=== PATIENT | male | born 1945 | race Caucasian/White ===

== ENCOUNTER 2016-07-31 17:58 | Inpatient (IN) ==
[2016-07-31] MEDS ORDERED: Ipratropium/Albuterol Neb 3 ML IH ONE ×2 (18:06→20:09)
[2016-07-31] MEDS ORDERED: methylPREDNISolone 125 MG/2 ML VIAL IVP ONE (18:08)
--- NOTE | 2016-07-31 18:19 | Emergency Department Note ---
START Narrative - START START: I examined this patient and my medical decision-making was reviewed with the TRANSPORTATION TECHNICIAN/PA/Advanced Practice Nurse/Resident Physician. I agree with the documented findings, disposition and treatment plan as described except to the extent set forth below. ED attending note: Patient seen with emergency medicine resident Dr. Pereyra. Please see a copy of his note for details of the H&P, evaluation, management and disposition of this patient. We independently had [id number] contact with the patient Briefly: A 70-year-old male ambulatory with the son history of smoking and COPD increasing shortness of breath and fatigue for the past several days. Cough with occasional green sputum questionable chills and tactile fevers. Bilateral rhonchi with expiratory wheezes. Patient given a double DuoNeb IV steroids EKG shows nonspecific ST-T changes. No acute ischemic changes noted when compared to prior EKG. Troponin chest x-ray nebulizing treatments and IV steroids among other workup is pending. Disposition pending. Provided 35 minutes of critical care services for this patient.
--- NOTE | 2016-07-31 18:35 | Emergency Department Note ---
Disposition Clinical Impression: Wheezing COPD (chronic obstructive pulmonary disease) Qualifiers: COPD type: unspecified COPD Qualified Code(s): J44.9 - Chronic obstructive pulmonary disease, unspecified Disposition: Still a Patient Condition: Fair Time of Disposition: 18:42 SOB HPI - General Stated Complaint: SY, low O2 sats, chest congestion Time Seen by Provider: 07/31/16 18:03 Source: patient, family Limitations: no limitations Nursing Notes Reviewed: Yes Vital Signs Reviewed: Yes - History of Present Illness Patient presents emergency room in the care of the son for evaluation of shortness of breath. Patient has underlying pulmonary disease secondary to chronic smoking. Son was concerned because he is working harder to breathe and felt like he could not get his breath. Vitamin D the ER for evaluation today. Denied productive sputum or cough. Denies fevers chills nausea vomiting or diarrhea. Denied chest pain. A component in presentation today was shortness of breath that has been persistently getting worse secondary to his known COPD and emphysema Pt Subjective Complaint: shortness of breath Onset (ago): day(s) Severity: moderate Consistency/Duration: constant Improves with: nothing Worsens with: lying flat, exertion, movement, coughing Known history of: COPD Associated symptoms: Reports: cough, wheezing, sputum production, orthopnea Treatment prior to arrival: bronchodilator Cough present: Yes Cough Description: Voluntary Cough Frequency: Intermittent Sputum production: Yes Sputum Amount: Small Sputum Color: Clear - Related Data Home oxygen amount: none Home Medications Medication Instructions Recorded Confirmed Bisacodyl [Correctol] 5 mg PO DAILY PRN 11/16/14 09/08/15 Calcium Carbonate [Calcium] 500 mg PO DAILY 11/16/14 09/08/15 Carvedilol [Coreg] 25 mg PO BID 11/16/14 09/08/15 Finasteride [Proscar] 5 mg PO DAILY 11/16/14 09/08/15 Furosemide [Lasix] 20 mg PO BID 11/16/14 09/08/15 Simvastatin [Zocor] 20 mg PO DAILY 11/16/14 09/08/15 Aspirin [Adult Low Dose Aspirin EC] 81 mg PO DAILY 05/15/15 09/08/15 Omeprazole Magnesium [Prilosec Otc] 40 mg PO DAILY 05/15/15 09/08/15 Spironolactone [Aldactone] 25 mg PO BID 05/15/15 09/08/15 Acetaminophen [Tylenol] 500 mg PO TID PRN 08/15/15 09/25/15 Collagenase Oint [Santyl] 30 gm TP DAILY 08/15/15 09/25/15 Docusate [Colace] 100 mg PO BID 08/15/15 09/25/15 Escitalopram [Lexapro] 10 mg PO DAILY 08/15/15 09/25/15 Gabapentin [Neurontin] 600 mg PO TID 08/15/15 09/25/15 Magnesium Oxide [Magnesium] 400 mg PO BID 08/15/15 09/25/15 Mirtazapine [Remeron] 7.5 mg PO HS 08/15/15 09/25/15 Polyvinyl Alcohol/Povidone/Pf 1 drop BOTH EYES QID 08/15/15 09/25/15 [Refresh Classic Eye Drops] Terazosin [Hytrin] 1 mg PO HS 08/15/15 09/25/15 Previous Rx's Medication Instructions Recorded Clopidogrel [Plavix] 75 mg PO DAILY #30 tablet 08/17/15 Allergies Allergy/AdvReac Type Severity Reaction Status Date / Time baclofen AdvReac Drowsy Verified 11/16/14 07:46 All systems ED: reviewed and negative except as stated. Constitutional: Denies: fever, chills Cardiovascular: Reports: dyspnea on exertion, orthopnea. Denies: chest pain, palpitations Respiratory: Reports: cough, dyspnea, wheezes Gastrointestinal: Denies: nausea Musculoskeletal: Denies: back pain, neck pain Neurological: Denies: headache Past Medical History - Past Medical History Attestation: Yes The following information was validated with the patient. Source: patient Medical history: Reports: atrial fibrillation, COPD, coronary artery disease, hyperlipidemia, hypertension, myocardial infarction, peripheral artery disease, renal disease Surgical history: Reports: angioplasty/stent, appendectomy, LE Bypass, LE vascular intervention, other Psychiatric history: Reports: anxiety, depression - Social History Smoking Status: Current every day smoker Smokeless Tobacco Status: No Alcohol use: Reports: none Drug use: Reports: none Physical Exam - General Limitations: no limitations General appearance: alert - Neck Neck exam: Present: normal inspection, full ROM, trachea midline. Absent: tenderness, meningismus, lymphadenopathy - Chest Chest inspection: Present: normal inspection, symmetric chest wall rise. Absent : tenderness - Respiratory Respiratory exam: Present: respiratory distress, wheezes, accessory muscle use. Absent: stridor - Cardiovascular Cardiovascular exam: Present: regular rate, normal rhythm, normal heart sounds - Abdominal Exam Abdominal exam: Present: soft, Non-Tender, normal bowel sounds (Midline ventral hernia with no bowel entrapment on exam), hernia. Absent: tenderness, distention, guarding, rebound, rigidity, pulsatile mass - Extremities Exam Extremities exam: Present: normal inspection, full ROM, normal capillary refill - Back Exam Back exam: Present: normal inspection - Neurological Exam Neurological exam: Present: alert, oriented X3, CN II-XII intact - Skin Skin exam: Present: warm, dry, intact, normal color Course Course Narrative: Patient seen and examined the time of arrival. See history of present illness. 70-year-old male presents from home today for evaluation of increased work of breathing and shortness of breath. He has had intermittent productive clear sputum over the last several days. He has a long-standing history of COPD and emphysema. He has not been on steroids or antibiotics anytime recently. Patient presents here today with increased work of breathing accessory muscle use diffuse wheezing on exam. Vital signs reviewed and are stable he is visibly working harder to breathe. He has hypoxia that was noted in the triage evaluation. Patient otherwise resting comfortably in the bed at this time conversationally dyspneic with 2 L nasal cannula oxygen running. Physical examination shows diffuse wheezing bilaterally in the lungs heart is regular abdomen is soft nontender nondistended no guarding or rigidity does have a midline ventral hernia no signs of entrapment. No pulsatile mass noted on exam. Extremities appear to be normal with no signs of acute fluid buildup. No pain with ambulation or movement. Patient this point is concerning for CHF/ COPD exacerbation. Chronic underlying medical issues noted on initial triage evaluation. Patient will have been in treatment steroids provided at this time. We will continue to monitor his workup and treatment course are reviewed. EKG troponin chest x-ray BNP at this time. Breathing treatments and steroids also ordered. Disposition pending treatment course. Initial EKG shows what appears to be a sinus arrhythmia. Atrial fibrillation was read on the EKG but based on medical history EKG morphology in presentation or shortness of breath this could be secondary to his respirations. Repeat evaluation of recommended to the nighttime physicians as treatment course is completed. Patient will be signed out to the nighttime physicians Drs. rich and dr. vickers. Patient will most likely need admission for definitive management and evaluation of COPD exacerbation. Underlying medical conditions to be determined. Patient is comfortable resting in the bed at this time disposition pending treatment course Vital Signs Temperature 98.6 F 07/31/16 18:08 Pulse Rate 87 07/31/16 18:08 Respiratory Rate 22 07/31/16 18:08 Blood Pressure 184/84 07/31/16 18:08 O2 Sat by Pulse Oximetry 88 07/31/16 18:08 Temperature 98.6 F 07/31/16 18:08 Pulse Rate 87 07/31/16 18:08 Respiratory Rate 18 07/31/16 18:12 Blood Pressure 184/84 07/31/16 18:08 O2 Sat by Pulse Oximetry 91 07/31/16 18:12 Oxygen Delivery Oxygen Delivery Nasal Cannula Shortness of Breath/Dyspnea - MDM Narrative Medical decision making narrative: Increased work of breathing, shortness of breath, wheezing, COPD exacerbation - Medical Records Medical records reviewed: Yes I reviewed the patient's medical records. - Lab Data Lab results reviewed: Yes I reviewed the patient's lab results. - EKG Data EKG attestation: Yes I reviewed and interpreted this EKG. Interpretation: Reports: other (Patient has normal morphology in comparison to previous EKG. Left axis deviation noted. No acute signs of left ventricular hypertrophy. Patient has what appears to be sinus arrhythmia based on morphology at this time. Repeat EKG to be completed once bleeding controlled) Critical Care Time Critical Care Time: Yes Total Critical Care Time: 35 Attestation: Independent of medical management and treatment course
[2016-07-31 18:46] LABS: Basophils % 0.4 %; Eosinophils # 0.5 K/mcL (0.0-0.6); Eosinophils % 4.5 %; Hematocrit 42.6 % (37.5-50.1); Hemoglobin 13.8 g/dL (12.9-16.9); Immature Granulocytes % 0.4 % (0-4); Lymphocytes # 1.6 K/mcL (0.6-4.6); Lymphocytes % 15.5 %; Mean Corpuscular HGB Conc 32.4 g/dL (31.6-35.5); Mean Corpuscular Hemoglobin 29.1 pg (28.0-33.3); Mean Corpuscular Volume 89.9 fL (83.0-100.0); Mean Platelet Volume 9.5 fL (9.4-12.4); Monocytes # 1.1 K/mcL (0.0-1.3); Monocytes % 10.8 %; Neutrophils # 7.2 K/mcL (1.6-8.9); Platelet Count 216 K/mcL (140-400); Red Blood Count 4.74 M/mcL (4.19-5.50); Red Cell Distribution Width 12.8 % (11.5-14.5); Segmented Neutrophils % 68.4 %
[2016-07-31 18:58] LABS: Potassium 4.4 mEq/L (3.5-4.5)
--- NOTE | 2016-07-31 19:08 | Emergency Department Note ---
Disposition Clinical Impression: Wheezing, GEOFFREY (acute kidney injury), Hypoxia COPD (chronic obstructive pulmonary disease) Qualifiers: COPD type: unspecified COPD Qualified Code(s): J44.9 - Chronic obstructive pulmonary disease, unspecified Disposition: Admitted As Inpatient Condition: Fair Referrals: NO,PCP [Non-Partnered Physician] - Forms: ED Satisfaction Letter Time of Disposition: 19:31 SOB HPI - General Chief Complaint: ED Shortness of Breath/Dyspnea Stated Complaint: SY, low O2 sats, chest congestion Time Seen by Provider: 07/31/16 18:03 Source: patient, family Limitations: no limitations Nursing Notes Reviewed: Yes Vital Signs Reviewed: Yes - History of Present Illness Severity: moderate Improves with: nothing Worsens with: lying flat, exertion, movement, coughing Associated symptoms: Reports: cough, wheezing, sputum production, orthopnea Treatment prior to arrival: bronchodilator - Related Data Home oxygen amount: none Home Medications Medication Instructions Recorded Confirmed Bisacodyl [Correctol] 5 mg PO DAILY PRN 11/16/14 09/08/15 Calcium Carbonate [Calcium] 500 mg PO DAILY 11/16/14 09/08/15 Carvedilol [Coreg] 25 mg PO BID 11/16/14 09/08/15 Finasteride [Proscar] 5 mg PO DAILY 11/16/14 09/08/15 Furosemide [Lasix] 20 mg PO BID 11/16/14 09/08/15 Simvastatin [Zocor] 20 mg PO DAILY 11/16/14 09/08/15 Aspirin [Adult Low Dose Aspirin EC] 81 mg PO DAILY 05/15/15 09/08/15 Omeprazole Magnesium [Prilosec Otc] 40 mg PO DAILY 05/15/15 09/08/15 Spironolactone [Aldactone] 25 mg PO BID 05/15/15 09/08/15 Acetaminophen [Tylenol] 500 mg PO TID PRN 08/15/15 09/25/15 Collagenase Oint [Santyl] 30 gm TP DAILY 08/15/15 09/25/15 Docusate [Colace] 100 mg PO BID 08/15/15 09/25/15 Escitalopram [Lexapro] 10 mg PO DAILY 08/15/15 09/25/15 Gabapentin [Neurontin] 600 mg PO TID 08/15/15 09/25/15 Magnesium Oxide [Magnesium] 400 mg PO BID 08/15/15 09/25/15 Mirtazapine [Remeron] 7.5 mg PO HS 08/15/15 09/25/15 Polyvinyl Alcohol/Povidone/Pf 1 drop BOTH EYES QID 08/15/15 09/25/15 [Refresh Classic Eye Drops] Terazosin [Hytrin] 1 mg PO HS 08/15/15 09/25/15 Previous Rx's Medication Instructions Recorded Clopidogrel [Plavix] 75 mg PO DAILY #30 tablet 08/17/15 Allergies Allergy/AdvReac Type Severity Reaction Status Date / Time baclofen AdvReac Drowsy Verified 11/16/14 07:46 Constitutional: Denies: fever, chills Cardiovascular: Reports: dyspnea on exertion, orthopnea. Denies: chest pain, palpitations Respiratory: Reports: cough, dyspnea, wheezes Gastrointestinal: Denies: nausea Musculoskeletal: Denies: back pain, neck pain Neurological: Denies: headache Past Medical History - Past Medical History Medical history: Reports: atrial fibrillation, COPD, coronary artery disease, hyperlipidemia, hypertension, myocardial infarction, peripheral artery disease, renal disease Surgical history: Reports: angioplasty/stent, appendectomy, LE Bypass, LE vascular intervention, other Psychiatric history: Reports: anxiety, depression - Social History Smoking Status: Current every day smoker Smokeless Tobacco Status: No Alcohol use: Reports: none Drug use: Reports: none Physical Exam - General Limitations: no limitations General appearance: alert - Head Head exam: atraumatic, normocephalic, normal inspection - Eye Eye exam: Present: normal appearance, PERRL, EOMI - ENT ENT exam: normal exam, normal oropharynx, mucous membranes moist - Neck Neck exam: Present: normal inspection, full ROM, trachea midline - Chest Chest inspection: Present: normal inspection, symmetric chest wall rise - Respiratory Respiratory exam: Present: wheezes (wheezes throughout) - Cardiovascular Cardiovascular exam: Present: regular rate, normal rhythm, normal heart sounds - Abdominal Exam Abdominal exam: Present: soft, Non-Tender. Absent: tenderness, distention, guarding, rebound, rigidity - Extremities Exam Extremities exam: Present: normal inspection, full ROM. Absent: tenderness, pedal edema - Back Exam Back exam: Present: normal inspection, full ROM. Absent: tenderness - Neurological Exam Neurological exam: Present: alert, oriented X3. Absent: motor sensory deficit - Psychiatric Psychiatric exam: Present: normal affect, normal mood - Skin Skin exam: Present: warm, dry, intact, normal color Course Course Narrative: Patient was a signout from the day team, Dr. Pereyra and Dr. Magallanes. Please see their notes for any additional details. In summary, patient is a 70-year- old male with past medical history of COPD. He states that he has had difficulty with breathing for several years but has not taken any medication for this. He came in today due to shortness of breath. He has no productive cough, denies any fevers, nausea, vomiting, diarrhea, chest pain. He does not wear any oxygen home. When he came in today, he was hypoxic. On exam, patient had wheeze throughout. He was satting 96% on 2 L nasal cannula. EKG shows sinus arrhythmia. Rate 88. No acute ST elevation or depression. Labs underway. PAtient has GEOFFREY. Patient was given DuoNeb and steroids. We will admit after workup completed. Currently waiting on troponin and chest x-ray. 07:21 and troponin 0.05. Patient given aspirin 325 mg. No chest pain at this time. Currently waiting on chest x-ray. 07:22 CXR shows some pulm venous congestion. Will start on levaquin for possible COPD exacerbation. Vital Signs Temperature 98.6 F 07/31/16 18:08 Pulse Rate 87 07/31/16 18:08 Respiratory Rate 22 07/31/16 18:08 Blood Pressure 184/84 07/31/16 18:08 O2 Sat by Pulse Oximetry 88 07/31/16 18:08 Temperature 98.6 F 07/31/16 18:08 Pulse Rate 81 07/31/16 19:42 Respiratory Rate 20 07/31/16 19:42 Blood Pressure 153/76 07/31/16 19:42 O2 Sat by Pulse Oximetry 90 07/31/16 19:42 Oxygen Delivery Oxygen Delivery Nasal Cannula Shortness of Breath/Dyspnea - MDM Narrative Medical decision making narrative: Patient was a signout from the day team, Dr. Pereyra and Dr. Magallanes. Please see their notes for any additional details. In summary, patient is a 70-year- old male with past medical history of COPD. He states that he has had difficulty with breathing for several years but has not taken any medication for this. He came in today due to shortness of breath. He has no productive cough, denies any fevers, nausea, vomiting, diarrhea, chest pain. He does not wear any oxygen home. When he came in today, he was hypoxic. On exam, patient had wheeze throughout. He was satting 96% on 2 L nasal cannula. EKG shows sinus arrhythmia. Rate 88. No acute ST elevation or depression. Labs underway. PAtient has GEOFFREY. Patient was given DuoNeb and steroids. We will admit after workup completed. Currently waiting on troponin and chest x-ray. 07:21 and troponin 0.05. Patient given aspirin 325 mg. No chest pain at this time. Currently waiting on chest x-ray. 07:22 CXR shows some pulm venous congestion. Will start on levaquin for possible COPD exacerbation. - Medical Records Medical records reviewed: Yes I reviewed the patient's medical records. - Lab Data Lab results reviewed: Yes I reviewed the patient's lab results. Result diagrams: 07/31/16 18:34 07/31/16 18:34 Lab Results 07/31/16 07/31/16 07/31/16 Range/Units 18:34 18:34 18:34 WBC 10.5 (4.3-11.1) K/mcL RBC 4.74 (4.19-5.50) M/mcL Hgb 13.8 (12.9-16.9) g/dL Hct 42.6 (37.5-50.1) % MCV 89.9 (83.0-100.0) fL MCH 29.1 (28.0-33.3) pg MCHC 32.4 (31.6-35.5) g/dL RDW 12.8 (11.5-14.5) % Plt Count 216 (140-400) K/mcL MPV 9.5 (9.4-12.4) fL Immature Gran % 0.4 (0-4) % Seg Neutrophils % 68.4 % Lymphocytes % 15.5 % Monocytes % 10.8 % Eosinophils % 4.5 % Basophils % 0.4 % Neutrophils # 7.2 (1.6-8.9) K/mcL Lymphocytes # 1.6 (0.6-4.6) K/mcL Monocytes # 1.1 (0.0-1.3) K/mcL Eosinophils # 0.5 (0.0-0.6) K/mcL Basophils # 0.0 (0.0-0.2) K/mcL Sodium 136 (136-145) mEq/L Potassium 4.4 (3.5-4.5) mEq/L Chloride 98 (98-109) mEq/L Carbon Dioxide 29 (19-29) mEq/L BUN 34 H (8-26) mg/dL Creatinine 2.74 H (0.72-1.25) mg/dL Est GFR ( Amer) 28 L (> 60) Est GFR (Non-Af Amer) 23 L (> 60) BUN/Creatinine Ratio 12 (6-26) Glucose 109 H (70-99) mg/dL Calculated Osmolality 290 (280-300) Calcium 9.0 (8.6-10.8) mg/dL Troponin I 0.05 H* (0-0.03) ng/mL B-Natriuretic Peptide (0-100) pg/mL 07/31/16 Range/Units 18:34 WBC (4.3-11.1) K/mcL RBC (4.19-5.50) M/mcL Hgb (12.9-16.9) g/dL Hct (37.5-50.1) % MCV (83.0-100.0) fL MCH (28.0-33.3) pg MCHC (31.6-35.5) g/dL RDW (11.5-14.5) % Plt Count (140-400) K/mcL MPV (9.4-12.4) fL Immature Gran % (0-4) % Seg Neutrophils % % Lymphocytes % % Monocytes % % Eosinophils % % Basophils % % Neutrophils # (1.6-8.9) K/mcL Lymphocytes # (0.6-4.6) K/mcL Monocytes # (0.0-1.3) K/mcL Eosinophils # (0.0-0.6) K/mcL Basophils # (0.0-0.2) K/mcL Sodium (136-145) mEq/L Potassium (3.5-4.5) mEq/L Chloride (98-109) mEq/L Carbon Dioxide (19-29) mEq/L BUN (8-26) mg/dL Creatinine (0.72-1.25) mg/dL Est GFR ( Amer) (> 60) Est GFR (Non-Af Amer) (> 60) BUN/Creatinine Ratio (6-26) Glucose (70-99) mg/dL Calculated Osmolality (280-300) Calcium (8.6-10.8) mg/dL Troponin I (0-0.03) ng/mL B-Natriuretic Peptide 550 H (0-100) pg/mL - Radiology Data Radiology results reviewed: Yes I reviewed the patient's radiology results. - EKG Data EKG attestation: Yes I reviewed and interpreted this EKG. EKG results narrative: 07/31/2016 18:08. Sinus arrhythmia. Rate 88. QRS 122. QTC 419. No acute ST elevation or depression. [email or web address] - Lexy Situation: Demographics, MOA Background: Presenting Complaint, Relevant PMH, Meds, & Allergies Assessment: Vital Signs, Course and respsone to treatment, Exam Concerns, Patient/Family Expectation, Pertinant Lab Results, Outstanding Labs Recommendation: Barrier(s) to disposition, Recommendation based on pending studies, treatments, or consults [facility] Report Given to: Dr. Sendy Pugh Repor Time: 19:22 Attestation Statement - Attestation Attestation: I examined this patient and my medical decision-making was reviewed with the CLINICAL RESEARCH SPECIALIST/PA/Advanced Practice Nurse/Resident Physician. I agree with the documented findings, disposition and treatment plan as described except to the extent set forth below. Patient signed out pending workup and admission. Patient has had symptoms of cough and shortness of breath since yesterday. History of COPD that is untreated. Coughing up yellow phlegm. Afebrile. Diffuse wheezing on exam. Satting 92% on 2 L. Patient does not have home oxygen. Patient will be admitted. Patient also has a worsening of his chronic renal insufficiency. 30 minutes of critical care exclusive of separately billable procedures.
[2016-07-31] MEDS ORDERED: Aspirin 325 MG TABLET PO ONE (19:11)
[2016-07-31] MEDS ORDERED: Naloxone 0.4 MG/ML INJ IVP PRN (20:12)
[2016-07-31] MEDS ORDERED: Albuterol 2.5 MG/3 ML NEBULIZER IH PRN (20:25)
[2016-07-31] MEDS ORDERED: *HR* OxyCODONE/APAP 5/325 TABLET PO ONE (20:26)
[2016-07-31] MEDS ORDERED: Furosemide 20 MG/2 ML VIAL IVP ONE (20:32)
[2016-07-31] MEDS: Ipratropium/Albuterol Neb 3 ML IH SCH ×2 (20:38→22:24)
--- NOTE | 2016-07-31 20:39 | Internal Med History&Physical ---
<Blanca Landry M - Last Filed: 07/31/16 22:00> Date of Encounter: 07/31/16 Time of Encounter: 20:34 Assessment and Plan (1) Acute respiratory failure with hypoxia Current visit: No Status: Acute Patient satting in the 80s on room air. Up to 96% on 2L NC. Patient is drowsy but arousable. Will get ABG anc consider bipap based on results. (2) Congestive heart failure Current visit: Yes Status: Acute acute diastolic congestive heart failure. Patient with shortness of breath, and CXR consistent with mild acute CHF, diffuse wheezing on exam. BNP elevated to 550. Lasix 40mg IVP BID daily weights I/Os cardiac diet with 1.5L fluid restriction. Qualifiers: Congestive heart failure type: unspecified congestive heart failure type Congestive heart failure chronicity: chronic Qualified Code(s): I50.9 - Heart failure, unspecified (3) COPD exacerbation Current visit: Yes Status: Acute Patient with COPD, does not wear oxygen at home, reports he uses a "puffer" occasionally. He comes in today with increased shortness of breath and productive cough. Satting in the 80s on room air. CXR consistent with mild CHF. On exam, patient with prolonged expiratory phase, and diffuse wheezes. duonebs QID albuterol nebulizer Q2 hr PRN Budesonide/formoterol BID 125mg IVP solumedrol given in ED. 40mg IVP solumedrol Q6hr titrate oxygen to maintain O2 sat > 90% Rocephin IVPB (4) Acute on chronic renal insufficiency Current visit: No Status: Acute Today's creatinine 2.7, up from previous of 1.7. However, previous values seem to range from (5) Elevated troponin Current visit: No Status: Acute Troponin of 0.05 in the setting of CKD. Troponin is chronically elevated. Patient denies any chest pain. Serial troponins for trend. (6) Smoker Current visit: Yes Status: Acute Patient continues to smoke 1PPD. Discussed smoking cessation, patient not ready to quit Nicotine patch ordered. (7) DVT prophylaxis Current visit: Yes Status: Acute Ambulate with assistance anti-embolic stockings Heparin 5000u SQ TID Internal Medicine - H&P: HPI Chief complaint: shortness of breath Admitted From: Emergency Dept Plans for Post Hospital Care: Home History of present illness: Mr. Jackson is a 70 year old male with afib, COPD, CAD, HTN, HLD, PVD, CKD who presented to the ED today with complaints of increased shortness of breath and productive cough over the last several days. Patient reports he's felt short of breath for 3 days and had a cough productive of yellow sputum, and it has been getting worse. He denies any palpitations, chest pain, headache, fever, chills, sweats, nausea or vomiting. Evaluation in the ED included a chest xray which showed mild acute congestive heart failure. WBC was normal at 10.5. Troponin was elevated to 0.05, but it is chronically elevated. BNP was elevated to 550, up from previous value of 461. EKG showed sinus arrhythmia. Creatinine was elevated to 2.74, up from previous value of 1.71, however, patient's creatinine varies and has been higher in the past. On exam, patient is drowsy, but arousable, oriented, and in no acute distress. Lungs have diffuse wheezes bilaterally and he has a prolonged expiratory phase. Heart has regular rate and rhythm. He was satting 96% on 2L NC. Past Med Surg Social Fam HX - Past Medical History Medical history: atrial fibrillation, COPD, coronary artery disease, hyperlipidemia, hypertension, myocardial infarction, peripheral artery disease, renal disease Psychiatric history: anxiety, depression - Past Surgical History Surgical History: angioplasty/stent, appendectomy, LE Bypass, LE vascular intervention, other - Social History Smoking Status: Current every day smoker Smokeless Tobacco Status: No Alcohol use: none Drug use: none - Family History Mother Adopted: No Living Status: Hx Family Cardiac Disorders: No Hx Family Respiratory Disorders: No Hx Family Cancer: No Hx Family GI Disorders: No Hx Family Endocrine Disorder: No Hx Family Neuromuscular Disorders: No Hx Family Neurologic Disorders: No Hx Family HEENT Disorders: No Hx Family Autoimmune Disorders: No Internal Medicine - H&P: Meds Carvedilol [Coreg] 25 mg PO BID 11/16/14 [History] Finasteride [Proscar] 5 mg PO DAILY 11/16/14 [History] Spironolactone [Aldactone] 25 mg PO DAILY 05/15/15 [History] Collagenase Oint [Santyl] 1 appl TP AD 08/15/15 [History] Docusate [Colace] 100 mg PO BID 08/15/15 [History] Gabapentin [Neurontin] 600 mg PO TID 08/15/15 [History] Magnesium Oxide [Magnesium] 400 mg PO BID 08/15/15 [History] Terazosin [Hytrin] 1 mg PO HS 08/15/15 [History] Clopidogrel [Plavix] 75 mg PO DAILY #30 tablet 08/17/15 [Rx] Acetaminophen [Tylenol] 650 mg PO TID 07/31/16 [History] Allopurinol [Zyloprim 100 MG] 50 mg PO DAILY 07/31/16 [History] Aspirin Enteric Coated [Aspirin EC] 325 mg PO DAILY 07/31/16 [History] Calcium Carbonate/Vitamin D3 [Calcium 500-Vit D3 200 Tablet] 1 each PO DAILY [History] Capsaicin 0.025% [Trixaicin] 1 appl TP TID PRN 07/31/16 [History] Escitalopram [Lexapro] 20 mg PO DAILY 07/31/16 [History] Furosemide [Lasix] 20 mg PO BID 07/31/16 [History] Hydroxyzine HCl 25 mg PO BID 07/31/16 [History] Lidocaine 4% CRM (LMX) [Lmx 4] 1 appl TP BID 07/31/16 [History] Mirtazapine [Remeron] 30 mg PO HS 07/31/16 [History] Mupirocin [Bactroban Oint] 1 appl TP TID 07/31/16 [History] Omeprazole [PriLOSEC] 40 mg PO DAILY 07/31/16 [History] Simvastatin [Zocor] 20 mg PO HS 07/31/16 [History] Allergies Amoxicillin [From Augmentin] Adverse Reaction (Verified 07/31/16 21:45) See Comments [facility] atorvastatin [From Lipitor] Adverse Reaction (Verified 07/31/16 21:45) See Comments [facility] baclofen Adverse Reaction (Verified 11/16/14 07:46) Drowsy clavulanic acid [From Augmentin] Adverse Reaction (Verified 07/31/16 21:45) See Comments [facility] fluorouracil [From Efudex] Adverse Reaction (Verified 07/31/16 21:45) See Comments [facility] hydroxyzine [From Vistaril] Adverse Reaction (Verified 07/31/16 21:45) See Comments [facility] sulfamethoxazole [From Bactrim] Adverse Reaction (Verified 07/31/16 21:45) See Comments [facility] trimethoprim [From Bactrim] Adverse Reaction (Verified 07/31/16 21:45) See Comments [facility] list All Systems PM: A 10-system review of systems was performed and is negative for pertinent findings except as documented above in the HPI. - Constitutional Constitutional: no chills, no fever(s), no night sweats - EENT Eyes: no change in vision, no discharge, no pain, no photophobia Ears: no ear discharge, no ear pain, no tinnitus Nose, mouth and throat: no dysphagia, no nasal discharge, no neck pain, no sore throat - Cardiovascular Cardiovascular ROS IM: dyspnea, dyspnea on exertion, no chest pain, no diaphoresis, no lightheadedness, no palpitations, no syncope - Respiratory Respiratory: cough, dyspnea, dyspnea on exertion, wheezing, excessive phlegm production - Gastrointestinal Gastrointestinal: no abdominal pain, no diarrhea, no hematemesis, no hematochezia, no melena, no nausea, no vomiting - Musculoskeletal Musculoskeletal ROS IM: no numbness, no tingling - Integumentary Integumentary IM: no rash, no unusual bruising - Neurological Neurological ROS: no confusion, no convulsions, no focal weakness, no numbness, no tingling, no tremor(s) - Hematologic/Lymphatic Hematologic/Lymphatic: no easy bruising - Constitutional Vitals: Temp Pulse Resp BP Pulse Ox 98.6 F 81 18 153/76 94 07/31/16 18:08 07/31/16 19:42 07/31/16 20:30 07/31/16 19:42 07/31/16 20:30 General appearance: Present: A&O X 3, pleasant, no acute distress - Head Head exam: Present: atraumatic, normocephalic - Eye Eye exam: Present: PERRL, conjuntiva pink, sclera anicteric - Neck Neck exam general surgery: Present: supple, trachea midline. Absent: lymphadenopathy - Respiratory Respiratory exam: Present: accessory muscle use, prolonged expiratory phase, wheezes. Absent: rales, rhonchi - Cardiovascular Cardiovascular exam: Present: RRR, +S1, +S2. Absent: diastolic murmur, gallop, rubs, systolic murmur - GI/Abdominal GI/Abdominal exam: Present: normal bowel sounds, soft, no peritoneal signs. Absent: distended, tenderness Internal Med - H&P Results - Labs CBC & Chem 7: 07/31/16 18:34 07/31/16 18:34 Labs: Short CBC 07/31/16 Range/Units 18:34 WBC 10.5 (4.3-11.1) K/mcL Hgb 13.8 (12.9-16.9) g/dL Hct 42.6 (37.5-50.1) % Plt Count 216 (140-400) K/mcL Neutrophils # 7.2 (1.6-8.9) K/mcL BMP 07/31/16 18:34 Sodium 136 Potassium 4.4 Chloride 98 Carbon Dioxide 29 BUN 34 H Creatinine 2.74 H Glucose 109 H Calcium 9.0 Cardiac Enzymes 07/31/16 Range/Units 18:34 Troponin I 0.05 H* (0-0.03) ng/mL - Impressions ITS Impressions Chest X-Ray 07/31/16 19:13 IMPRESSION: Findings suggest mild acute congestive heart failure. D/ / Shlomo Madera MD / Shlomo Madera MD Interpreting Provider: Shlomo Madera MD - Diagnostic Studies Chest x-ray Additional comments: Chest X-Ray 07/31/16 19:13 IMPRESSION: Findings suggest mild acute congestive heart failure. D/ / Shlomo Madera MD / Shlomo Madera MD Interpreting Provider: Shlomo Madera MD <Harvey Mclean H - Last Filed: 08/01/16 00:12> Date of Encounter: 08/01/16 Internal Medicine - H&P: HPI History of present illness: Mr. Jackson is a 70 year old male All Systems PM: A 10-system review of systems was performed and is negative for pertinent findings except as documented above in the HPI. - Constitutional Vitals: Temp Pulse Resp BP Pulse Ox 97.9 F 75 16 163/88 94 07/31/16 22:04 07/31/16 22:04 07/31/16 22:29 07/31/16 22:04 07/31/16 22:29 Internal Med - H&P Results - Labs CBC & Chem 7: 07/31/16 18:34 07/31/16 18:34 - Impressions ITS Impressions Foot X-Ray 07/31/16 21:19 IMPRESSION: 1. Slightly worse diffuse bone demineralization. 2. No acute fracture or subluxation. 3. Diffuse soft tissue swelling with slightly larger ulcer at the ball of the foot, in area of the 1st MTP joint, which possibly extends to underlying bone. Otherwise no osseous evidence of osteomyelitis. D/ / 07/31/2016 22:05:58 Ronaldo Olmedo MD / [email or web address] Interpreting Provider: Ronaldo Olmedo MD - Attending Attestation 1. Acute hypoxic respiratory failure secondary to combination of acute COPD exacerbation possibly from acute bronchitis viral versus bacterial with possible acute diastolic CHF exacerbation/volume overload Continue Lasix IV, monitor creatinine Start Rocephin and Solu-Medrol, duo nebs, oxygen therapy, check ABG and consider BiPAP versus CPAP 2. Left foot/toes cellulitis With multiple chronic wounds seen on most of the left foot toes, consider podiatry consult Continue Rocephin, ordered cultures and x-ray for possible acute osteomyelitis 3. Acute on chronic renal failure Avoid nephrotoxic agents, avoid IV fluids for now due to volume overload and CHF 4. Chronically elevated troponins likely secondary to demand ischemia and chronic kidney disease stage III/4 Please review H&P written by FELICIA Landry I examined this patient and my medical decision-making was reviewed with the SPUDDER/PA/Advanced Practice Nurse/Resident Physician. I agree with the documented findings, disposition and treatment plan as described except to the extent set forth below.
[2016-07-31 20:42] LABS: Bilirubin,Urine Negative (Negative); Blood,Urine Moderate (Negative); Clarity,Urine Turbid (Clear); Color,Urine Yellow (Yellow); Glucose,Urine (UA) Normal (Normal); Ketones,Urine Negative (Negative); Leukocyte Esterase,Urine Large (Negative); Nitrite,Urine Negative (Negative); Protein,Urine 100 mg/dL (Neg-Trace); Specific Gravity,Urine 1.014 (1.010-1.025); Urobilinogen,Urine Normal (Normal)
[2016-07-31 20:44] LABS: Bacteria,Urine Many per hpf (None-Few); Hyaline Casts,Urine None Seen per lpf (None-Few); Squamous Epithelial Cell,Urine Many per lpf (None-Few); WBC,Urine TNTC per hpf (0-3)
--- NOTE | 2016-07-31 21:27 | Event Note ---
Date of Encounter: 07/31/16 Time of Encounter: 21:24 1. Acute hypoxic respiratory failure secondary to combination of acute COPD exacerbation possibly from acute bronchitis viral versus bacterial with possible acute diastolic CHF exacerbation/volume overload Continue Lasix IV, monitor creatinine Start Rocephin and Solu-Medrol, duo nebs, oxygen therapy, check ABG and consider BiPAP versus CPAP 2. Left foot/toes cellulitis Continue Rocephin, ordered cultures and x-ray for possible acute osteomyelitis 3. Acute on chronic renal failure Avoid nephrotoxic agents, avoid IV fluids for now due to volume overload and CHF 4. Chronically elevated troponins likely secondary to demand ischemia and chronic kidney disease stage III/4 Please review H&P written by FELICIA Landry
[2016-07-31] MEDS ORDERED: Levofloxacin 500 MG/100 ML 500 MG/100 ML BAG IVPB SCH (22:00)
[2016-07-31] MEDS: Budesonide/Formoterol 160/4.5 MDI IH SCH (22:24)
[2016-07-31] MEDS: Nicotine 21 MG PATCH.TD24 TD SCH (22:53)
[2016-08-01] MEDS: Furosemide 40 MG/4 ML VIAL IVP SCH ×3 (00:49→15:55)
[2016-08-01] MEDS: MethylPREDNISolone 40 MG/ML VIAL IVP SCH ×4 (01:30→17:50)
[2016-08-01] MEDS: *HR* Heparin 5,000 UNIT/ML VIAL SQ SCH ×3 (01:30→15:55)
[2016-08-01 02:01] LABS: Calcium 8.9 mg/dL (8.6-10.8); Potassium 4.5 mEq/L (3.5-4.5)
[2016-08-01] MEDS: Ipratropium/Albuterol Neb 3 ML IH SCH ×4 (05:03→22:14)
[2016-08-01 05:08] LABS: ABG Base Excess 4.7 mEq/L (-2.0 to 3.0); ABG Oxygen Saturation 95 % (95-98); ABG PCO2 58 mmHg (35-45); ABG PH 7.35 pH Units (7.32-7.45); ABG PO2 78 mmHg (85-104); ABG TCO2 33.8 mEq/L (20-26); Blood Gas FiO2 32 %
[2016-08-01] MEDS ORDERED: Furosemide 20 MG/2 ML VIAL IVP SCH (08:00)
[2016-08-01 09:01] LABS: Basophils % 0.3 %; Eosinophils % 0.1 %; Hematocrit 41.2 % (37.5-50.1); Hemoglobin 13.4 g/dL (12.9-16.9); Immature Granulocytes % 0.3 % (0-4); Lymphocytes # 0.6 K/mcL (0.6-4.6); Mean Corpuscular HGB Conc 32.5 g/dL (31.6-35.5); Mean Corpuscular Hemoglobin 30.1 pg (28.0-33.3); Mean Corpuscular Volume 92.6 fL (83.0-100.0); Mean Platelet Volume 10.3 fL (9.4-12.4); Monocytes # 0.1 K/mcL (0.0-1.3); Monocytes % 0.9 %; Neutrophils # 6.8 K/mcL (1.6-8.9); Platelet Count 198 K/mcL (140-400); Red Blood Count 4.45 M/mcL (4.19-5.50); Red Cell Distribution Width 12.9 % (11.5-14.5); Segmented Neutrophils % 90.4 %
[2016-08-01] MEDS: Nicotine 21 MG PATCH.TD24 TD SCH (09:11)
[2016-08-01] MEDS: Budesonide/Formoterol 160/4.5 MDI IH SCH ×2 (10:18→22:14)
--- NOTE | 2016-08-01 11:36 | Internal Med Progress Note ---
Date of Encounter: 08/01/16 Time of Encounter: 11:36 - Assessment and plan (1) Acute respiratory failure with hypoxia Current Visit: Yes Status: Acute Assessment and plan: Secondary to COPDE and CHFE Continue O2 supplement Evaluate for home O2 need at time of d/c (2) COPD exacerbation Current Visit: Yes Status: Acute Assessment and plan: Continue duonebs, ceftriaxone and steroids Will start po prednisone a.m (3) Congestive heart failure Current Visit: Yes Status: Acute Assessment and plan: acute diastolic congestive heart failure. Patient with shortness of breath, and CXR consistent with mild acute CHF, diffuse wheezing on exam. BNP elevated to 550. Continue Lasix 40mg IVP BID daily weights I/Os cardiac diet with 1.5L fluid restriction. Qualifiers: Congestive heart failure type: unspecified congestive heart failure type Congestive heart failure chronicity: chronic Qualified Code(s): I50.9 - Heart failure, unspecified (4) PAD (peripheral artery disease) Current Visit: Yes Status: Chronic Assessment and plan: Chronic, continue home meds (5) Atrial fibrillation Current Visit: Yes Status: Chronic Assessment and plan: Rate is controlled Not on anticoagulation due to dementia and anemia Continue home meds Qualifiers: Atrial fibrillation type: persistent Qualified Code(s): I48.1 - Persistent atrial fibrillation (6) Hypertension Current Visit: Yes Status: Chronic Assessment and plan: Controlled, continue home meds Qualifiers: Hypertension type: essential hypertension Qualified Code(s): I10 - Essential (primary) hypertension (7) CAD (coronary artery disease) Current Visit: Yes Status: Chronic Assessment and plan: Continue home meds Qualifiers: Coronary Disease-Associated Artery/Lesion type: [place] artery [place] vs. transplanted heart: [place] heart Associated angina: angina presence unspecified Qualified Code(s): I25.10 - Atherosclerotic heart disease of [place] coronary artery without angina pectoris (8) CKD (chronic kidney disease), stage IV Current Visit: Yes Status: Chronic Assessment and plan: Cr is at baseline, his baseline ranged from 1.88-2.5 dating back to 08/2015 His cr on admission is 2.7, continue to monitor Avoid nephrotoxins (9) MARGOTH (obstructive sleep apnea) Current Visit: Yes Status: Chronic Assessment and plan: CPAP at night (10) Arterial insufficiency with ischemic ulcer Current Visit: Yes Status: Chronic (11) Stage III pressure ulcer of left heel Current Visit: Yes Status: Chronic Assessment and plan: Consult wound care patient states he is meant to be on hyperbaric O2 boots - Subjective Interval history: Initial encounter 70 M seen at bedside, sitting up, having lunch He is admitted and being managed for acute hypoxic respiratory failure secondary to COPE and CHD exacerbation He has a PMH of CKD III, afib, COPD, CAD, HTN, HLD, PVD with chronic painful arterial ulcers He reports his breathing has improved, however he is still O2 dependent He also complains of pain in both feet, his home medications have been reconciled and wound consult has been placed - Constitutional Vitals: Temp Pulse Resp BP Pulse Ox 97.4 F L 72 20 165/74 92 08/01/16 08:20 08/01/16 08:20 08/01/16 10:19 08/01/16 08:20 08/01/16 10:19 General appearance: Present: A&O X 3, pleasant, no acute distress - Head Head exam: Present: atraumatic, normocephalic - Eye Eye exam: Present: PERRL, conjuntiva pink, sclera anicteric Pupils: Present: PERRL - Neck Neck exam general surgery: Present: supple, trachea midline. Absent: lymphadenopathy - Respiratory Respiratory exam: Present: CTAB. Absent: accessory muscle use, rales, rhonchi, wheezes - Cardiovascular Cardiovascular exam: Present: irregular rhythm, +S1, +S2. Absent: diastolic murmur, gallop, rubs, systolic murmur - GI/Abdominal GI/Abdominal exam: Present: normal bowel sounds, soft, no peritoneal signs. Absent: distended, tenderness - Extremities Exam Extremities exam: Present: mottling (Both feet are mottled and dorsalis pedis pulses are diminished, patient has bilaterl punched out ulcers on both plantar surfaces, they do not look infected, but are painful. ). Absent: pedal edema - Neurological Exam Neurological exam: Present: alert, CN II-XII intact, oriented X3, no focal deficits. Absent: pronater drift, facial droop, speech deficit - Skin Skin exam: Present: dry Internal Medicine: Result - Labs CBC & Chem 7: 08/01/16 01:24 08/01/16 01:24 Labs: Short CBC 08/01/16 Range/Units 01:24 WBC 7.5 (4.3-11.1) K/mcL Hgb 13.4 (12.9-16.9) g/dL Hct 41.2 (37.5-50.1) % Plt Count 198 (140-400) K/mcL Neutrophils # 6.8 (1.6-8.9) K/mcL BMP 08/01/16 01:24 Sodium 137 Potassium 4.5 Chloride 99 Carbon Dioxide 28 BUN 33 H Creatinine 2.73 H Glucose 155 H Calcium 8.9 Cardiac Enzymes 08/01/16 08/01/16 Range/Units 01:24 06:31 Troponin I 0.04 H* 0.03 (0-0.03) ng/mL - ABG Interpretation ABG results: ABG ABG pH 7.35 pH Units (7.32-7.45) 08/01/16 04:59 ABG pCO2 58 mmHg (35-45) H 08/01/16 04:59 ABG pO2 78 mmHg (85-104) L 08/01/16 04:59 ABG O2 Saturation 95 % (95-98) 08/01/16 04:59 - Impressions Impressions Foot X-Ray 07/31/16 21:19 IMPRESSION: 1. Slightly worse diffuse bone demineralization. 2. No acute fracture or subluxation. 3. Diffuse soft tissue swelling with slightly larger ulcer at the ball of the foot, in area of the 1st MTP joint, which possibly extends to underlying bone. Otherwise no osseous evidence of osteomyelitis. D/ / 07/31/2016 22:05:58 Ronaldo Olmedo MD / shirley Interpreting Provider: Ronaldo Olmedo MD Consult Discharge Plan - Plan [facility]errals: [facility] [Primary Care Provider] -
[2016-08-01] MEDS: Finasteride 5 MG TABLET PO SCH (12:06)
[2016-08-01] MEDS: Spironolactone 25 MG TABLET PO SCH (12:06)
[2016-08-01] MEDS: Gabapentin 300 MG CAPSULE PO SCH ×2 (15:56→21:30)
[2016-08-01] MEDS: hydrOXYzine pamoate 25 MG CAPSULE PO SCH (21:29)
[2016-08-01] MEDS: Mirtazapine 15 MG TABLET PO SCH (21:30)
[2016-08-01] MEDS: Magnesium Oxide 400 MG TABLET PO SCH (21:30)
[2016-08-02] MEDS: *HR* Heparin 5,000 UNIT/ML VIAL SQ SCH ×3 (00:58→16:47)
[2016-08-02] MEDS: MethylPREDNISolone 40 MG/ML VIAL IVP SCH (00:59)
[2016-08-02] MEDS: Ipratropium/Albuterol Neb 3 ML IH SCH ×4 (04:50→21:19)
[2016-08-02 04:53] LABS: Hematocrit 42.4 % (37.5-50.1); Hemoglobin 14.1 g/dL (12.9-16.9); Immature Granulocytes % 0.7 % (0-4); Lymphocytes # 0.8 K/mcL (0.6-4.6); Lymphocytes % 6.7 %; Mean Corpuscular HGB Conc 33.3 g/dL (31.6-35.5); Mean Corpuscular Hemoglobin 29.7 pg (28.0-33.3); Mean Corpuscular Volume 89.5 fL (83.0-100.0); Mean Platelet Volume 10.2 fL (9.4-12.4); Monocytes # 0.3 K/mcL (0.0-1.3); Monocytes % 2.5 %; Platelet Count 231 K/mcL (140-400); Red Blood Count 4.74 M/mcL (4.19-5.50); Red Cell Distribution Width 12.8 % (11.5-14.5); Segmented Neutrophils % 90.1 %
[2016-08-02 05:05] LABS: Calcium 9.2 mg/dL (8.6-10.8); Potassium 3.8 mEq/L (3.5-4.5)
[2016-08-02] MEDS: Furosemide 40 MG/4 ML VIAL IVP SCH ×2 (09:28→16:47)
[2016-08-02] MEDS: Magnesium Oxide 400 MG TABLET PO SCH ×2 (09:28→20:13)
[2016-08-02] MEDS: Finasteride 5 MG TABLET PO SCH (09:28)
[2016-08-02] MEDS: hydrOXYzine pamoate 25 MG CAPSULE PO SCH ×2 (09:29→20:13)
[2016-08-02] MEDS: Gabapentin 300 MG CAPSULE PO SCH ×3 (09:29→20:13)
[2016-08-02] MEDS: Aspirin Enteric Coated 325 MG Tablet PO SCH (09:29)
[2016-08-02] MEDS: Spironolactone 25 MG TABLET PO SCH (09:29)
[2016-08-02] MEDS: predniSONE 20 MG TABLET PO SCH (09:30)
[2016-08-02] MEDS: Nicotine 21 MG PATCH.TD24 TD SCH (09:30)
[2016-08-02] MEDS: (Calcium Carbonate/Vitamin D3 [Calcium 500-Vit D3 200 PO SCH (09:30)
[2016-08-02] MEDS: Budesonide/Formoterol 160/4.5 MDI IH SCH ×2 (10:14→21:19)
--- NOTE | 2016-08-02 11:35 | Internal Med Progress Note ---
Date of Encounter: 08/02/16 Time of Encounter: 11:35 - Assessment and plan (1) Acute respiratory failure with hypoxia Current Visit: Yes Status: Acute Assessment and plan: Secondary to COPDE and CHFE Continue O2 supplement Evaluate for home O2 need at time of d/c (2) COPD exacerbation Current Visit: Yes Status: Acute Assessment and plan: Continue duonebs, ceftriaxone and prednisone po (3) Congestive heart failure Current Visit: Yes Status: Acute Assessment and plan: acute diastolic congestive heart failure. Patient with shortness of breath, and CXR consistent with mild acute CHF, diffuse wheezing on exam. BNP elevated to 550. Continue Lasix 40mg IVP BID I/O -610cc, given additional lasix IVP daily weights I/Os cardiac diet with 1.5L fluid restriction. Qualifiers: Congestive heart failure type: unspecified congestive heart failure type Congestive heart failure chronicity: chronic Qualified Code(s): I50.9 - Heart failure, unspecified (4) PAD (peripheral artery disease) Current Visit: Yes Status: Chronic Assessment and plan: Chronic, continue home meds (5) Atrial fibrillation Current Visit: Yes Status: Chronic Assessment and plan: Rate is controlled Not on anticoagulation due to dementia and anemia Continue home meds Qualifiers: Atrial fibrillation type: persistent Qualified Code(s): I48.1 - Persistent atrial fibrillation (6) Hypertension Current Visit: Yes Status: Chronic Assessment and plan: Controlled, continue home meds Qualifiers: Hypertension type: essential hypertension Qualified Code(s): I10 - Essential (primary) hypertension (7) CAD (coronary artery disease) Current Visit: Yes Status: Chronic Assessment and plan: Continue home meds Qualifiers: Coronary Disease-Associated Artery/Lesion type: [place] artery [place] vs. transplanted heart: [place] heart Associated angina: angina presence unspecified Qualified Code(s): I25.10 - Atherosclerotic heart disease of [place] coronary artery without angina pectoris (8) CKD (chronic kidney disease), stage IV Current Visit: Yes Status: Chronic Assessment and plan: Cr is at baseline, his baseline ranged from 1.88-2.5 dating back to 08/2015 His cr on admission is 2.7, continue to monitor Avoid nephrotoxins (9) MARGOTH (obstructive sleep apnea) Current Visit: Yes Status: Chronic Assessment and plan: CPAP at night (10) Arterial insufficiency with ischemic ulcer Current Visit: Yes Status: Chronic (11) Stage III pressure ulcer of left heel Current Visit: Yes Status: Chronic Assessment and plan: Consult wound care patient states he is meant to be on hyperbaric O2 boots (12) Leukocytosis Current Visit: Yes Status: Acute Assessment and plan: Possibly from sterpoid use Patient is afebrile CXR without pneumonia He is on antibiotics for bronchitis Urine culture is negative Qualifiers: Leukocytosis type: unspecified Qualified Code(s): D72.829 - Elevated white blood cell count, unspecified - Subjective Interval history: 70 M seen at bedside, sitting up, having lunch He is admitted and being managed for acute hypoxic respiratory failure secondary to COPE and CHF exacerbation He has a PMH of CKD III, afib, COPD, CAD, HTN, HLD, PVD with chronic painful arterial ulcers He still smokes actively He reports his breathing has improved, however he is still O2 dependent He also complains of pain in both feet, his home medications have been reconciled Awaiting wound care eval I/O since admission -610cc, weight loss unremarkable Leukocytosis is new, possibly from steroids, no fever, already on ceftriaxone - Constitutional Vitals: Temp Pulse Resp BP Pulse Ox 97.6 F 80 16 144/75 96 08/02/16 11:10 08/02/16 11:10 08/02/16 11:10 08/02/16 11:10 08/02/16 11:10 General appearance: Present: A&O X 3, pleasant, no acute distress - Head Head exam: Present: atraumatic, normocephalic - Eye Eye exam: Present: PERRL, conjuntiva pink, sclera anicteric Pupils: Present: PERRL - Neck Neck exam general surgery: Present: supple, trachea midline. Absent: lymphadenopathy - Respiratory Respiratory exam: Present: CTAB. Absent: accessory muscle use, rales, rhonchi, wheezes - Cardiovascular Cardiovascular exam: Present: RRR, +S1, +S2. Absent: diastolic murmur, gallop, rubs, systolic murmur - GI/Abdominal GI/Abdominal exam: Present: normal bowel sounds, soft, no peritoneal signs. Absent: distended, tenderness - Extremities Exam Extremities exam: Present: warm, radial pulses palpable and symetrical. Absent : calf tenderness, cyanotic, pedal edema Additional comments: Present: mottling (Both feet are mottled and dorsalis pedis pulses are diminished, patient has bilaterl punched out ulcers on both plantar surfaces, they do not look infected, but are painful. ). Absent: pedal edema - Neurological Exam Neurological exam: Present: alert, CN II-XII intact, oriented X3, no focal deficits. Absent: pronater drift, facial droop, speech deficit - Skin Skin exam: Present: dry, intact Internal Medicine: Result - Labs CBC & Chem 7: 08/02/16 04:24 08/02/16 04:24 Labs: Short CBC 08/02/16 Range/Units 04:24 WBC 12.2 H D (4.3-11.1) K/mcL Hgb 14.1 (12.9-16.9) g/dL Hct 42.4 (37.5-50.1) % Plt Count 231 (140-400) K/mcL Neutrophils # 11.0 H (1.6-8.9) K/mcL BMP 08/02/16 04:24 Sodium 138 Potassium 3.8 Chloride 99 Carbon Dioxide 23 BUN 41 H Creatinine 2.64 H Glucose 147 H Calcium 9.2 - ABG Interpretation ABG results: ABG ABG pH 7.35 pH Units (7.32-7.45) 08/01/16 04:59 ABG pCO2 58 mmHg (35-45) H 08/01/16 04:59 ABG pO2 78 mmHg (85-104) L 08/01/16 04:59 ABG O2 Saturation 95 % (95-98) 08/01/16 04:59 Consult Discharge Plan - Plan [facility]errals: [facility] [Primary Care Provider] -
[2016-08-02] MEDS ORDERED: Furosemide 40 MG/4 ML VIAL IVP ONE (13:00)
--- NOTE | 2016-08-02 20:06 | Electrocardiograph Report ---
[address] [place], [place] [address] Test Date: 2016-07-31 Pat Name: Bayron Jackson Department: 102 Room: 2A Gender: M It Support Manager: : 1945 Requested By: Santo Magallanes Order Number: [id number] Reading MD: Josesito Mulligan MD Measurements Intervals [place] Rate: 88 P: [place]: 0 QRS: -29 QRSD: 122 T: 125 QT: 373 QTc: 419 Interpretive Statements ATRIAL FIBRILLATION Poor R wave progression LATERAL ISCHEMIA Electronically Signed On 08-02-2016 20:04:05 EDT by Josesito Mulligan MD
[2016-08-02] MEDS: Mirtazapine 15 MG TABLET PO SCH (20:12)
[2016-08-03] MEDS: *HR* Heparin 5,000 UNIT/ML VIAL SQ SCH ×2 (00:43→08:17)
[2016-08-03 05:02] LABS: Calcium 8.6 mg/dL (8.6-10.8); Potassium 3.8 mEq/L (3.5-4.5)
[2016-08-03 05:19] LABS: Basophils % 0.1 %; Hematocrit 40.9 % (37.5-50.1); Hemoglobin 13.5 g/dL (12.9-16.9); Immature Granulocytes % 0.6 % (0-4); Lymphocytes # 1.1 K/mcL (0.6-4.6); Lymphocytes % 8.9 %; Mean Corpuscular Hemoglobin 29.6 pg (28.0-33.3); Mean Corpuscular Volume 89.7 fL (83.0-100.0); Mean Platelet Volume 10.2 fL (9.4-12.4); Monocytes # 0.7 K/mcL (0.0-1.3); Monocytes % 5.7 %; Neutrophils # 10.5 K/mcL (1.6-8.9); Platelet Count 220 K/mcL (140-400); Red Blood Count 4.56 M/mcL (4.19-5.50); Segmented Neutrophils % 84.7 %
[2016-08-03] MEDS: Ipratropium/Albuterol Neb 3 ML IH SCH ×3 (05:48→15:59)
[2016-08-03] MEDS ORDERED: Furosemide 40 MG/4 ML VIAL IVP ONE (07:42)
[2016-08-03] MEDS: Nicotine 21 MG PATCH.TD24 TD SCH (08:14)
[2016-08-03] MEDS: Spironolactone 25 MG TABLET PO SCH (08:15)
[2016-08-03] MEDS: Aspirin Enteric Coated 325 MG Tablet PO SCH (08:15)
[2016-08-03] MEDS: Gabapentin 300 MG CAPSULE PO SCH (08:15)
[2016-08-03] MEDS: predniSONE 20 MG TABLET PO SCH (08:15)
[2016-08-03] MEDS: Magnesium Oxide 400 MG TABLET PO SCH (08:16)
[2016-08-03] MEDS: hydrOXYzine pamoate 25 MG CAPSULE PO SCH (08:16)
[2016-08-03] MEDS: Finasteride 5 MG TABLET PO SCH (08:16)
[2016-08-03] MEDS: (Calcium Carbonate/Vitamin D3 [Calcium 500-Vit D3 200 PO SCH (08:17)
[2016-08-03] MEDS: Furosemide 40 MG/4 ML VIAL IVP SCH (08:19)
[2016-08-03] MEDS ORDERED: amLODIPine 5 MG TABLET PO SCH (09:00)
--- NOTE | 2016-08-03 10:27 | Discharge Summary ---
Date of Encounter: 08/03/16 Time of Encounter: 10:26 - Discharge Diagnosis (1) Acute respiratory failure with hypoxia Priority: Primary Status: Resolved Comments: Secondary to COPDE and CHFE Does not qualify for home O2 He has improved with treatment Tobacco cessation encouraged (2) COPD exacerbation Priority: Primary Status: Acute Comments: Continue Omnicef for 3 more days Continue prednsone for 3 more days Continue Home MDIs Smoking cessation encouraged (3) Congestive heart failure Priority: Primary Status: Acute Comments: acute diastolic congestive heart failure. Patient with shortness of breath, and CXR consistent with mild acute CHF, diffuse wheezing on exam. BNP elevated to 550. Received Lasix 40mg IVP BID Will discharge home on 40mg po bid He was on lasix 20mg po bid prior to admission Encouraged on fluid discretion and Na restrction Follow up with PCP at [place] Qualifiers: Congestive heart failure type: unspecified congestive heart failure type Congestive heart failure chronicity: acute on chronic Qualified Code(s): I50.9 - Heart failure, unspecified (4) PAD (peripheral artery disease) Priority: Secondary Status: Chronic Comments: Chronic, continue home meds (5) Atrial fibrillation Priority: Secondary Status: Chronic Comments: Rate is controlled Not on anticoagulation due to dementia and anemia Continue home meds Qualifiers: Atrial fibrillation type: persistent Qualified Code(s): I48.1 - Persistent atrial fibrillation (6) Hypertension Priority: Secondary Status: Chronic Qualifiers: Hypertension type: essential hypertension Qualified Code(s): I10 - Essential (primary) hypertension (7) CAD (coronary artery disease) Priority: Secondary Status: Chronic Qualifiers: Coronary Disease-Associated Artery/Lesion type: [place] artery [place] vs. transplanted heart: [place] heart Associated angina: angina presence unspecified Qualified Code(s): I25.10 - Atherosclerotic heart disease of [place] coronary artery without angina pectoris (8) CKD (chronic kidney disease), stage IV Priority: Secondary Status: Chronic Comments: Cr is at baseline, his baseline ranged from 1.88-2.5 dating back to 08/2015 His cr on admission is 2.7 Stable for follow up with PCP (9) MARGOTH (obstructive sleep apnea) Priority: Secondary Status: Chronic (10) Arterial insufficiency with ischemic ulcer Priority: Secondary Status: Chronic (11) Stage III pressure ulcer of left heel Priority: Secondary Status: Chronic (12) Leukocytosis Priority: Primary Status: Acute Comments: Patient with no fever and improved O2 status No Urianry symptoms Leukocytosis is possibly from fever Follow up with repeat blood work with PCP Patient has made significant clinical improvement Qualifiers: Leukocytosis type: unspecified Qualified Code(s): D72.829 - Elevated white blood cell count, unspecified - Discharge Medications Prescriptions: Budesonide/Formoterol 160/4.5 [Symbicort 160/4.5] 2 puff IH BIDR #2 inhaler Cefdinir [Omnicef] 300 mg PO DAILY #3 capsule Furosemide [Lasix] 40 mg PO BID #60 tablet Gabapentin [Neurontin] 300 mg PO TID #90 capsule PredniSONE 40 mg PO DAILY #6 tablet Home Medications: Carvedilol [Coreg] 25 mg PO BID 11/16/14 [History] Finasteride [Proscar] 5 mg PO DAILY 11/16/14 [History] Spironolactone [Aldactone] 25 mg PO DAILY 05/15/15 [History] Collagenase Oint [Santyl] 1 appl TP AD 08/15/15 [History] Docusate [Colace] 100 mg PO BID 08/15/15 [History] Magnesium Oxide [Magnesium] 400 mg PO BID 08/15/15 [History] Terazosin [Hytrin] 1 mg PO HS 08/15/15 [History] Clopidogrel [Plavix] 75 mg PO DAILY #30 tablet 08/17/15 [Rx] Acetaminophen [Tylenol] 650 mg PO TID 07/31/16 [History] Allopurinol [Zyloprim 100 MG] 50 mg PO DAILY 07/31/16 [History] Aspirin Enteric Coated [Aspirin EC] 325 mg PO DAILY 07/31/16 [History] Calcium Carbonate/Vitamin D3 [Calcium 500-Vit D3 200 Tablet] 1 each PO DAILY [History] Capsaicin 0.025% [Trixaicin] 1 appl TP TID PRN 07/31/16 [History] Escitalopram [Lexapro] 20 mg PO DAILY 07/31/16 [History] Hydroxyzine HCl 25 mg PO BID 07/31/16 [History] Lidocaine 4% CRM (LMX) [Lmx 4] 1 appl TP BID 07/31/16 [History] Mirtazapine [Remeron] 30 mg PO HS 07/31/16 [History] Mupirocin [Bactroban Oint] 1 appl TP TID 07/31/16 [History] Omeprazole [PriLOSEC] 40 mg PO DAILY 07/31/16 [History] Simvastatin [Zocor] 20 mg PO HS 07/31/16 [History] Budesonide/Formoterol 160/4.5 [Symbicort 160/4.5] 2 puff IH BIDR #2 inhaler [Rx] Cefdinir [Omnicef] 300 mg PO DAILY #3 capsule 08/03/16 [Rx] Collagenase Oint [Santyl] 1 appl TP DAILY tube 08/03/16 [Rx] Furosemide [Lasix] 40 mg PO BID #60 tablet 08/03/16 [Rx] Gabapentin [Neurontin] 300 mg PO TID #90 capsule 08/03/16 [Rx] PredniSONE 40 mg PO DAILY #6 tablet 08/03/16 [Rx] Allergies/Adverse Reactions: Allergies Amoxicillin [From Augmentin] Adverse Reaction (Verified 07/31/16 21:45) See Comments [facility] atorvastatin [From Lipitor] Adverse Reaction (Verified 07/31/16 21:45) See Comments [facility] baclofen Adverse Reaction (Verified 11/16/14 07:46) Drowsy clavulanic acid [From Augmentin] Adverse Reaction (Verified 07/31/16 21:45) See Comments [facility] fluorouracil [From Efudex] Adverse Reaction (Verified 07/31/16 21:45) See Comments [facility] list hydroxyzine [From Vistaril] Adverse Reaction (Verified 07/31/16 21:45) See Comments [facility] list sulfamethoxazole [From Bactrim] Adverse Reaction (Verified 07/31/16 21:45) See Comments [facility] list trimethoprim [From Bactrim] Adverse Reaction (Verified 07/31/16 21:45) See Comments [facility] list Date of admission: 07/31/16 20:51 [facility] care physician: [facility] Consults: 08/01/16 11:33 Consult to Wound Care [CONS] Routine Reason for Consult: Left foot wound care recommendations Call Completed: No Discharging clinician: Josef Llanos Anticipated date of discharge: 08/03/16 - Patient Status Disposition: Home, Self-Care Condition: Fair Functional capacity at discharge: independent ambulation Overall status at discharge: patient is back to baseline - Discharge Instructions Follow Up With: [facility]P [Primary Care Provider] - - Diet and Activity Activity: resume usual activities as tolerated Diet: low fat, low cholesterol, low salt diet Interval History: See below Hospital course: 70 M seen at bedside, sitting up, having lunch He is admitted and being managed for acute hypoxic respiratory failure secondary to COPE and CHF exacerbation He has a PMH of CKD III, afib, COPD, CAD, HTN, HLD, PVD with chronic painful arterial ulcers He still smokes actively He reports his breathing has improved, he does not qualify for home O2 He also complains of pain in both feet, his home medications have been reconciled, wound care consult was appreciated and basically is to continue home care and [facility] He is medically stable for discharge home with prednisone, antibiotics, and increased dose of his home lasix Time spent discussing smoking cessation with patient: 3 to 10 minutes (3 minutes spent on smoking cessation counsellin) - Time Spent with Patient Total time spent providing and/or coordinating discharge services: Greater than 30 minutes (35 minutes spent on patient enocunter, documentation, prescription, facilitating discharge) - Constitutional Vitals: Temp Pulse Resp BP Pulse Ox 97.6 F 70 16 190/97 97 08/03/16 07:35 08/03/16 07:35 08/03/16 07:35 08/03/16 07:35 08/03/16 07:35 General appearance: Present: A&O X 3, pleasant, no acute distress - Head Head exam: Present: atraumatic, normocephalic - Eye Eye exam: Present: PERRL, conjuntiva pink, sclera anicteric Pupils: Present: PERRL - Neck Neck exam general surgery: Present: supple, trachea midline. Absent: lymphadenopathy - Respiratory Respiratory exam: Present: CTAB. Absent: accessory muscle use, rales, rhonchi, wheezes - Cardiovascular Cardiovascular exam: Present: irregular rhythm, +S1, +S2. Absent: diastolic murmur, gallop, JVD, rubs, systolic murmur - GI/Abdominal GI/Abdominal exam: Present: normal bowel sounds, soft, no peritoneal signs. Absent: distended, tenderness - Extremities Exam Extremities exam: Present: warm, radial pulses palpable and symetrical. Absent : calf tenderness, cyanotic, pedal edema Additional comments: Present: mottling -chronic per patient. (Both feet are mottled and dorsalis pedis pulses are diminished, patient has bilaterl punched out ulcers on both plantar surfaces, they do not look infected , but are painful. ). Absent: pedal edema - Neurological Exam Neurological exam: Present: alert, CN II-XII intact, oriented X3, no focal deficits. Absent: pronater drift, facial droop, speech deficit - Skin Skin exam: Present: dry
[2016-08-03] MEDS: Budesonide/Formoterol 160/4.5 MDI IH SCH (11:20)
[2016-08-03 11:45] VITALS: BP 185/79
[2016-08-03] MEDS ORDERED: Gabapentin 300 MG CAPSULE PO SCH (15:00)
== END 2016-08-03 16:55 | disposition home or self-care (01) | DRG 291 ==
LOC: EMEROO 17:58 → 2ANU 17:58
PROVIDERS: ADMIT Internal Medicine; ATTEND Internal Medicine

== ENCOUNTER 2016-09-13 15:40 | Inpatient (IN) ==
[2016-09-13] MEDS ORDERED: *HR* HYDROmorphone (PF) 1 MG/ML SYRINGE IM ONE (16:12)
[2016-09-13] MEDS ORDERED: *HR* Promethazine 25 MG/ML VIAL IM ONE (16:12)
--- NOTE | 2016-09-13 16:16 | Emergency Department Note ---
Disposition Clinical Impression: Cellulitis of left foot, Peripheral vascular disease of lower extremity with ulceration Disposition: Admitted As Inpatient Time of Disposition: 17:34 Extremity Problem HPI - General Chief complaint: ED Extremity Problem,Nontraumatic Stated complaint: Open sore on foot (color changing) Time Seen by Provider: 09/13/16 16:06 Source: patient Mode of arrival: ambulatory Limitations: no limitations Nursing Notes Reviewed: Yes Vital Signs Reviewed: Yes - History of Present Illness HPI Narrative: 70-year-old male with a history of peripheral vascular disease is had a revascularization surgery by vascular surgery here comes in with redness of his foot he's got ulceration on both feet and increasing pain and redness. Pt Subjective Complaint: extremity pain Onset (ago): week(s) Consistency: constant Injury Location: other (Patient has of vascular insufficiency ulcerations of both lower extremities.) Pain Scale: 10 Quality: aching Radiation: none Improves with: nothing Worsens with: nothing Associated symptoms: Reports: denies other symptoms - Related Data Home Medications Medication Instructions Recorded Confirmed Carvedilol [Coreg] 25 mg PO BID 11/16/14 07/31/16 Finasteride [Proscar] 5 mg PO DAILY 11/16/14 07/31/16 Spironolactone [Aldactone] 25 mg PO DAILY 05/15/15 07/31/16 Collagenase Oint [Santyl] 1 appl TP AD 08/15/15 07/31/16 Docusate [Colace] 100 mg PO BID 08/15/15 07/31/16 Magnesium Oxide [Magnesium] 400 mg PO BID 08/15/15 07/31/16 Terazosin [Hytrin] 1 mg PO HS 08/15/15 07/31/16 Acetaminophen [Tylenol] 650 mg PO TID 07/31/16 07/31/16 Allopurinol [Zyloprim 100 MG] 50 mg PO DAILY 07/31/16 07/31/16 Aspirin Enteric Coated [Aspirin EC] 325 mg PO DAILY 07/31/16 07/31/16 Calcium Carbonate/Vitamin D3 1 each PO DAILY 07/31/16 07/31/16 [Calcium 500-Vit D3 200 Tablet] Capsaicin 0.025% [Trixaicin] 1 appl TP TID PRN 07/31/16 07/31/16 Escitalopram [Lexapro] 20 mg PO DAILY 07/31/16 07/31/16 Lidocaine 4% CRM (LMX) [Lmx 4] 1 appl TP BID 07/31/16 07/31/16 Mirtazapine [Remeron] 30 mg PO HS 07/31/16 07/31/16 Mupirocin [Bactroban Oint] 1 appl TP TID 07/31/16 07/31/16 Omeprazole [PriLOSEC] 40 mg PO DAILY 07/31/16 07/31/16 Simvastatin [Zocor] 20 mg PO HS 07/31/16 07/31/16 hydrOXYzine HCl [Hydroxyzine HCl] 25 mg PO BID 07/31/16 07/31/16 Previous Rx's Medication Instructions Recorded Clopidogrel [Plavix] 75 mg PO DAILY #30 tablet 08/17/15 Amlodipine Besylate 10 mg PO DAILY #30 tablet 08/03/16 Budesonide/Formoterol 160/4.5 2 puff IH BIDR #2 inhaler 08/03/16 [Symbicort 160/4.5] Cefdinir [Omnicef] 300 mg PO DAILY #3 capsule 08/03/16 Collagenase Oint [Santyl] 1 appl TP DAILY tube 08/03/16 Furosemide [Lasix] 40 mg PO BID #60 tablet 08/03/16 Gabapentin [Neurontin] 300 mg PO TID #90 capsule 08/03/16 predniSONE [PredniSONE] 40 mg PO DAILY #6 tablet 08/03/16 Allergies Allergy/AdvReac Type Severity Reaction Status Date / Time Amoxicillin [From Augmentin] AdvReac See Verified 07/31/16 21:45 Comments atorvastatin [From Lipitor] AdvReac See Verified 07/31/16 21:45 Comments baclofen AdvReac Drowsy Verified 11/16/14 07:46 clavulanic acid AdvReac See Verified 07/31/16 21:45 [From Augmentin] Comments fluorouracil [From Efudex] AdvReac See Verified 07/31/16 21:45 Comments hydroxyzine [From Vistaril] AdvReac See Verified 07/31/16 21:45 Comments sulfamethoxazole AdvReac See Verified 07/31/16 21:45 [From Bactrim] Comments trimethoprim [From Bactrim] AdvReac See Verified 07/31/16 21:45 Comments All systems ED: reviewed and negative except as stated. Constitutional: Denies: fever, chills, weakness, weight change Eyes: Denies: eye pain, eye discharge, vision change ENT ED: Denies: ear pain, throat pain, dental pain, hearing loss, epistaxis, congestion, dysphagia Cardiovascular: Denies: chest pain, palpitations, dyspnea on exertion, edema, syncope Respiratory: Denies: cough, dyspnea, wheezes, hemoptysis, stridor Gastrointestinal: Denies: abdominal pain, nausea, vomiting, diarrhea, constipation, hematemesis, melena, hematochezia Genitourinary: Denies: urgency, dysuria, frequency, hematuria Musculoskeletal: Reports: arthralgia. Denies: back pain, neck pain, myalgia Integumentary: Denies: rash, abrasion, lesions Neurological: Denies: headache, weakness, numbness, paresthesias, confusion, abnormal gait, vertigo Psychiatric: Denies: anxiety, depression, suicidal thoughts, homicidal thoughts , auditory hallucinations, visual hallucinations Endocrine: Denies: fatigue Hematological/Lymphatic: Denies: easy bleeding, easy bruising Allergic/Immunologic: Denies: facial swelling, urticaria Past Medical History - Past Medical History Medical history: Reports: atrial fibrillation, COPD, coronary artery disease, hyperlipidemia, hypertension, myocardial infarction, peripheral artery disease, renal disease Surgical history: Reports: angioplasty/stent, appendectomy, LE Bypass, LE vascular intervention, other Psychiatric history: Reports: anxiety, depression - Social History Smoking Status: Current every day smoker Smokeless Tobacco Status: No Alcohol use: Reports: none Drug use: Reports: none Physical Exam - General Limitations: no limitations General appearance: alert - Head Head exam: atraumatic, normocephalic, normal inspection - Eye Eye exam: Present: normal appearance, PERRL, EOMI - ENT ENT exam: normal exam, normal oropharynx, mucous membranes moist - Neck Neck exam: Present: normal inspection, full ROM, trachea midline - Chest Chest inspection: Present: normal inspection, symmetric chest wall rise - Respiratory Respiratory exam: Present: normal lung sounds bilaterally - Cardiovascular Cardiovascular exam: Present: regular rate, normal rhythm, normal heart sounds - Abdominal Exam Abdominal exam: Present: soft, Non-Tender. Absent: tenderness, distention, guarding, rebound, rigidity - Expanded Lower Extremity Exam Foot/toe exam: Present: erythema (Of the toes on the left foot.), other ( Necrotic area on the dorsum of the left toes of 2 through 5. Left foot there is a quarter size ulceration with obvious bone exposed appears to be into the joint. Pencil eraser sized ulceration on the right foot.) Neurovascular/Tendon exam: Present: normal capillary refill, other (Foot is warm to touch) Gait: not tested/not observed - Back Exam Back exam: Present: normal inspection - Neurological Exam Neurological exam: Present: alert, oriented X3 - Psychiatric Psychiatric exam: Present: normal affect, normal mood - Skin Skin exam: Present: warm, dry, intact, normal color Course - Reevaluation(s) Reevaluation #1: 70-year-old gentleman with peripheral vascular disease comes in complaining of increasing redness of his foot with some increasing pain. On exam is get good capillary refill and he does have a Doppler posterior tibial pulse. He does have a large ulcer on the foot sedimentation rates greater than 130. Patient will be admitted for IV antibiotics and evaluation by vascular and orthopedics. Time: 18:49 - Consultations Consultation #1: Consult pharmacy for vancomycin dose. They recommend 1500 mg in the knee well-to -do levels. Time: 17:32 Consultation #2: Stressed with Dr. Sr admit obtain vascular consult. Time: 18:40 Consultation #3: Discussed with Dr. Lopez, he will be seen in the morning. Time: 18:43 Additional Consultation(s): [address] Lyman who will see the patient. Vital Signs Temperature 98.3 F 09/13/16 15:45 Pulse Rate 80 09/13/16 15:45 Respiratory Rate 20 09/13/16 15:45 Blood Pressure 131/68 09/13/16 15:45 O2 Sat by Pulse Oximetry 97 09/13/16 15:45 Temperature 98.3 F 09/13/16 15:45 Pulse Rate 74 09/13/16 18:40 Respiratory Rate 16 09/13/16 18:35 Blood Pressure 144/78 09/13/16 18:35 O2 Sat by Pulse Oximetry 92 09/13/16 18:35 Oxygen Delivery Oxygen Delivery Nasal Cannula Extremity Problem, Nontraumati - Lab Data Lab results reviewed: Yes I reviewed the patient's lab results. Result diagrams: 09/13/16 16:37 09/13/16 16:37 Lab Results 09/13/16 09/13/16 09/13/16 Range/Units 16:37 16:37 16:37 WBC 8.2 (4.3-11.1) K/mcL RBC 3.67 L (4.19-5.50) M/mcL Hgb 10.3 L (12.9-16.9) g/dL Hct 32.0 L (37.5-50.1) % MCV 87.2 (83.0-100.0) fL MCH 28.1 (28.0-33.3) pg MCHC 32.2 (31.6-35.5) g/dL RDW 13.9 (11.5-14.5) % Plt Count 166 (140-400) K/mcL MPV 10.0 (9.4-12.4) fL Immature Gran % 0.4 (0-4) % Seg Neutrophils % 69.4 % Lymphocytes % 20.8 % Monocytes % 7.2 % Eosinophils % 2.0 % Basophils % 0.2 % Neutrophils # 5.7 (1.6-8.9) K/mcL Lymphocytes # 1.7 (0.6-4.6) K/mcL Monocytes # 0.6 (0.0-1.3) K/mcL Eosinophils # 0.2 (0.0-0.6) K/mcL Basophils # 0.0 (0.0-0.2) K/mcL ESR >= 130 H (0-10) mm/hr Sodium 137 (136-145) mEq/L Potassium 3.4 L (3.5-4.5) mEq/L Chloride 101 (98-109) mEq/L Carbon Dioxide 25 (19-29) mEq/L BUN 32 H (8-26) mg/dL Creatinine 2.53 H (0.72-1.25) mg/dL Est GFR ( Amer) 31 L (> 60) Est GFR (Non-Af Amer) 25 L (> 60) BUN/Creatinine Ratio 13 (6-26) Glucose 139 H (70-99) mg/dL Calculated Osmolality 293 (280-300) Calcium 8.3 L (8.6-10.8) mg/dL - Radiology Data Radiology results reviewed: Yes I reviewed the patient's radiology results. Foot X-Ray 06/04/17 16:11 IMPRESSION: 1. No radiographic evidence of osteomyelitis. 2. Plantar forefoot soft tissue ulceration. D/ / Mario Jonas MD / Mario Jonas MD Interpreting Provider: Mario Jonas MD
[2016-09-13] MEDS ORDERED: *HR* HYDROmorphone (PF) 1 MG/ML SYRINGE IVP ONE ×2 (16:24→18:06)
[2016-09-13 16:48] LABS: Basophils % 0.2 %; Eosinophils # 0.2 K/mcL (0.0-0.6); Hemoglobin 10.3 g/dL (12.9-16.9); Immature Granulocytes % 0.4 % (0-4); Lymphocytes # 1.7 K/mcL (0.6-4.6); Lymphocytes % 20.8 %; Mean Corpuscular HGB Conc 32.2 g/dL (31.6-35.5); Mean Corpuscular Hemoglobin 28.1 pg (28.0-33.3); Mean Corpuscular Volume 87.2 fL (83.0-100.0); Monocytes # 0.6 K/mcL (0.0-1.3); Monocytes % 7.2 %; Neutrophils # 5.7 K/mcL (1.6-8.9); Platelet Count 166 K/mcL (140-400); Red Blood Count 3.67 M/mcL (4.19-5.50); Red Cell Distribution Width 13.9 % (11.5-14.5); Segmented Neutrophils % 69.4 %
[2016-09-13 17:01] LABS: Calcium 8.3 mg/dL (8.6-10.8); Potassium 3.4 mEq/L (3.5-4.5)
[2016-09-13] MEDS: Ondansetron ODT 4 MG TAB.RAPDIS SL ONE ×2 (17:22→18:34)
[2016-09-13] MEDS ORDERED: Vancomycin 1,500 MG in D5% in Water 250 ML IVPB STA (17:32)
--- NOTE | 2016-09-13 21:27 | Internal Med History&Physical ---
Date of Encounter: 09/13/16 Time of Encounter: 21:27 Assessment and Plan (1) COPD with acute exacerbation Current visit: Yes Status: Acute Patient has extensive wheezing, with respiratory distress. Will treat him for acute exacerbation of COPD, with duo-nebs, low dose steroids, mucinex. Will obtain CXR and follow ABGs (2) Acute respiratory failure Current visit: Yes Status: Acute Due to acute exacerbation of COPD. Will treat with bronchodilators and steroids. Continue supplemental O2 - if not improving, will consider BiPAP Qualifiers: Respiratory failure complication: hypoxia and hypercapnia Qualified Code(s) : J96.01 - Acute respiratory failure with hypoxia; J96.02 - Acute respiratory failure with hypercapnia (3) Arterial insufficiency with ischemic ulcer Current visit: Yes Status: Chronic Will consult vascular surgery. On my clinical evaluation, I am not convinced that the pt has cellulitis. Will hold antibioitcs at this time. (4) PAD (peripheral artery disease) Current visit: Yes Status: Chronic Consult vascular surgery (5) Hypertension Current visit: Yes Status: Chronic Continue home medications Qualifiers: Hypertension type: essential hypertension Qualified Code(s): I10 - Essential (primary) hypertension (6) CAD (coronary artery disease) Current visit: Yes Status: Chronic Continue home medications Qualifiers: Coronary Disease-Associated Artery/Lesion type: [place] artery [place] vs. transplanted heart: [place] heart Associated angina: angina presence unspecified Qualified Code(s): I25.10 - Atherosclerotic heart disease of [place] coronary artery without angina pectoris (7) Diabetes Current visit: Yes Status: Chronic Start Sliding-scale insulin Qualifiers: Diabetes mellitus type: type 2 Diabetes mellitus complication status: with circulatory complication Diabetes mellitus complication detail: with other circulatory complications Diabetes mellitus residential insulin use: unspecified termination clerk insulin use status Qualified Code(s): E11.59 - Type 2 diabetes mellitus with other circulatory complications (8) CKD (chronic kidney disease), stage IV Current visit: Yes Status: Chronic Monitor renal function (9) DVT prophylaxis Current visit: Yes Status: Acute Pt is on apixaban Internal Medicine - H&P: HPI Chief complaint: Left lower extremity pain Admitted From: Emergency Dept Plans for Post Hospital Care: Home History of present illness: Mr. Jackson is a 70 year old male with h/o Atrial fibrillation, COPD, coronary artery disease, hyperlipidemia, hypertension, myocardial infarction, peripheral artery disease, CKD. He is somnolent at my evaluation and is not able to give the details well. He presented to the emergency department with worsening pain in the left lower extremity. Reports that he has wounds and pain in the left lower extremity but has gotten worse. He denies drainage from the wounds. He denies fever, chills, nausea, vomiting. He denies chest pain, shortness of breath, abdominal pain, urinary or bowel problems. He was evaluated in the emergency department and was thought to have cellulitis and was given vancomycin. He is admitted to the hospitalist service for further workup and management. Past Med Surg Social Fam HX - Past Medical History Medical history: atrial fibrillation, COPD, coronary artery disease, hyperlipidemia, hypertension, myocardial infarction, peripheral artery disease, renal disease Psychiatric history: anxiety, depression - Past Surgical History Surgical History: angioplasty/stent, appendectomy, LE Bypass, LE vascular intervention, other - Social History Smoking Status: Current every day smoker Smokeless Tobacco Status: No Alcohol use: none Drug use: none - Family History Mother Adopted: No Living Status: Hx Family Cardiac Disorders: No Hx Family Respiratory Disorders: No Hx Family Cancer: No Hx Family GI Disorders: No Hx Family Endocrine Disorder: No Hx Family Neuromuscular Disorders: No Hx Family Neurologic Disorders: No Hx Family HEENT Disorders: No Hx Family Autoimmune Disorders: No Internal Medicine - H&P: Meds Carvedilol [Coreg] 25 mg PO BID 11/16/14 [History] Finasteride [Proscar] 5 mg PO DAILY 11/16/14 [History] Spironolactone [Aldactone] 25 mg PO DAILY 05/15/15 [History] Docusate [Colace] 100 mg PO BID 08/15/15 [History] Magnesium Oxide [Magnesium] 400 mg PO BID 08/15/15 [History] Terazosin [Hytrin] 1 mg PO HS 08/15/15 [History] Acetaminophen [Tylenol] 650 mg PO TID 07/31/16 [History] Allopurinol [Zyloprim 100 MG] 50 mg PO DAILY 07/31/16 [History] Calcium Carbonate/Vitamin D3 [Calcium 500-Vit D3 200 Tablet] 1 each PO DAILY [History] Capsaicin 0.025% [Trixaicin] 1 appl TP TID PRN 07/31/16 [History] Escitalopram [Lexapro] 20 mg PO DAILY 07/31/16 [History] Lidocaine 4% CRM (LMX) [Lmx 4] 1 appl TP BID 07/31/16 [History] Mirtazapine [Remeron] 30 mg PO HS 07/31/16 [History] Mupirocin [Bactroban Oint] 1 appl TP TID 07/31/16 [History] Budesonide/Formoterol 160/4.5 [Symbicort 160/4.5] 2 puff IH BIDR #2 inhaler [Rx] Collagenase Oint [Santyl] 1 appl TP DAILY tube 08/03/16 [Rx] Furosemide [Lasix] 40 mg PO BID #60 tablet 08/03/16 [Rx] Gabapentin [Neurontin] 300 mg PO TID #90 capsule 08/03/16 [Rx] Apixaban [Eliquis] 5 mg PO BID 09/13/16 [History] Allergies Amoxicillin [From Augmentin] Adverse Reaction (Verified 07/31/16 21:45) See Comments va list atorvastatin [From Lipitor] Adverse Reaction (Verified 07/31/16 21:45) See Comments va list baclofen Adverse Reaction (Verified 11/16/14 07:46) Drowsy clavulanic acid [From Augmentin] Adverse Reaction (Verified 07/31/16 21:45) See Comments va list fluorouracil [From Efudex] Adverse Reaction (Verified 07/31/16 21:45) See Comments va list hydroxyzine [From Vistaril] Adverse Reaction (Verified 07/31/16 21:45) See Comments va list sulfamethoxazole [From Bactrim] Adverse Reaction (Verified 07/31/16 21:45) See Comments va list trimethoprim [From Bactrim] Adverse Reaction (Verified 07/31/16 21:45) See Comments va list All Systems PM: A 10-system review of systems was limited due to somnulence and is negative for pertinent findings except as documented above in the HPI. - Constitutional Vitals: Temp Pulse Resp BP Pulse Ox 97.8 F 75 16 149/77 96 09/13/16 20:30 09/13/16 20:30 09/13/16 20:30 09/13/16 20:30 09/13/16 20:30 Exam: General: Somnulent, but arousable. Labored breathing HEENT: Oral mucosa is moist. No conjunctival palor or scleral icterus Neck: No obvious neck swellings Lungs: Bilateral extensive wheezing present Cardiac: Heart sounds are masked by extensive wheezing Abdomen: Obese, non tender. Bowel sounds present Genitourinary: No rainey catheter Neurological: Somnulent, but arousable. No gross localizing deficits Psych: Somnulent, but arousable Extremities: Dressing in place - on removal: ulcers with eschar present on the dorsal aspect of the left 2,3,4 toes. There is punched out ulcer on the plantar surface of left 1st metatarsal area. There is a small ulcer on the plantar surface of right metatarsal head area. Skin: No generalized rash Internal Med - H&P Results - Labs CBC & Chem 7: 09/13/16 16:37 09/13/16 16:37 - ABG Interpretation Interpretation: ABG interpreted by me Interpretation: abnormal, respiratory acidosis - Impressions ITS Impressions Foot X-Ray 09/13/16 16:11 IMPRESSION: No acute bony abnormality. D/ / Dinora Conte Cha, MD / Dinora Conte Cha, MD Interpreting Provider: Dinora Conte Cha, MD Foot X-Ray 09/13/16 16:11 IMPRESSION: 1. No radiographic evidence of osteomyelitis. 2. Plantar forefoot soft tissue ulceration. D/ / Mario Jonas MD / Mario Jonas MD Interpreting Provider: Mario Jonas MD
[2016-09-13] MEDS ORDERED: Ipratropium/Albuterol Neb 3 ML IH ONE (21:30)
[2016-09-13] MEDS ORDERED: Ipratropium/Albuterol Neb 3 ML IH PRN (21:30)
[2016-09-13] MEDS ORDERED: Acetaminophen 325 MG TABLET PO PRN (21:33)
[2016-09-13] MEDS ORDERED: *HR* Morphine 2 MG/ML SYRINGE IVP PRN (21:33)
[2016-09-13] MEDS: Ipratropium/Albuterol Neb 3 ML IH SCH (22:55)
[2016-09-13 22:58] LABS: ABG Base Excess 1.6 mEq/L (-2.0 to 3.0); ABG HCO3 28.7 mEQ/L (21-27); ABG Oxygen Saturation 90 % (95-98); ABG PCO2 57 mmHg (35-45); ABG PH 7.31 pH Units (7.32-7.45); ABG PO2 65 mmHg (85-104); ABG TCO2 30.4 mEq/L (20-26)
[2016-09-13 22:59] LABS: Blood Gas FiO2 32 %; Blood Gas Liter Flow 3 L/MIN
[2016-09-13] MEDS: *HR* HYDROmorphone (PF) 1 MG/ML SYRINGE IVP PRN (23:47)
[2016-09-14] MEDS ORDERED: D5% in Water 1,000 ML IVC PRN (00:08)
[2016-09-14] MEDS ORDERED: *HR* Dextrose 50 % in Water (Syg) 50 ML SYRINGE IVP PRN (00:08)
[2016-09-14] MEDS ORDERED: Dextrose Gel 15 GM PO PRN ×2 (00:08)
[2016-09-14 00:50] LABS: Bilirubin,Urine Negative (Negative); Blood,Urine Negative (Negative); Clarity,Urine Clear (Clear); Color,Urine Yellow (Yellow); Glucose,Urine (UA) Normal (Normal); Ketones,Urine Negative (Negative); Leukocyte Esterase,Urine Negative (Negative); Nitrite,Urine Negative (Negative); PH,Urine 6.5 pH Units (5.0-8.0); Protein,Urine 100 mg/dL (Neg-Trace); Specific Gravity,Urine 1.013 (1.010-1.025); Urobilinogen,Urine Normal (Normal)
[2016-09-14 01:19] LABS: RBC,Urine 0-3 per hpf (0-3); Squamous Epithelial Cell,Urine Few per lpf (None-Few); WBC,Urine 0-3 per hpf (0-3)
[2016-09-14 01:20] LABS: Bacteria,Urine None Seen per hpf (None-Few); Hyaline Casts,Urine None Seen per lpf (None-Few); Mucus,Urine Few (Few)
[2016-09-14] MEDS: Ipratropium/Albuterol Neb 3 ML IH SCH ×4 (03:41→22:47)
[2016-09-14] MEDS: MethylPREDNISolone 40 MG/ML VIAL IVP SCH ×3 (06:13→23:34)
[2016-09-14 06:30] LABS: Basophils % 0.3 %; Eosinophils # 0.2 K/mcL (0.0-0.6); Eosinophils % 2.5 %; Hematocrit 31.4 % (37.5-50.1); Hemoglobin 10.4 g/dL (12.9-16.9); Immature Granulocytes % 0.4 % (0-4); Lymphocytes # 1.3 K/mcL (0.6-4.6); Lymphocytes % 18.6 %; Mean Corpuscular HGB Conc 33.1 g/dL (31.6-35.5); Mean Corpuscular Hemoglobin 29.2 pg (28.0-33.3); Mean Corpuscular Volume 88.2 fL (83.0-100.0); Mean Platelet Volume 10.1 fL (9.4-12.4); Monocytes # 0.6 K/mcL (0.0-1.3); Monocytes % 8.4 %; Neutrophils # 4.7 K/mcL (1.6-8.9); Platelet Count 157 K/mcL (140-400); Red Blood Count 3.56 M/mcL (4.19-5.50); Red Cell Distribution Width 13.8 % (11.5-14.5); Segmented Neutrophils % 69.8 %
[2016-09-14 06:51] LABS: Calcium 8.6 mg/dL (8.6-10.8); Magnesium 1.9 mg/dL (1.6-2.6); Potassium 3.6 mEq/L (3.5-4.5)
[2016-09-14] MEDS ORDERED: Furosemide 40 MG TABLET PO SCH (09:00)
[2016-09-14] MEDS ORDERED: Gabapentin 300 MG CAPSULE PO SCH ×2 (09:00→21:00)
[2016-09-14] MEDS: Spironolactone 25 MG TABLET PO SCH (09:51)
[2016-09-14] MEDS: Magnesium Oxide 400 MG TABLET PO SCH ×2 (09:51→20:57)
[2016-09-14] MEDS: Finasteride 5 MG TABLET PO SCH (09:51)
[2016-09-14] MEDS: *HR* HYDROmorphone (PF) 1 MG/ML SYRINGE IVP PRN (09:57)
[2016-09-14] MEDS: Insulin LISPRO 300 UNITS/3 ML VIAL SQ SCH ×4 (10:07→20:59)
[2016-09-14] MEDS ORDERED: Aminoglycoside Consult 1 EACH MC ONE (12:00)
[2016-09-14] MEDS ORDERED: Piperacillin/Tazobactam 3.375 GM in D5% in Water (Mini-Bag+) 100 ML IVPB ONE ×2 (12:59→13:02)
--- NOTE | 2016-09-14 13:18 | Internal Med Progress Note ---
Date of Encounter: 09/14/16 Time of Encounter: 13:08 - Subjective Interval history: Patient seen and examined at bedside. Reports of pain in left foot but states his breathing is much better. Pt is a poor historian and does not know why he is on some of his home medications. He is unsure of why he is on Plavix or Eliquis. Podiatry and Vascular consultation requested Patient has a known history of Peripheral vascular disease and was evaluated by vascular surgery a year ago. Assessment and Plan (1) COPD with acute exacerbation Current visit: Yes Status: Acute Respiratory status improving continue systemic steroids and bronchodilator support O2 supplementation Monitor O2 sat, goal O2 sat: 89-92% (2) Acute respiratory failure Current visit: Yes Status: Acute Secondary to COPD exacerbation Improving continue plan as listed above Qualifiers: Respiratory failure complication: hypoxia and hypercapnia Qualified Code(s) : J96.01 - Acute respiratory failure with hypoxia; J96.02 - Acute respiratory failure with hypercapnia (3) Arterial insufficiency with ischemic ulcer Current visit: Yes Status: Chronic Pt has documented history of peripheral vascular disease, s/p extensive Left lower extremity procedure for revascularization for limb threatening ischemia Repeat RANDY vascular and podiatry consultation requested keep NPO at this time for a possible surgical intervention later today pain control Elevated ESR and positive wound cultures, will continue empiric abx at this time. (4) PAD (peripheral artery disease) Current visit: Yes Status: Chronic as listed above (5) Hypertension Current visit: Yes Status: Chronic Patient's home medications are to be restarted clinically asymptomatic will closely monitor BP Hydralazine 10mg IV q6h prn SBP>150 Qualifiers: Hypertension type: essential hypertension Qualified Code(s): I10 - Essential (primary) hypertension (6) CAD (coronary artery disease) Current visit: Yes Status: Chronic Continue home medications Qualifiers: Coronary Disease-Associated Artery/Lesion type: [place] artery [place] vs. transplanted heart: [place] heart Associated angina: angina presence unspecified Qualified Code(s): I25.10 - Atherosclerotic heart disease of [place] coronary artery without angina pectoris (7) Diabetes Current visit: Yes Status: Chronic Monitor BG and FS continue SS insulin algorithm as this time will adjust insulin therapy as needed Qualifiers: Diabetes mellitus type: type 2 Diabetes mellitus complication status: with circulatory complication Diabetes mellitus complication detail: with other circulatory complications Diabetes mellitus auto rental clerk insulin use: unspecified auto rental clerk insulin use status Qualified Code(s): E11.59 - Type 2 diabetes mellitus with other circulatory complications (8) CKD (chronic kidney disease), stage IV Current visit: Yes Status: Chronic Renal function appears to be at baseline continue to monitor (9) DVT prophylaxis Current visit: Yes Status: Acute Hold Eliquis at this time given patient may undergo surgical intervention start anticoagulation after surgical evaluation - Constitutional Vitals: Temp Pulse Resp BP Pulse Ox 98.1 F 78 16 177/80 94 09/14/16 11:00 09/14/16 11:00 09/14/16 11:00 09/14/16 11:00 09/14/16 11:00 General appearance: Present: A&O X 3, no acute distress, obese - Head Head exam: Present: atraumatic, normocephalic - Eye Eye exam: Present: conjuntiva pink, sclera anicteric - Respiratory Respiratory exam: Present: decreased breath sounds. Absent: respiratory distress, wheezes - Cardiovascular Cardiovascular exam: Present: RRR, +S1, +S2 - GI/Abdominal GI/Abdominal exam: Present: normal bowel sounds, soft. Absent: tenderness - Extremities Exam Extremities exam: Present: warm, radial pulses palpable and symetrical. Absent : calf tenderness Additional comments: Lt foot wrapped in dressing - Neurological Exam Neurological exam: Present: alert, oriented X3 - Psychiatric Psychiatric exam: Present: normal affect, normal mood Internal Medicine: Result - Labs CBC & Chem 7: 09/14/16 06:10 09/14/16 06:10 Labs: Short CBC 09/14/16 Range/Units 06:10 WBC 6.8 (4.3-11.1) K/mcL Hgb 10.4 L (12.9-16.9) g/dL Hct 31.4 L (37.5-50.1) % Plt Count 157 (140-400) K/mcL Neutrophils # 4.7 (1.6-8.9) K/mcL BMP 09/14/16 06:10 Sodium 138 Potassium 3.6 Chloride 102 Carbon Dioxide 27 BUN 30 H Creatinine 2.49 H Glucose 105 H Calcium 8.6 Urine 09/13/16 Range/Units 23:30 Urine Color Yellow (Yellow) Urine Clarity Clear (Clear) Urine pH 6.5 (5.0-8.0) pH Units Ur Specific [place] 1.013 (1.010-1.025) Urine Protein 100 H (Neg-Trace) mg/dL Urine Glucose (UA) Normal (Normal) mg/dL - ABG Interpretation ABG results: ABG ABG pH 7.31 pH Units (7.32-7.45) L 09/13/16 22:50 ABG pCO2 57 mmHg (35-45) H 09/13/16 22:50 ABG pO2 65 mmHg (85-104) L 09/13/16 22:50 ABG O2 Saturation 90 % (95-98) L 09/13/16 22:50 - Impressions Impressions Chest X-Ray 09/14/16 23:53 IMPRESSION: No acute cardiopulmonary findings. No significant change compared to prior study. Stable mild interstitial prominence diffusely. No acute consolidation. D/ / 09/14/2016 07:58:23 Ronaldo Olmedo MD / [email or web address] Interpreting Provider: Ronaldo Olmedo MD Consult Discharge Plan - Plan [facility]errals: [facility] [Primary Care Provider] -
[2016-09-14] MEDS: NIFEdipine XL (24 HR) 30 MG TAB.ER.24 PO SCH (13:52)
--- NOTE | 2016-09-14 14:25 | Vascular/Endovasc Consult Note ---
Date of Encounter: 09/14/16 Time of Encounter: 14:21 Assessment and Plan (1) Arterial insufficiency with ischemic ulcer Current Visit: Yes Status: Acute Severe and diffuse ischemia of left foot with multiple ulcerations and exposed bone. According to the these ulcerations have been present for many weeks to months. The patient does not appear to have a reconstructable anatomic situation and so therefore I recommended a left [id number]-rit-egaw amputation. I've discussed this with the patient's . Tentatively plan this operation for . This will allow the patient's medical state to be optimized prior to the anesthetic. (2) COPD (chronic obstructive pulmonary disease) Current Visit: No Status: Chronic Significant COPD. Qualifiers: COPD type: unspecified COPD Qualified Code(s): J44.9 - Chronic obstructive pulmonary disease, unspecified (3) Congestive heart failure Current Visit: No Status: Chronic Chronic congestive heart failure. Qualifiers: Congestive heart failure type: unspecified congestive heart failure type Congestive heart failure chronicity: acute on chronic Qualified Code(s): I50.9 - Heart failure, unspecified - History of Present Illness Consult date: 09/14/16 Requesting physician: Rene Lyman Consult reason: Left foot wounds and ischemia Chief complaint: Left foot wounds History of present illness: Mr. Jackson is a 70 year old male Who was seen in consultation on to a period the patient was admitted yesterday for further evaluation. He has multiple wounds to the left foot and ankle region. He was recently admitted at the end of July for CHF and COPD. The patient has a very long and complicated vascular history. This includes angioplasty of the lower extremity vessels bilaterally. He is status post renal artery stenting and iliac stenting at an outside hospital in 2003. Then in August 2015 he had presented with a three-day history of severe left lower extremity ischemia. He underwent a heroic revascularization in an attempt to salvage the leg which was successful at that time. Unfortunately the patient only came back to see me once in postoperative evaluation at not seen him for many months. As best I know he has not had any follow-up noninvasive studies. On my visit with the patient today he is very somnolent and can contribute little to his history. I called his and obtained further history. He is essentially a wheelchair bound elderly white male. He complains of severe pain in the left foot. The patient was seen earlier today by Dr. Lyman and noninvasive studies have been ordered but are not yet complete. Past Med Surg Social Fam HX - Past Medical History Medical history: atrial fibrillation, COPD, coronary artery disease, hyperlipidemia, hypertension, myocardial infarction, peripheral artery disease, renal disease Psychiatric history: anxiety, depression - Past Surgical History Surgical History: angioplasty/stent, appendectomy, LE Bypass (Left femoral to tibial peroneal trunk bypass graft with PTFE and ileal femoral and popliteal and tibial endarterectomies in August 2015), LE vascular intervention (Renal and iliac stent angioplasty at [facility] 2004. June 2014 left lower extremity angioplasty. October 2014 right superficial femoral artery angioplasty. November 2014 redo left superficial femoral and tibial artery angioplasty), other - Social History Smoking Status: Current every day smoker Smokeless Tobacco Status: No Alcohol use: none Drug use: none - Family History Mother Adopted: No Living Status: Hx Family Cardiac Disorders: No Hx Family Respiratory Disorders: No Hx Family Cancer: No Hx Family GI Disorders: No Hx Family Endocrine Disorder: No Hx Family Neuromuscular Disorders: No Hx Family Neurologic Disorders: No Hx Family HEENT Disorders: No Hx Family Autoimmune Disorders: No Hx Family Psychosocial Disorders: No Medications and Allergies Carvedilol [Coreg] 25 mg PO BID 11/16/14 [History] Finasteride [Proscar] 5 mg PO DAILY 11/16/14 [History] Spironolactone [Aldactone] 25 mg PO DAILY 05/15/15 [History] Docusate [Colace] 100 mg PO BID 08/15/15 [History] Magnesium Oxide [Magnesium] 400 mg PO BID 08/15/15 [History] Terazosin [Hytrin] 1 mg PO HS 08/15/15 [History] Acetaminophen [Tylenol] 650 mg PO TID 07/31/16 [History] Allopurinol [Zyloprim 100 MG] 50 mg PO DAILY 07/31/16 [History] Calcium Carbonate/Vitamin D3 [Calcium 500-Vit D3 200 Tablet] 1 each PO DAILY [History] Capsaicin 0.025% [Trixaicin] 1 appl TP TID PRN 07/31/16 [History] Escitalopram [Lexapro] 20 mg PO DAILY 07/31/16 [History] Lidocaine 4% CRM (LMX) [Lmx 4] 1 appl TP BID 07/31/16 [History] Mirtazapine [Remeron] 30 mg PO HS 07/31/16 [History] Mupirocin [Bactroban Oint] 1 appl TP TID 07/31/16 [History] Collagenase Oint [Santyl] 1 appl TP DAILY tube 08/03/16 [Rx] Apixaban [Eliquis] 5 mg PO BID 09/13/16 [History] Aloe Vera/Collagen [Aloe Rose Bud Cleansing Foam] 1 appl TP DAILY 09/14/16 [History ] Chlorhexidine Gluconate [Antiseptic Skin Cleanser] 1 appl TP DAILY 09/14/16 [ History] Clopidogrel [Plavix] 75 mg PO DAILY 09/14/16 [History] Doxycycline 100 mg PO BID 09/14/16 [History] Furosemide [Lasix] 60 mg PO BID 09/14/16 [History] Gabapentin [Neurontin] 600 mg PO BID 09/14/16 [History] HYDROcodone/Acet 10/325 mg [[place] 10-325 mg] 1 tab PO BID PRN 09/14/16 [History] Ipratropium/Albuterol Neb [Duoneb] 3 ml IH Q6HR PRN 09/14/16 [History] NIFEdipine [Nifedipine ER] 30 mg PO DAILY 09/14/16 [History] Nicotine Patch [Nicoderm] 21 mg TD DAILY 09/14/16 [History] Pantoprazole Sodium [Protonix] 40 mg PO DAILY 09/14/16 [History] Povidone-Iodine [Nasal Antiseptic Swabs] 1 each TP DAILY 09/14/16 [History] Simvastatin [Zocor] 40 mg PO DAILY 09/14/16 [History] Sodium Chloride IRRigation [0.9% Sodium Chl Irrigation 1000 Ml] 50 - 100 ml IR DAILY 09/14/16 [History] Allergies atorvastatin [From Lipitor] Adverse Reaction (Verified 09/14/16 12:59) See Comments va list, unsure of reaction baclofen Adverse Reaction (Verified 09/14/16 12:00) Drowsy fluorouracil [From Efudex] Adverse Reaction (Verified 09/14/16 12:59) See Comments va list, unsure of reaction sulfamethoxazole [From Bactrim] Adverse Reaction (Verified 09/14/16 12:59) See Comments va list, unsure of reaction trimethoprim [From Bactrim] Adverse Reaction (Verified 09/14/16 12:59) See Comments va list, unsure of reaction All Systems Review: A 10-system review of systems was performed and is negative for pertinent findings except as documented above in the HPI. Exam Vital Signs, Last 4 Hours Temp Pulse Resp BP Pulse Ox 09/14/16 11:00 98.1 F 78 16 177/80 94 09/14/16 10:37 16 92 General: Present: Other (Patient is very somnolent and difficult to arouse and to stay aroused.) HEENT: Present: Atraumatic, Trachea midline, Other (Obese face and neck) Cardiac: Present: Reg Rate and Rhythm, No Murmur Lungs: Present: Decreased breath sounds Neuro: Present: Other (Diminished sensorium) Abdomen: Present: Soft, Non-tender. Absent: Hepatosplenomegaly, Masses Vascular: Present: Pulse, absent, Edema, Color/Temperature (Diminished temperature and color of the feet.) Skin: Present: Wound/ulcer(s) (Patient has multiple wounds involving the left toes 1 through 4. In addition on the plantar surface he has exposed bone near the head of the first metatarsal. He also has an ulceration of the left heel.) Consult Discharge Plan - Plan [facility]errals: [facility] [Primary Care Provider] -
[2016-09-14] MEDS ORDERED: Piperacillin/Tazobactam 3.375 GM in D5% in Water (Mini-Bag+) 100 ML IVPB SCH ×2 (16:00→21:00)
[2016-09-14] MEDS: Furosemide 40 MG TABLET PO SCH (17:18)
[2016-09-14] MEDS: Naloxone 0.4 MG/ML INJ IVP PRN ×2 (17:57→18:49)
[2016-09-14] MEDS ORDERED: *HR* Heparin 5,000 UNIT/ML VIAL SQ ONE (18:00)
[2016-09-14] MEDS ORDERED: Vancomycin 1,250 MG in D5% in Water 250 ML IVPB SCH (18:00)
[2016-09-14 18:07] LABS: ABG Base Excess 1.6 mEq/L (-2.0 to 3.0); ABG HCO3 28.1 mEQ/L (21-27); ABG Oxygen Saturation 96 % (95-98); ABG PCO2 52 mmHg (35-45); ABG PH 7.34 pH Units (7.32-7.45); ABG PO2 83 mmHg (85-104); ABG TCO2 29.7 mEq/L (20-26)
[2016-09-14 18:08] LABS: Blood Gas FiO2 32 %
[2016-09-14] MEDS: Mirtazapine 15 MG TABLET PO SCH (20:57)
--- NOTE | 2016-09-14 21:01 | Event Note ---
Date of Encounter: 09/14/16 Time of Encounter: 19:30 On-call hospitalist note: I was signed out about by the day team - Pt is Unresponsive. ABG was done which showed compensated hypercapnic respiratory failure. On my evaluation patient had spontaneous movement but that was not opening eyes to verbal seemly painful stimuli. stat CT head was obtained, which was negative for acute lesions. On re-evaluation, pt is able to respond to verbal commands and answer questions. Pt is started on neuro-checks Q2H. Otherwise stable at my evaluation - review as needed.
[2016-09-14] MEDS: Piperacillin/Tazobactam 3.375 GM in D5% in Water (Mini-Bag+) 100 ML IVPB SCH (23:35)
[2016-09-15 03:50] LABS: Hematocrit 36.1 % (37.5-50.1); Hemoglobin 11.9 g/dL (12.9-16.9); Immature Granulocytes % 0.5 % (0-4); Lymphocytes # 0.4 K/mcL (0.6-4.6); Lymphocytes % 6.6 %; Mean Corpuscular Hemoglobin 28.3 pg (28.0-33.3); Mean Platelet Volume 9.8 fL (9.4-12.4); Monocytes # 0.1 K/mcL (0.0-1.3); Monocytes % 1.1 %; Neutrophils # 5.9 K/mcL (1.6-8.9); Platelet Count 174 K/mcL (140-400); Red Cell Distribution Width 13.5 % (11.5-14.5); Segmented Neutrophils % 91.8 %
[2016-09-15 04:03] LABS: Potassium 3.5 mEq/L (3.5-4.5)
[2016-09-15 04:04] LABS: Calcium 9.4 mg/dL (8.6-10.8); Magnesium 2.2 mg/dL (1.6-2.6); Phosphorous 2.9 mg/dL (2.3-4.7)
[2016-09-15] MEDS: Ipratropium/Albuterol Neb 3 ML IH SCH ×4 (05:17→22:40)
[2016-09-15 05:49] LABS: ABG Base Excess 4.1 mEq/L (-2.0 to 3.0); ABG HCO3 28.5 mEQ/L (21-27); ABG Oxygen Saturation 96 % (95-98); ABG PCO2 41 mmHg (35-45); ABG PH 7.45 pH Units (7.32-7.45); ABG PO2 78 mmHg (85-104); ABG TCO2 29.8 mEq/L (20-26); Blood Gas FiO2 32 %; Blood Gas Liter Flow 3 L/MIN
--- NOTE | 2016-09-15 07:37 | Arterial Study Report ---
LE Arterial Physiologic Study Patient Name:Bayron Jackson Order Number:[id number] Procedure Date:09/14/2016 Date:1945ge:70 yrs Gender:Male Lt BP:158 / mmHg Rt.BP:155 / mmHgHeart Rate: Location:[facility] Room #: 2A14 Stage Rigger:Paula Dominguez Referring MD:Rene Lyman DPM metal container maker:[facility] Aidna MD:Ace Lynn MD Primary Indications:Diabetic foot with infection Risk Factors Yes/No Smoking Current Diabetes Hypertension Hypercholesterolemia Hx of CAD/PTCA Previous Vascular Surgery Impressions: The right RANDY and waveforms are consistent with moderate disease. Right RANDY 0.58. The left RANDY and waveforms are consistent with severe disease. Left RANDY 0.38. Recommendations: Risk factor reduction. Further evaluation recommended. Findings LE Arterial Physiologic Exam: PVR: Right: The PVR waveforms are mildly diminished in the right high thigh, moderately diminished in the right lower thigh and right calf and right ankle. Left: The PVR waveforms are moderately diminished in the left high thigh, severely diminished in the left lower thigh and left calf and left ankle. Segmental Pressures Side Location Pressure Index Result Right High Thigh 133 0.84 Mildly Diminished Right Above Knee 124 0.78 Moderately Diminished Right Below Knee 115 0.73 Moderately Diminished Right Posterior Tibial 92 0.58 Moderately Diminished Right Dorsalis Pedis 89 0.56 Moderately Diminished Left High Thigh 108 0.68 Moderately Diminished Left Above Knee 92 0.58 Moderately Diminished Left Below Knee 59 0.37 Severely Diminished Left Posterior Tibial 60 0.38 Severely Diminished Left Dorsalis Pedis 53 0.34 Severely Diminished Ankle Brachial Index Right Systolic Diastolic RANDY Brachial 155 0.58 Dorsalis Pedis 89 0.56 Posterior Tibial 92 0.58 Left Systolic Diastolic RANDY Brachial 158 0.38 Dorsalis Pedis 53 0.34 Posterior Tibial 60 0.38 Updated by Ace Lynn MD on 09/15/2016 7:29:18 AM with Status of Final electronically signed on 09/15/2016 7:30:58 AM with status of Final
[2016-09-15] MEDS: Furosemide 40 MG TABLET PO SCH ×2 (08:07→16:47)
[2016-09-15] MEDS: Spironolactone 25 MG TABLET PO SCH (08:07)
[2016-09-15] MEDS: Finasteride 5 MG TABLET PO SCH (08:07)
[2016-09-15] MEDS: Magnesium Oxide 400 MG TABLET PO SCH ×2 (08:07→22:37)
[2016-09-15] MEDS: NIFEdipine XL (24 HR) 30 MG TAB.ER.24 PO SCH (08:07)
[2016-09-15] MEDS: Piperacillin/Tazobactam 3.375 GM in D5% in Water (Mini-Bag+) 100 ML IVPB SCH ×2 (08:08→16:47)
[2016-09-15] MEDS: *HR* Enoxaparin 100 MG/ML SYRINGE SQ SCH (08:11)
[2016-09-15] MEDS: Insulin LISPRO 300 UNITS/3 ML VIAL SQ SCH ×4 (08:12→22:38)
[2016-09-15] MEDS ORDERED: *HR* Morphine 2 MG/ML SYRINGE IVP PRN (08:37)
[2016-09-15] MEDS: *HR* OxyCODONE/APAP 5/325 TABLET PO PRN ×2 (08:41→17:05)
--- NOTE | 2016-09-15 10:29 | Cardiology Consult Note ---
Date of Encounter: 09/15/16 Time of Encounter: 10:27 Assessment and Plan (1) Pre-operative cardiovascular examination Current Visit: Yes Status: Acute Per previous records, reportedly had a LHC several years ago at the [facility] which demonstrated blockages not amendable to PCI therefore CABG was recommended, however patient declined to proceed. Reports occasional chest pain, atypical, occurs at rest. Denies any chest pain or dyspnea currently. Plan for AKA on with vascular surgery. Pt had echo 09/10/15 that showed preserved EF. Stress test 2013 showed prior infarct, but no evidence of ischemia. Since pt currently has no active cardiac complaints, for further cardiac testing warranted. Will obtain EKG for prior comparison. Moderate risk candidate for moderate-high risk surgery from a cardiology standpoint. Anticipate sign off once seen and evaluated by Dr. Otto and once EKG reviewed. (2) CAD (coronary artery disease) Current Visit: Yes Status: Chronic Hx of significant CAD, declined CABG. Continue BB . Recommend resuming Plavix once okay with surgery. Not on statin due to hx of intolerance. Qualifiers: Coronary Disease-Associated Artery/Lesion type: [place] artery [place] vs. transplanted heart: [place] heart Associated angina: angina presence unspecified Qualified Code(s): I25.10 - Atherosclerotic heart disease of [place] coronary artery without angina pectoris (3) Atrial fibrillation Current Visit: No Status: Chronic Rate controlled on BB and CCB. Anticoagulated on Eliquis, currently on hold for upcoming surgery. Recommend resuming once okay with vascular surgery. Qualifiers: Atrial fibrillation type: persistent Qualified Code(s): I48.1 - Persistent atrial fibrillation Discussion w patient/family: The assessment and plan as outlined above was discussed with the patient and/or family members who expressed understanding and agreement. All questions were answered. Thank you for involving us in the care of your patient. Please call with any questions. I will discuss all the above with Dr. Otto and make changes as necessary. History of Present Illness Consult date: 09/15/16 Requesting physician: Kin Chamorro Consult reason: pre-op Chief complaint: Left lower extremity pain History of present illness: Mr. Jackson is a 70 year old male with h/o Atrial fibrillation, COPD, hyperlipidemia, hypertension, reported hx of myocardial infarction and LHC with CAD without intervention per pt, PAD with hx of vascular surgeries, CKD. He presented to ED for wounds and pain in the left lower extremity that has gotten worse. He denies chest pain, shortness of breath, abdominal pain, urinary or bowel problems. He has been found to have arterial insufficiency with ischemic ulcer and exposed bone. Plan is for left AKA on with vascular surgery. Cardiology was consulted for risk stratification. Pt reports having occasional left sided chest pain 1-2 times per week at rest, not associated with exertion that resolves on its own. He denies any worsening dyspnea. He had an echo that showed preserved EF 60%, moderate LV basal septal hypertrophy. No evidence of LVOT obstruction. Mild-mod MR, mild TR, moderate phtn. Stress test 01/12/14 showed prior infarct, negative for ischemia. He reportedly had a LHC several years ago at the [facility] which demonstrated blockages not amendable to PCI therefore CABG was recommended, however patient declined to proceed. Past Med Surg Social Fam HX - Past Medical History Medical history: atrial fibrillation, COPD, coronary artery disease, hyperlipidemia, hypertension, myocardial infarction, peripheral artery disease, renal disease Psychiatric history: anxiety, depression - Past Surgical History Surgical History: angioplasty/stent, appendectomy, LE Bypass (Left femoral to tibial peroneal trunk bypass graft with PTFE and ileal femoral and popliteal and tibial endarterectomies in August 2015), LE vascular intervention (Renal and iliac stent angioplasty at [facility] 2003. June 2014 left lower extremity angioplasty. October 2014 right superficial femoral artery angioplasty. November 2014 redo left superficial femoral and tibial artery angioplasty), other - Social History Smoking Status: Current every day smoker Smokeless Tobacco Status: No Alcohol use: none Drug use: none - Family History Mother Adopted: No Living Status: Hx Family Cardiac Disorders: No Hx Family Respiratory Disorders: No Hx Family Cancer: No Hx Family GI Disorders: No Hx Family Endocrine Disorder: No Hx Family Neuromuscular Disorders: No Hx Family Neurologic Disorders: No Hx Family HEENT Disorders: No Hx Family Autoimmune Disorders: No Hx Family Psychosocial Disorders: No Medications and Allergies Carvedilol [Coreg] 25 mg PO BID 11/16/14 [History] Finasteride [Proscar] 5 mg PO DAILY 11/16/14 [History] Spironolactone [Aldactone] 25 mg PO DAILY 05/15/15 [History] Docusate [Colace] 100 mg PO BID 08/15/15 [History] Magnesium Oxide [Magnesium] 400 mg PO BID 08/15/15 [History] Terazosin [Hytrin] 1 mg PO HS 08/15/15 [History] Acetaminophen [Tylenol] 650 mg PO TID 07/31/16 [History] Allopurinol [Zyloprim 100 MG] 50 mg PO DAILY 07/31/16 [History] Calcium Carbonate/Vitamin D3 [Calcium 500-Vit D3 200 Tablet] 1 each PO DAILY [History] Capsaicin 0.025% [Trixaicin] 1 appl TP TID PRN 07/31/16 [History] Escitalopram [Lexapro] 20 mg PO DAILY 07/31/16 [History] Lidocaine 4% CRM (LMX) [Lmx 4] 1 appl TP BID 07/31/16 [History] Mirtazapine [Remeron] 30 mg PO HS 07/31/16 [History] Mupirocin [Bactroban Oint] 1 appl TP TID 07/31/16 [History] Collagenase Oint [Santyl] 1 appl TP DAILY tube 08/03/16 [Rx] Apixaban [Eliquis] 5 mg PO BID 09/13/16 [History] Aloe Vera/Collagen [Aloe [place]ier Cleansing Foam] 1 appl TP DAILY 09/14/16 [History ] Chlorhexidine Gluconate [Antiseptic Skin Cleanser] 1 appl TP DAILY 09/14/16 [ History] Clopidogrel [Plavix] 75 mg PO DAILY 09/14/16 [History] Doxycycline 100 mg PO BID 09/14/16 [History] Furosemide [Lasix] 60 mg PO BID 09/14/16 [History] Gabapentin [Neurontin] 600 mg PO BID 09/14/16 [History] HYDROcodone/Acet 10/325 mg [[place] 10-325 mg] 1 tab PO BID PRN 09/14/16 [History] Ipratropium/Albuterol Neb [Duoneb] 3 ml IH Q6HR PRN 09/14/16 [History] NIFEdipine [Nifedipine ER] 30 mg PO DAILY 09/14/16 [History] Nicotine Patch [Nicoderm] 21 mg TD DAILY 09/14/16 [History] Pantoprazole Sodium [Protonix] 40 mg PO DAILY 09/14/16 [History] Povidone-Iodine [Nasal Antiseptic Swabs] 1 each TP DAILY 09/14/16 [History] Simvastatin [Zocor] 40 mg PO DAILY 09/14/16 [History] Sodium Chloride IRRigation [0.9% Sodium Chl Irrigation 1000 Ml] 50 - 100 ml IR DAILY 09/14/16 [History] Allergies atorvastatin [From Lipitor] Adverse Reaction (Verified 09/14/16 12:59) See Comments va list, unsure of reaction baclofen Adverse Reaction (Verified 09/14/16 12:00) Drowsy fluorouracil [From Efudex] Adverse Reaction (Verified 09/14/16 12:59) See Comments va list, unsure of reaction sulfamethoxazole [From Bactrim] Adverse Reaction (Verified 09/14/16 12:59) See Comments va list, unsure of reaction trimethoprim [From Bactrim] Adverse Reaction (Verified 09/14/16 12:59) See Comments va list, unsure of reaction All Systems Review: A 10-system review of systems was performed and is negative for pertinent findings except as documented above in the HPI. - Cardiovascular Cardiovascular: as per HPI, chest pain at rest Physical Examination Vital Signs, Last 4 Hours Temp Pulse Resp BP Pulse Ox 09/15/16 08:30 95 09/15/16 08:06 85 164/75 09/15/16 06:37 97.9 F 96 18 174/79 96 Vital Signs Temp Pulse Resp BP Pulse Ox 09/15/16 10:29 16 95 09/15/16 08:30 95 09/15/16 08:06 85 164/75 09/15/16 06:37 97.9 F 96 18 174/79 96 09/15/16 05:17 21 98 09/15/16 05:15 98 F 79 16 152/67 95 09/15/16 00:15 97.9 F 83 17 156/65 95 09/14/16 22:47 17 98 09/14/16 19:09 97.2 F L 79 18 160/84 98 09/14/16 15:36 16 94 09/14/16 15:24 97.4 F L 71 16 156/74 94 09/14/16 11:00 98.1 F 78 16 177/80 94 09/14/16 10:37 16 92 Intake and Output 09/14/16 09/15/16 09/15/16 23:59 07:59 15:59 Intake Total 100 / 100 960 / 960 Output Total 675 / 675 100 / 100 0 / 0 Balance -675 / -675 0 / 0 960 / 960 Intake: IV Fluids 100 / 100 Zosyn 3.375 GM In 100 / 100 Dextrose 5% (Minibag+) 100 ML 100 ML @ 25 mls/hr IVPB Q8HR [facility] Rx#: [id number] Oral 960 / 960 Output: Urine 450 / 450 100 / 100 0 / 0 Straight Cath 225 / 225 Other: Meal Breakfast Percent of Meal Consumed 85% Weight 92.04 kg Blood Glucose* 128 178 Patient Weight 09/15/16 23:59 Weight 92.04 kg General: Conversant, No Apparent Distress HEENT: Atraumatic, Normocephaly, Mucus Membranes Moist Neck: No JVD, Normal carotid pulses Cardiac: Other (irregularly irregular) Lungs: Other (mild wheezes) Neuro: Alert and responsive, No focal deficits noted Abdomen: Soft, Non-Tender Skin: Other (LLE wounds) Musculoskeletal: No Chest Wall Tenderness Extremities: No Edema Results 09/15/16 03:36 09/15/16 03:36 Lab Results 09/15/16 09/15/16 03:36 03:36 WBC 6.4 Hgb 11.9 L D Hct 36.1 L Plt Count 174 Sodium 141 Potassium 3.5 Chloride 104 Carbon Dioxide 26 BUN 33 H Creatinine 2.31 H Glucose 183 H Calcium 9.4 Magnesium 2.2 Short CBC 09/15/16 Range/Units 03:36 WBC 6.4 (4.3-11.1) K/mcL Hgb 11.9 L D (12.9-16.9) g/dL Hct 36.1 L (37.5-50.1) % Plt Count 174 (140-400) K/mcL Neutrophils # 5.9 (1.6-8.9) K/mcL BMP 09/15/16 Range/Units 03:36 Sodium 141 (136-145) mEq/L Potassium 3.5 (3.5-4.5) mEq/L Chloride 104 (98-109) mEq/L Carbon Dioxide 26 (19-29) mEq/L BUN 33 H (8-26) mg/dL Creatinine 2.31 H (0.72-1.25) mg/dL Glucose 183 H (70-99) mg/dL Calcium 9.4 (8.6-10.8) mg/dL Impressions Head CT 09/14/16 19:10 IMPRESSION: No acute intracranial abnormality. 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 Stable periventricular white matter ischemic changes. D/ / 09/14/2016 19:58:47 Curtis Cruz MD / lety Interpreting Provider: Curtis Cruz MD Active Medications Acetaminophen (Tylenol) 650 mg PO Q6HR PRN PRN Reason: Mild Pain/Fever Stop: 03/15/17 21:34 Albuterol/Ipratropium (Duoneb) 3 ml IH [id number] PRN; Protocol PRN Reason: Shortness Of Breath/Wheezing Stop: 03/15/17 21:31 Albuterol/Ipratropium (Duoneb) 3 ml IH QIDR WILLIAM PRN Reason: Protocol Stop: 03/15/17 23:01 Last Admin: 09/15/16 10:28 Dose: 3 ml Allopurinol (Zyloprim) 50 mg PO DAILY WILLIAM Stop: 03/16/17 09:01 Last Admin: 09/15/16 08:08 Dose: 50 mg Carvedilol (Coreg) 25 mg PO BIDWM WILLIAM PRN Reason: Protocol Stop: 03/16/17 09:01 Last Admin: 09/15/16 08:07 Dose: 25 mg Dextrose/Water (Dextrose 50% (Syg)) 25 ml IVP AD PRN PRN Reason: Hypoglycemia Stop: 03/16/17 00:09 Enoxaparin Sodium (Lovenox) 90 mg 1 mg/kg (90 mg) SQ Q24H WILLIAM PRN Reason: Protocol Stop: 03/17/17 07:46 Last Admin: 09/15/16 08:11 Dose: 90 mg Escitalopram Oxalate (Lexapro) 20 mg PO DAILY WILLIAM Stop: 03/16/17 09:01 Last Admin: 09/15/16 08:07 Dose: 20 mg Finasteride (Proscar) 5 mg PO DAILY WILLIAM PRN Reason: Protocol Stop: 03/16/17 09:01 Last Admin: 09/15/16 08:07 Dose: 5 mg Furosemide (Lasix) 40 mg PO BIDDIURETIC WILLIAM Stop: 03/16/17 17:01 Last Admin: 09/15/16 08:07 Dose: 40 mg Glucagon (Glucagen) 1 mg IM ONCE PRN PRN Reason: Hypoglycemia Stop: 03/16/17 00:09 Glucose (Gluctose) 15 gm PO ONCE PRN PRN Reason: Hypoglycemia Stop: 03/16/17 00:09 Glucose (Gluctose) 30 gm PO ONCE PRN PRN Reason: Hypoglycemia Stop: 03/16/17 00:09 Hydralazine HCl (Hydralazine) 10 mg IVP Q6HR PRN PRN Reason: SBP>150 Stop: 03/16/17 13:27 Last Admin: 09/15/16 07:10 Dose: 10 mg Dextrose (Dextrose 5%) 1,000 mls @ 100 mls/hr IVC .Q10H PRN PRN Reason: HYPOGLYCEMIA Stop: 03/16/17 00:09 Vancomycin HCl 1,250 mg/ (Dextrose) 250 mls @ 166.67 mls/hr IVPB Q24H [facility] Stop: 03/16/17 18:01 Last Admin: 09/14/16 17:20 Dose: 166.67 mls/hr Piperacillin Sod/Tazobactam (Sod 3.375 gm/ Dextrose) 100 mls @ 25 mls/hr IVPB Q8HR WILLIAM PRN Reason: Protocol Stop: 03/17/17 00:01 Last Admin: 09/15/16 08:08 Dose: 25 mls/hr Insulin Human Lispro (Humalog) 0 units SQ HS [facility] PRN Reason: Protocol Stop: 03/16/17 21:01 Last Admin: 09/14/16 20:59 Dose: Not Given Insulin Human Lispro (Humalog) 0 units SQ TIDAC [facility] PRN Reason: Protocol Stop: 03/16/17 07:31 Last Admin: 09/15/16 08:12 Dose: 2 units Magnesium Oxide (Mag-Ox) 400 mg PO BID WILLIAM PRN Reason: Protocol Stop: 03/16/17 09:01 Last Admin: 09/15/16 08:07 Dose: 400 mg Methylprednisolone (Solu-Medrol) 40 mg IVP Q12H [facility] Stop: 03/16/17 00:31 Last Admin: 09/14/16 23:34 Dose: 40 mg Mirtazapine (Remeron) 30 mg PO HS WILLIAM Stop: 03/16/17 21:01 Last Admin: 09/14/16 20:57 Dose: 30 mg Morphine Sulfate (Morphine Sulfate) 2 mg IVP Q4HR PRN PRN Reason: Severe Pain (7-10) Stop: 03/15/17 21:34 Last Admin: 09/15/16 10:21 Dose: 2 mg Mupirocin (Bactroban Oint) 1 appl TP TID [facility] Stop: 03/16/17 09:01 Last Admin: 09/15/16 08:11 Dose: 1 appl Naloxone HCl (Narcan) 0.4 mg IVP Q2MIN PRN PRN Reason: Opioid Reversal Stop: 03/15/17 21:29 Last Admin: 09/14/16 18:49 Dose: 0.4 mg Nifedipine (Procardia Xl) 30 mg PO DAILY WILLIAM PRN Reason: Protocol Stop: 03/16/17 13:31 Last Admin: 09/15/16 08:07 Dose: 30 mg Omeprazole (Prilosec) 20 mg PO DAILY@0730 WILLIAM PRN Reason: Protocol Stop: 03/17/17 07:31 Last Admin: 09/15/16 08:07 Dose: 20 mg Oxycodone/Acetaminophen (Percocet 5/325) 1 each PO Q4HR PRN PRN Reason: Moderate Pain (4-6) Stop: 03/17/17 08:34 Last Admin: 09/15/16 08:41 Dose: 1 each Spironolactone (Aldactone) 25 mg PO DAILY [facility] Stop: 03/16/17 09:01 Last Admin: 09/15/16 08:07 Dose: 25 mg Terazosin HCl (Hytrin) 1 mg PO HS [facility] Stop: 03/16/17 21:01 Last Admin: 09/14/16 20:57 Dose: 1 mg - Imaging and Cardiology Stress Test: report reviewed Echo: report reviewed - EKG Interpretation EKG results cardiology: other (24 hour tele AVG HR 81, A-Fib) Consult Discharge Plan - Plan Referrals: [facility] [Primary Care Provider] -
[2016-09-15] MEDS ORDERED: *HR* HYDROmorphone (PF) 1 MG/ML SYRINGE IVP PRN (11:10)
[2016-09-15] MEDS: MethylPREDNISolone 40 MG/ML VIAL IVP SCH (11:36)
--- NOTE | 2016-09-15 14:12 | Internal Med Progress Note ---
Date of Encounter: 09/15/16 Time of Encounter: 08:45 - Assessment and plan (1) Acute encephalopathy Current Visit: Yes Status: Resolved Assessment and plan: Due to narcotic use. Continue to monitor neurologic function while patient is receiving IV narcotics. (2) Acute respiratory failure Current Visit: Yes Status: Acute Assessment and plan: Due to COPD exacerbation. Continue O2 supplementation Qualifiers: Respiratory failure complication: hypoxia Qualified Code(s): J96.01 - Acute respiratory failure with hypoxia (3) Arterial insufficiency with ischemic ulcer Current Visit: Yes Status: Acute Assessment and plan: Evaluated by vascular surgery. Recommend left leg [id number] amputation. We will hold Eliquis and Plavix for impending surgery. (4) CAD (coronary artery disease) Current Visit: Yes Status: Chronic Assessment and plan: Cardiology consulted for cardiac clearance. Recommend no further preoperative evaluation at this time. Holding Plavix for surgery. Qualifiers: Coronary Disease-Associated Artery/Lesion type: [place] artery [place] vs. transplanted heart: [place] heart Associated angina: angina presence unspecified Qualified Code(s): I25.10 - Atherosclerotic heart disease of [place] coronary artery without angina pectoris (5) CKD (chronic kidney disease), stage IV Current Visit: Yes Status: Chronic Assessment and plan: Renal function remained stable. Creatinine at 2.31. (6) COPD with acute exacerbation Current Visit: Yes Status: Acute Assessment and plan: Treating with IV steroids, bronchodilators. (7) Diabetes Current Visit: Yes Status: Chronic Assessment and plan: Blood sugars are elevated. We will place patient on long-acting insulin. Continue sliding scale insulin Qualifiers: Diabetes mellitus type: type 2 Diabetes mellitus complication status: with circulatory complication Diabetes mellitus complication detail: with other circulatory complications Diabetes mellitus bed bug exterminator insulin use: unspecified bed bug exterminator insulin use status Qualified Code(s): E11.59 - Type 2 diabetes mellitus with other circulatory complications (8) Peripheral vascular disease of lower extremity with ulceration Current Visit: Yes Status: Acute (9) Atrial fibrillation Current Visit: Yes Status: Chronic Assessment and plan: Patient with history of A. fib. On anticoagulation at home with Eliquis. This is currently on hold. Will anticoagulate with Lovenox for now until after surgery. Qualifiers: Atrial fibrillation type: persistent Qualified Code(s): I48.1 - Persistent atrial fibrillation - Subjective Interval history: Patient complaining of pain in his left lower extremity that improves after he receives narcotic medications. However he had become less responsive yesterday evening after receiving intravenous narcotic medications. Her symptoms improved since then. No pneumonia episodes after that. Denies any nausea or vomiting. No fever chills or night sweats overnight. Receiving breathing treatments for his COPD. - Constitutional Vitals: Temp Pulse Resp BP Pulse Ox 98.3 F 90 18 170/68 94 09/15/16 11:07 09/15/16 11:07 09/15/16 11:07 09/15/16 11:07 09/15/16 11:07 General appearance: Present: A&O X 3, obese, answers questions appropriately Exam: Moderate distress - Respiratory Respiratory exam: Present: prolonged expiratory phase, wheezes. Absent: accessory muscle use, rales, rhonchi - Cardiovascular Cardiovascular exam: Present: irregular rhythm, +S1, +S2. Absent: diastolic murmur, gallop, rubs, systolic murmur - GI/Abdominal GI/Abdominal exam: Present: normal bowel sounds, soft, no peritoneal signs. Absent: distended, tenderness - Extremities Exam Extremities exam: Present: warm, radial pulses palpable and symetrical. Absent : calf tenderness, cyanotic, pedal edema Additional comments: Decreased dorsalis pedis pulses on the left side. Multiple wounds noted in the left foot and ankle region. - Neurological Exam Neurological exam: Present: alert, oriented X3, no focal deficits. Absent: facial droop, speech deficit - Skin Skin exam: Present: dry, intact Internal Medicine: Result - Labs CBC & Chem 7: 09/15/16 03:36 09/15/16 03:36 Labs: Short CBC 09/15/16 Range/Units 03:36 WBC 6.4 (4.3-11.1) K/mcL Hgb 11.9 L D (12.9-16.9) g/dL Hct 36.1 L (37.5-50.1) % Plt Count 174 (140-400) K/mcL Neutrophils # 5.9 (1.6-8.9) K/mcL BMP 09/15/16 03:36 Sodium 141 Potassium 3.5 Chloride 104 Carbon Dioxide 26 BUN 33 H Creatinine 2.31 H Glucose 183 H Calcium 9.4 - ABG Interpretation ABG results: ABG ABG pH 7.45 pH Units (7.32-7.45) 09/15/16 05:04 ABG pCO2 41 mmHg (35-45) 09/15/16 05:04 ABG pO2 78 mmHg (85-104) L 09/15/16 05:04 ABG O2 Saturation 96 % (95-98) 09/15/16 05:04 - Impressions Impressions Head CT 09/14/16 19:10 IMPRESSION: No acute intracranial abnormality. 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 Stable periventricular white matter ischemic changes. D/ / 09/14/2016 19:58:47 Curtis Cruz MD / lety Interpreting Provider: Curtis Cruz MD Chest X-Ray 09/14/16 23:53 IMPRESSION: No acute cardiopulmonary findings. No significant change compared to prior study. Stable mild interstitial prominence diffusely. No acute consolidation. D/ / 09/14/2016 07:58:23 Ronaldo Olmedo MD / neena Interpreting Provider: Ronaldo Olmedo MD Consult Discharge Plan - Plan Referrals: [facility] [Primary Care Provider] - - Attending Attestation This document has been at least partially created by [employer] recognition technology by Dr. Valadez. Errors in grammar, wording or other phrases may exist. If errors are found after the documentation is signed, they will be addressed individually in the addendum section of this document when appropriate.
[2016-09-15] MEDS: *HR* HYDROmorphone (PF) 1 MG/ML SYRINGE IVP PRN (14:22)
--- NOTE | 2016-09-15 16:01 | Vascular/Endovas Progress Note ---
Date of Encounter: 09/15/16 Time of Encounter: 15:59 - Assessment and plan (1) Arterial insufficiency with ischemic ulcer Current Visit: Yes Status: Acute Severe and diffuse ischemia of left foot with multiple ulcerations and exposed bone. According to the these ulcerations have been present for many weeks to months. The patient does not appear to have a reconstructable anatomic situation and so therefore I recommended a left [id number] amputation. I've discussed this with the patient's . Tentatively plan this operation for . This will allow the patient's medical state to be optimized prior to the anesthetic. The patient and his are in the room together today. We spent a great deal of time reviewing the indication for amputation as well as the potential risks and benefits as well as complications and alternatives. All questions were answered. The patient is now fully informed as to why the amputation is indicated. He agrees to proceed which is now scheduled for morning of this week. (2) COPD (chronic obstructive pulmonary disease) Current Visit: No Status: Chronic Significant COPD. Qualifiers: COPD type: unspecified COPD Qualified Code(s): J44.9 - Chronic obstructive pulmonary disease, unspecified (3) Congestive heart failure Current Visit: No Status: Chronic Chronic congestive heart failure. Qualifiers: Congestive heart failure type: unspecified congestive heart failure type Congestive heart failure chronicity: acute on chronic Qualified Code(s): I50.9 - Heart failure, unspecified - Subjective Interval history: Patient complains of pain in the left lower extremity. Vital Signs, Last 4 Hours Resp Pulse Ox 09/15/16 15:56 16 96 - Physical Examination General: Present: Conversant, No Apparent Distress HEENT: Present: Atraumatic, Normocephaly Neuro: Present: Alert and responsive, No focal deficits noted, Cranial nerves grossly intact, Other (Earlier somnolence appears to be resolved and the patient is totally awake and alert and appropriate.) Results 09/15/16 03:36 09/15/16 03:36 Lab Results, Last 24 hours 09/15/16 09/15/16 03:36 03:36 WBC 6.4 Hgb 11.9 L D Hct 36.1 L Plt Count 174 Sodium 141 Potassium 3.5 Chloride 104 Carbon Dioxide 26 BUN 33 H Creatinine 2.31 H Glucose 183 H Calcium 9.4 Magnesium 2.2 Consult Discharge Plan - Plan Referrals: [facility] [Primary Care Provider] -
[2016-09-15] MEDS: Mirtazapine 15 MG TABLET PO SCH (22:38)
[2016-09-16] MEDS: Piperacillin/Tazobactam 3.375 GM in D5% in Water (Mini-Bag+) 100 ML IVPB SCH ×3 (00:28→15:31)
[2016-09-16] MEDS: MethylPREDNISolone 40 MG/ML VIAL IVP SCH ×2 (00:28→12:33)
[2016-09-16] MEDS: Ipratropium/Albuterol Neb 3 ML IH SCH ×4 (03:54→23:31)
[2016-09-16] MEDS: *HR* OxyCODONE/APAP 5/325 TABLET PO PRN ×2 (06:35→15:32)
[2016-09-16] MEDS: Insulin LISPRO 300 UNITS/3 ML VIAL SQ SCH ×4 (08:37→20:44)
[2016-09-16] MEDS: NIFEdipine XL (24 HR) 30 MG TAB.ER.24 PO SCH (08:37)
[2016-09-16] MEDS: Magnesium Oxide 400 MG TABLET PO SCH ×2 (08:38→20:44)
[2016-09-16] MEDS: Finasteride 5 MG TABLET PO SCH (08:38)
[2016-09-16] MEDS: Spironolactone 25 MG TABLET PO SCH (08:38)
[2016-09-16] MEDS ORDERED: ceFAZolin 2,000 MG in D5% in Water (Mini-Bag+) 100 ML IVPB ONE (08:38)
[2016-09-16] MEDS: Furosemide 40 MG TABLET PO SCH ×2 (08:38→18:15)
[2016-09-16] MEDS: *HR* Enoxaparin 100 MG/ML SYRINGE SQ SCH (08:38)
[2016-09-16] MEDS: Lactobacillus 1 EACH CAP.SPRINK PO SCH ×2 (08:38→20:44)
[2016-09-16 09:20] LABS: INR 1.1; Prothrombin Time 12.2 Seconds (9.4-12.1)
[2016-09-16 09:22] LABS: Activated Partial Thrombo Time 31.4 Seconds (26.0-36.0)
[2016-09-16] MEDS: *HR* HYDROmorphone (PF) 1 MG/ML SYRINGE IVP PRN ×3 (09:29→20:44)
[2016-09-16] MEDS: clonazePAM 0.5 MG TABLET PO PRN (14:00)
--- NOTE | 2016-09-16 15:19 | Electrocardiograph Report ---
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
--- NOTE | 2016-09-16 16:31 | Internal Med Progress Note ---
Date of Encounter: 09/16/16 Time of Encounter: 10:10 - Assessment and plan (1) Arterial insufficiency with ischemic ulcer Current Visit: Yes Status: Acute Assessment and plan: With continued wrist pain. Awaiting planned for tomorrow. High risk for complications due to use of intravenous narcotic medications for pain control. (2) Acute respiratory failure Current Visit: Yes Status: Acute Assessment and plan: Improved. Continue bronchodilators as needed. O2 supplementation as needed. Qualifiers: Respiratory failure complication: hypoxia Qualified Code(s): J96.01 - Acute respiratory failure with hypoxia (3) CAD (coronary artery disease) Current Visit: Yes Status: Chronic Assessment and plan: No chest pain Reported. Continue to hold Plavix for surgery. May resume after surgery Qualifiers: Coronary Disease-Associated Artery/Lesion type: [place] artery [place] vs. transplanted heart: [place] heart Associated angina: angina presence unspecified Qualified Code(s): I25.10 - Atherosclerotic heart disease of [place] coronary artery without angina pectoris (4) CKD (chronic kidney disease), stage IV Current Visit: Yes Status: Chronic Assessment and plan: Follow renal function. So far renal function has remained stable. (5) COPD with acute exacerbation Current Visit: Yes Status: Acute Assessment and plan: Continue bronchodilators. Wean steroids. O2 supplementation as needed. (6) Diabetes Current Visit: Yes Status: Chronic Assessment and plan: Improved control. Continue to monitor blood sugars. 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 No anticoagulation due to planned surgery. Qualifiers: Atrial fibrillation type: persistent Qualified Code(s): I48.1 - Persistent atrial fibrillation (9) Acute encephalopathy Current Visit: Yes Status: Resolved (10) Congestive heart failure Current Visit: No Status: Chronic Assessment and plan: Continue Lasix Qualifiers: Congestive heart failure type: diastolic Congestive heart failure chronicity: chronic Qualified Code(s): I50.32 - Chronic diastolic (congestive ) heart failure - Subjective Interval history: She did awake and alert. Denies any new complaints at this time. Pain is well controlled with IV pain medications that he is receiving. Schedule for left above-knee amputation tomorrow. - Constitutional Vitals: Temp Pulse Resp BP Pulse Ox 98.2 F 87 16 168/74 91 09/16/16 15:56 09/16/16 15:56 09/16/16 15:56 09/16/16 15:56 09/16/16 15:56 General appearance: Present: A&O X 3, obese, answers questions appropriately - Respiratory Respiratory exam: Present: CTAB, prolonged expiratory phase, wheezes. Absent: accessory muscle use, rales, rhonchi - Cardiovascular Cardiovascular exam: Present: RRR, +S1, +S2. Absent: diastolic murmur, gallop, rubs, systolic murmur - GI/Abdominal GI/Abdominal exam: Present: normal bowel sounds, soft, no peritoneal signs. Absent: distended, tenderness - Extremities Exam Extremities exam: Present: warm, radial pulses palpable and symetrical. Absent : calf tenderness, cyanotic, pedal edema Additional comments: Decreased dorsalis pedis pulses on the left side with multiple wounds on the patient's foot and ankle - Neurological Exam Neurological exam: Present: CN II-XII intact, oriented X3, no focal deficits. Absent: facial droop, speech deficit - Skin Skin exam: Present: dry, intact Internal Medicine: Result - Labs CBC & Chem 7: 09/15/16 03:36 09/15/16 03:36 - ABG Interpretation ABG results: ABG ABG pH 7.45 pH Units (7.32-7.45) 09/15/16 05:04 ABG pCO2 41 mmHg (35-45) 09/15/16 05:04 ABG pO2 78 mmHg (85-104) L 09/15/16 05:04 ABG O2 Saturation 96 % (95-98) 09/15/16 05:04 PT/INR, D-dimer PT 12.2 Seconds (9.4-12.1) H 09/16/16 09:06 Consult Discharge Plan - Plan [facility]errals: [facility] [Primary Care Provider] - - Attending Attestation This document has been at least partially created by [employer] recognition technology by Dr. Valadez. Errors in grammar, wording or other phrases may exist. If errors are found after the documentation is signed, they will be addressed individually in the addendum section of this document when appropriate.
--- NOTE | 2016-09-16 20:15 | Anesthesia Evaluation PreOp ---
Date of Encounter: 09/16/16 Time of Encounter: 20:14 - Past History Planned Operation: L-AKA Cardiac History: [place] (1981), CHF (Acute on Chronic Heart failure maintianed on Spironolactone & Lasix), HTN (maintained on Carvedilol, Aldacton, Lasix, Terazosin), Hyperlipidemia, Arrhythmia (Hx of AFib anticoagulated on Eliquis), Other (CAD/PAD/Arterial insufficiency w/ischemic ulcers maintained on Eliquis. ECHO 09/10/2015 - LVEF 60%, Moderate asymmetric LV basal septal hypertrophy. NO evidence of LVOT obstruction. 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 Anxiety/ Depression maintained on Lexapro) Other Medical History: Renal (stage 4 CKD), Diabetes Type II Anesthesia History: No Prior Anesthetic Complications, Past Anesthesia (L-SFA Stent/Angioplasty 11/16/2014, Appy, LE Bypass, Multiple LE revascularization interventions, PEG ube,) Alcohol Use: none Drug use: none Medications and Allergies Carvedilol [Coreg] 25 mg PO BID 11/16/14 [History] Finasteride [Proscar] 5 mg PO DAILY 11/16/14 [History] Spironolactone [Aldactone] 25 mg PO DAILY 05/15/15 [History] Docusate [Colace] 100 mg PO BID 08/15/15 [History] Magnesium Oxide [Magnesium] 400 mg PO BID 08/15/15 [History] Terazosin [Hytrin] 1 mg PO HS 08/15/15 [History] Acetaminophen [Tylenol] 650 mg PO TID 07/31/16 [History] Allopurinol [Zyloprim 100 MG] 50 mg PO DAILY 07/31/16 [History] Calcium Carbonate/Vitamin D3 [Calcium 500-Vit D3 200 Tablet] 1 each PO DAILY [History] Capsaicin 0.025% [Trixaicin] 1 appl TP TID PRN 07/31/16 [History] Escitalopram [Lexapro] 20 mg PO DAILY 07/31/16 [History] Lidocaine 4% CRM (LMX) [Lmx 4] 1 appl TP BID 07/31/16 [History] Mirtazapine [Remeron] 30 mg PO HS 07/31/16 [History] Mupirocin [Bactroban Oint] 1 appl TP TID 07/31/16 [History] Collagenase Oint [Santyl] 1 appl TP DAILY tube 08/03/16 [Rx] Apixaban [Eliquis] 5 mg PO BID 09/13/16 [History] Aloe Vera/Collagen [Aloe Bostic Cleansing Foam] 1 appl TP DAILY 09/14/16 [History ] Chlorhexidine Gluconate [Antiseptic Skin Cleanser] 1 appl TP DAILY 09/14/16 [ History] Clopidogrel [Plavix] 75 mg PO DAILY 09/14/16 [History] Doxycycline 100 mg PO BID 09/14/16 [History] Furosemide [Lasix] 60 mg PO BID 09/14/16 [History] Gabapentin [Neurontin] 600 mg PO BID 09/14/16 [History] HYDROcodone/Acet 10/325 mg [[place] 10-325 mg] 1 tab PO BID PRN 09/14/16 [History] Ipratropium/Albuterol Neb [Duoneb] 3 ml IH Q6HR PRN 09/14/16 [History] NIFEdipine [Nifedipine ER] 30 mg PO DAILY 09/14/16 [History] Nicotine Patch [Nicoderm] 21 mg TD DAILY 09/14/16 [History] Pantoprazole Sodium [Protonix] 40 mg PO DAILY 09/14/16 [History] Povidone-Iodine [Nasal Antiseptic Swabs] 1 each TP DAILY 09/14/16 [History] Simvastatin [Zocor] 40 mg PO DAILY 09/14/16 [History] Sodium Chloride IRRigation [0.9% Sodium Chl Irrigation 1000 Ml] 50 - 100 ml IR DAILY 09/14/16 [History] Allergies atorvastatin [From Lipitor] Adverse Reaction (Verified 09/14/16 12:59) See Comments [facility] list, unsure of reaction baclofen Adverse Reaction (Verified 09/14/16 12:00) Drowsy fluorouracil [From Efudex] Adverse Reaction (Verified 09/14/16 12:59) See Comments [facility] list, unsure of reaction sulfamethoxazole [From Bactrim] Adverse Reaction (Verified 09/14/16 12:59) See Comments [facility] list, unsure of reaction trimethoprim [From Bactrim] Adverse Reaction (Verified 09/14/16 12:59) See Comments [facility] list, unsure of reaction - Meds/Allergy Pre-op Review Medications Reviewed: Yes Allergies Reviewed: Yes Beta Blockers on Current Med List: Yes (Carvedilol) If Beta Blockers taken, Date/Time (Last Dose taken): 09/16/16 @ 1815 Anesthesia Results - Labs 09/15/16 03:36 09/15/16 03:36 Laboratory Results Impressions Foot X-Ray 09/13/16 16:11 IMPRESSION: 1. No radiographic evidence of osteomyelitis. 2. Plantar forefoot soft tissue ulceration. D/ / Mario Jonas MD / Mario Jonas MD Interpreting Provider: Mario Jonas MD Head CT 09/14/16 19:10 IMPRESSION: No acute intracranial abnormality. 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 Stable periventricular white matter ischemic changes. D/ / 09/14/2016 19:58:47 Curtis Cruz MD / lety Interpreting Provider: Curtis Cruz MD Chest X-Ray 09/14/16 23:53 IMPRESSION: No acute cardiopulmonary findings. No significant change compared to prior study. Stable mild interstitial prominence diffusely. No acute consolidation. D/ / 09/14/2016 07:58:23 Ronaldo Olmedo MD / neena Interpreting Provider: Ronaldo Olmedo MD - Imaging EKG: image reviewed (88bpm, AFib, Intraventricular Conduction Delay) Anesthesia Exam Vital Signs Temp Pulse Resp BP Pulse Ox 09/16/16 18:45 98.3 F 105 16 136/83 95 09/16/16 16:11 16 93 09/16/16 15:56 98.2 F 87 16 168/74 91 09/16/16 11:09 16 96 09/16/16 10:09 98.1 F 94 16 176/78 94 09/16/16 06:41 97.9 F 85 17 186/77 94 09/16/16 03:57 18 89 09/16/16 03:21 98 F 73 18 141/67 95 09/16/16 00:42 98.2 F 77 18 149/76 95 09/15/16 23:53 96 09/15/16 22:42 16 96 Intake and Output 09/16/16 09/16/16 09/16/16 07:59 15:59 23:59 Intake Total 100 / 100 220 / 220 360 / 360 Output Total 300 / 300 Balance 100 / 100 220 / 220 60 / 60 Intake: IV Fluids 100 / 100 100 / 100 Zosyn 3.375 GM In 100 / 100 100 / 100 Dextrose 5% (Minibag+) 100 ML 100 ML @ 25 mls/hr IVPB Q8HR WILLIAM Rx#: [id number] Oral 120 / 120 360 / 360 Output: Urine 300 / 300 Other: Meal Breakfast Dinner Percent of Meal Consumed 95% 100% Weight 92.2 kg Blood Glucose* 152 128 224 Patient Weight 09/16/16 23:59 Weight 92.2 kg Height: 5'6" Weight: 203# BMI = 33 NPO (# of Hours): MNoc - HEENT Pupil (Motor): Pupils equal, EOMI Mallampati: III Teeth: Edentulous Oral Opening: Greater than 3 - 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 OPERATOR LOC: Oriented 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 OPERATOR Motor: Normal RUE, Normal LUE, Normal RLE, Normal LLE, Normal Face 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 OPERATOR Sensory: Normal: RUE, LUE, RLE, Face, Deficit: LLE - Cardiac Rhythm: Irregular Murmur: None - Pulmonary Breath Sounds: bilateral Clear (wheezes) Respiratory Effort: Symmetrical Anesthesia Assess/Plan ASA Score: 4 (CAD/PVD, COPD, CHF, HTN, Chol, Smoker, Stage 4 CKD, DM) Modified [place] Scale for Level of Consciousness: Cooperative, oriented, and tranquil Anesthetic Plan: General Monitoring Plan: Standard Monitors Recovery Plan: PACU Anes Supervising Prov Stmt: Pt seen/evaluated, R&B Discussed, questions answered and consent obtained. Spencer Berkowitz MD
[2016-09-16] MEDS: Mirtazapine 15 MG TABLET PO SCH (20:44)
[2016-09-17] MEDS: Piperacillin/Tazobactam 3.375 GM in D5% in Water (Mini-Bag+) 100 ML IVPB SCH ×4 (00:37→23:53)
[2016-09-17] MEDS: *HR* HYDROmorphone (PF) 1 MG/ML SYRINGE IVP PRN ×7 (00:41→13:18)
[2016-09-17] MEDS: Ipratropium/Albuterol Neb 3 ML IH SCH ×2 (03:02→10:57)
[2016-09-17] MEDS: Insulin LISPRO 300 UNITS/3 ML VIAL SQ SCH ×3 (07:44→20:30)
[2016-09-17] MEDS: Lactobacillus 1 EACH CAP.SPRINK PO SCH ×2 (07:52→20:29)
[2016-09-17] MEDS: Furosemide 40 MG TABLET PO SCH ×2 (07:52→18:27)
[2016-09-17] MEDS: Magnesium Oxide 400 MG TABLET PO SCH ×2 (07:52→20:30)
[2016-09-17] MEDS: clonazePAM 0.5 MG TABLET PO PRN ×2 (07:55→20:30)
[2016-09-17] MEDS: *HR* OxyCODONE/APAP 5/325 TABLET PO PRN (07:55)
[2016-09-17] MEDS ORDERED: CeFAZolin Pre 2,000 MG/100 ML 2,000 MG/100 ML BAG IVPB ONE (09:00)
[2016-09-17] MEDS ORDERED: predniSONE 20 MG TABLET PO SCH (09:00)
--- NOTE | 2016-09-17 09:50 | Internal Med Progress Note ---
Date of Encounter: 09/17/16 Time of Encounter: 08:15 - Assessment and plan (1) Arterial insufficiency with ischemic ulcer Current Visit: Yes Status: Acute Assessment and plan: Awaiting surgery today with left above-knee amputation planned. Continue antibiotics for now. Monitor vital signs. High risk for complications due to use of intravenous narcotic medications. (2) Acute respiratory failure Current Visit: Yes Status: Resolved Assessment and plan: This has now resolved. Patient is saturating 97% on room air Qualifiers: Respiratory failure complication: hypoxia Qualified Code(s): J96.01 - Acute respiratory failure with hypoxia (3) CAD (coronary artery disease) Current Visit: Yes Status: Chronic Assessment and plan: No chest pain at this time. Holding Plavix for surgery Qualifiers: Coronary Disease-Associated Artery/Lesion type: [place] artery [place] vs. transplanted heart: [place] heart Associated angina: angina presence unspecified Qualified Code(s): I25.10 - Atherosclerotic heart disease of [place] coronary artery without angina pectoris (4) CKD (chronic kidney disease), stage IV Current Visit: Yes Status: Chronic Assessment and plan: Will follow renal function postsurgery (5) COPD with acute exacerbation Current Visit: Yes Status: Acute Assessment and plan: Improving. We will continue to taper steroids and decrease frequency of bronchodilator nebs (6) Diabetes Current Visit: Yes Status: Chronic Assessment and plan: Better controlled this morning but patient was nothing by mouth for surgery. We will continue to monitor blood sugars and adjust sliding scale accordingly. Qualifiers: Diabetes mellitus type: type 2 Diabetes mellitus complication status: with circulatory complication Diabetes mellitus complication detail: with other circulatory complications Diabetes mellitus chcf insulin use: unspecified chcf insulin use status Qualified Code(s): E11.59 - Type 2 diabetes mellitus with other circulatory complications (7) Peripheral vascular disease of lower extremity with ulceration Current Visit: Yes Status: Acute Assessment and plan: Planned surgery later today. (8) Atrial fibrillation Current Visit: Yes Status: Chronic Assessment and plan: rate controlled. Anticoagulation held for surgery Qualifiers: Atrial fibrillation type: persistent Qualified Code(s): I48.1 - Persistent atrial fibrillation (9) Acute encephalopathy Current Visit: Yes Status: Resolved (10) Congestive heart failure Current Visit: No Status: Chronic Assessment and plan: Continue Lasix 40 mg twice daily Qualifiers: Congestive heart failure type: diastolic Congestive heart failure chronicity: chronic Qualified Code(s): I50.32 - Chronic diastolic (congestive ) heart failure (11) Hypertension Current Visit: Yes Status: Chronic Assessment and plan: Blood pressure elevated today. Continue carvedilol and nifedipine. Likely due to pain. We will continue to monitor for now. If persists after surgery, we will adjust antihypertensives accordingly Qualifiers: Hypertension type: essential hypertension Qualified Code(s): I10 - Essential (primary) hypertension - Subjective Interval history: Patient continues to have pain in his left lower extremity but controlled with pain medications. Awaiting surgery scheduled for later today. Denies any new complaints at this time. Shortness of breath is improving. No fever chills night sweats overnight. - Constitutional Vitals: Temp Pulse Resp BP Pulse Ox 97.9 F 85 16 178/90 97 09/17/16 07:20 09/17/16 07:20 09/17/16 07:20 09/17/16 07:20 09/17/16 07:20 General appearance: Present: A&O X 3, obese, answers questions appropriately - Respiratory Respiratory exam: Present: CTAB. Absent: accessory muscle use, rales, rhonchi, wheezes - Cardiovascular Cardiovascular exam: Present: RRR, +S1, +S2. Absent: diastolic murmur, gallop, rubs, systolic murmur - GI/Abdominal GI/Abdominal exam: Present: normal bowel sounds, soft, no peritoneal signs. Absent: distended, tenderness - Extremities Exam Extremities exam: Present: warm, radial pulses palpable and symetrical. Absent : calf tenderness, cyanotic, pedal edema Additional comments: Multiple wounds and ulcers in the left foot and ankle - Neurological Exam Neurological exam: Present: oriented X3, no focal deficits. Absent: facial droop, speech deficit Internal Medicine: Result - Labs CBC & Chem 7: 09/15/16 03:36 09/15/16 03:36 - ABG Interpretation ABG results: ABG ABG pH 7.45 pH Units (7.32-7.45) 09/15/16 05:04 ABG pCO2 41 mmHg (35-45) 09/15/16 05:04 ABG pO2 78 mmHg (85-104) L 09/15/16 05:04 ABG O2 Saturation 96 % (95-98) 09/15/16 05:04 PT/INR, D-dimer PT 12.2 Seconds (9.4-12.1) H 09/16/16 09:06 Consult Discharge Plan - Plan [facility]errals: [facility] [Primary Care Provider] - - Attending Attestation This document has been at least partially created by [employer] recognition technology by Dr. Valadez. Errors in grammar, wording or other phrases may exist. If errors are found after the documentation is signed, they will be addressed individually in the addendum section of this document when appropriate.
[2016-09-17] MEDS ORDERED: *HR* Morphine 2 MG/ML SYRINGE IVP PRN (12:04)
[2016-09-17] MEDS ORDERED: Ondansetron 4 MG/2 ML VIAL IVP ONE (12:04)
[2016-09-17] MEDS ORDERED: *HR* Propofol 200 MG/20 ML VIAL IVP ONE (12:17)
[2016-09-17] MEDS ORDERED: *HR* FentaNYL (PF) 100 MCG/2 ML VIAL ONE ×2 (12:17)
[2016-09-17] MEDS ORDERED: *HR* Midazolam HCl 2 MG/2 ML VIAL ONE (12:17)
[2016-09-17] MEDS ORDERED: *HR* Phenylephrine 10 MG/ML VIAL ONE (12:17)
[2016-09-17] MEDS ORDERED: Neostigmine Methylsulfate 3 MG/3 ML SYRINGE ONE (12:21)
[2016-09-17] MEDS ORDERED: *HR* Morphine 10 MG/ML VIAL ONE (12:22)
--- NOTE | 2016-09-17 12:37 | Operative Note ---
Date of procedure: 09/17/16 Pre-op diagnosis: ischemic left foot Post-op diagnosis: same Procedure: left Above knee amputation Complications: none Anesthesia: YEIMY Surgeon: Luis Mckinney Estimated blood loss (cc): 100 Specimen: left aka Condition: stable Disposition: PACU Procedure in Detail: History Bayron Jackson is a 70-year-old white male with multiple medical problems and a long-standing history of bilateral lower extremity vascular occlusive disease. The patient was recently admitted to the hospital for evaluation of lower extremity issues as well as pulmonary concerns. It is demonstrated that he has exposed bone on the plantar surface of his foot as well as gangrenous changes of the toes. 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 The patient is not an appropriate candidate for further revascularization and so therefore amputation was necessary. He now comes to the operating room for this procedure. Procedure After informed consent was obtained the patient was taken the operating room. General endotracheal anesthesia was established. The left lower extremity was sterilely prepped and draped. A timeout protocol was observed. A [place] type incision was made on the distal left thigh. The incision was carried to and through the fascia circumferentially. Bovie cautery was used to divide the underlying tissue and muscles. The arteries and veins were individually identified and dissected and ligated and divided. The sciatic nerve was divided posteriorly. The thrombosed graft was identified and this was divided as well. The periosteum was raised on the femur. The femur was then divided with an oscillating saw. The edges of the femur were rasped smooth. The wound was copiously irrigated with antibiotic containing solution. The wound was then closed in layers with absorbable suture. Richardson were used to close the skin edges. A dry bulky dressing was then applied to the amputation site and this was secured with Kerlix rolls and Bal wraps. The patient was excreted in the operating room. He was taken to the recovery room in stable condition.
[2016-09-17] MEDS ORDERED: *HR* HYDROmorphone 2 MG/ML SYRINGE ONE ×2 (12:45→13:06)
[2016-09-17] MEDS ORDERED: *HR* HYDROmorphone (PF) 1 MG/ML SYRINGE IVP PRN ×2 (13:04→23:45)
[2016-09-17] MEDS ORDERED: Acetaminophen IV 1,000 MG/100 ML INFUS..BTL IVPB ONE (13:05)
[2016-09-17] MEDS ORDERED: Albuterol 2.5 MG/3 ML NEBULIZER ONE (13:07)
[2016-09-17] MEDS ORDERED: Water for inj. (sterile) 20 ML IV ONE (13:14)
[2016-09-17] MEDS ORDERED: Ketamine *HR* 500 MG/10 ML MDV ONE (13:14)
--- NOTE | 2016-09-17 13:49 | Anesthesia Evaluation Post Op ---
Date of Encounter: 09/17/16 Time of Encounter: 13:49 - Vital Signs Vital Signs: Vital Signs/O2 Sat/Glucose, Most Current Temp Pulse Resp BP Pulse Ox 09/17/16 13:38 97.7 F 82 20 139/71 95 09/17/16 13:28 74 20 154/100 95 09/17/16 13:18 77 20 92/60 95 09/17/16 13:08 98.2 F 76 20 137/58 95 09/17/16 12:58 84 20 144/77 97 09/17/16 12:48 86 20 164/87 100 09/17/16 12:38 97.8 F 78 20 157/82 100 - Lungs Lungs: Clear Ascult./Percussion - Airway Airway: Non-obstructed - Cardiovascular Regular Rate - Mental Status Mental Status: Alert & Oriented, Answers Appropriately - Pain Pain Scale: 2 - Nausea Vomiting Nausea Vomiting: Not Present - Hydration Hydration: NPO - Discharge PostOp Status: Transfer Patient to floor
[2016-09-17] MEDS: *HR* Morphine 2 MG/ML SYRINGE IVP PRN ×3 (14:33→22:52)
[2016-09-17] MEDS ORDERED: Capsaicin 0.025% 60 GM TUBE TP PRN (16:22)
[2016-09-17] MEDS: ceFAZolin 2,000 MG in D5% in Water 100 ML IVPB SCH ×2 (16:30→23:53)
[2016-09-17] MEDS: *HR* HYDROcodone/Acet 5/325 mg TABLET PO PRN ×2 (16:40→20:29)
[2016-09-17] MEDS ORDERED: Ipratropium/Albuterol Neb 3 ML IH PRN (17:03)
[2016-09-17] MEDS ORDERED: Naloxone 0.4 MG/ML INJ IVP PRN (17:27)
[2016-09-17] MEDS ORDERED: D5% in Water 1,000 ML IVC PRN (17:39)
[2016-09-17] MEDS ORDERED: Dextrose Gel 15 GM PO PRN ×2 (17:39)
[2016-09-17] MEDS ORDERED: *HR* Dextrose 50 % in Water (Syg) 50 ML SYRINGE IVP PRN (17:39)
[2016-09-17] MEDS: Acetaminophen 325 MG TABLET PO SCH (20:29)
[2016-09-17] MEDS: Mirtazapine 15 MG TABLET PO SCH (20:30)
[2016-09-17] MEDS ORDERED: *HR* HYDROmorphone (PF) 1 MG/ML SYRINGE ONE (23:49)
[2016-09-18] MEDS: *HR* Morphine 2 MG/ML SYRINGE IVP PRN ×3 (04:05→17:06)
[2016-09-18 04:26] LABS: Basophils % 0.1 %; Eosinophils # 0.1 K/mcL (0.0-0.6); Eosinophils % 1.6 %; Hematocrit 32.7 % (37.5-50.1); Hemoglobin 10.7 g/dL (12.9-16.9); Immature Granulocytes % 0.5 % (0-4); Immature Platelets 2.2 % (1.1-6.1); Lymphocytes # 1.7 K/mcL (0.6-4.6); Lymphocytes % 23.4 %; Mean Corpuscular HGB Conc 32.7 g/dL (31.6-35.5); Mean Corpuscular Hemoglobin 28.5 pg (28.0-33.3); Mean Corpuscular Volume 87.2 fL (83.0-100.0); Mean Platelet Volume 9.4 fL (9.4-12.4); Monocytes # 0.7 K/mcL (0.0-1.3); Monocytes % 9.8 %; Neutrophils # 4.7 K/mcL (1.6-8.9); Platelet Count 206 K/mcL (140-400); Red Blood Count 3.75 M/mcL (4.19-5.50); Red Cell Distribution Width 14.1 % (11.5-14.5); Segmented Neutrophils % 64.6 %
[2016-09-18 04:43] LABS: Calcium 8.5 mg/dL (8.6-10.8); Potassium 3.3 mEq/L (3.5-4.5)
[2016-09-18] MEDS: *HR* HYDROcodone/Acet 5/325 mg TABLET PO PRN ×2 (05:03→10:25)
[2016-09-18] MEDS: predniSONE 20 MG TABLET PO SCH (08:25)
[2016-09-18] MEDS: Spironolactone 25 MG TABLET PO SCH (08:25)
[2016-09-18] MEDS: NIFEdipine XL (24 HR) 30 MG TAB.ER.24 PO SCH (08:25)
[2016-09-18] MEDS: Zinc Sulfate 220 MG CAPSULE PO SCH (08:25)
[2016-09-18] MEDS: Lactobacillus 1 EACH CAP.SPRINK PO SCH ×2 (08:25→20:36)
[2016-09-18] MEDS: Ascorbic Acid 500 MG TABLET PO SCH (08:25)
[2016-09-18] MEDS: Magnesium Oxide 400 MG TABLET PO SCH ×2 (08:26→20:39)
[2016-09-18] MEDS: Cholecalciferol (D-3) 1,000 UNIT TABLET PO SCH (08:26)
[2016-09-18] MEDS: Furosemide 40 MG TABLET PO SCH ×2 (08:26→17:38)
[2016-09-18] MEDS: Finasteride 5 MG TABLET PO SCH (08:26)
[2016-09-18] MEDS: Insulin LISPRO 300 UNITS/3 ML VIAL SQ SCH ×4 (08:27→20:39)
[2016-09-18] MEDS: Acetaminophen 325 MG TABLET PO SCH ×3 (08:27→20:38)
[2016-09-18] MEDS: Piperacillin/Tazobactam 3.375 GM in D5% in Water (Mini-Bag+) 100 ML IVPB SCH ×2 (08:27→15:50)
[2016-09-18] MEDS ORDERED: Ascorbic Acid 500 MG TABLET PO SCH (09:00)
[2016-09-18] MEDS ORDERED: Zinc Sulfate 220 MG CAPSULE PO SCH (09:00)
[2016-09-18] MEDS: ceFAZolin 2,000 MG in D5% in Water 100 ML IVPB SCH (10:27)
--- NOTE | 2016-09-18 11:04 | Internal Med Progress Note ---
Date of Encounter: 09/18/16 Time of Encounter: 09:50 - Assessment and plan (1) Arterial insufficiency with ischemic ulcer Current Visit: Yes Status: Acute Assessment and plan: left above-knee amputation postop day #1. Continue antibiotics for now. Monitor vital signs. High risk for complications due to use of intravenous narcotic medications. Vascular surgery following up with patient (2) Atrial fibrillation Current Visit: Yes Status: Chronic Assessment and plan: rate controlled. We will need to restart anticoagulation. Qualifiers: Atrial fibrillation type: persistent Qualified Code(s): I48.1 - Persistent atrial fibrillation (3) CAD (coronary artery disease) Current Visit: Yes Status: Chronic Assessment and plan: No chest pain at this time. We will need to restart Plavix. Continue carvedilol. Patient is allergic to atorvastatin. Qualifiers: Coronary Disease-Associated Artery/Lesion type: [place] artery [place] vs. transplanted heart: [place] heart Associated angina: angina presence unspecified Qualified Code(s): I25.10 - Atherosclerotic heart disease of [place] coronary artery without angina pectoris (4) Diabetes Current Visit: Yes Status: Chronic Assessment and plan: Normoglycemic. We will continue to monitor blood sugars and adjust sliding scale accordingly. 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 Continue DuoNeb breathing treatments. - Time Spent With Patient less than 15 minutes - Subjective Interval history: Patient awake and alert. Complains of pain in the left lower extremity at surgical site. No fever. IV antibiotics continued. Postop day #1. Denies chest pain or shortness of breath. Tolerating oral diet. No other acute events or complaints. - Constitutional Vitals: Temp Pulse Resp BP Pulse Ox 98.1 F 98 18 162/81 95 09/18/16 07:58 09/18/16 08:00 09/18/16 07:58 09/18/16 07:58 09/18/16 07:58 General appearance: Present: A&O X 3, obese, answers questions appropriately - Head Head exam: Present: atraumatic - ENT ENT exam: Present: mucous membranes moist - Neck Neck exam general surgery: Present: supple - Respiratory Respiratory exam: Present: CTAB. Absent: rhonchi, wheezes - Cardiovascular Cardiovascular exam: Present: RRR, +S1, +S2 - GI/Abdominal GI/Abdominal exam: Present: soft. Absent: guarding, tenderness - Extremities Exam Extremities exam: Present: radial pulses palpable and symetrical. Absent: cyanotic Additional comments: Left above-knee amputation + - Neurological Exam Neurological exam: Present: alert, oriented X3, no focal deficits Internal Medicine: Result - Labs CBC & Chem 7: 09/18/16 04:10 09/18/16 04:10 Labs: Short CBC 09/18/16 Range/Units 04:10 WBC 7.3 (4.3-11.1) K/mcL Hgb 10.7 L (12.9-16.9) g/dL Hct 32.7 L (37.5-50.1) % Plt Count 206 (140-400) K/mcL Neutrophils # 4.7 (1.6-8.9) K/mcL BMP 09/18/16 04:10 Sodium 138 Potassium 3.3 L Chloride 102 Carbon Dioxide 26 BUN 39 H Creatinine 2.42 H Glucose 80 Calcium 8.5 L - ABG Interpretation ABG results: ABG ABG pH 7.45 pH Units (7.32-7.45) 09/15/16 05:04 ABG pCO2 41 mmHg (35-45) 09/15/16 05:04 ABG pO2 78 mmHg (85-104) L 09/15/16 05:04 ABG O2 Saturation 96 % (95-98) 09/15/16 05:04 PT/INR, D-dimer PT 12.2 Seconds (9.4-12.1) H 09/16/16 09:06 - VTE Documentation of Mechanical Device: Intermittent pneumatic compression device Consult Discharge Plan - Plan Referrals: SHANNAN,PCP [Primary Care Provider] - 09/24/16 2:15 pm Luis Mckinney MD [Partnered Physician] - 09/30/16 2:45 pm
--- NOTE | 2016-09-18 15:32 | Vascular/Endovas Progress Note ---
Date of Encounter: 09/18/16 Time of Encounter: 15:29 - Assessment and plan (1) Arterial insufficiency with ischemic ulcer Current Visit: Yes Status: Acute POD # 1 from left AKA. Pt stable. To ECF/Rehab soon. F/U in 6 weeks (2) COPD (chronic obstructive pulmonary disease) Current Visit: No Status: Chronic Significant COPD. Qualifiers: COPD type: unspecified COPD Qualified Code(s): J44.9 - Chronic obstructive pulmonary disease, unspecified (3) Congestive heart failure Current Visit: No Status: Chronic Chronic congestive heart failure. Qualifiers: Congestive heart failure type: diastolic Congestive heart failure chronicity: chronic Qualified Code(s): I50.32 - Chronic diastolic (congestive ) heart failure - Subjective Interval history: Patient complains of pain in left AKA area. Vital Signs, Last 4 Hours Temp Pulse Resp BP Pulse Ox 09/18/16 13:21 80 09/18/16 12:00 80 09/18/16 11:33 98.4 F 83 18 143/78 94 - Physical Examination General: Present: Conversant HEENT: Present: Atraumatic Neuro: Present: Alert and responsive Vascular: Present: Amputation(s) (dressing is intact) Abdomen: Present: Soft, Non-tender Skin: Present: No rashes noted on visualized skin - VTE Documentation of Mechanical Device: Intermittent pneumatic compression device Results 09/18/16 04:10 09/18/16 04:10 Lab Results, Last 24 hours 09/18/16 09/18/16 04:10 04:10 WBC 7.3 Hgb 10.7 L Hct 32.7 L Plt Count 206 Sodium 138 Potassium 3.3 L Chloride 102 Carbon Dioxide 26 BUN 39 H Creatinine 2.42 H Glucose 80 Calcium 8.5 L Consult Discharge Plan - Plan Additional Instructions: daily dressing changes to left AKA with dry dressings and james wrap at Rehab [facility]Primary Care Provider[facility] - 09/24/16 2:15 pm Luis Mckinney MD [Partnered Physician] - (follow up with Dr Mckinney in 6 weeks)
--- NOTE | 2016-09-18 15:37 | Discharge Summary ---
<Luis Mckinney - Last Filed: 09/22/16 07:50> Date of Encounter: 09/22/16 - Discharge Diagnosis (1) Arterial insufficiency with ischemic ulcer Status: Acute (2) COPD (chronic obstructive pulmonary disease) Status: Chronic Qualifiers: COPD type: unspecified COPD Qualified Code(s): J44.9 - Chronic obstructive pulmonary disease, unspecified (3) Congestive heart failure Status: Chronic Qualifiers: Congestive heart failure type: diastolic Congestive heart failure chronicity: chronic Qualified Code(s): I50.32 - Chronic diastolic (congestive ) heart failure - Discharge Medications Prescriptions: Cholecalciferol (D-3) [Vitamin D] 1,000 unit PO DAILY 30 Days Doxycycline 100 mg PO BID 7 Days HYDROcodone/Acet 10/325 mg [[place] 10-325 mg] 1 tab PO BID PRN #7 tablet PRN Reason: Pain Nicotine Patch [Nicoderm] 21 mg TD DAILY #30 patch.td24 Home Medications: Carvedilol [Coreg] 25 mg PO BID 11/16/14 [History] Finasteride [Proscar] 5 mg PO DAILY 11/16/14 [History] Spironolactone [Aldactone] 25 mg PO DAILY 05/15/15 [History] Docusate [Colace] 100 mg PO BID 08/15/15 [History] Magnesium Oxide [Magnesium] 400 mg PO BID 08/15/15 [History] Terazosin [Hytrin] 1 mg PO HS 08/15/15 [History] Acetaminophen [Tylenol] 650 mg PO TID 07/31/16 [History] Allopurinol [Zyloprim 100 MG] 50 mg PO DAILY 07/31/16 [History] Calcium Carbonate/Vitamin D3 [Calcium 500-Vit D3 200 Tablet] 1 each PO DAILY [History] Capsaicin 0.025% [Trixaicin] 1 appl TP TID PRN 07/31/16 [History] Escitalopram [Lexapro] 20 mg PO DAILY 07/31/16 [History] Lidocaine 4% CRM (LMX) [Lmx 4] 1 appl TP BID 07/31/16 [History] Mirtazapine [Remeron] 30 mg PO HS 07/31/16 [History] Mupirocin [Bactroban Oint] 1 appl TP TID 07/31/16 [History] Collagenase Oint [Santyl] 1 appl TP DAILY tube 08/03/16 [Rx] Apixaban [Eliquis] 5 mg PO BID 09/13/16 [History] Aloe Vera/Collagen [Aloe [place] Cleansing Foam] 1 appl TP DAILY 09/14/16 [History ] Chlorhexidine Gluconate [Antiseptic Skin Cleanser] 1 appl TP DAILY 09/14/16 [ History] Furosemide [Lasix] 60 mg PO BID 09/14/16 [History] Gabapentin [Neurontin] 600 mg PO BID 09/14/16 [History] Ipratropium/Albuterol Neb [Duoneb] 3 ml IH Q6HR PRN 09/14/16 [History] NIFEdipine [Nifedipine ER] 30 mg PO DAILY 09/14/16 [History] Pantoprazole Sodium [Protonix] 40 mg PO DAILY 09/14/16 [History] Povidone-Iodine [Nasal Antiseptic Swabs] 1 each TP DAILY 09/14/16 [History] Simvastatin [Zocor] 40 mg PO DAILY 09/14/16 [History] Cholecalciferol (D-3) [Vitamin D] 1,000 unit PO DAILY 30 Days 09/19/16 [Rx] Doxycycline 100 mg PO BID 7 Days 09/19/16 [Rx] HYDROcodone/Acet 10/325 mg [[place] 10-325 mg] 1 tab PO BID PRN #7 tablet [Rx] Nicotine Patch [Nicoderm] 21 mg TD DAILY #30 patch.td24 09/19/16 [Rx] Allergies/Adverse Reactions: Allergies atorvastatin [From Lipitor] Adverse Reaction (Verified 09/14/16 12:59) See Comments [facility] list, unsure of reaction baclofen Adverse Reaction (Verified 09/14/16 12:00) Drowsy fluorouracil [From Efudex] Adverse Reaction (Verified 09/14/16 12:59) See Comments va list, unsure of reaction sulfamethoxazole [From Bactrim] Adverse Reaction (Verified 09/14/16 12:59) See Comments va list, unsure of reaction trimethoprim [From Bactrim] Adverse Reaction (Verified 09/14/16 12:59) See Comments va list, unsure of reaction Date of admission: 09/13/16 21:28 Primary care physician: [facility]CP [facility] Consults: 09/14/16 16:04 Consult to Cardiology [CONS] Routine Comment: Consulting Provider: Mali Melgar Reason for Consult: cardiac clearance for above knee amputation Call Completed: Yes 09/17/16 14:25 Consult to Die Repairer Forging [CONS] Routine Reason for SW Consult: post op amputation 09/18/16 08:48 Consult to Occupational Therapy [CONS] Routine Comment: Evaluate, develop and implement POC Reason for Consult: Discharge planning Consult to Physical Therapy [CONS] Routine Comment: Evaluate, develop and implement POC Reason for Consult: discharge planning - Patient Status Disposition: Transfer Inpatient Rehab Fac Condition: Fair Functional capacity at discharge: wheelchair bound Overall status at discharge: patient is not back to baseline - Discharge Instructions Instructions: Atrial Fibrillation (DC), Acute Respiratory Distress Syndrome (DC ), Cellulitis (DC), Diabetes Mellitus Type 2 in Adults (DC), Peripheral Vascular Disorders (DC), Chronic Obstructive Pulmonary Disease (DC), Chronic Hypertension (DC) Follow Up With: [facility] [Primary Care Provider] - 09/24/16 2:15 pm Luis Mckinney MD [Partnered Physician] - (follow up with Dr Mckinney in 6 weeks) Additional Instructions: daily dressing changes to left AKA with dry dressings and james wrap at Rehab Continue with Physical and Occupational Therapy. - Diet and Activity Activity: as per physical therapy Diet: diabetic diet - Hospital Course Hospital course: Mr. Jackson is a 70 year old male seen in consult for severe and recurrent left lower extremity ischemia. S/P previous endovascular interventions and lower extrmity bypass. Now with exposed bone on plantar surface and thrombosed graft. Pt underwent left AKA. No complications. To Rehab Facility upon discharge. - Time Spent with Patient Total time spent providing and/or coordinating discharge services: Exam Vital Signs, Last 4 Hours Pulse 09/18/16 13:21 80 09/18/16 12:00 80 - VTE Documentation of Mechanical Device: Intermittent pneumatic compression device <Ace Lynn - Last Filed: 09/23/16 13:03> Date of Encounter: 09/19/16 Time of Encounter: 13:00 - Discharge Diagnosis (1) PAD (peripheral artery disease) Priority: Primary Status: Chronic Comments: The patient underwent a left above knee amputation. He tolerated the procedure well. His incision is healing well. He will be discharged to rehab today. He will follow-up in clinic with Dr. Mckinney. Procedures/tests Complete & Pending: Procedures Performed prior 72 hours Category Date Time Status EKG [ECG 12 lead ECG] [ECG] Stat Y 09/18/16 16:49 Completed Date of admission: 09/13/16 21:28 Primary care physician: [facility]CP [facility] Consults: 09/14/16 16:04 Consult to Cardiology [CONS] Routine Comment: Consulting Provider: Cardiology Talia Reason for Consult: cardiac clearance for above knee amputation Call Completed: Yes 09/17/16 14:25 Consult to Die Repairer Forging [CONS] Routine Reason for SW Consult: post op amputation 09/18/16 08:48 Consult to Occupational Therapy [CONS] Routine Comment: Evaluate, develop and implement POC Reason for Consult: Discharge planning Consult to Physical Therapy [CONS] Routine Comment: Evaluate, develop and implement POC Reason for Consult: discharge planning Procedure(s) Performed: Left above knee amputation. Discharging clinician: Luis Mckinney Anticipated date of discharge: 09/20/16 - Hospital Course Hospital course: Mr. Jackson is a 70 year old male - Time Spent with Patient Total time spent providing and/or coordinating discharge services: Exam General: Present: Conversant, No Apparent Distress Cardiac: Present: Reg Rate and Rhythm Lungs: Present: Normal Breath Sounds Neuro: Present: Alert and responsive, No focal deficits noted Abdomen: Present: Soft Vascular: Present: Surgical incisions (incision clean, dry and intact without erythema or drainage)
[2016-09-18] MEDS: Nicotine 21 MG PATCH.TD24 TD SCH (15:49)
[2016-09-18] MEDS: *HR* HYDROcodone/Acet 7.5/325 mg TABLET PO PRN (15:51)
[2016-09-18] MEDS: clonazePAM 0.5 MG TABLET PO PRN (20:36)
[2016-09-18] MEDS: Gabapentin 300 MG CAPSULE PO SCH (20:36)
[2016-09-18] MEDS: Doxycycline 100 MG CAPSULE PO SCH (20:37)
[2016-09-18] MEDS: Mirtazapine 15 MG TABLET PO SCH (20:37)
[2016-09-18] MEDS: APIXABAN 5 MG TABLET PO SCH (20:38)
[2016-09-19] MEDS: Piperacillin/Tazobactam 3.375 GM in D5% in Water (Mini-Bag+) 100 ML IVPB SCH ×2 (00:24→08:23)
[2016-09-19] MEDS: *HR* Morphine 2 MG/ML SYRINGE IVP PRN (00:28)
[2016-09-19 05:12] LABS: Calcium 8.3 mg/dL (8.6-10.8); Potassium 3.8 mEq/L (3.5-4.5)
[2016-09-19] MEDS: Insulin LISPRO 300 UNITS/3 ML VIAL SQ SCH ×2 (08:13→11:21)
[2016-09-19] MEDS: Lactobacillus 1 EACH CAP.SPRINK PO SCH (08:28)
[2016-09-19] MEDS: Furosemide 40 MG TABLET PO SCH (08:29)
[2016-09-19] MEDS: predniSONE 20 MG TABLET PO SCH (08:30)
[2016-09-19] MEDS: Magnesium Oxide 400 MG TABLET PO SCH (08:30)
[2016-09-19] MEDS: *HR* HYDROcodone/Acet 7.5/325 mg TABLET PO PRN ×2 (08:34→15:13)
[2016-09-19] MEDS: Doxycycline 100 MG CAPSULE PO SCH (08:34)
[2016-09-19] MEDS: NIFEdipine XL (24 HR) 30 MG TAB.ER.24 PO SCH (08:35)
[2016-09-19] MEDS: APIXABAN 5 MG TABLET PO SCH (08:35)
[2016-09-19] MEDS: Spironolactone 25 MG TABLET PO SCH (08:35)
[2016-09-19] MEDS: Ascorbic Acid 500 MG TABLET PO SCH (08:35)
[2016-09-19] MEDS: Nicotine 21 MG PATCH.TD24 TD SCH (08:36)
[2016-09-19] MEDS: Zinc Sulfate 220 MG CAPSULE PO SCH (08:36)
[2016-09-19] MEDS: Cholecalciferol (D-3) 1,000 UNIT TABLET PO SCH (08:36)
[2016-09-19] MEDS: Gabapentin 300 MG CAPSULE PO SCH (08:37)
[2016-09-19] MEDS: Finasteride 5 MG TABLET PO SCH (08:37)
[2016-09-19] MEDS: Acetaminophen 325 MG TABLET PO SCH (08:38)
--- NOTE | 2016-09-19 10:55 | Discharge Summary ---
Date of Encounter: 09/19/16 Time of Encounter: 09:45 - Discharge Diagnosis (1) Arterial insufficiency with ischemic ulcer Priority: Primary Status: Acute Comments: left above-knee amputation postop day #2 - improving Vascular surgery - outpatient follow up (2) Atrial fibrillation Priority: Primary Status: Chronic Comments: rate controlled, continue Eliquis and Coreg Qualifiers: Atrial fibrillation type: persistent Qualified Code(s): I48.1 - Persistent atrial fibrillation (3) CAD (coronary artery disease) Priority: Secondary Status: Chronic Comments: No chest pain at this time. patient states Plavix has been discontinued by PCP/Head Bone Grinder Continue carvedilol, zocor Qualifiers: Coronary Disease-Associated Artery/Lesion type: [place] artery [place] vs. transplanted heart: [place] heart Associated angina: angina presence unspecified Qualified Code(s): I25.10 - Atherosclerotic heart disease of [place] coronary artery without angina pectoris (4) Diabetes Priority: Secondary Status: Chronic Comments: hyperglycemia. Qualifiers: Diabetes mellitus type: type 2 Diabetes mellitus complication status: with circulatory complication Diabetes mellitus complication detail: with other circulatory complications Diabetes mellitus machine long goods helper insulin use: unspecified machine long goods helper insulin use status Qualified Code(s): E11.59 - Type 2 diabetes mellitus with other circulatory complications (5) CKD (chronic kidney disease), stage IV Priority: Secondary Status: Chronic Comments: stable, Cr at baseline (6) COPD with acute exacerbation Priority: Primary Status: Acute Comments: improved, Duonebs PRN - Discharge Medications Prescriptions: Cholecalciferol (D-3) [Vitamin D] 1,000 unit PO DAILY 30 Days Doxycycline 100 mg PO BID 7 Days HYDROcodone/Acet 10/325 mg [[place] 10-325 mg] 1 tab PO BID PRN #7 tablet PRN Reason: Pain Nicotine Patch [Nicoderm] 21 mg TD DAILY #30 patch.td24 Home Medications: Carvedilol [Coreg] 25 mg PO BID 11/16/14 [History] Finasteride [Proscar] 5 mg PO DAILY 11/16/14 [History] Spironolactone [Aldactone] 25 mg PO DAILY 05/15/15 [History] Docusate [Colace] 100 mg PO BID 08/15/15 [History] Magnesium Oxide [Magnesium] 400 mg PO BID 08/15/15 [History] Terazosin [Hytrin] 1 mg PO HS 08/15/15 [History] Acetaminophen [Tylenol] 650 mg PO TID 07/31/16 [History] Allopurinol [Zyloprim 100 MG] 50 mg PO DAILY 07/31/16 [History] Calcium Carbonate/Vitamin D3 [Calcium 500-Vit D3 200 Tablet] 1 each PO DAILY [History] Capsaicin 0.025% [Trixaicin] 1 appl TP TID PRN 07/31/16 [History] Escitalopram [Lexapro] 20 mg PO DAILY 07/31/16 [History] Lidocaine 4% CRM (LMX) [Lmx 4] 1 appl TP BID 07/31/16 [History] Mirtazapine [Remeron] 30 mg PO HS 07/31/16 [History] Mupirocin [Bactroban Oint] 1 appl TP TID 07/31/16 [History] Collagenase Oint [Santyl] 1 appl TP DAILY tube 08/03/16 [Rx] Apixaban [Eliquis] 5 mg PO BID 09/13/16 [History] Aloe Vera/Collagen [Aloe [place] Cleansing Foam] 1 appl TP DAILY 09/14/16 [History ] Chlorhexidine Gluconate [Antiseptic Skin Cleanser] 1 appl TP DAILY 09/14/16 [ History] Furosemide [Lasix] 60 mg PO BID 09/14/16 [History] Gabapentin [Neurontin] 600 mg PO BID 09/14/16 [History] Ipratropium/Albuterol Neb [Duoneb] 3 ml IH Q6HR PRN 09/14/16 [History] NIFEdipine [Nifedipine ER] 30 mg PO DAILY 09/14/16 [History] Pantoprazole Sodium [Protonix] 40 mg PO DAILY 09/14/16 [History] Povidone-Iodine [Nasal Antiseptic Swabs] 1 each TP DAILY 09/14/16 [History] Simvastatin [Zocor] 40 mg PO DAILY 09/14/16 [History] Cholecalciferol (D-3) [Vitamin D] 1,000 unit PO DAILY 30 Days 09/19/16 [Rx] Doxycycline 100 mg PO BID 7 Days 09/19/16 [Rx] HYDROcodone/Acet 10/325 mg [[place] 10-325 mg] 1 tab PO BID PRN #7 tablet [Rx] Nicotine Patch [Nicoderm] 21 mg TD DAILY #30 patch.td24 09/19/16 [Rx] Allergies/Adverse Reactions: Allergies atorvastatin [From Lipitor] Adverse Reaction (Verified 09/14/16 12:59) See Comments va list, unsure of reaction baclofen Adverse Reaction (Verified 09/14/16 12:00) Drowsy fluorouracil [From Efudex] Adverse Reaction (Verified 09/14/16 12:59) See Comments va list, unsure of reaction sulfamethoxazole [From Bactrim] Adverse Reaction (Verified 09/14/16 12:59) See Comments va list, unsure of reaction trimethoprim [From Bactrim] Adverse Reaction (Verified 09/14/16 12:59) See Comments va list, unsure of reaction Procedures/tests Complete & Pending: Procedures Performed prior 72 hours Category Date Time Status EKG [ECG 12 lead ECG] [ECG] Stat Y 09/18/16 16:49 Ordered Date of admission: 09/13/16 21:28 Primary care physician: PCP SHANNAN Consults: 09/14/16 16:04 Consult to Cardiology [CONS] Routine Comment: Consulting Provider: Mali Melgar Reason for Consult: cardiac clearance for above knee amputation Call Completed: Yes 09/17/16 14:25 Consult to Sport Intern [CONS] Routine Reason for SW Consult: post op amputation 09/18/16 08:48 Consult to Occupational Therapy [CONS] Routine Comment: Evaluate, develop and implement POC Reason for Consult: Discharge planning Consult to Physical Therapy [CONS] Routine Comment: Evaluate, develop and implement POC Reason for Consult: discharge planning Anticipated date of discharge: 09/19/16 - Patient Status Disposition: Transfer Inpatient Rehab Fac Condition: Fair Functional capacity at discharge: uses cane/walker Overall status at discharge: patient is progressing back to baseline - Discharge Instructions Instructions: Atrial Fibrillation (DC), Acute Respiratory Distress Syndrome (DC ), Cellulitis (DC), Diabetes Mellitus Type 2 in Adults (DC), Peripheral Vascular Disorders (DC), Chronic Obstructive Pulmonary Disease (DC), Chronic Hypertension (DC) Follow Up With: SHANNAN,PCP [Primary Care Provider] - 09/24/16 2:15 pm Luis Mckinney MD [Partnered Physician] - (follow up with Dr Mckinney in 6 weeks) Additional Instructions: daily dressing changes to left AKA with dry dressings and james wrap at Rehab Continue with Physical and Occupational Therapy. - Diet and Activity Activity: ambulate only with your walker, as per physical therapy Diet: low fat, low cholesterol Hospital course: Mr. Jackson is a 70 year old male with past medical history of chronic atrial fibrillation, COPD, coronary artery disease, hyperlipidemia, hypertension, peripheral arterial disease and CKD stage IV. He presented with complaints of worsening pain and left lower extremity. Patient has chronic wounds of left lower leg because of peripheral vascular disease. when he presented he denied any fever, chills, nausea, vomiting, shortness of breath, chest pain or any other problems. He was initially seen in the ED and thought to have cellulitis and was started on IV antibiotics. Patient was also admitted for COPD exacerbation and ischemic ulcer secondary to arterial insufficiency. Start on DuoNeb breathing treatments low-dose steroids and Mucinex. Vascular surgery Dr. Rios was counseled that. He evaluated the patient and decided patient will require a left above-knee amputation. Cardiology was consult for cardiac clearance. Patient was cleared for surgery. He is at intermediate risk. Patient's eliquis was held in view of surgery. On 09/17/2016 patient underwent a left above-knee amputation successfully. Antibiotics were continued postoperatively. Patient has been doing well postoperatively. His anticoagulation has been restarted. Patient and his state that the Plavix has been discontinued for some time by his hr business partner consultant and PCP. He will only be taking Eliquis. Patient has been evaluated by physical therapy. He is being discharged to a [facility] facility. Surgical dressing has been changed. He is stable for discharge from vascular standpoint. No complications during his stay in the hospital. Tolerating oral diet well. Patient has been explained about his condition and plan of care. He understood and agreed. No unanswered questions. He is being discharged in a stable condition. - Time Spent with Patient Total time spent providing and/or coordinating discharge services: Greater than 30 minutes - Constitutional Vitals: Temp Pulse Resp BP Pulse Ox 98 F 86 18 150/84 95 09/19/16 08:15 09/19/16 08:15 09/19/16 08:15 09/19/16 08:15 09/19/16 08:15 General appearance: Present: A&O X 3, obese, answers questions appropriately - Head Head exam: Present: atraumatic - ENT ENT exam: Present: mucous membranes moist - Neck Neck exam general surgery: Present: supple - Respiratory Respiratory exam: Present: CTAB. Absent: rhonchi, wheezes - Cardiovascular Cardiovascular exam: Present: irregular rhythm, +S1, +S2 - GI/Abdominal GI/Abdominal exam: Present: soft. Absent: guarding, tenderness - Extremities Exam Extremities exam: Present: radial pulses palpable and symetrical. Absent: cyanotic Additional comments: left AKA+, no bleeding, dressing intact - Neurological Exam Neurological exam: Present: alert, oriented X3, no focal deficits - VTE Documentation of Mechanical Device: Intermittent pneumatic compression device
[2016-09-19 11:12] VITALS: BP 113/68
--- NOTE | 2016-09-19 11:15 | Physician Discharge Referral ---
ExtendedCare Referral Info Transfer To: ECF Provider in Charge after Transfer: PCP Institutional Level of Care: Skilled - Diagnosis (1) Arterial insufficiency with ischemic ulcer Priority: Primary Status: Acute (2) Atrial fibrillation Status: Chronic (3) CAD (coronary artery disease) Status: Chronic (4) Diabetes Status: Chronic (5) CKD (chronic kidney disease), stage IV Status: Chronic (6) COPD with acute exacerbation Status: Acute Prognosis: Good - Transfer Medications Prescriptions: RX: Cholecalciferol (D-3) [Vitamin D] 1,000 unit PO DAILY 30 Days RX: Doxycycline 100 mg PO BID 7 Days RX: HYDROcodone/Acet 10/325 mg [[place] 10-325 mg] 1 tab PO BID PRN #7 tablet PRN Reason: Pain RX: Nicotine Patch [Nicoderm] 21 mg TD DAILY #30 patch.td24 Home Medications: RX: Carvedilol [Coreg] 25 mg PO BID 11/16/14 [History] RX: Finasteride [Proscar] 5 mg PO DAILY 11/16/14 [History] RX: Spironolactone [Aldactone] 25 mg PO DAILY 05/15/15 [History] RX: Docusate [Colace] 100 mg PO BID 08/15/15 [History] RX: Magnesium Oxide [Magnesium] 400 mg PO BID 08/15/15 [History] RX: Terazosin [Hytrin] 1 mg PO HS 08/15/15 [History] RX: Acetaminophen [Tylenol] 650 mg PO TID 07/31/16 [History] RX: Allopurinol [Zyloprim 100 MG] 50 mg PO DAILY 07/31/16 [History] RX: Calcium Carbonate/Vitamin D3 [Calcium 500-Vit D3 200 Tablet] 1 each PO DAILY 07/31/16 [History] RX: Capsaicin 0.025% [Trixaicin] 1 appl TP TID PRN 07/31/16 [History] RX: Escitalopram [Lexapro] 20 mg PO DAILY 07/31/16 [History] RX: Lidocaine 4% CRM (LMX) [Lmx 4] 1 appl TP BID 07/31/16 [History] RX: Mirtazapine [Remeron] 30 mg PO HS 07/31/16 [History] RX: Mupirocin [Bactroban Oint] 1 appl TP TID 07/31/16 [History] RX: Collagenase Oint [Santyl] 1 appl TP DAILY tube 08/03/16 [Rx] RX: Apixaban [Eliquis] 5 mg PO BID 09/13/16 [History] RX: Aloe Vera/Collagen [Aloe [place] Cleansing Foam] 1 appl TP DAILY 09/14/16 [ History] RX: Chlorhexidine Gluconate [Antiseptic Skin Cleanser] 1 appl TP DAILY 09/14/16 [History] RX: Furosemide [Lasix] 60 mg PO BID 09/14/16 [History] RX: Gabapentin [Neurontin] 600 mg PO BID 09/14/16 [History] RX: Ipratropium/Albuterol Neb [Duoneb] 3 ml IH Q6HR PRN 09/14/16 [History] RX: NIFEdipine [Nifedipine ER] 30 mg PO DAILY 09/14/16 [History] RX: Pantoprazole Sodium [Protonix] 40 mg PO DAILY 09/14/16 [History] RX: Povidone-Iodine [Nasal Antiseptic Swabs] 1 each TP DAILY 09/14/16 [History] RX: Simvastatin [Zocor] 40 mg PO DAILY 09/14/16 [History] RX: Cholecalciferol (D-3) [Vitamin D] 1,000 unit PO DAILY 30 Days 09/19/16 [Rx] RX: Doxycycline 100 mg PO BID 7 Days 09/19/16 [Rx] RX: HYDROcodone/Acet 10/325 mg [[place] 10-325 mg] 1 tab PO BID PRN #7 tablet 01/26 [Rx] RX: Nicotine Patch [Nicoderm] 21 mg TD DAILY #30 patch.td24 09/19/16 [Rx] Allergies/Adverse Reactions: Allergies atorvastatin [From Lipitor] Adverse Reaction (Verified 09/14/16 12:59) See Comments [facility] list, unsure of reaction baclofen Adverse Reaction (Verified 09/14/16 12:00) Drowsy fluorouracil [From Efudex] Adverse Reaction (Verified 09/14/16 12:59) See Comments va list, unsure of reaction sulfamethoxazole [From Bactrim] Adverse Reaction (Verified 09/14/16 12:59) See Comments va list, unsure of reaction trimethoprim [From Bactrim] Adverse Reaction (Verified 09/14/16 12:59) See Comments va list, unsure of reaction - Respiratory Orders Smoking Cessation: Smoking cessation has been advised. For more information, call the [place] Tobacco Quit Line at 7-520-DLJB-NOW. - Lab Orders Lab Orders: CBC - Ancillary Orders May use pressure relief devices daily prn - Advance Directives Code Status: Full Code - Mobility Orders Ambulate - Rehabiliation Orders Rehab Potential: Good Rehab Orders: ROM Exercises, Evaluation for Physical Therapy, Evaluation for Occupational Therapy - Treatments Skin tear care topically daily PRN per policy - Diet Orders Cardiac CERTIFICATION: I certify that the transfer of the above named patient to an Extended Care Facility is necessary for the continuing treatment of the diagnosis listed. The above information is true and accurate reflection of patient's current condition. Confidential - Redisclosure prohibited without a patient's written consent.
--- NOTE | 2016-09-21 07:06 | Electrocardiograph Report ---
[address] [place] [address] Test Date: 2016-09-18 Pat Name: Bayron Jackson Department: 110 Room: 2N09 Gender: M Deckhand Engineer: : [id number] Requested By: Sonu Raygoza Order Number: [id number] Reading MD: Josesito Mulligan MD Measurements Intervals [place] Rate: 88 P: [place]: 0 QRS: -23 QRSD: 120 T: 180 QT: 378 QTc: 423 Interpretive Statements ATRIAL FIBRILLATION SEPTAL MYOCARDIAL INFARCTION, OF INDETERMINATE AGE Electronically Signed On 09-21-2016 7:04:54 EDT by Josesito Mulligan MD
== END 2016-09-19 15:45 | DRG 239 ==
LOC: 2ANU 15:40 → EMEROO 15:40 → 2ANU 20:02 → SUATTDRO 21:28 → 2NNU 09-17 13:56
PROVIDERS: ADMIT Hospitalist; ATTEND Internal Medicine

== ENCOUNTER 2017-04-09 23:49 | Inpatient (IN) ==
--- NOTE | 2017-04-10 00:28 | Emergency Department Note ---
Disposition Clinical Impression: Acute exacerbation of chronic obstructive airways disease Disposition: Admitted As Inpatient Condition: Fair Time of Disposition: 01:10 General Adult HPI - General Chief complaint: ED Shortness of Breath/Dyspnea Stated complaint: john/weakness Time Seen by Provider: 04/09/17 23:54 Source: patient Limitations: no limitations Nursing Notes Reviewed: Yes Vital Signs Reviewed: Yes - History of Present Illness HPI Narrative: Ill appearing 71-year-old male presents for evaluation of increasing generalized weakness and shortness of breath over the course of the past 1 week. He states that at home, his oxygen saturation was checked and found to be in the mid 80s however he denies the use of home oxygen. He does complain of a cough that is productive of a yellowish colored sputum. This is not consistent with his regular cough and regular sputum production from his COPD. He denies any overt fevers but complains of chills. He denies any abdominal pain, nausea, vomiting, chest pain, or diaphoresis. He denies any pain with inspiration or hemoptysis. Onset (ago): week(s) (1) Pain Scale: 0 Consistency: Worsening Associated symptoms: Reports: cough, fever/chills, weakness - Related Data Home Medications Medication Instructions Recorded Confirmed Carvedilol [Coreg] 25 mg PO BID 11/16/14 09/14/16 Finasteride [Proscar] 5 mg PO DAILY 11/16/14 09/14/16 Spironolactone [Aldactone] 25 mg PO DAILY 05/15/15 09/14/16 Docusate [Colace] 100 mg PO BID 08/15/15 09/14/16 Magnesium Oxide [Magnesium] 400 mg PO BID 08/15/15 09/14/16 Terazosin [Hytrin] 1 mg PO HS 08/15/15 09/14/16 Acetaminophen [Tylenol] 650 mg PO TID 07/31/16 09/14/16 Allopurinol [Zyloprim 100 MG] 50 mg PO DAILY 07/31/16 09/14/16 Calcium Carbonate/Vitamin D3 1 each PO DAILY 07/31/16 09/14/16 [Calcium 500-Vit D3 200 Tablet] Capsaicin 0.025% [Trixaicin] 1 appl TP TID PRN 07/31/16 09/14/16 Escitalopram [Lexapro] 20 mg PO DAILY 07/31/16 09/14/16 Lidocaine 4% CRM (LMX) [Lmx 4] 1 appl TP BID 07/31/16 09/14/16 Mirtazapine [Remeron] 30 mg PO HS 07/31/16 09/14/16 Mupirocin [Bactroban Oint] 1 appl TP TID 07/31/16 09/14/16 Apixaban [Eliquis] 5 mg PO BID 09/13/16 09/14/16 Aloe Vera/Collagen [Aloe [place] 1 appl TP DAILY 09/14/16 09/14/16 Cleansing Foam] Chlorhexidine Gluconate 1 appl TP DAILY 09/14/16 09/14/16 [Antiseptic Skin Cleanser] Furosemide [Lasix] 60 mg PO BID 09/14/16 09/14/16 Gabapentin [Neurontin] 600 mg PO BID 09/14/16 09/14/16 Ipratropium/Albuterol Neb [Duoneb] 3 ml IH Q6HR PRN 09/14/16 09/14/16 NIFEdipine [Nifedipine ER] 30 mg PO DAILY 09/14/16 09/14/16 Pantoprazole Sodium [Protonix] 40 mg PO DAILY 09/14/16 09/14/16 Povidone-Iodine [Nasal Antiseptic 1 each TP DAILY 09/14/16 09/14/16 Swabs] Simvastatin [Zocor] 40 mg PO DAILY 09/14/16 09/14/16 Previous Rx's Medication Instructions Recorded Collagenase Oint [Santyl] 1 appl TP DAILY tube 08/03/16 Cholecalciferol (D-3) [Vitamin D] 1,000 unit PO DAILY 30 Days tablet 09/19/16 Doxycycline 100 mg PO BID 7 Days capsule 09/19/16 HYDROcodone/Acet 10/325 mg [[place] 1 tab PO BID PRN #7 tablet 09/19/16 10-325 mg] Nicotine Patch [Nicoderm] 21 mg TD DAILY #30 patch.td24 09/19/16 Allergies Allergy/AdvReac Type Severity Reaction Status Date / Time atorvastatin [From Lipitor] AdvReac See Verified 09/26/16 13:41 Comments baclofen AdvReac Drowsy Verified 09/26/16 13:41 fluorouracil [From Efudex] AdvReac See Verified 09/26/16 13:41 Comments sulfamethoxazole AdvReac See Verified 09/26/16 13:41 [From Bactrim] Comments trimethoprim [From Bactrim] AdvReac See Verified 09/26/16 13:41 Comments All systems ED: reviewed and negative except as stated. Constitutional: Reports: as per HPI, chills. Denies: fever, weakness, weight change Eyes: Denies: eye pain, eye discharge, vision change ENT ED: Denies: ear pain, throat pain, dental pain, hearing loss, epistaxis, congestion, dysphagia Cardiovascular: Denies: chest pain, palpitations, dyspnea on exertion, edema, syncope Respiratory: Reports: as per HPI, cough, dyspnea, sputum production. Denies: wheezes, hemoptysis, stridor Gastrointestinal: Denies: abdominal pain, nausea, vomiting, diarrhea, constipation, hematemesis, melena, hematochezia Genitourinary: Denies: urgency, dysuria, frequency, hematuria Musculoskeletal: Denies: back pain, neck pain, arthralgia, myalgia Integumentary: Denies: rash, abrasion, lesions Neurological: Reports: as per HPI, weakness. Denies: headache, numbness, paresthesias, confusion, abnormal gait, vertigo Psychiatric: Denies: anxiety, depression, suicidal thoughts, homicidal thoughts , auditory hallucinations, visual hallucinations Endocrine: Denies: fatigue Hematological/Lymphatic: Denies: easy bleeding, easy bruising Allergic/Immunologic: Denies: facial swelling, urticaria Past Medical History - Past Medical History Attestation: Yes The following information was validated with the patient. Source: patient, nursing notes reviewed Medical history: Reports: atrial fibrillation, COPD, coronary artery disease, hyperlipidemia, hypertension, myocardial infarction, peripheral artery disease, renal disease Surgical history: Reports: angioplasty/stent, appendectomy, LE Bypass (Left femoral to tibial peroneal trunk bypass graft with PTFE and ileal femoral and popliteal and tibial endarterectomies in August 2015), LE vascular intervention ( Renal and iliac stent angioplasty at [facility] 2003. June 2014 left lower extremity angioplasty. October 2014 right superficial femoral artery angioplasty. November 2014 redo left superficial femoral and tibial artery angioplasty), other Psychiatric history: Reports: anxiety, depression - Social History Smoking Status: Current every day smoker Smokeless Tobacco Status: No Alcohol use: Reports: none Drug use: Reports: none Physical Exam - General Limitations: no limitations General appearance: alert, in no apparent distress - Head Head exam: atraumatic, normocephalic, normal inspection - Eye Eye exam: Present: normal appearance, PERRL, EOMI. Absent: nystagmus - ENT ENT exam: mucous membranes moist - Neck Neck exam: Present: normal inspection, full ROM, trachea midline. Absent: lymphadenopathy - Chest Chest inspection: Present: normal inspection, symmetric chest wall rise - Respiratory Respiratory exam: Present: wheezes (Extra wheezes noted throughout the periphery bilaterally). Absent: respiratory distress, accessory muscle use, prolonged expiratory phase - Cardiovascular Cardiovascular exam: Present: regular rate, irregular rhythm, normal heart sounds - Abdominal Exam Abdominal exam: Present: soft, Non-Tender, normal bowel sounds - Extremities Exam Extremities exam: Present: pedal edema (1+ pretibial edema noted to the right lower extremity., Of note, the patient is a left [id number] amputee.) - Neurological Exam Neurological exam: Present: alert, oriented X3 - Psychiatric Psychiatric exam: Present: normal affect, normal mood - Skin Skin exam: Present: warm, dry, intact, normal color Course Course Narrative: I discussed this patient's case with Dr. Alcazar for the hospitalist service. He has accepted the patient for admission under his care for further treatment of COPD exacerbation. I discussed this plan with Dr. Pereyra. Dr. Pereyra has had a [id number] evaluation with the patient and agrees with the plan. The patient's troponin was elevated at 0.05 however this appears to be his baseline due to his chronic kidney disease. Again, the patient denies any chest pain at this time. Vital Signs Temperature 97.9 F 04/09/17 23:50 Pulse Rate 87 04/09/17 23:50 Respiratory Rate 22 04/09/17 23:50 Blood Pressure 157/83 04/09/17 23:50 O2 Sat by Pulse Oximetry 92 04/09/17 23:50 Temperature 97.9 F 04/09/17 23:50 Pulse Rate 99 04/09/17 23:58 Respiratory Rate 20 04/09/17 23:58 Blood Pressure 105/94 04/09/17 23:58 O2 Sat by Pulse Oximetry 95 04/09/17 23:58 Oxygen Delivery Oxygen Delivery Nasal Cannula Medical Decision Making - Medical Records Medical records reviewed: Yes I reviewed the patient's medical records. - Lab Data Lab results reviewed: Yes I reviewed the patient's lab results. Lab results narrative: Laboratory Last Values WBC 9.8 K/mcL (4.3-11.1) 04/10/17 00:30 RBC 3.75 M/mcL (4.19-5.50) L 04/10/17 00:30 Hgb 11.5 g/dL (12.9-16.9) L 04/10/17 00:30 Hct 34.9 % (37.5-50.1) L 04/10/17 00:30 MCV 93.1 fL (83.0-100.0) 04/10/17 00:30 MCH 30.7 pg (28.0-33.3) 04/10/17 00:30 MCHC 33.0 g/dL (31.6-35.5) 04/10/17 00:30 RDW 13.7 % (11.5-14.5) 04/10/17 00:30 Plt Count 184 K/mcL (140-400) 04/10/17 00:30 MPV 10.3 fL (9.4-12.4) 04/10/17 00:30 Immature Gran % 0.5 % (0-4) 04/10/17 00:30 Seg Neutrophils % 74.3 % 04/10/17 00:30 Lymphocytes % 13.4 % 04/10/17 00:30 Monocytes % 7.2 % 04/10/17 00:30 Eosinophils % 4.3 % 04/10/17 00:30 Basophils % 0.3 % 04/10/17 00:30 Neutrophils # 7.3 K/mcL (1.6-8.9) 04/10/17 00:30 Lymphocytes # 1.3 K/mcL (0.6-4.6) 04/10/17 00:30 Monocytes # 0.7 K/mcL (0.0-1.3) 04/10/17 00:30 Eosinophils # 0.4 K/mcL (0.0-0.6) 04/10/17 00:30 Basophils # 0.0 K/mcL (0.0-0.2) 04/10/17 00:30 PT 18.6 Seconds (9.4-12.1) H 04/10/17 00:30 INR 1.7 04/10/17 00:30 APTT 35.1 Seconds (26.0-36.0) 04/10/17 00:30 Sodium 132 mEq/L (136-145) L 04/10/17 00:30 Potassium 3.5 mEq/L (3.5-5.1) 04/10/17 00:30 Chloride 101 mEq/L (98-107) 04/10/17 00:30 Carbon Dioxide 25 mEq/L (23-29) 04/10/17 00:30 BUN 36 mg/dL (8-23) H 04/10/17 00:30 Creatinine 2.53 mg/dL (0.70-1.30) H 04/10/17 00:30 Est GFR ( Amer) 30 (> 60) L 04/10/17 00:30 Est GFR (Non-Af Amer) 25 (> 60) L 04/10/17 00:30 BUN/Creatinine Ratio 14 (6-26) 04/10/17 00:30 Glucose 156 mg/dL (70-105) H 04/10/17 00:30 Calculated Osmolality 286 (280-300) 04/10/17 00:30 Lactic Acid 1.7 mmol/L (0.5-2.2) 04/10/17 00:30 Calcium 8.8 mg/dL (8.6-10.3) 04/10/17 00:30 Troponin I 0.05 ng/mL (< 0.04) H* 04/10/17 00:30 B-Natriuretic Peptide 341 pg/mL (Less than 100) H 04/10/17 00:30 Urine Color Yellow (Yellow) 04/10/17 00:45 Urine Clarity Clear (Clear) 04/10/17 00:45 Urine pH 6.5 pH Units (5.0-8.0) 04/10/17 00:45 Ur Specific [place] 1.008 (1.010-1.025) L 04/10/17:45 Urine Protein 100 mg/dL (Neg-Trace) H 04/10/17 00:45 Urine Glucose (UA) Normal mg/dL (Normal) 04/10/17 00:45 Urine Ketones Negative mg/dL (Negative) 04/10/17:45 Urine Blood Negative (Negative) 04/10/17 00:45 Urine Nitrite Negative (Negative) 04/10/17 00:45 Urine Bilirubin Negative (Negative) 04/10/17 00:45 Urine Urobilinogen Normal mg/dL (Normal) 04/10/17 00:45 Ur Leukocyte Esterase Negative (Negative) 04/10/17 00:45 Urine Microscopic RBC 0-3 per hpf (0-3) 04/10/17 00:45 Urine Microscopic WBC 0-3 per hpf (0-3) 04/10/17 00:45 Ur Squamous Epith Cells Few per lpf (None-Few) 04/10/17 00:45 Urine Bacteria None Seen per hpf (None-Few) 04/10/17 00:45 Hyaline Casts None Seen per lpf (None-Few) 04/10/17 00:45 Ur Culture Indicated? NO (NO) 04/10/17 00:45 Result diagrams: 04/10/17 00:30 04/10/17 00:30 Lab Results 04/10/17 04/10/17 04/10/17 Range/Units 00:30 00:30 00:30 WBC 9.8 (4.3-11.1) K/mcL RBC 3.75 L (4.19-5.50) M/mcL Hgb 11.5 L (12.9-16.9) g/dL Hct 34.9 L (37.5-50.1) % MCV 93.1 (83.0-100.0) fL MCH 30.7 (28.0-33.3) pg MCHC 33.0 (31.6-35.5) g/dL RDW 13.7 (11.5-14.5) % Plt Count 184 (140-400) K/mcL MPV 10.3 (9.4-12.4) fL Immature Gran % 0.5 (0-4) % Seg Neutrophils % 74.3 % Lymphocytes % 13.4 % Monocytes % 7.2 % Eosinophils % 4.3 % Basophils % 0.3 % Neutrophils # 7.3 (1.6-8.9) K/mcL Lymphocytes # 1.3 (0.6-4.6) K/mcL Monocytes # 0.7 (0.0-1.3) K/mcL Eosinophils # 0.4 (0.0-0.6) K/mcL Basophils # 0.0 (0.0-0.2) K/mcL PT (9.4-12.1) Seconds INR APTT (26.0-36.0) Seconds Sodium 132 L (136-145) mEq/L Potassium 3.5 (3.5-5.1) mEq/L Chloride 101 (98-107) mEq/L Carbon Dioxide 25 (23-29) mEq/L BUN 36 H (8-23) mg/dL Creatinine 2.53 H (0.70-1.30) mg/dL Est GFR ( Amer) 30 L (> 60) Est GFR (Non-Af Amer) 25 L (> 60) BUN/Creatinine Ratio 14 (6-26) Glucose 156 H (70-105) mg/dL Calculated Osmolality 286 (280-300) Lactic Acid (0.5-2.2) mmol/L Calcium 8.8 (8.6-10.3) mg/dL Troponin I 0.05 H* (< 0.04) ng/mL B-Natriuretic Peptide (Less than 100) pg/mL Urine Color (Yellow) Urine Clarity (Clear) Urine pH (5.0-8.0) pH Units Ur Specific [place] (1.010-1.025) Urine Protein (Neg-Trace) mg/dL Urine Glucose (UA) (Normal) mg/dL Urine Ketones (Negative) mg/dL Urine Blood (Negative) Urine Nitrite (Negative) Urine Bilirubin (Negative) Urine Urobilinogen (Normal) mg/dL Ur Leukocyte Esterase (Negative) Urine Microscopic RBC (0-3) per hpf Urine Microscopic WBC (0-3) per hpf Ur Squamous Epith Cells (None-Few) per lpf Urine Bacteria (None-Few) per hpf Hyaline Casts (None-Few) per lpf Ur Culture Indicated? (NO) 04/10/17 04/10/17 04/10/17 Range/Units 00:30 00:30 00:30 WBC (4.3-11.1) K/mcL RBC (4.19-5.50) M/mcL Hgb (12.9-16.9) g/dL Hct (37.5-50.1) % MCV (83.0-100.0) fL MCH (28.0-33.3) pg MCHC (31.6-35.5) g/dL RDW (11.5-14.5) % Plt Count (140-400) K/mcL MPV (9.4-12.4) fL Immature Gran % (0-4) % Seg Neutrophils % % Lymphocytes % % Monocytes % % Eosinophils % % Basophils % % Neutrophils # (1.6-8.9) K/mcL Lymphocytes # (0.6-4.6) K/mcL Monocytes # (0.0-1.3) K/mcL Eosinophils # (0.0-0.6) K/mcL Basophils # (0.0-0.2) K/mcL PT 18.6 H (9.4-12.1) Seconds INR 1.7 APTT 35.1 (26.0-36.0) Seconds Sodium (136-145) mEq/L Potassium (3.5-5.1) mEq/L Chloride (98-107) mEq/L Carbon Dioxide (23-29) mEq/L BUN (8-23) mg/dL Creatinine (0.70-1.30) mg/dL Est GFR ( Amer) (> 60) Est GFR (Non-Af Amer) (> 60) BUN/Creatinine Ratio (6-26) Glucose (70-105) mg/dL Calculated Osmolality (280-300) Lactic Acid 1.7 (0.5-2.2) mmol/L Calcium (8.6-10.3) mg/dL Troponin I (< 0.04) ng/mL B-Natriuretic Peptide 341 H (Less than 100) pg/mL Urine Color (Yellow) Urine Clarity (Clear) Urine pH (5.0-8.0) pH Units Ur Specific [place] (1.010-1.025) Urine Protein (Neg-Trace) mg/dL Urine Glucose (UA) (Normal) mg/dL Urine Ketones (Negative) mg/dL Urine Blood (Negative) Urine Nitrite (Negative) Urine Bilirubin (Negative) Urine Urobilinogen (Normal) mg/dL Ur Leukocyte Esterase (Negative) Urine Microscopic RBC (0-3) per hpf Urine Microscopic WBC (0-3) per hpf Ur Squamous Epith Cells (None-Few) per lpf Urine Bacteria (None-Few) per hpf Hyaline Casts (None-Few) per lpf Ur Culture Indicated? (NO) 04/10/17 04/10/17 Range/Units 00:45 01:06 WBC (4.3-11.1) K/mcL RBC (4.19-5.50) M/mcL Hgb (12.9-16.9) g/dL Hct (37.5-50.1) % MCV (83.0-100.0) fL MCH (28.0-33.3) pg MCHC (31.6-35.5) g/dL RDW (11.5-14.5) % Plt Count (140-400) K/mcL MPV (9.4-12.4) fL Immature Gran % (0-4) % Seg Neutrophils % % Lymphocytes % % Monocytes % % Eosinophils % % Basophils % % Neutrophils # (1.6-8.9) K/mcL Lymphocytes # (0.6-4.6) K/mcL Monocytes # (0.0-1.3) K/mcL Eosinophils # (0.0-0.6) K/mcL Basophils # (0.0-0.2) K/mcL PT (9.4-12.1) Seconds INR APTT (26.0-36.0) Seconds Sodium (136-145) mEq/L Potassium (3.5-5.1) mEq/L Chloride (98-107) mEq/L Carbon Dioxide (23-29) mEq/L BUN (8-23) mg/dL Creatinine (0.70-1.30) mg/dL Est GFR ( Amer) (> 60) Est GFR (Non-Af Amer) (> 60) BUN/Creatinine Ratio (6-26) Glucose (70-105) mg/dL Calculated Osmolality (280-300) Lactic Acid 1.2 (0.5-2.2) mmol/L Calcium (8.6-10.3) mg/dL Troponin I (< 0.04) ng/mL B-Natriuretic Peptide (Less than 100) pg/mL Urine Color Yellow (Yellow) Urine Clarity Clear (Clear) Urine pH 6.5 (5.0-8.0) pH Units Ur Specific [place] 1.008 L (1.010-1.025) Urine Protein 100 H (Neg-Trace) mg/dL Urine Glucose (UA) Normal (Normal) mg/dL Urine Ketones Negative (Negative) mg/dL Urine Blood Negative (Negative) Urine Nitrite Negative (Negative) Urine Bilirubin Negative (Negative) Urine Urobilinogen Normal (Normal) mg/dL Ur Leukocyte Esterase Negative (Negative) Urine Microscopic RBC 0-3 (0-3) per hpf Urine Microscopic WBC 0-3 (0-3) per hpf Ur Squamous Epith Cells Few (None-Few) per lpf Urine Bacteria None Seen (None-Few) per hpf Hyaline Casts None Seen (None-Few) per lpf Ur Culture Indicated? NO (NO) - Radiology Data Radiology results reviewed: Yes I reviewed the patient's radiology results. Chest X-Ray 04/10/17 23:58 IMPRESSION: Prominence of the interstitial markings. Correlation for mild edema is recommended. D/ / Dinora Conte Cha, MD / Dinora Conte Cha, MD Interpreting Provider: Dinora Conte Cha, MD - EKG Data EKG #1 EKG attestation: Yes I reviewed and interpreted this EKG. EKG results narrative: EKG reviewed by Dr. Pereyra as well. EKG shows atrial fibrillation with marked left axis deviation at a rate of 79 bpm. QRS interval 125, QT/QTc interval 378/ 413. Premature ventricular complexes noted. No ST elevations. No significant changes when compared to an EKG dated from 09/26/16. Attestation Statement - Attestation Attestation: I, Matty Pereyra DO have provided [id number] time during the care of this patient. Detailed review the presentation, symptoms, medical history were discussed and reviewed with the mid-level provider Axel Solares PA-C/FELICIA. Medical intervention labs and imaging studies were reviewed in detail. See full documentation of physical exam and course of care in the mid-level provider's note. I agree with the determined course of care, medical intervention and disposition put forth by the mid-level provider. See below documentation for changes or alterations in documentation. 71-year-old male presents emergency room the care of the family for evaluation of shortness of breath and difficulty breathing. He has been seen several times for this in the past. Family describes this as being different than his typical COPD exacerbation. He has had productive yellow sputum at home. Currently is denying chest pain fevers chills nausea vomiting or diarrhea. He has no headache or other complaints. Patient is otherwise complaining of generalized malaise. Patient is concerning for COPD exacerbation with possible underlying bronchitis or pneumonia. Chest x-ray EKG labs include a CBC chemistry troponin and BNP will be added on and evaluated at this time. EKG did not show any acute pathology initially. Patient has known atrial fibrillation and is on blood thinners. There is no acute signs of ST segment elevation or abnormality noted during my evaluation comparisons EKGs. Patient will most likely need admitted for definitive management. Family comfortable with the plan. Lungs have coarse wheezing bilaterally with upper airway crackles noted on exam abdomen is soft nondistended. Heart is irregular but no other acute murmurs or changes noted. Patient has a right lower extremity wound and no left lower extremity. Patient will be evaluated in detail and expect admission process to be recommended after the treatment course is completed. See detailed documentation of physical exam, medical intervention, medical decision making, disposition and consultations in the mid-level provider 's note.
[2017-04-10 00:38] LABS: Basophils % 0.3 %; Eosinophils # 0.4 K/mcL (0.0-0.6); Eosinophils % 4.3 %; Hematocrit 34.9 % (37.5-50.1); Hemoglobin 11.5 g/dL (12.9-16.9); Immature Granulocytes % 0.5 % (0-4); Lymphocytes # 1.3 K/mcL (0.6-4.6); Lymphocytes % 13.4 %; Mean Corpuscular Hemoglobin 30.7 pg (28.0-33.3); Mean Corpuscular Volume 93.1 fL (83.0-100.0); Mean Platelet Volume 10.3 fL (9.4-12.4); Monocytes # 0.7 K/mcL (0.0-1.3); Monocytes % 7.2 %; Neutrophils # 7.3 K/mcL (1.6-8.9); Platelet Count 184 K/mcL (140-400); Red Blood Count 3.75 M/mcL (4.19-5.50); Red Cell Distribution Width 13.7 % (11.5-14.5); Segmented Neutrophils % 74.3 %
[2017-04-10] MEDS ORDERED: Ipratropium/Albuterol Neb 3 ML IH ONE (00:38)
[2017-04-10 00:45] LABS: INR 1.7; Prothrombin Time 18.6 Seconds (9.4-12.1)
[2017-04-10 00:47] LABS: Activated Partial Thrombo Time 35.1 Seconds (26.0-36.0)
[2017-04-10 00:53] LABS: Calcium 8.8 mg/dL (8.6-10.3); Potassium 3.5 mEq/L (3.5-5.1)
[2017-04-10 00:55] LABS: Bilirubin,Urine Negative (Negative); Blood,Urine Negative (Negative); Clarity,Urine Clear (Clear); Color,Urine Yellow (Yellow); Glucose,Urine (UA) Normal (Normal); Ketones,Urine Negative (Negative); Leukocyte Esterase,Urine Negative (Negative); Nitrite,Urine Negative (Negative); PH,Urine 6.5 pH Units (5.0-8.0); Protein,Urine 100 mg/dL (Neg-Trace); Specific Gravity,Urine 1.008 (1.010-1.025); Urobilinogen,Urine Normal (Normal)
[2017-04-10 00:58] LABS: Bacteria,Urine None Seen per hpf (None-Few); Hyaline Casts,Urine None Seen per lpf (None-Few); RBC,Urine 0-3 per hpf (0-3); Squamous Epithelial Cell,Urine Few per lpf (None-Few); WBC,Urine 0-3 per hpf (0-3)
[2017-04-10] MEDS ORDERED: methylPREDNISolone 125 MG/2 ML VIAL IVP ONE (01:06)
[2017-04-10] MEDS ORDERED: Levofloxacin 750 MG/150 ML 750 MG/150 ML BAG IVPB ONE (01:06)
[2017-04-10] MEDS ORDERED: Acetaminophen 325 MG TABLET PO PRN (02:00)
[2017-04-10] MEDS ORDERED: Ipratropium/Albuterol Neb 3 ML IH PRN (02:08)
[2017-04-10] MEDS ORDERED: Naloxone 0.4 MG/ML INJ IVP PRN (02:09)
--- NOTE | 2017-04-10 02:15 | Internal Med History&Physical ---
Date of Encounter: 04/10/17 Time of Encounter: 02:15 Assessment and Plan (1) Acute exacerbation of chronic obstructive airways disease Current visit: Yes Status: Acute IV levaquin, IV steroids, Duonebs Wean oxygen as able Influ negative, check RVP for other viral syndromes (2) CKD (chronic kidney disease) stage 3, GFR 30-59 ml/min Current visit: No Status: Acute monitor for now (3) Elevated troponin Current visit: No Status: Acute doubt ACS. Likely demand in setting of acute illness, Trend (4) Atrial fibrillation Current visit: No Status: Chronic Continue dean blockers, eliquis Qualifiers: Atrial fibrillation type: persistent Qualified Code(s): I48.1 - Persistent atrial fibrillation (5) Chronic knee pain Current visit: Yes Status: Acute family will bring in bupremorphine patch 10mcg/hr to be changed q wednesday outpatient follow up right knee does not look infected Qualifiers: Laterality: right Qualified Code(s): M25.561 - Pain in right knee; G89.29 - Other chronic pain; G89.29 - Other chronic pain Internal Medicine - H&P: HPI Chief complaint: Sob History of present illness: Mr. Jackson is a 71 year old male with hx of AFib on eliquis, CHF, PAD, COPD , s/ p left AKA, CKD , HTN who presents with 1 week hx of SOB with significant wheeze on admission. Admitted for acute COPD exacerbation. He smokes 1 ppd and at baseline, is on RA. He presents with 1 week hx of progressive SOB, worse on exertion with significant wheezing. He continues to smoke to date. He admits to dry cough with intermittent scant yellow sputum production. He admits to chills and family reports that his body is warm to touch On review, he has chronic right knee pain and is getting cortisone shots outpatient and has a 10mcg/hr bupremorphine patch EKG personally reviewed with rate 79, AFib XR/XR chest 1V portable IMPRESSION: Prominence of the interstitial markings. Correlation for mild edema is recommended. Past Med Surg Social Fam HX - Past Medical History Medical history: atrial fibrillation, COPD, coronary artery disease, hyperlipidemia, hypertension, myocardial infarction, peripheral artery disease, renal disease Psychiatric history: anxiety, depression - Past Surgical History Surgical History: angioplasty/stent, appendectomy, LE Bypass (Left femoral to tibial peroneal trunk bypass graft with PTFE and ileal femoral and popliteal and tibial endarterectomies in August 2015), LE vascular intervention (Renal and iliac stent angioplasty at [facility] 2003. June 2014 left lower extremity angioplasty. October 2014 right superficial femoral artery angioplasty. November 2014 redo left superficial femoral and tibial artery angioplasty), other - Social History Smoking Status: Current every day smoker Smokeless Tobacco Status: No Alcohol use: none Drug use: none - Family History Mother Adopted: No Living Status: Hx Family Cardiac Disorders: No Hx Family Respiratory Disorders: No Hx Family Cancer: No Hx Family GI Disorders: No Hx Family Endocrine Disorder: No Hx Family Neuromuscular Disorders: No Hx Family Neurologic Disorders: No Hx Family HEENT Disorders: No Hx Family Autoimmune Disorders: No Internal Medicine - H&P: Meds Carvedilol [Coreg] 25 mg PO BID 11/16/14 [History] Finasteride [Proscar] 5 mg PO DAILY 11/16/14 [History] Spironolactone [Aldactone] 25 mg PO DAILY 05/15/15 [History] Docusate [Colace] 100 mg PO BID 08/15/15 [History] Magnesium Oxide [Magnesium] 400 mg PO BID 08/15/15 [History] Terazosin [Hytrin] 1 mg PO HS 08/15/15 [History] Acetaminophen [Tylenol] 650 mg PO TID 07/31/16 [History] Allopurinol [Zyloprim 100 MG] 50 mg PO DAILY 07/31/16 [History] Calcium Carbonate/Vitamin D3 [Calcium 500-Vit D3 200 Tablet] 1 each PO DAILY [History] Capsaicin 0.025% [Trixaicin] 1 appl TP TID PRN 07/31/16 [History] Escitalopram [Lexapro] 20 mg PO DAILY 07/31/16 [History] Lidocaine 4% CRM (LMX) [Lmx 4] 1 appl TP BID 07/31/16 [History] Mirtazapine [Remeron] 30 mg PO HS 07/31/16 [History] Mupirocin [Bactroban Oint] 1 appl TP TID 07/31/16 [History] Collagenase Oint [Santyl] 1 appl TP DAILY tube 08/03/16 [Rx] Apixaban [Eliquis] 5 mg PO BID 09/13/16 [History] Aloe Vera/Collagen [Aloe [place] Cleansing Foam] 1 appl TP DAILY 09/14/16 [History ] Chlorhexidine Gluconate [Antiseptic Skin Cleanser] 1 appl TP DAILY 09/14/16 [ History] Furosemide [Lasix] 60 mg PO BID 09/14/16 [History] Gabapentin [Neurontin] 600 mg PO BID 09/14/16 [History] Ipratropium/Albuterol Neb [Duoneb] 3 ml IH Q6HR PRN 09/14/16 [History] NIFEdipine [Nifedipine ER] 30 mg PO DAILY 09/14/16 [History] Pantoprazole Sodium [Protonix] 40 mg PO DAILY 09/14/16 [History] Povidone-Iodine [Nasal Antiseptic Swabs] 1 each TP DAILY 09/14/16 [History] Simvastatin [Zocor] 40 mg PO DAILY 09/14/16 [History] Cholecalciferol (D-3) [Vitamin D] 1,000 unit PO DAILY 30 Days tablet 09/19/16 [ Rx] Doxycycline 100 mg PO BID 7 Days capsule 09/19/16 [Rx] HYDROcodone/Acet 10/325 mg [[place] 10-325 mg] 1 tab PO BID PRN #7 tablet [Rx] Nicotine Patch [Nicoderm] 21 mg TD DAILY #30 patch.td24 09/19/16 [Rx] 3 Allergy/AdvReac Type Severity Reaction Status Date / Time atorvastatin [From Lipitor] AdvReac See Verified 09/26/16 13:41 Comments baclofen AdvReac Drowsy Verified 09/26/16 13:41 fluorouracil [From Efudex] AdvReac See Verified 09/26/16 13:41 Comments sulfamethoxazole AdvReac See Verified 09/26/16 13:41 [From Bactrim] Comments trimethoprim [From Bactrim] AdvReac See Verified 09/26/16 13:41 Comments All Systems PM: A 10-system review of systems was performed and is negative for pertinent findings except as documented above in the HPI. Review of systems: ROS 14 point review of systems reviewed as best as possible given presentation. Pertinent positive or negative as per HPI or otherwise reviewed as negative - Constitutional Vitals: Temp Pulse Resp BP Pulse Ox 97.9 F 99 20 105/94 95 12/29/17 23:50 04/09/17 23:58 04/09/17 23:58 04/09/17 23:58 04/09/17 23:58 Exam: General - AAO x 3 Psych - Appropriate affect/speech. No agitation Eyes - CRISTINA. Eye lids intact. No scleral icterus Neuro - No gross peripheral or central neuro deficits on inspection Heart - Irregularly irregular. S1 and S2 present. No added HS/murmurs appreciated. No elevated JVD appreciated. Lung - Decreased air entry b/l, No crackles but diffuse wheezes appreciated GI - Soft, non-tender. No hepatosplenomegaly/ascites. BS+ - No CVA/suprapubic tenderness or palpable bladder distension Skin - Intact. No rash/petechiae/ecchymosis. Warm extremities MSK - Left AKA, Right knee w/o erythema, warmth Internal Med - H&P Results - Labs CBC & Chem 7: 04/10/17 00:30 04/10/17 00:30 - Impressions ITS Impressions Chest X-Ray 04/10/17 23:58 IMPRESSION: Prominence of the interstitial markings. Correlation for mild edema is recommended. D/ / Dinora Conte Cha, MD / Dinora Conte Cha, MD Interpreting Provider: Dinora Conte Cha, MD
[2017-04-10] MEDS: Ipratropium/Albuterol Neb 3 ML IH SCH ×3 (04:38→16:29)
[2017-04-10 05:02] LABS: Adenovirus Not Detected (Not Detect); Bordetella Pertussis Not Detected (Not Detect); Chlamydophila pneumoniae Not Detected (Not Detect); Coronavirus 229E Not Detected (Not Detect); Coronavirus HKU1 Not Detected (Not Detect); Coronavirus NL63 Not Detected (Not Detect); Coronavirus OC43 Not Detected (Not Detect); Human Metapneumovirus Not Detected (Not Detect); Human Rhinovirus/Enterovirus Not Detected (Not Detect); Influenza A Subtype 2009 H1 Not Detected (Not Detect); Influenza A Untypeable Not Detected (Not Detect); Influenza B Not Detected (Not Detect); Mycoplasma pneumoniae Not Detected (Not Detect); Parainfluenza Virus 1 Not Detected (Not Detect); Parainfluenza Virus 2 Not Detected (Not Detect); Parainfluenza Virus 3 Not Detected (Not Detect); Parainfluenza Virus 4 Not Detected (Not Detect); Respiratory Syncytial Virus Not Detected (Not Detect)
[2017-04-10] MEDS: MethylPREDNISolone 40 MG/ML VIAL IVP SCH ×3 (06:08→18:18)
[2017-04-10] MEDS: Spironolactone 25 MG TABLET PO SCH (09:48)
[2017-04-10] MEDS: Finasteride 5 MG TABLET PO SCH (09:48)
[2017-04-10] MEDS: Cholecalciferol (D-3) 1,000 UNIT TABLET PO SCH (09:48)
[2017-04-10] MEDS: Furosemide 40 MG TABLET PO SCH ×2 (09:49→18:18)
[2017-04-10] MEDS: NIFEdipine XL (24 HR) 30 MG TAB.ER.24 PO SCH (09:49)
[2017-04-10] MEDS: Nicotine 21 MG PATCH.TD24 TD SCH ×2 (09:49→10:49)
[2017-04-10] MEDS: Apixaban 5 MG TABLET PO SCH ×2 (09:49→20:14)
--- NOTE | 2017-04-10 11:04 | Internal Med Progress Note ---
Date of Encounter: 04/10/17 Time of Encounter: 09:35 - Assessment and plan (1) CKD (chronic kidney disease), stage IV Current Visit: Yes Status: Chronic Assessment and plan: Stable, monitor, avoid nephrotoxins (2) Congestive heart failure Current Visit: Yes Status: Chronic Assessment and plan: OBtain ECHO Euvolemic at this time Qualifiers: Congestive heart failure type: diastolic Congestive heart failure chronicity: chronic Qualified Code(s): I50.32 - Chronic diastolic (congestive ) heart failure (3) Elevated troponin Current Visit: Yes Status: Acute Assessment and plan: Patient denies presence of CP on admission or at time of review Obtain ECHO Trop is downtrending (4) Peripheral vascular disease of lower extremity with ulceration Current Visit: Yes Status: Chronic Assessment and plan: Ulcers are clean, continue dressing (5) Acute exacerbation of chronic obstructive airways disease Current Visit: Yes Status: Acute Assessment and plan: Continue steroids, duonebs, levaquin, O2 supplement prn (6) Chronic knee pain Current Visit: Yes Status: Chronic Assessment and plan: Continue home meds Qualifiers: Laterality: right Qualified Code(s): M25.561 - Pain in right knee; G89.29 - Other chronic pain; G89.29 - Other chronic pain - Subjective Interval history: 71 M Seen and examined at bedside No new complains HE feels not much of clinical improvement, however, he is just admitted this morning - Constitutional Vitals: Temp Pulse Resp BP Pulse Ox 98.2 F 74 18 147/80 96 04/10/17 07:09 04/10/17 07:09 04/10/17 07:09 04/10/17 07:09 04/10/17 07:09 General appearance: Present: A&O X 3, pleasant, no acute distress - Head Head exam: Present: atraumatic, normocephalic - Eye Eye exam: Present: PERRL, conjuntiva pink, sclera anicteric Pupils: Present: PERRL - Neck Neck exam general surgery: Present: supple, trachea midline. Absent: lymphadenopathy - Respiratory Respiratory exam: Present: wheezes - Cardiovascular Cardiovascular exam: Present: RRR, +S1, +S2. Absent: diastolic murmur, gallop, rubs, systolic murmur - GI/Abdominal GI/Abdominal exam: Present: normal bowel sounds, soft, no peritoneal signs. Absent: distended, tenderness - Extremities Exam Extremities exam: Present: warm, radial pulses palpable and symmetrical. Absent : calf tenderness, cyanotic, pedal edema Additional comments: s/p L AKA. Rbig toe ulcer in dressing - Neurological Exam Neurological exam: Present: alert, CN II-XII intact, oriented X3, no focal deficits. Absent: pronater drift, facial droop, speech deficit - Skin Skin exam: Present: dry, intact Internal Medicine: Result - Labs CBC & Chem 7: 04/10/17 00:30 04/10/17 00:30 Labs: Cardiac Enzymes 04/10/17 Range/Units 06:02 Troponin I 0.07 H* (< 0.04) ng/mL - ABG Interpretation ABG results: PT/INR, D-dimer PT 18.6 Seconds (9.4-12.1) H 04/10/17 00:30 - Impressions Impressions Chest X-Ray 04/10/17 23:58 IMPRESSION: Prominence of the interstitial markings. Correlation for mild edema is recommended. D/ / Dinora Conte Cha, MD / Dinora Conte Cha, MD Interpreting Provider: Dinora Conte Cha, MD Consult Discharge Plan - Plan [facility]errals: [facility] [Primary Care Provider[facility] -
[2017-04-10] MEDS ORDERED: Perflutren Lipid Microsphere 1.3 ML in 0.9 % Sodium Chloride 8.7 ML IVP ONE (15:10)
[2017-04-10] MEDS ORDERED: BUPRENORPHINE 15 MCG TP SCH (16:00)
[2017-04-10] MEDS: Gabapentin 300 MG CAPSULE PO SCH (20:14)
[2017-04-10] MEDS ORDERED: Mag Hydrox/Al Hydrox/Simeth 30 ML UDC PO PRN (23:44)
[2017-04-11] MEDS: MethylPREDNISolone 40 MG/ML VIAL IVP SCH
[2017-04-11] MEDS: Ipratropium/Albuterol Neb 3 ML IH SCH ×3 (01:00→11:52)
[2017-04-11] MEDS: Furosemide 40 MG TABLET PO SCH (08:00)
[2017-04-11] MEDS: Gabapentin 300 MG CAPSULE PO SCH (08:00)
[2017-04-11] MEDS: Apixaban 5 MG TABLET PO SCH (08:00)
[2017-04-11] MEDS: NIFEdipine XL (24 HR) 30 MG TAB.ER.24 PO SCH (08:00)
[2017-04-11] MEDS: Nicotine 21 MG PATCH.TD24 TD SCH (08:01)
[2017-04-11] MEDS: Spironolactone 25 MG TABLET PO SCH (08:01)
[2017-04-11] MEDS: Finasteride 5 MG TABLET PO SCH (08:01)
[2017-04-11] MEDS: Cholecalciferol (D-3) 1,000 UNIT TABLET PO SCH (08:01)
[2017-04-11 08:23] VITALS: BP 152/82
[2017-04-11 08:26] LABS: Calcium 8.6 mg/dL (8.6-10.3); Potassium 3.5 mEq/L (3.5-5.1)
[2017-04-11 08:29] LABS: Basophils % 0.1 %; Hematocrit 33.9 % (37.5-50.1); Hemoglobin 11.3 g/dL (12.9-16.9); Immature Granulocytes % 1.7 % (0-4); Lymphocytes # 0.7 K/mcL (0.6-4.6); Lymphocytes % 6.6 %; Mean Corpuscular HGB Conc 33.3 g/dL (31.6-35.5); Mean Corpuscular Volume 89.9 fL (83.0-100.0); Mean Platelet Volume 11.1 fL (9.4-12.4); Monocytes # 0.2 K/mcL (0.0-1.3); Monocytes % 1.9 %; Neutrophils # 9.5 K/mcL (1.6-8.9); Platelet Count 179 K/mcL (140-400); Red Blood Count 3.77 M/mcL (4.19-5.50); Red Cell Distribution Width 13.6 % (11.5-14.5); Segmented Neutrophils % 89.7 %
[2017-04-11] MEDS ORDERED: predniSONE 20 MG TABLET PO SCH (09:00)
--- NOTE | 2017-04-11 11:26 | Discharge Summary ---
Date of Encounter: 04/11/17 Time of Encounter: 11:25 - Discharge Diagnosis (1) Acute exacerbation of chronic obstructive airways disease Priority: Primary Status: Acute (2) CKD (chronic kidney disease), stage IV Priority: Secondary Status: Chronic (3) Congestive heart failure Priority: Secondary Status: Chronic Qualifiers: Congestive heart failure type: diastolic Congestive heart failure chronicity: chronic Qualified Code(s): I50.32 - Chronic diastolic (congestive ) heart failure (4) Elevated troponin Priority: Primary Status: Acute (5) Peripheral vascular disease of lower extremity with ulceration Priority: Secondary Status: Chronic (6) Chronic knee pain Priority: Secondary Status: Chronic Qualifiers: Laterality: right Qualified Code(s): M25.561 - Pain in right knee; G89.29 - Other chronic pain; G89.29 - Other chronic pain - Discharge Medications Prescriptions: levoFLOXacin [Levaquin] 250 mg PO DAILY #7 tablet predniSONE [PredniSONE] See Taper PO DAILY #20 tablet Home Medications: Carvedilol [Coreg] 25 mg PO BID 11/16/14 [History] Finasteride [Proscar] 5 mg PO DAILY 11/16/14 [History] Spironolactone [Aldactone] 25 mg PO DAILY 05/15/15 [History] Docusate [Colace] 100 mg PO BID 08/15/15 [History] Terazosin [Hytrin] 1 mg PO HS 08/15/15 [History] Acetaminophen [Tylenol] 650 mg PO TID 07/31/16 [History] Allopurinol [Zyloprim 100 MG] 50 mg PO DAILY 07/31/16 [History] Calcium Carbonate/Vitamin D3 [Calcium 500-Vit D3 200 Tablet] 1 tab PO DAILY [History] Capsaicin 0.025% [Trixaicin] 1 appl TP TID PRN 07/31/16 [History] Escitalopram [Lexapro] 20 mg PO DAILY 07/31/16 [History] Mirtazapine [Remeron] 45 mg PO HS 07/31/16 [History] Mupirocin [Bactroban Oint] 1 appl TP TID 07/31/16 [History] Apixaban [Eliquis] 5 mg PO BID 09/13/16 [History] Furosemide [Lasix] 60 mg PO BID 09/14/16 [History] Gabapentin [Neurontin] 600 mg PO BID 09/14/16 [History] Ipratropium/Albuterol Neb [Duoneb] 3 ml IH Q6HR PRN 09/14/16 [History] NIFEdipine [Nifedipine ER] 30 mg PO DAILY 09/14/16 [History] Pantoprazole Sodium [Protonix] 40 mg PO DAILY 09/14/16 [History] Simvastatin [Zocor] 40 mg PO DAILY 09/14/16 [History] Budesonide/Formoterol 160/4.5 [Symbicort 160/4.5] 2 puff IH BID 04/10/17 [ History] Buprenorphine [Butrans] 15 mcg TD QWEEK 04/10/17 [History] Lidocaine [Aspercreme] 2 patch TP AD 04/10/17 [History] Naproxen [Naprosyn] 250 mg PO BID 04/10/17 [History] levoFLOXacin [Levaquin] 250 mg PO DAILY #7 tablet 04/11/17 [Rx] predniSONE [PredniSONE] See Taper PO DAILY #20 tablet 04/11/17 [Rx] Allergies/Adverse Reactions: 3 Allergy/AdvReac Type Severity Reaction Status Date / Time atorvastatin [From Lipitor] AdvReac See Verified 09/26/16 13:41 Comments baclofen AdvReac Drowsy Verified 09/26/16 13:41 fluorouracil [From Efudex] AdvReac See Verified 09/26/16 13:41 Comments sulfamethoxazole AdvReac See Verified 09/26/16 13:41 [From Bactrim] Comments trimethoprim [From Bactrim] AdvReac See Verified 09/26/16 13:41 Comments Procedures/tests Complete & Pending: Procedures Performed prior 72 hours Category Date Time Status EV echocardiogram w enhance Routine Y 04/10/17 08:44 Completed Date of admission: 04/10/17 02:49 Primary care physician: PCP [place] Discharging clinician: Josef Llanos Anticipated date of discharge: 04/11/17 - Patient Status Disposition: Left Against Medical Advice Condition: Fair Functional capacity at discharge: wheelchair bound Overall status at discharge: patient is not back to baseline - Discharge Instructions Instructions: Prednisone (By mouth), Levofloxacin (By mouth), Chronic Obstructive Pulmonary Disease (DC) [facility] With: [facility] [[facility] Care Provider[facility] - - Diet and Activity Activity: resume usual activities as tolerated, wear oxygen at all times Diet: advance to your usual diet, low fat, low cholesterol, low salt diet Interval History: See below Hospital course: Mr. Jackson is a 71 year old male with hx of AFib on eliquis, CHF, PAD, COPD , s/ p left AKA, CKD , HTN who presents with 1 week hx of SOB with significant wheeze on admission. Admitted for acute COPD exacerbation. Incidentla finding of elevated troponin possibly from demand ischemia he also has chronic diastolic CHF per chart He still smoikes 1PPD and is wheel-chair dependent He was seen at bedside this morning Even though patient could barely complete his sentences and was wheezing diffusely, he declined further treatment and left AMA Risks of leaving AMA including cardiac arrest and resp failure explained to patient He was give scripts for steroids and antibiotics Follow up with PCP Smoking cessation counselling done for 2 mins Time spent discussing smoking cessation with patient: 3 to 10 minutes - Time Spent with Patient Total time spent providing and/or coordinating discharge services: Less than 30 minutes - Constitutional Vitals: Temp Pulse Resp BP Pulse Ox 97.4 F L 88 18 152/82 95 04/11/17 08:22 04/11/17 08:22 04/11/17 08:22 04/11/17 08:22 04/11/17 08:22 General appearance: Present: A&O X 3, pleasant, no acute distress - Head Head exam: Present: atraumatic, normocephalic - Eye Eye exam: Present: PERRL, conjuntiva pink, sclera anicteric Pupils: Present: PERRL - Neck Neck exam general surgery: Present: supple, trachea midline. Absent: lymphadenopathy - Respiratory Respiratory exam: Present: wheezes - Cardiovascular Cardiovascular exam: Present: irregular rhythm, +S1, +S2. Absent: diastolic murmur, gallop, rubs, systolic murmur - GI/Abdominal GI/Abdominal exam: Present: normal bowel sounds, soft, no peritoneal signs. Absent: distended, tenderness - Extremities Exam Additional comments: s/p L BKA - Neurological Exam Neurological exam: Present: alert, CN II-XII intact, oriented X3, no focal deficits. Absent: pronater drift, facial droop, speech deficit - Skin Skin exam: Present: dry, intact
--- NOTE | 2017-04-13 14:06 | Electrocardiograph Report ---
[address] [address] Test Date: 2017-04-10 Pat Name: Bayron Jackson Department: [id number] Room: 2A42 Gender: M Return To Vendor: : [id number] Requested By: Axel Solares Order Number: [id number] Reading MD: Rene Patton Measurements Intervals Aneta Rate: 79 P: IA: 0 QRS: -34 QRSD: 125 T: 127 QT: 378 QTc: 413 Interpretive Statements ATRIAL FIBRILLATION WITH ABERRANT CONDUCTION OR VENTRICULAR PREMATURE COMPLEXES MARKED LEFT AXIS DEVIATION MODERATE INTRAVENTRICULAR CONDUCTION DELAY ST DEVIATION AND MODERATE T-WAVE ABNORMALITY, CONSIDER LATERAL ISCHEMIA Electronically Signed On 04-13-2017 14:05:00 EST by Rene Patton
== END 2017-04-11 12:19 | disposition left against medical advice (07) | DRG 191 ==
LOC: EMEROO 23:49 → 2ANU 23:49
PROVIDERS: ADMIT Internal Medicine Nephrology; ATTEND Internal Medicine Nephrology

== ENCOUNTER 2017-04-22 12:09 | Inpatient (IN) ==
[2017-04-22] MEDS ORDERED: Acetaminophen 325 MG TABLET PO PRN (22:17)
[2017-04-22] MEDS ORDERED: Ipratropium/Albuterol Neb 3 ML IH PRN ×2 (22:17→22:19)
[2017-04-22] MEDS ORDERED: Naloxone 0.4 MG/ML INJ IVP PRN (22:21)
--- NOTE | 2017-04-22 22:27 | Internal Med History&Physical ---
Date of Encounter: 04/22/17 Time of Encounter: 22:25 Assessment and Plan (1) Acute bronchitis with COPD Current visit: Yes Status: Acute send RVP Iv azithro, duonebs, Iv steroids puls ox, tele close monitoring BIPAP to avoid retention (2) Afib Current visit: Yes Status: Acute check EKG in the a.m on eliquis, dean amador Qualifiers: Atrial fibrillation type: chronic Qualified Code(s): I48.2 - Chronic atrial fibrillation (3) CKD (chronic kidney disease) Current visit: Yes Status: Acute monitor for now Qualifiers: Chronic kidney disease stage: stage 3 (moderate) Qualified Code(s): N18.3 - Chronic kidney disease, stage 3 (moderate) (4) Leukocytosis Current visit: Yes Status: Acute could be reactive to steroids, does not appears septic monitor closely continue copd therapy for now further management pending inpatient clinical course Qualifiers: Leukocytosis type: other Qualified Code(s): D72.828 - Other elevated white blood cell count Internal Medicine - H&P: HPI Chief complaint: SOB History of present illness: Mr. Jackson is a 71 year old male who is a transfer from [facility] for COPD flare. Reports several weeks hx of SOB, worse on exertion. Associated with coughing. Symptoms worsened with time and no improvement at home. Was treated at [facility] with empiric copd therapy - some improvement noted He appears to be stable on NC on and off bipap EKG personally reviewed showing AFib Past Med Surg Social Fam HX - Past Medical History Medical history: atrial fibrillation, COPD, coronary artery disease, hyperlipidemia, hypertension, myocardial infarction, peripheral artery disease, renal disease Psychiatric history: anxiety, depression - Past Surgical History Surgical History: angioplasty/stent, appendectomy, LE Bypass, LE vascular intervention, other - Social History Smoking Status: Current every day smoker Smokeless Tobacco Status: No Alcohol use: none Drug use: none - Family History Mother Adopted: No Living Status: Hx Family Cardiac Disorders: No Hx Family Respiratory Disorders: No Hx Family Cancer: No Hx Family GI Disorders: No Hx Family Endocrine Disorder: No Hx Family Neuromuscular Disorders: No Hx Family Neurologic Disorders: No Hx Family HEENT Disorders: No Hx Family Autoimmune Disorders: No Internal Medicine - H&P: Meds Acetaminophen [Tylenol] 650 mg PO Q8H PRN 04/22/17 [History] Allopurinol [Zyloprim 100 MG] 50 mg PO DAILY 04/22/17 [History] Apixaban [Eliquis] 5 mg PO BID 04/22/17 [History] Buprenorphine [Butrans] 1 each TD Q7D 04/22/17 [History] Calcium Carbonate/Vitamin D3 [Calcium 500 + Vit D Caplet] 1 tab PO DAILY [History] Carvedilol [Coreg] 25 mg PO BID 04/22/17 [History] Docusate [Colace] 100 mg PO BID PRN 04/22/17 [History] Escitalopram [Lexapro] 20 mg PO DAILY 04/22/17 [History] Finasteride [Proscar] 5 mg PO DAILY 04/22/17 [History] Furosemide [Lasix] 20 mg PO DAILY 04/22/17 [History] Gabapentin [Neurontin] 600 mg PO BID 04/22/17 [History] Ipratropium/Albuterol Neb [Duoneb] 3 ml IH Q6HR PRN 04/22/17 [History] Mirtazapine [Remeron] 45 mg PO HS 04/22/17 [History] Mupirocin [Bactroban Oint] 1 appl TP BID 04/22/17 [History] NIFEdipine [Nifedipine ER] 30 mg PO DAILY 04/22/17 [History] Naproxen [Naprosyn] 250 mg PO BID 04/22/17 [History] Pantoprazole Sodium [Protonix] 40 mg PO DAILY 04/22/17 [History] Simvastatin [Zocor] 40 mg PO HS 04/22/17 [History] Terazosin [Hytrin] 1 mg PO HS 04/22/17 [History] 3 Allergy/AdvReac Type Severity Reaction Status Date / Time atorvastatin [From Lipitor] AdvReac See Verified 04/22/17 16:05 Comments baclofen AdvReac Drowsy Verified 04/22/17 16:05 fluorouracil [From Efudex] AdvReac See Verified 04/22/17 16:05 Comments sulfamethoxazole AdvReac See Verified 04/22/17 16:05 [From Bactrim] Comments trimethoprim [From Bactrim] AdvReac See Verified 04/22/17 16:05 Comments All Systems PM: A 10-system review of systems was performed and is negative for pertinent findings except as documented above in the HPI. Review of systems: ROS 14 point review of systems reviewed as best as possible given presentation. Pertinent positive or negative as per HPI or otherwise reviewed as negative - Constitutional Vitals: Temp Pulse Resp BP Pulse Ox 98.1 F 75 15 159/85 100 04/22/17 19:58 04/22/17 19:58 04/22/17 20:30 04/22/17 19:58 04/22/17 20:30 Exam: General - AAO x 3 Psych - Appropriate affect/speech. No agitation Eyes - CRISTINA. Eye lids intact. No scleral icterus Neuro - Moving a 4 s Heart - Sinus. RRR. S1 and S2 present. No added HS/murmurs appreciated. No elevated JVD appreciated. Lung - Decreased air entry b/l, bibasal crackles. Diffuse wheezes appreciated GI - Soft, non-tender. No hepatosplenomegaly/ascites. BS+ - No CVA/suprapubic tenderness or palpable bladder distension MSK - has left aka
[2017-04-22] MEDS ORDERED: Azithromycin 500 MG in D5% in Water 250 ML IVPB SCH (23:00)
[2017-04-23] MEDS: MethylPREDNISolone 40 MG/ML VIAL IVP SCH ×4 (00:02→16:33)
[2017-04-23 01:47] LABS: Adenovirus Not Detected (Not Detect); Bordetella Pertussis Not Detected (Not Detect); Chlamydophila pneumoniae Not Detected (Not Detect); Coronavirus 229E Not Detected (Not Detect); Coronavirus HKU1 Not Detected (Not Detect); Coronavirus NL63 Not Detected (Not Detect); Coronavirus OC43 Not Detected (Not Detect); Human Metapneumovirus Not Detected (Not Detect); Human Rhinovirus/Enterovirus Not Detected (Not Detect); Influenza A Subtype 2009 H1 Not Detected (Not Detect); Influenza A Untypeable Not Detected (Not Detect); Influenza B Not Detected (Not Detect); Mycoplasma pneumoniae Not Detected (Not Detect); Parainfluenza Virus 1 Not Detected (Not Detect); Parainfluenza Virus 2 Not Detected (Not Detect); Parainfluenza Virus 3 Not Detected (Not Detect); Parainfluenza Virus 4 Not Detected (Not Detect); Respiratory Syncytial Virus Not Detected (Not Detect)
[2017-04-23 03:58] LABS: Basophils % 0.1 %; Hematocrit 36.6 % (37.5-50.1); Hemoglobin 11.7 g/dL (12.9-16.9); Immature Granulocytes % 1.7 % (0-4); Lymphocytes # 0.7 K/mcL (0.6-4.6); Lymphocytes % 4.3 %; Mean Corpuscular Hemoglobin 30.2 pg (28.0-33.3); Mean Corpuscular Volume 94.3 fL (83.0-100.0); Mean Platelet Volume 10.5 fL (9.4-12.4); Monocytes # 0.5 K/mcL (0.0-1.3); Monocytes % 3.4 %; Neutrophils # 14.2 K/mcL (1.6-8.9); Platelet Count 198 K/mcL (140-400); Red Blood Count 3.88 M/mcL (4.19-5.50); Red Cell Distribution Width 14.5 % (11.5-14.5); Segmented Neutrophils % 90.5 %
[2017-04-23 04:05] LABS: Albumin 3.5 g/dL (3.5-5.7); Albumin/Globulin Ratio 1.1 (1.1-2.2); Bilirubin,Total 0.5 mg/dL (0.3-1.0); Calcium 8.6 mg/dL (8.6-10.3); Globulin 3.1 g/dL (2.4-3.5); Potassium 4.3 mEq/L (3.5-5.1); Total Protein 6.6 g/dL (6.4-8.9)
[2017-04-23] MEDS: Ipratropium/Albuterol Neb 3 ML IH SCH ×4 (04:26→23:06)
[2017-04-23] MEDS ORDERED: *HR* Enoxaparin 30 MG/0.3 ML SYRINGE SQ SCH (06:00)
[2017-04-23] MEDS: Apixaban 5 MG TABLET PO SCH ×2 (08:13→20:34)
[2017-04-23] MEDS: Furosemide 20 MG TABLET PO SCH (08:14)
[2017-04-23] MEDS: Gabapentin 300 MG CAPSULE PO SCH ×2 (08:14→20:34)
[2017-04-23] MEDS: Finasteride 5 MG TABLET PO SCH (08:14)
[2017-04-23] MEDS: NIFEdipine XL (24 HR) 30 MG TAB.ER.24 PO SCH (08:17)
[2017-04-23] MEDS ORDERED: Calcium 500 + Vit D PO SCH (09:00)
[2017-04-23] MEDS ORDERED: BUPRENORPHINE TP SCH (09:00)
--- NOTE | 2017-04-23 10:00 | Internal Med Progress Note ---
<Reggie Elizabeth - Last Filed: 04/23/17 14:29> Date of Encounter: 04/23/17 Time of Encounter: 08:30 - Assessment and plan (1) Acute respiratory failure with hypoxia Current Visit: No Status: Resolved Assessment and plan: - Patient reports no oxygen use at home but required BiPAP on admission. - Likely secondary to COPD exacerbation. - Improves as patient reports breathing better and maintains acceptable oxygenation on 2.5L NC. - Steroid, Symbicort, azithromycin, bronchodilators and supplemental oxygen for COPD. - Continue to monitor. (2) Acute exacerbation of chronic obstructive airways disease Current Visit: No Status: Acute Assessment and plan: - Reported dyspnea aggravated on exertion for several weeks. - CXR does not suggest pneumonia. Respiratory infection panel negative. - Continue bronchodilators and supplemental oxygen. - Decrease Solu-Medrol to 40 mg IV q8H. Also change azithromycin to 250 mg PO daily for 4 more days. - Start Symbicort. - Continue to monitor. (3) Leukocytosis Current Visit: No Status: Acute Assessment and plan: - WBC 15.7 on admission but no bandemia. - Likely related to steroid use prior to arrival here. - Continue to monitor. Qualifiers: Leukocytosis type: unspecified Qualified Code(s): D72.829 - Elevated white blood cell count, unspecified (4) Heart failure with preserved ejection fraction Current Visit: Yes Status: Acute Assessment and plan: - Echo on 04/10/17 found LVEF 65% with indeterminate diastolic function, A-fib. - Continue diuresis with Lasix. - Strict I/O and daily weight. (5) Afib Current Visit: Yes Status: Chronic Assessment and plan: - Currently rate-controlled. Continue Coreg. - Continue Eliquis for anticoagulation. Qualifiers: Atrial fibrillation type: chronic Qualified Code(s): I48.2 - Chronic atrial fibrillation (6) CKD (chronic kidney disease) Current Visit: Yes Status: Acute Assessment and plan: - SCr 2.42 / eGFR 26 on admission, which is similar to his baseline. - Avoid nephrotoxin. - Continue to monitor renal function and electrolytes. Qualifiers: Chronic kidney disease stage: stage 3 (moderate) Qualified Code(s): N18.3 - Chronic kidney disease, stage 3 (moderate) (7) Tobacco use Current Visit: Yes Status: Acute Assessment and plan: - Smoking cessation counseling. - Start nicotine patch. (8) DVT prophylaxis Current Visit: No Status: Acute Assessment and plan: - Continue Eliquis - Subjective Interval history: Patient was seen and examined this morning. Patient reports improvement on breathing compared to yesterday. Patient reports minimal cough and sputum is mostly clear. Patient denies fever, chills, chest pain, abdominal pain, nausea, vomiting, diarrhea. - Constitutional Vitals: Temp Pulse Resp BP Pulse Ox 97.7 F 75 18 180/91 97 04/23/17 07:47 04/23/17 08:24 04/23/17 07:47 04/23/17 07:47 04/23/17 07:47 General appearance: Present: A&O X 3, no acute distress, answers questions appropriately - Head Head exam: Present: normal inspection - Eye Eye exam: Present: EOMI, conjuntiva pink, sclera anicteric - Neck Neck exam general surgery: Present: normal inspection, supple, trachea midline - Respiratory Respiratory exam: Present: wheezes (Diffuse). Absent: accessory muscle use - Cardiovascular Cardiovascular exam: Present: RRR, +S1, +S2 - GI/Abdominal GI/Abdominal exam: Present: normal bowel sounds, soft, no peritoneal signs. Absent: tenderness - Extremities Exam Extremities exam: Present: pedal edema (Moderate BLE pitting edema), warm. Absent: cyanotic Additional comments: Left leg amputation. - Neurological Exam Neurological exam: Present: alert. Absent: facial droop, speech deficit - Skin Skin exam: Present: dry, warm Internal Medicine: Result - Labs CBC & Chem 7: 04/23/17 03:11 04/23/17 03:11 Labs: Short CBC 04/23/17 Range/Units 03:11 WBC 15.7 H (4.3-11.1) K/mcL Hgb 11.7 L (12.9-16.9) g/dL Hct 36.6 L (37.5-50.1) % Plt Count 198 (140-400) K/mcL Neutrophils # 14.2 H (1.6-8.9) K/mcL BMP 04/23/17 03:11 Sodium 138 Potassium 4.3 Chloride 102 Carbon Dioxide 24 BUN 66 H Creatinine 2.42 H Glucose 121 H Calcium 8.6 Liver Function 04/23/17 Range/Units 03:11 Total Bilirubin 0.5 (0.3-1.0) mg/dL AST 15 (13-39) Units/L ALT 24 (7-52) Units/L Alkaline Phosphatase 88 (34-104) Units/L Albumin 3.5 (3.5-5.7) g/dL - Impressions Impressions Chest X-Ray 04/22/17 22:20 IMPRESSION: Interval improved aeration in the left lower lobe. Otherwise unremarkable chest. D/ / Curtis Cruz MD / Curtis Cruz MD Interpreting Provider: Curtis Cruz MD Consult Discharge Plan - Plan Referrals: NONE,PCP [Primary Care Provider] - ID,PCP [Non-Partnered Physician] - 05/04/17 11:00 am (This is in the discharge clinic in building 31) <Luis Tucker - Last Filed: 04/23/17 16:32> Date of Encounter: 04/23/17 - Constitutional Vitals: Temp Pulse Resp BP Pulse Ox 98.2 F 76 18 146/79 94 04/23/17 15:19 04/23/17 15:19 04/23/17 15:19 04/23/17 15:19 04/23/17 15:19 Internal Medicine: Result - Labs CBC & Chem 7: 04/23/17 03:11 04/23/17 03:11 Labs: Short CBC 04/23/17 Range/Units 03:11 WBC 15.7 H (4.3-11.1) K/mcL Hgb 11.7 L (12.9-16.9) g/dL Hct 36.6 L (37.5-50.1) % Plt Count 198 (140-400) K/mcL Neutrophils # 14.2 H (1.6-8.9) K/mcL BMP 04/23/17 03:11 Sodium 138 Potassium 4.3 Chloride 102 Carbon Dioxide 24 BUN 66 H Creatinine 2.42 H Glucose 121 H Calcium 8.6 Liver Function 04/23/17 Range/Units 03:11 Total Bilirubin 0.5 (0.3-1.0) mg/dL AST 15 (13-39) Units/L ALT 24 (7-52) Units/L Alkaline Phosphatase 88 (34-104) Units/L Albumin 3.5 (3.5-5.7) g/dL - Impressions Impressions Chest X-Ray 04/22/17 22:20 IMPRESSION: Interval improved aeration in the left lower lobe. Otherwise unremarkable chest. D/ / Curtis Cruz MD / Curtis Cruz MD Interpreting Provider: Curtis Cruz MD - Attending Attestation I examined this patient and my medical decision-making was reviewed with the Resident Physician Dr. Elizabeth. I agree with the documented findings, disposition and treatment plan as described except to the extent set forth below. This is a 71 y/o M with known PMH of HTN, HLD, Obesity, PAD, Chronic tobacco dependence, COPD not on home O2 dependent who recently discharged from this hospital went to [facility] ER with worsening SOB and Severe hypoxia. He is off the BiPAP, breathing comfortably on 2 lit O2. Denied any CP . Wants to know when is he going home Gen: A, A, O x 3 Chest : Diminished BS b/l, moderate to severe wheezing Heart: S1S2+ RRR Ext: 1-2+ pitting edema in RLE a/p 1. Acute COPD exacerbation 2. Acute purulent bronchitis - mostly bacterial cont IV steroids Cont empirical abx cont bronchodilators may need home O2 eval 3. CKD-3 stable Cr 4. Rt leg edema 5. Chronic diastolic dysfunction Echo from 04/13/17 showed preserved LVEF resume po lasix in AM
--- NOTE | 2017-04-23 12:38 | Electrocardiograph Report ---
[address] [place], [place] [address] Test Date: 2017-04-23 Pat Name: Bayron [place] Department: 110 Room: 2N07 Gender: M [employer]: ZAYRA : 1945 Requested By: Tamir Alcazar Order Number: [id number] Reading MD: Josesito Mulligan MD Measurements Intervals Blain Rate: 84 P: PA: 0 QRS: -25 QRSD: 118 T: 132 QT: 395 QTc: 436 Interpretive Statements ATRIAL FIBRILLATION WITH ABERRANT CONDUCTION OR VENTRICULAR PREMATURE COMPLEXES SEPTAL MYOCARDIAL INFARCTION, OF INDETERMINATE AGE LATERAL ISCHEMIA Electronically Signed On 04-23-2017 12:36:40 EST by Josesito Mulligan MD
[2017-04-23] MEDS: Budesonide/Formoterol 160/4.5 MDI IH SCH ×2 (16:17→23:06)
[2017-04-23] MEDS: Nicotine 14 MG PATCH.TD24 TD SCH (16:33)
[2017-04-23] MEDS: Mirtazapine 15 MG TABLET PO SCH (20:34)
[2017-04-24] MEDS: Azithromycin 250 MG TABLET PO SCH ×2 (00:35→23:41)
[2017-04-24] MEDS: MethylPREDNISolone 40 MG/ML VIAL IVP SCH ×4 (00:36→23:41)
[2017-04-24 03:49] LABS: Basophils % 0.1 %; Eosinophils % 0.1 %; Hematocrit 31.4 % (37.5-50.1); Hemoglobin 10.2 g/dL (12.9-16.9); Lymphocytes # 0.4 K/mcL (0.6-4.6); Lymphocytes % 3.5 %; Mean Corpuscular HGB Conc 32.5 g/dL (31.6-35.5); Mean Corpuscular Hemoglobin 30.2 pg (28.0-33.3); Mean Corpuscular Volume 92.9 fL (83.0-100.0); Mean Platelet Volume 11.2 fL (9.4-12.4); Monocytes # 0.2 K/mcL (0.0-1.3); Monocytes % 2.1 %; Neutrophils # 9.7 K/mcL (1.6-8.9); Nucleated Red Blood Cells 0.2 /100 WBC (0); Platelet Count 157 K/mcL (140-400); Red Blood Count 3.38 M/mcL (4.19-5.50); Red Cell Distribution Width 14.6 % (11.5-14.5); Segmented Neutrophils % 93.2 %
[2017-04-24] MEDS: Ipratropium/Albuterol Neb 3 ML IH SCH ×4 (04:05→22:25)
[2017-04-24 04:11] LABS: Calcium 8.3 mg/dL (8.6-10.3); Potassium 4.1 mEq/L (3.5-5.1)
[2017-04-24] MEDS: Nicotine 14 MG PATCH.TD24 TD SCH (08:00)
[2017-04-24] MEDS: Furosemide 20 MG TABLET PO SCH (08:01)
[2017-04-24] MEDS: NIFEdipine XL (24 HR) 30 MG TAB.ER.24 PO SCH (08:01)
[2017-04-24] MEDS: Gabapentin 300 MG CAPSULE PO SCH ×2 (08:01→20:03)
[2017-04-24] MEDS: Cholecalciferol (D-3) 1,000 UNIT TABLET PO SCH (08:02)
[2017-04-24] MEDS: Finasteride 5 MG TABLET PO SCH (08:02)
[2017-04-24] MEDS: Apixaban 5 MG TABLET PO SCH ×2 (08:02→20:03)
[2017-04-24] MEDS: Budesonide/Formoterol 160/4.5 MDI IH SCH ×2 (09:48→22:25)
--- NOTE | 2017-04-24 11:12 | Internal Med Progress Note ---
Date of Encounter: 04/24/17 Time of Encounter: 10:00 - Assessment and plan (1) Acute respiratory failure with hypoxia Current Visit: No Status: Resolved Assessment and plan: Patient reports no oxygen use at home He was severely hypoxic when he first presented to ER.. Required BiPAP now off the BiPAP breathing well on 2 Lit O2 will do home O2 eval and over night O2 study Cont Steroid, Symbicort, azithromycin, bronchodilators and supplemental oxygen for COPD. Continue to monitor. (2) Acute exacerbation of chronic obstructive airways disease Current Visit: No Status: Acute Assessment and plan: - CXR does not suggest pneumonia. Respiratory infection panel negative. - Continue bronchodilators and supplemental oxygen. -cont tapering steroids - Cont azithromycin to 250 mg PO daily for 3 more days. - Start Symbicort. - Continue to monitor. (3) Acute bronchitis with COPD Current Visit: Yes Status: Acute Assessment and plan: Purulent bronchitis --bacterial cont empirical abx Azithromycin (4) CKD (chronic kidney disease) stage 3, GFR 30-59 ml/min Current Visit: No Status: Acute Assessment and plan: stable Cr Avoid nephrotoxin. Continue to monitor renal function and electrolytes. (5) Leukocytosis Current Visit: Yes Status: Acute Assessment and plan: Improved Qualifiers: Leukocytosis type: other Qualified Code(s): D72.828 - Other elevated white blood cell count (6) Diastolic CHF Current Visit: Yes Status: Chronic Assessment and plan: stable not in exacerbation resumed home meds Qualifiers: Congestive heart failure chronicity: chronic Qualified Code(s): I50.32 - Chronic diastolic (congestive) heart failure (7) Tobacco use Current Visit: Yes Status: Acute Assessment and plan: Smoking cessation counseling. Cont nicotine patch. - Subjective Interval history: This is a 71 y/o M with known PMH of HTN, HLD, Obesity, PAD, Chronic tobacco dependence, COPD not on home O2 dependent who recently discharged from this hospital went to [facility] ER with worsening SOB and Severe hypoxia. He is off the BiPAP, breathing comfortably on 2 lit O2. Denied any CP . No events over night. Resting comfortably in chair. Still has cough. - Constitutional Vitals: Temp Pulse Resp BP Pulse Ox 97.9 F 81 20 178/94 98 04/24/17 06:55 04/24/17 10:04 01/13/18 10:04 04/24/17 09:46 04/24/17 10:04 General appearance: Present: A&O X 3, no acute distress, answers questions appropriately - Head Head exam: Present: atraumatic, normal inspection - Neck Neck exam general surgery: Present: supple - Respiratory Respiratory exam: Present: decreased breath sounds, wheezes (mild to moderate). Absent: rales, respiratory distress, rhonchi - Cardiovascular Cardiovascular exam: Present: RRR, +S1, +S2. Absent: tachycardia - GI/Abdominal GI/Abdominal exam: Present: normal bowel sounds, soft. Absent: rebound, rigid, tenderness - Extremities Exam Extremities exam: Present: pedal edema (1+ in Rt leg). Absent: calf tenderness , tenderness - Back Exam Back exam: Absent: CVA tenderness (L), CVA tenderness (R) - Psychiatric Psychiatric exam: Present: normal affect, normal mood Internal Medicine: Result - Labs CBC & Chem 7: 04/24/17 02:38 04/24/17 02:38 Labs: Short CBC 04/24/17 Range/Units 02:38 WBC 10.4 (4.3-11.1) K/mcL Hgb 10.2 L D (12.9-16.9) g/dL Hct 31.4 L (37.5-50.1) % Plt Count 157 (140-400) K/mcL Neutrophils # 9.7 H (1.6-8.9) K/mcL BMP 04/24/17 02:38 Sodium 138 Potassium 4.1 Chloride 104 Carbon Dioxide 24 BUN 74 H Creatinine 2.71 H Glucose 171 H Calcium 8.3 L Consult Discharge Plan - Plan Referrals: NONE,PCP [Primary Care Provider] - [facility]P [Non-Partnered Physician] - 05/04/17 11:00 am (This is in the discharge clinic in building 31)
[2017-04-24] MEDS: Mirtazapine 15 MG TABLET PO SCH (20:03)
[2017-04-25] MEDS: Ipratropium/Albuterol Neb 3 ML IH SCH ×4 (05:27→22:59)
[2017-04-25] MEDS: Furosemide 20 MG TABLET PO SCH (07:48)
[2017-04-25] MEDS: Finasteride 5 MG TABLET PO SCH (07:48)
[2017-04-25] MEDS: NIFEdipine XL (24 HR) 30 MG TAB.ER.24 PO SCH (07:48)
[2017-04-25] MEDS: Apixaban 5 MG TABLET PO SCH ×2 (07:48→21:24)
[2017-04-25] MEDS: Cholecalciferol (D-3) 1,000 UNIT TABLET PO SCH (07:48)
[2017-04-25] MEDS: Gabapentin 300 MG CAPSULE PO SCH ×2 (07:49→21:24)
[2017-04-25] MEDS: MethylPREDNISolone 40 MG/ML VIAL IVP SCH (07:49)
[2017-04-25] MEDS: Nicotine 14 MG PATCH.TD24 TD SCH (07:49)
[2017-04-25] MEDS: Budesonide/Formoterol 160/4.5 MDI IH SCH ×2 (10:23→23:01)
--- NOTE | 2017-04-25 14:08 | Internal Med Progress Note ---
Date of Encounter: 04/25/17 Time of Encounter: 09:30 - Assessment and plan (1) Acute respiratory failure with hypoxia Current Visit: No Status: Resolved Assessment and plan: Patient reports no oxygen use at home He was severely hypoxic when he first presented to ER.. Required BiPAP now off the BiPAP breathing well on RA will do over night O2 study..Since he is wheel chair bound, unable to do ambulating pulse oxy Cont Steroid, Symbicort, azithromycin, bronchodilators and supplemental oxygen for COPD. Continue to monitor. (2) Acute exacerbation of chronic obstructive airways disease Current Visit: No Status: Acute Assessment and plan: - CXR does not suggest pneumonia. Respiratory infection panel negative. - Continue bronchodilators and supplemental oxygen. -cont tapering steroids - Cont azithromycin to 250 mg PO daily for 2 more days. - Cont Symbicort. - Continue to monitor. (3) Acute bronchitis with COPD Current Visit: Yes Status: Acute Assessment and plan: Purulent bronchitis --bacterial cont empirical abx Azithromycin (4) CKD (chronic kidney disease) stage 3, GFR 30-59 ml/min Current Visit: No Status: Acute Assessment and plan: stable Cr Avoid nephrotoxin. Continue to monitor renal function and electrolytes. (5) Leukocytosis Current Visit: Yes Status: Acute Assessment and plan: Improved Qualifiers: Leukocytosis type: other Qualified Code(s): D72.828 - Other elevated white blood cell count (6) Diastolic CHF Current Visit: Yes Status: Chronic Assessment and plan: stable not in exacerbation resumed home meds Qualifiers: Congestive heart failure chronicity: chronic Qualified Code(s): I50.32 - Chronic diastolic (congestive) heart failure (7) Tobacco use Current Visit: Yes Status: Acute Assessment and plan: Smoking cessation counseling. Cont nicotine patch. - Subjective Interval history: This is a 71 y/o M with known PMH of HTN, HLD, Obesity, PAD, Chronic tobacco dependence, COPD not on home O2 dependent who recently discharged from this hospital went to [facility] ER with worsening SOB and Severe hypoxia. He is off the BiPAP, breathing comfortably on RA today. Denied any CP . No events over night. Resting comfortably in chair. Still has cough. He is wheel chair bound due to his recent Left AKA - Constitutional Vitals: Temp Pulse Resp BP Pulse Ox 97.9 F 68 18 132/61 94 04/25/17 11:34 04/25/17 11:34 04/25/17 11:34 04/25/17 11:34 04/25/17 11:34 General appearance: Present: A&O X 3, no acute distress, answers questions appropriately - Head Head exam: Present: atraumatic, normal inspection - Neck Neck exam general surgery: Present: supple - Respiratory Respiratory exam: Present: decreased breath sounds, wheezes (mild to moderate). Absent: rales, respiratory distress, rhonchi - Cardiovascular Cardiovascular exam: Present: RRR, +S1, +S2. Absent: tachycardia - GI/Abdominal GI/Abdominal exam: Present: normal bowel sounds, soft. Absent: rebound, rigid, tenderness - Extremities Exam Extremities exam: Present: pedal edema (improved). Absent: calf tenderness, tenderness - Back Exam Back exam: Absent: CVA tenderness (L), CVA tenderness (R) - Neurological Exam Neurological exam: Present: alert, oriented X3 - Psychiatric Psychiatric exam: Present: normal affect, normal mood Internal Medicine: Result - Labs CBC & Chem 7: 04/24/17 02:38 04/24/17 02:38 Consult Discharge Plan - Plan Referrals: NONE,PCP [Primary Care Provider] - [facility],PCP [Non-Partnered Physician] - 05/04/17 11:00 am (This is in the discharge clinic in building 31)
[2017-04-25] MEDS: Mirtazapine 15 MG TABLET PO SCH (21:24)
[2017-04-25] MEDS: Azithromycin 250 MG TABLET PO SCH (23:11)
[2017-04-26] MEDS: Ipratropium/Albuterol Neb 3 ML IH SCH ×2 (05:29→10:52)
[2017-04-26 07:08] VITALS: BP 157/92
[2017-04-26] MEDS: NIFEdipine XL (24 HR) 30 MG TAB.ER.24 PO SCH (07:45)
[2017-04-26] MEDS: Cholecalciferol (D-3) 1,000 UNIT TABLET PO SCH (07:45)
[2017-04-26] MEDS: Nicotine 14 MG PATCH.TD24 TD SCH (07:45)
[2017-04-26] MEDS: Finasteride 5 MG TABLET PO SCH (07:46)
[2017-04-26] MEDS: Apixaban 5 MG TABLET PO SCH (07:46)
[2017-04-26] MEDS: Furosemide 20 MG TABLET PO SCH (07:46)
[2017-04-26] MEDS: Gabapentin 300 MG CAPSULE PO SCH (07:46)
[2017-04-26] MEDS ORDERED: MethylPREDNISolone 40 MG/ML VIAL IVP SCH (09:00)
--- NOTE | 2017-04-26 09:08 | Discharge Summary ---
Date of Encounter: 04/26/17 Time of Encounter: 08:58 - Discharge Diagnosis (1) Acute respiratory failure with hypoxia Priority: Primary Status: Resolved (2) Acute exacerbation of chronic obstructive airways disease Priority: Primary Status: Acute (3) Acute bronchitis with COPD Priority: Primary Status: Acute (4) CKD (chronic kidney disease) stage 3, GFR 30-59 ml/min Priority: Secondary Status: Acute (5) Leukocytosis Priority: Secondary Status: Acute Qualifiers: Leukocytosis type: other Qualified Code(s): D72.828 - Other elevated white blood cell count (6) Diastolic CHF Priority: Secondary Status: Chronic Qualifiers: Congestive heart failure chronicity: chronic Qualified Code(s): I50.32 - Chronic diastolic (congestive) heart failure (7) Tobacco use Priority: Secondary Status: Acute - Discharge Medications Prescriptions: Apixaban [Eliquis] 2.5 mg PO BID #60 tablet Azithromycin [Zithromax] 250 mg PO Q24H #1 tablet Budesonide/Formoterol 160/4.5 [Symbicort 160/4.5] 1 puff IH BIDR #1 hfa.aer.ad Nicotine Patch [Nicoderm] 14 mg TD DAILY #30 patch.td24 predniSONE [PredniSONE] 40 mg PO DAILY #10 tablet Home Medications: Acetaminophen [Tylenol] 650 mg PO Q8H PRN 04/22/17 [History] Allopurinol [Zyloprim 100 MG] 50 mg PO DAILY 04/22/17 [History] Buprenorphine [Butrans] 1 each TD Q7D 04/22/17 [History] Calcium Carbonate/Vitamin D3 [Calcium 500 + Vit D Caplet] 1 tab PO DAILY [History] Carvedilol [Coreg] 25 mg PO BID 04/22/17 [History] Docusate [Colace] 100 mg PO BID PRN 04/22/17 [History] Escitalopram [Lexapro] 20 mg PO DAILY 04/22/17 [History] Finasteride [Proscar] 5 mg PO DAILY 04/22/17 [History] Furosemide [Lasix] 20 mg PO DAILY 04/22/17 [History] Gabapentin [Neurontin] 600 mg PO BID 04/22/17 [History] Ipratropium/Albuterol Neb [Duoneb] 3 ml IH Q6HR PRN 04/22/17 [History] Mirtazapine [Remeron] 45 mg PO HS 04/22/17 [History] Mupirocin [Bactroban Oint] 1 appl TP BID 04/22/17 [History] NIFEdipine [Nifedipine ER] 30 mg PO DAILY 04/22/17 [History] Pantoprazole Sodium [Protonix] 40 mg PO DAILY 04/22/17 [History] Simvastatin [Zocor] 40 mg PO HS 04/22/17 [History] Terazosin [Hytrin] 1 mg PO HS 04/22/17 [History] Apixaban [Eliquis] 2.5 mg PO BID #60 tablet 04/26/17 [Rx] Azithromycin [Zithromax] 250 mg PO Q24H #1 tablet 04/26/17 [Rx] Budesonide/Formoterol 160/4.5 [Symbicort 160/4.5] 1 puff IH BIDR #1 hfa.aer.ad 04/26/17 [Rx] Cholecalciferol (D-3) [Vitamin D] 1,000 unit PO DAILY tablet 04/26/17 [Rx] Nicotine Patch [Nicoderm] 14 mg TD DAILY #30 patch.td24 04/26/17 [Rx] predniSONE [PredniSONE] 40 mg PO DAILY #10 tablet 04/26/17 [Rx] Allergies/Adverse Reactions: 3 Allergy/AdvReac Type Severity Reaction Status Date / Time atorvastatin [From Lipitor] AdvReac See Verified 04/22/17 16:05 Comments baclofen AdvReac Drowsy Verified 04/22/17 16:05 fluorouracil [From Efudex] AdvReac See Verified 04/22/17 16:05 Comments sulfamethoxazole AdvReac See Verified 04/22/17 16:05 [From Bactrim] Comments trimethoprim [From Bactrim] AdvReac See Verified 04/22/17 16:05 Comments Date of admission: 04/22/17 13:58 Primary care physician: PCP NONE Consults: 04/22/17 14:46 Consult to Clinical Research Director [CONS] Routine Reason for SW Consult: Discharge planning, recent hospitalization. 04/23/17 10:34 Consult to Physical Therapy [CONS] Routine Comment: Evaluate, develop and implement POC Reason for Consult: Generalized Weakness 04/23/17 10:35 Consult to Occupational Therapy [CONS] Routine Comment: Evaluate, develop and implement POC Reason for Consult: ambulate and assess - Patient Status Disposition: Home, Self-Care Condition: Good Overall status at discharge: patient is back to baseline - Discharge Instructions Follow Up With: NONE,PCP [Primary Care Provider] - [facility],PCP [Non-Partnered Physician] - 05/04/17 11:00 am (This is in the discharge clinic in building 31) - Diet and Activity Activity: increase activity as tolerated Diet: low salt diet Hospital course: Mr. Jackson is a 71 year old male with known PMH of HTN, HLD, CKD-3, Obesity, PAD , Chronic tobacco dependence, COPD not on home O2 dependent who recently discharged from this hospital went to [facility] ER with worsening SOB and Severe hypoxia. Initially he was placed on BiPAP, and started him on high dose IV steroids, empirical abx and supportive care. . He denied any CP . He is wheel chair bound due to his recent Left AKA. He had over night pulse oxy study, pt does not qualify for oxygen. He is breathing comfortably on RA from last 2 days. Will d/c him home in stable condition with tapering PO steroids and another day PO abx Azithromycin. Counseled the pt about quitting smoking and provided him nicotine patches. - Time Spent with Patient Total time spent providing and/or coordinating discharge services: - Constitutional Vitals: Temp Pulse Resp BP Pulse Ox 98.2 F 86 18 157/92 96 04/26/17 07:05 04/26/17 07:30 04/26/17 07:25 04/26/17 07:05 04/26/17 07:05 General appearance: Present: A&O X 3, no acute distress, answers questions appropriately - Head Head exam: Present: atraumatic, normal inspection - Neck Neck exam general surgery: Present: supple - Respiratory Respiratory exam: Present: decreased breath sounds, wheezes (mild to moderate). Absent: rales, respiratory distress, rhonchi - Cardiovascular Cardiovascular exam: Present: +S1, +S2. Absent: tachycardia - GI/Abdominal GI/Abdominal exam: Present: normal bowel sounds, soft. Absent: rebound, rigid, tenderness - Back Exam Back exam: Absent: CVA tenderness (L), CVA tenderness (R) - Neurological Exam Neurological exam: Present: alert, oriented X3 - Psychiatric Psychiatric exam: Present: normal affect, normal mood
[2017-04-26] MEDS: Budesonide/Formoterol 160/4.5 MDI IH SCH (10:52)
== END 2017-04-26 11:35 | disposition home or self-care (01) | DRG 190 ==
LOC: SUATTDRO 13:58 → 2NNU 13:58
PROVIDERS: ADMIT Internal Medicine Hematology & Oncology; ATTEND Family Medicine

== ENCOUNTER 2017-05-10 02:11 | Inpatient (IN) ==
[2017-05-10] MEDS ORDERED: Naloxone 0.4 MG/ML INJ IVP PRN (05:46)
[2017-05-10] MEDS ORDERED: Ipratropium/Albuterol Neb 3 ML IH PRN (05:48)
--- NOTE | 2017-05-10 06:11 | Internal Med History&Physical ---
Date of Encounter: 05/10/17 Time of Encounter: 06:00 Assessment and Plan (1) Acute respiratory failure with hypoxia Current visit: Yes Status: Acute Patient presenting with acute hypoxic respiratory failure. Due to CHF with associated underlying COPD and pneumonia. I discussed the complications. Currently on BiPAP. Treat underlying conditions and wean FiO2 as tolerated. (2) Congestive heart failure Current visit: Yes Status: Acute Patient with pedal edema and pulmonary edema. We will treat with intravenous Lasix. Echocardiogram from earlier this month shows EF of 65%. Will place patient on fluid restriction. Input and output monitoring. Qualifiers: Congestive heart failure type: diastolic Congestive heart failure chronicity: acute on chronic Qualified Code(s): I50.33 - Acute on chronic diastolic (congestive) heart failure (3) Pneumonia Current visit: Yes Status: Suspected Chest x-ray shows bibasilar airspace disease. Given recent hospitalizations, suspect early onset healthcare associated pneumonia. Will treat with broad- spectrum antibiotics. We will Send blood cultures. Check respiratory infection panel. Urine strep, legionella antigens. Qualifiers: Pneumonia type: due to methicillin-resistant Staphylococcus aureus (MRSA) Laterality: bilateral Lung location: lower lobe of lung Qualified Code(s): J15.212 - Pneumonia due to Methicillin resistant Staphylococcus aureus (4) Atrial fibrillation Current visit: Yes Status: Chronic Rate controlled. Patient on anticoagulation with Eliquis. Will continue Qualifiers: Atrial fibrillation type: persistent Qualified Code(s): I48.1 - Persistent atrial fibrillation (5) Hypertension Current visit: Yes Status: Chronic Elevated at this time. Will monitor blood pressure. Resume home medications. Qualifiers: Hypertension type: essential hypertension Qualified Code(s): I10 - Essential (primary) hypertension (6) CKD (chronic kidney disease), stage IV Current visit: Yes Status: Chronic With mild acute worsening. BUN 69, creatinine 3.1. Given acute CHF and treatment with Lasix, may have further worsening of renal function. Will follow closely. 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 Hemoglobin 10.4. At baseline (8) Elevated troponin Current visit: Yes Status: Acute Troponin 0.1. Will trend. No reported chest pain. Could be from demand ischemia. (9) COPD (chronic obstructive pulmonary disease) Current visit: Yes Status: Chronic Patient has mild wheezing at this time. Will treat with bronchodilators as needed. Systemic steroids. Qualifiers: COPD type: COPD with acute exacerbation Qualified Code(s): J44.1 - Chronic obstructive pulmonary disease with (acute) exacerbation Internal Medicine - H&P: HPI Chief complaint: Shortness of breath and hypoxia Admitted From: Emergency Dept ([facility]) Plans for Post Hospital Care: Hospice - Home History of present illness: Mr. Jackson is a 71 year old male patient with history of COPD, CHF, atrial fibrillation, hypertension, chronic kidney disease stage III and presented to the ER with complaints of worsening shortness of breath. Patient has also been hypoxic intermittently. He had been hospitalized here earlier this month for acute exacerbation of COPD and had been discharged from the hospital on azithromycin and prednisone. He had apparently been hospitalized at [facility] after that and was just discharged 2-3 days back. He was diagnosed with acute CHF than an was treated for that. He had been evaluated for home oxygen at both these hospitalizations and was deemed to have not qualified for home oxygen. When he was picked up by EMS, his oxygen sats were 76% on room air. Respiratory rate was 28/m. Presently patient is on BiPAP. He is somnolent and not answering questions but does wake up. Reviewing records from [facility] he was in similar condition during his evaluation there. As such most of the history has been obtained through review of records from [facility] and prior hospitalizations here. Past Med Surg Social Fam HX - Past Medical History Source: old records reviewed Medical history: atrial fibrillation, COPD, coronary artery disease, hyperlipidemia, hypertension, myocardial infarction, peripheral artery disease, renal disease Psychiatric history: anxiety, depression - Past Surgical History Surgical History: angioplasty/stent, appendectomy, LE Bypass, LE vascular intervention, other - Social History Smoking Status: Current every day smoker Smokeless Tobacco Status: No Alcohol use: none Drug use: none - Family History Mother Adopted: No Living Status: Hx Family Cardiac Disorders: No Hx Family Respiratory Disorders: No Hx Family Cancer: No Hx Family GI Disorders: No Hx Family Endocrine Disorder: No Hx Family Neuromuscular Disorders: No Hx Family Neurologic Disorders: No Hx Family HEENT Disorders: No Hx Family Autoimmune Disorders: No Internal Medicine - H&P: Meds Acetaminophen [Tylenol] 650 mg PO Q8H PRN 04/22/17 [History] Allopurinol [Zyloprim 100 MG] 50 mg PO DAILY 04/22/17 [History] Buprenorphine [Butrans] 1 each TD Q7D 04/22/17 [History] Calcium Carbonate/Vitamin D3 [Calcium 500 + Vit D Caplet] 1 tab PO DAILY [History] Carvedilol [Coreg] 25 mg PO BID 04/22/17 [History] Docusate [Colace] 100 mg PO BID PRN 04/22/17 [History] Escitalopram [Lexapro] 20 mg PO DAILY 04/22/17 [History] Finasteride [Proscar] 5 mg PO DAILY 04/22/17 [History] Furosemide [Lasix] 20 mg PO DAILY 04/22/17 [History] Gabapentin [Neurontin] 600 mg PO BID 04/22/17 [History] Ipratropium/Albuterol Neb [Duoneb] 3 ml IH Q6HR PRN 04/22/17 [History] Mirtazapine [Remeron] 45 mg PO HS 04/22/17 [History] Mupirocin [Bactroban Oint] 1 appl TP BID 04/22/17 [History] NIFEdipine [Nifedipine ER] 30 mg PO DAILY 04/22/17 [History] Pantoprazole Sodium [Protonix] 40 mg PO DAILY 04/22/17 [History] Simvastatin [Zocor] 40 mg PO HS 04/22/17 [History] Terazosin [Hytrin] 1 mg PO HS 04/22/17 [History] Apixaban [Eliquis] 2.5 mg PO BID #60 tablet 04/26/17 [Rx] Azithromycin [Zithromax] 250 mg PO Q24H #1 tablet 04/26/17 [Rx] Budesonide/Formoterol 160/4.5 [Symbicort 160/4.5] 1 puff IH BIDR #1 hfa.aer.ad 04/26/17 [Rx] Cholecalciferol (D-3) [Vitamin D] 1,000 unit PO DAILY tablet 04/26/17 [Rx] Nicotine Patch [Nicoderm] 14 mg TD DAILY #30 patch.td24 04/26/17 [Rx] predniSONE [PredniSONE] 40 mg PO DAILY #10 tablet 04/26/17 [Rx] 3 Allergy/AdvReac Type Severity Reaction Status Date / Time atorvastatin [From Lipitor] AdvReac See Verified 04/22/17 16:05 Comments baclofen AdvReac Drowsy Verified 04/22/17 16:05 fluorouracil [From Efudex] AdvReac See Verified 04/22/17 16:05 Comments sulfamethoxazole AdvReac See Verified 04/22/17 16:05 [From Bactrim] Comments trimethoprim [From Bactrim] AdvReac See Verified 04/22/17 16:05 Comments ROS unobtainable: due to mental status, other (Due to mental status and respiratory distress) All Systems PM: A 10-system review of systems was performed and is negative for pertinent findings except as documented above in the HPI. - Cardiovascular Cardiovascular ROS IM: dyspnea, edema - Respiratory Respiratory: dyspnea, wheezing - Constitutional Vitals: Pulse 75 05/10/17 05:39 General appearance: Present: severe distress Exam: Patient is somnolent but awakes to commands. However he is not following commands or answering questions at this time - ENT Additional comments: BiPAP mask in place - Neck Neck exam general surgery: Present: supple, trachea midline. Absent: lymphadenopathy - Respiratory Respiratory exam: Present: prolonged expiratory phase, respiratory distress. Absent: accessory muscle use, rales, rhonchi Additional comments: Basal crackles, coarse breath sounds - Cardiovascular Cardiovascular exam: Present: irregular rhythm, +S1, +S2. Absent: diastolic murmur, gallop, rubs, systolic murmur - GI/Abdominal GI/Abdominal exam: Present: normal bowel sounds, soft, no peritoneal signs. Absent: distended, tenderness - Extremities Exam Extremities exam: Present: pedal edema (Right lower extremity), warm, radial pulses palpable and symmetrical. Absent: calf tenderness, cyanotic Additional comments: Status post left AKA. Open wound on the dorsal surface of the third toe with clean base and margins. - Neurological Exam Neurological exam: Absent: facial droop Additional comments: Unable to perform neurologic examination due to patient's condition. - Skin Skin exam: Present: dry, intact Internal Med - H&P Results - Labs Labs: Hemoglobin 10.4, WBC 7.6, WN 69, creatinine 3.15, troponin 0.1 - EKG Data -: EKG Interpreted by Myself - EKG Data EKG comments: 05/10/17 06:15 Atrial fibrillation - Impressions Impressions Chest X-Ray 05/10/17 05:52 IMPRESSION: Pulmonary edema with increasing mild bibasilar airspace disease and small bilateral pleural effusions. D/ / Christie England MD / Christie England MD Interpreting Provider: Christie England MD
[2017-05-10 06:39] LABS: Hemoglobin 9.7 g/dL (12.9-16.9)
[2017-05-10 06:41] LABS: Hematocrit 30.7 % (37.5-50.1); Immature Granulocytes % 1.8 % (0-4); Lymphocytes # 0.3 K/mcL (0.6-4.6); Mean Corpuscular HGB Conc 31.6 g/dL (31.6-35.5); Mean Corpuscular Hemoglobin 29.8 pg (28.0-33.3); Mean Corpuscular Volume 94.5 fL (83.0-100.0); Mean Platelet Volume 10.3 fL (9.4-12.4); Monocytes # 0.1 K/mcL (0.0-1.3); Monocytes % 1.4 %; Red Blood Count 3.25 M/mcL (4.19-5.50); Red Cell Distribution Width 14.5 % (11.5-14.5); Segmented Neutrophils % 91.8 %
[2017-05-10] MEDS ORDERED: Vancomycin 1,250 MG in D5% in Water 250 ML IVPB SCH ×2 (07:00→08:00)
[2017-05-10 07:05] LABS: Calcium 7.9 mg/dL (8.6-10.3); Potassium 4.7 mEq/L (3.5-5.1)
[2017-05-10 07:09] LABS: Neutrophils # 5.1 K/mcL (1.6-8.9); Platelet Count 94 K/mcL (140-400)
[2017-05-10 07:10] LABS: Platelet Estimate Decreased (Normal)
[2017-05-10] MEDS ORDERED: methylPREDNISolone 125 MG/2 ML VIAL IVP SCH (08:00)
[2017-05-10] MEDS: methylPREDNISolone 125 MG/2 ML VIAL IVP SCH ×3 (08:24→23:59)
[2017-05-10] MEDS: Levofloxacin 750 MG/150 ML 750 MG/150 ML BAG IVPB SCH (08:24)
[2017-05-10] MEDS: Apixaban 2.5 MG TABLET PO SCH ×2 (08:25→22:11)
[2017-05-10] MEDS: Ipratropium/Albuterol Neb 3 ML IH SCH ×5 (08:42→23:57)
[2017-05-10] MEDS: Furosemide 40 MG/4 ML VIAL IVP SCH ×2 (10:49→17:57)
[2017-05-10 11:37] LABS: Adenovirus Not Detected (Not Detect); Bordetella Pertussis Not Detected (Not Detect); Chlamydophila pneumoniae Not Detected (Not Detect); Coronavirus 229E Not Detected (Not Detect); Coronavirus HKU1 Not Detected (Not Detect); Coronavirus NL63 Not Detected (Not Detect); Coronavirus OC43 Not Detected (Not Detect); Human Metapneumovirus Not Detected (Not Detect); Human Rhinovirus/Enterovirus Not Detected (Not Detect); Influenza A Subtype 2009 H1 Not Detected (Not Detect); Influenza A Untypeable Not Detected (Not Detect); Influenza B Not Detected (Not Detect); Mycoplasma pneumoniae Not Detected (Not Detect); Parainfluenza Virus 1 Not Detected (Not Detect); Parainfluenza Virus 2 Not Detected (Not Detect); Parainfluenza Virus 3 Not Detected (Not Detect); Parainfluenza Virus 4 Not Detected (Not Detect); Respiratory Syncytial Virus Not Detected (Not Detect)
[2017-05-10] MEDS ORDERED: BUPRENORPHINE TP SCH (23:30)
--- NOTE | 2017-05-11 00:04 | Event Note ---
Date of Encounter: 05/11/17 Time of Encounter: 12:03 Patient presented for acute respiratory failure with hypoxia due to CHF, COPD and pneumonia. Patient is requiring bipap today. He has multiple readmissions for respiratory failure. Patient telling me he is receiving benefit from bipap right now. VS: reviewed Physical exam: wheezing with rales at bases, bipedal pitting edema. Labs; reviewed: creatinine 2.9, hemoglobin at baseline, sodium 132. A/P: 1) Acute respiratory failure from COPD/PNA, CHF 2) Atrial fibrillation 3) hypertension 4) Chronic kidney disease 5) Peripheral artery disease 6) DVT prophylaxis - Continue Solumedrol - Continue Levaquin and Zosyn, Vancomycin - Follow-up respiratory studies - Continue Lasix 40 mg IV BID and monitor I/Os, fluid restrict (1) Acute respiratory failure with hypoxia Current visit: Yes Status: Acute Patient presenting with acute hypoxic respiratory failure. Due to CHF with associated underlying COPD and pneumonia. I discussed the complications. Currently on BiPAP. Treat underlying conditions and wean FiO2 as tolerated. (2) Congestive heart failure Current visit: Yes Status: Acute Patient with pedal edema and pulmonary edema. We will treat with intravenous Lasix. Echocardiogram from earlier this month shows EF of 65%. Will place patient on fluid restriction. Input and output monitoring. Qualifiers: Congestive heart failure type: diastolic Congestive heart failure chronicity: acute on chronic Qualified Code(s): I50.33 - Acute on chronic diastolic (congestive) heart failure (3) Pneumonia Current visit: Yes Status: Suspected Chest x-ray shows bibasilar airspace disease. Given recent hospitalizations, suspect early onset healthcare associated pneumonia. Will treat with broad- spectrum antibiotics. We will Send blood cultures. Check respiratory infection panel. Urine strep, legionella antigens. Qualifiers: Pneumonia type: due to methicillin-resistant Staphylococcus aureus (MRSA) Laterality: bilateral Lung location: lower lobe of lung Qualified Code(s): J15.212 - Pneumonia due to Methicillin resistant Staphylococcus aureus (4) Atrial fibrillation Current visit: Yes Status: Chronic Rate controlled. Patient on anticoagulation with Eliquis. Will continue Qualifiers: Atrial fibrillation type: persistent Qualified Code(s): I48.1 - Persistent atrial fibrillation (5) Hypertension Current visit: Yes Status: Chronic Elevated at this time. Will monitor blood pressure. Resume home medications. Qualifiers: Hypertension type: essential hypertension Qualified Code(s): I10 - Essential (primary) hypertension (6) CKD (chronic kidney disease), stage IV Current visit: Yes Status: Chronic With mild acute worsening. BUN 69, creatinine 3.1. Given acute CHF and treatment with Lasix, may have further worsening of renal function. Will follow closely. 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 Hemoglobin 10.4. At baseline (8) Elevated troponin Current visit: Yes Status: Acute Troponin 0.1. Will trend. No reported chest pain. Could be from demand ischemia. (9) COPD (chronic obstructive pulmonary disease) Current visit: Yes Status: Chronic Patient has mild wheezing at this time. Will treat with bronchodilators as needed. Systemic steroids. Qualifiers: COPD type: COPD with acute exacerbation Qualified Code(s): J44.1 - Chronic obstructive pulmonary disease with (acute) exacerbation Internal Medicine - H&P: HPI Chief complaint: Shortness of breath and hypoxia Admitted From: Emergency Dept ([facility]) Plans for Post Hospital Care: Hospice - Home History of present illness: Mr. Jackson is a 71 year old male patient with history of COPD, CHF, atrial fibrillation, hypertension, chronic kidney disease stage III and presented to the ER with complaints of worsening shortness of breath. Patient has also been hypoxic intermittently. He had been hospitalized here earlier this month for acute exacerbation of COPD and had been discharged from the hospital on azithromycin and prednisone. He had apparently been hospitalized at [facility] after that and was just discharged 2-3 days back. He was diagnosed with acute CHF than an was treated for that. He had been evaluated for home oxygen at both these hospitalizations and was deemed to have not qualified for home oxygen. When he was picked up by EMS, his oxygen sats were 76% on room air. Respiratory rate was 28/m. Presently patient is on BiPAP. He is somnolent and not answering questions but does wake up. Reviewing records from [facility] he was in similar condition during his evaluation there. As such most of the history has been obtained through review of records from [facility] and prior hospitalizations here.
[2017-05-11] MEDS: Gabapentin 300 MG CAPSULE PO SCH ×3 (00:07→20:59)
[2017-05-11] MEDS: Ipratropium/Albuterol Neb 3 ML IH SCH ×6 (04:50→23:34)
[2017-05-11 07:14] LABS: Basophils % 0.1 %; Eosinophils % 0.1 %
[2017-05-11 07:16] LABS: Hematocrit 29.4 % (37.5-50.1); Hemoglobin 9.5 g/dL (12.9-16.9); Immature Platelets 4.1 % (1.1-6.1); Lymphocytes # 0.2 K/mcL (0.6-4.6); Lymphocytes % 3.3 %; Mean Corpuscular HGB Conc 32.3 g/dL (31.6-35.5); Mean Corpuscular Hemoglobin 30.4 pg (28.0-33.3); Mean Corpuscular Volume 93.9 fL (83.0-100.0); Monocytes # 0.2 K/mcL (0.0-1.3); Monocytes % 2.4 %; Neutrophils # 6.1 K/mcL (1.6-8.9); Red Blood Count 3.13 M/mcL (4.19-5.50); Red Cell Distribution Width 15.3 % (11.5-14.5); Segmented Neutrophils % 91.1 %
[2017-05-11] MEDS ORDERED: Aminoglycoside Consult 1 EACH MC ONE (07:21)
[2017-05-11 07:39] LABS: Potassium 4.5 mEq/L (3.5-5.1)
[2017-05-11 07:41] LABS: Platelet Count 91 K/mcL (140-400)
[2017-05-11] MEDS: Budesonide/Formoterol 160/4.5 MDI IH SCH ×2 (07:59→20:23)
[2017-05-11] MEDS: methylPREDNISolone 125 MG/2 ML VIAL IVP SCH ×2 (08:37→15:15)
[2017-05-11] MEDS: Finasteride 5 MG TABLET PO SCH (08:37)
[2017-05-11] MEDS: Furosemide 40 MG/4 ML VIAL IVP SCH ×2 (08:37→17:47)
[2017-05-11] MEDS: NIFEdipine XL (24 HR) 30 MG TAB.ER.24 PO SCH (08:37)
[2017-05-11] MEDS: Apixaban 2.5 MG TABLET PO SCH ×2 (08:38→20:59)
[2017-05-11] MEDS ORDERED: CALCIUM PO SCH (09:00)
[2017-05-11] MEDS ORDERED: NON-FORMULARY MEDICATION 1 EACH EACH (Nut.Tx.Gluc.Intoler,Lac-Fr,Soy [Glucerna] 1 CAN) PO SCH (09:00)
[2017-05-11] MEDS ORDERED: VIT D PO SCH (09:00)
[2017-05-11] MEDS: amLODIPine 5 MG TABLET PO SCH (10:00)
[2017-05-11] MEDS: Acetaminophen 325 MG TABLET PO PRN ×2 (11:56→21:00)
[2017-05-11] MEDS ORDERED: Furosemide 20 MG/2 ML VIAL IVP ONE (15:09)
[2017-05-11] MEDS: Mirtazapine 15 MG TABLET PO SCH (20:55)
[2017-05-11] MEDS: MethylPREDNISolone 40 MG/ML VIAL IVP SCH (21:00)
--- NOTE | 2017-05-11 21:56 | Internal Med Progress Note ---
Date of Encounter: 05/11/17 Time of Encounter: 13:53 - Assessment and plan (1) Acute respiratory failure with hypoxia Current Visit: Yes Status: Acute Assessment and plan: Patient presented for acute respiratory failure with hypoxia due to CHF, COPD and pneumonia. Patient is requiring bipap today. He has multiple readmissions for respiratory failure. Patient telling me he is receiving benefit from bipap right now. VS: reviewed: BP running 160ss/110 with HR in normal limits, on 2L NC Physical exam: better air movement in lung rizo today, edema improved I/Os, making adequate urine output with Lasix Labs: H&H stable at baseline. Sodium improved to 136, Creatinine at baseline of 2.59 A/P: 1) Acute respiratory failure from COPD/PNA, CHF 2) Atrial fibrillation 3) hypertension 4) Chronic kidney disease 5) Peripheral artery disease 6) DVT prophylaxis - Continue Solumedrol, taper today - Continue Levaquin and Zosyn, discontinue Vancomycin; does not seem likely a MRSA infection - Follow-up respiratory studies - Continue Lasix 40 mg IV BID and monitor I/Os - Add norvasc today since BP elevated - Hina Dye for afib (2) Atrial fibrillation Current Visit: Yes Status: Chronic Qualifiers: Atrial fibrillation type: persistent Qualified Code(s): I48.1 - Persistent atrial fibrillation (3) CKD (chronic kidney disease), stage IV Current Visit: Yes Status: Chronic (4) COPD (chronic obstructive pulmonary disease) Current Visit: Yes Status: Chronic Qualifiers: COPD type: COPD with acute exacerbation Qualified Code(s): J44.1 - Chronic obstructive pulmonary disease with (acute) exacerbation (5) Chronic anemia Current Visit: Yes Status: Chronic (6) Hypertension Current Visit: Yes Status: Chronic Qualifiers: Hypertension type: essential hypertension Qualified Code(s): I10 - Essential (primary) hypertension (7) Pneumonia Current Visit: Yes Status: Suspected Qualifiers: Pneumonia type: due to methicillin-resistant Staphylococcus aureus (MRSA) Laterality: bilateral Lung location: lower lobe of lung Qualified Code(s): J15.212 - Pneumonia due to Methicillin resistant Staphylococcus aureus (8) DVT prophylaxis Current Visit: No Status: Acute (9) CAD (coronary artery disease) Current Visit: No Status: Chronic Qualifiers: Coronary Disease-Associated Artery/Lesion type: creek artery [place] vs. transplanted heart: creek heart Associated angina: angina presence unspecified Qualified Code(s): I25.10 - Atherosclerotic heart disease of creek coronary artery without angina pectoris (10) Diastolic CHF Current Visit: No Status: Chronic Qualifiers: Congestive heart failure chronicity: chronic Qualified Code(s): I50.32 - Chronic diastolic (congestive) heart failure (11) MARGOTH (obstructive sleep apnea) Current Visit: No Status: Chronic (12) PAD (peripheral artery disease) Current Visit: No Status: Chronic (13) Stage III pressure ulcer of left heel Current Visit: No Status: Chronic - Subjective Interval history: Patient feels better today ,not currently using bipap - Constitutional Vitals: Temp Pulse Resp BP Pulse Ox 97.5 F L 65 17 92/62 97 05/11/17 19:53 05/11/17 21:38 05/11/17 20:23 05/11/17 21:35 05/11/17 21:38 General appearance: Present: severe distress Exam: Gen: NAD CVS: RRR Lungs: improved air movement at bases abd: nt/nd Ext: bipedal pitting edema; now trace to 1+ equal bilaterally Internal Medicine: Result - Labs CBC & Chem 7: 05/11/17 06:50 05/11/17 06:50 Labs: Short CBC 05/11/17 Range/Units 06:50 WBC 6.7 (4.3-11.1) K/mcL Hgb 9.5 L (12.9-16.9) g/dL Hct 29.4 L (37.5-50.1) % Plt Count 91 L (140-400) K/mcL Neutrophils # 6.1 (1.6-8.9) K/mcL BMP 05/11/17 06:50 Sodium 136 Potassium 4.5 Chloride 104 Carbon Dioxide 24 BUN 74 H Creatinine 2.59 H Glucose 162 H Calcium 8.0 L - VTE Documentation of Mechanical Device: Intermittent pneumatic compression device Consult Discharge Plan - Plan [facility] - 05/20/17 1:30 pm (This will be in the discharge clinic in building 31)
[2017-05-11] MEDS: Vancomycin 1,250 MG in D5% in Water 250 ML IVPB SCH ×2 (22:35)
[2017-05-12] MEDS: Ipratropium/Albuterol Neb 3 ML IH SCH ×5 (03:33→20:04)
[2017-05-12] MEDS: Levofloxacin 750 MG/150 ML 750 MG/150 ML BAG IVPB SCH (06:51)
[2017-05-12] MEDS: Budesonide/Formoterol 160/4.5 MDI IH SCH ×2 (07:52→20:04)
[2017-05-12] MEDS: Acetaminophen 325 MG TABLET PO PRN ×2 (08:48→21:10)
[2017-05-12] MEDS: NIFEdipine XL (24 HR) 30 MG TAB.ER.24 PO SCH (08:49)
[2017-05-12] MEDS: Finasteride 5 MG TABLET PO SCH (08:49)
[2017-05-12] MEDS: amLODIPine 5 MG TABLET PO SCH (08:49)
[2017-05-12] MEDS: Furosemide 40 MG/4 ML VIAL IVP SCH ×2 (08:49→16:49)
[2017-05-12] MEDS: Gabapentin 300 MG CAPSULE PO SCH ×2 (08:49→21:11)
[2017-05-12] MEDS: Cholecalciferol (D-3) 1,000 UNIT TABLET PO SCH (08:49)
[2017-05-12] MEDS: Apixaban 2.5 MG TABLET PO SCH ×2 (08:49→21:12)
[2017-05-12] MEDS: MethylPREDNISolone 40 MG/ML VIAL IVP SCH ×2 (08:50→21:12)
[2017-05-12] MEDS ORDERED: amLODIPine 5 MG TABLET PO SCH (12:15)
[2017-05-12 13:05] LABS: Hematocrit 30.1 % (37.5-50.1); Hemoglobin 9.5 g/dL (12.9-16.9); Immature Granulocytes % 1.6 % (0-4); Lymphocytes # 0.2 K/mcL (0.6-4.6); Lymphocytes % 2.1 %; Mean Corpuscular HGB Conc 31.6 g/dL (31.6-35.5); Mean Corpuscular Hemoglobin 30.3 pg (28.0-33.3); Mean Corpuscular Volume 95.9 fL (83.0-100.0); Monocytes # 0.3 K/mcL (0.0-1.3); Monocytes % 3.5 %; Neutrophils # 7.5 K/mcL (1.6-8.9); Platelet Count 106 K/mcL (140-400); Red Blood Count 3.14 M/mcL (4.19-5.50); Red Cell Distribution Width 15.7 % (11.5-14.5); Segmented Neutrophils % 92.8 %
[2017-05-12 13:13] LABS: Platelet Estimate Normal (Normal)
[2017-05-12 13:27] LABS: Calcium 7.6 mg/dL (8.6-10.3); Potassium 3.6 mEq/L (3.5-5.1)
[2017-05-12] MEDS: Nicotine 14 MG PATCH.TD24 TD SCH (14:38)
[2017-05-12] MEDS: Mirtazapine 15 MG TABLET PO SCH (21:11)
--- NOTE | 2017-05-12 22:55 | Internal Med Progress Note ---
Date of Encounter: 05/12/17 Time of Encounter: 14:54 - Assessment and plan (1) Acute respiratory failure with hypoxia Current Visit: Yes Status: Acute Assessment and plan: Patient presented for acute respiratory failure with hypoxia due to CHF, COPD and pneumonia. Patient is requiring bipap today. He has multiple readmissions for respiratory failure. Patient telling me he is receiving benefit from bipap right now. VS: reviewed: BP running 160ss/110 with HR in normal limits, on 2L NC Physical exam: better air movement in lung rizo today, edema improved I/Os, making adequate urine output with Lasix Labs: H&H stable at baseline. Sodium improved to 136, Creatinine at baseline of 2.59 A/P: 1) Acute respiratory failure from COPD/PNA, CHF 2) Atrial fibrillation 3) hypertension 4) Chronic kidney disease 5) Peripheral artery disease 6) DVT prophylaxis - Continue Solumedrol, taper today - Continue Levaquin and Zosyn, discontinue Vancomycin; does not seem likely a MRSA infection - Follow-up respiratory studies - Continue Lasix 40 mg IV BID and monitor I/Os - Add norvasc today since BP elevated - Hina Dye for afib (2) Atrial fibrillation Current Visit: Yes Status: Chronic Qualifiers: Atrial fibrillation type: persistent Qualified Code(s): I48.1 - Persistent atrial fibrillation (3) CKD (chronic kidney disease), stage IV Current Visit: Yes Status: Chronic (4) COPD (chronic obstructive pulmonary disease) Current Visit: Yes Status: Chronic Qualifiers: COPD type: COPD with acute exacerbation Qualified Code(s): J44.1 - Chronic obstructive pulmonary disease with (acute) exacerbation (5) Chronic anemia Current Visit: Yes Status: Chronic (6) Hypertension Current Visit: Yes Status: Chronic Qualifiers: Hypertension type: essential hypertension Qualified Code(s): I10 - Essential (primary) hypertension (7) Pneumonia Current Visit: Yes Status: Suspected Qualifiers: Pneumonia type: due to methicillin-resistant Staphylococcus aureus (MRSA) Laterality: bilateral Lung location: lower lobe of lung Qualified Code(s): J15.212 - Pneumonia due to Methicillin resistant Staphylococcus aureus (8) DVT prophylaxis Current Visit: No Status: Acute (9) CAD (coronary artery disease) Current Visit: No Status: Chronic Qualifiers: Coronary Disease-Associated Artery/Lesion type: [place] artery [place] vs. transplanted heart: [place] heart Associated angina: angina presence unspecified Qualified Code(s): I25.10 - Atherosclerotic heart disease of [place] coronary artery without angina pectoris (10) Diastolic CHF Current Visit: No Status: Chronic Qualifiers: Congestive heart failure chronicity: chronic Qualified Code(s): I50.32 - Chronic diastolic (congestive) heart failure (11) MARGOTH (obstructive sleep apnea) Current Visit: No Status: Chronic (12) PAD (peripheral artery disease) Current Visit: No Status: Chronic (13) Stage III pressure ulcer of left heel Current Visit: No Status: Chronic - Subjective Interval history: No complaints. Patient interested in tobacco cessation. - Constitutional Vitals: Temp Pulse Resp BP Pulse Ox 97.7 F 87 18 140/80 94 05/12/17 19:37 05/12/17 19:37 05/12/17 20:05 05/12/17 19:37 05/12/17 20:05 General appearance: Present: A&O X 3, no acute distress, answers questions appropriately - Head Head exam: Present: atraumatic, normocephalic - Eye Eye exam: Present: PERRL, conjuntiva pink, sclera anicteric Pupils: Present: PERRL - Neck Neck exam general surgery: Present: supple, trachea midline. Absent: lymphadenopathy - Respiratory Respiratory exam: Present: wheezes. Absent: accessory muscle use, rales, rhonchi Additional comments: Improved - Cardiovascular Cardiovascular exam: Present: RRR, +S1, +S2. Absent: diastolic murmur, gallop, rubs, systolic murmur - GI/Abdominal GI/Abdominal exam: Present: normal bowel sounds, soft, no peritoneal signs. Absent: distended, tenderness - Extremities Exam Extremities exam: Present: pedal edema (1+ bilateral), warm, radial pulses palpable and symmetrical. Absent: calf tenderness, cyanotic - Neurological Exam Neurological exam: Present: CN II-XII intact, oriented X3, no focal deficits. Absent: pronater drift, facial droop, speech deficit - Skin Skin exam: Present: dry, intact Internal Medicine: Result - Labs CBC & Chem 7: 05/12/17 12:55 05/12/17 12:55 Labs: Short CBC 05/12/17 Range/Units 12:55 WBC 8.1 (4.3-11.1) K/mcL Hgb 9.5 L (12.9-16.9) g/dL Hct 30.1 L (37.5-50.1) % Plt Count 106 L (140-400) K/mcL Neutrophils # 7.5 (1.6-8.9) K/mcL BMP 05/12/17 12:55 Sodium 139 Potassium 3.6 Chloride 104 Carbon Dioxide 28 BUN 78 H Creatinine 2.81 H Glucose 212 H Calcium 7.6 L - VTE Documentation of Mechanical Device: Intermittent pneumatic compression device Consult Discharge Plan - Plan [facility]: [facility] Provider[facility] - 05/20/17 1:30 pm (This will be in the discharge clinic in building 31)
[2017-05-13] MEDS: Ipratropium/Albuterol Neb 3 ML IH SCH ×7 (00:01→23:03)
[2017-05-13 06:27] LABS: Hematocrit 29.2 % (37.5-50.1); Immature Platelets 2.5 % (1.1-6.1); Mean Corpuscular HGB Conc 30.8 g/dL (31.6-35.5); Mean Corpuscular Hemoglobin 29.6 pg (28.0-33.3); Mean Corpuscular Volume 96.1 fL (83.0-100.0); Monocytes # 0.2 K/mcL (0.0-1.3); Nucleated Red Blood Cells 0.5 /100 WBC (0); Platelet Count 104 K/mcL (140-400); Red Blood Count 3.04 M/mcL (4.19-5.50); Red Cell Distribution Width 15.6 % (11.5-14.5)
[2017-05-13 06:35] LABS: Calcium 7.8 mg/dL (8.6-10.3); Potassium 3.8 mEq/L (3.5-5.1)
[2017-05-13] MEDS: Furosemide 40 MG/4 ML VIAL IVP SCH ×2 (08:16→17:13)
[2017-05-13] MEDS: Apixaban 2.5 MG TABLET PO SCH ×2 (08:16→19:56)
[2017-05-13] MEDS: Finasteride 5 MG TABLET PO SCH (08:16)
[2017-05-13] MEDS: NIFEdipine XL (24 HR) 30 MG TAB.ER.24 PO SCH (08:16)
[2017-05-13] MEDS: Gabapentin 300 MG CAPSULE PO SCH ×2 (08:16→19:57)
[2017-05-13] MEDS: amLODIPine 5 MG TABLET PO SCH (08:17)
[2017-05-13] MEDS: MethylPREDNISolone 40 MG/ML VIAL IVP SCH (08:17)
[2017-05-13] MEDS: Cholecalciferol (D-3) 1,000 UNIT TABLET PO SCH (08:17)
[2017-05-13] MEDS: Nicotine 14 MG PATCH.TD24 TD SCH (08:18)
[2017-05-13 09:42] LABS: Lymphocytes # 0.1 K/mcL (0.6-4.6); Neutrophils # 5.2 K/mcL (1.6-8.9); Platelet Estimate Decreased (Normal)
[2017-05-13] MEDS: Budesonide/Formoterol 160/4.5 MDI IH SCH ×2 (10:48→20:27)
[2017-05-13] MEDS: predniSONE 20 MG TABLET PO SCH (12:08)
[2017-05-13] MEDS ORDERED: Silvasorb 44.4 ML TUBE TP SCH (16:00)
--- NOTE | 2017-05-13 17:47 | Internal Med Progress Note ---
Date of Encounter: 05/13/17 Time of Encounter: 17:45 - Assessment and plan (1) Acute respiratory failure with hypoxia Current Visit: Yes Status: Acute Assessment and plan: Patient presented for acute respiratory failure with hypoxia due to CHF, COPD and pneumonia. Patient is requiring bipap today. He has multiple readmissions for respiratory failure. Patient telling me he is receiving benefit from bipap right now. VS: reviewed: BP running 160ss/110 with HR in normal limits, on 2L NC Physical exam: better air movement in lung rizo today, edema improved I/Os, making adequate urine output with Lasix Labs: H&H stable at baseline. Sodium improved to 136, Creatinine at baseline of 2.59 A/P: 1) Acute respiratory failure from COPD/PNA, CHF 2) Atrial fibrillation 3) hypertension 4) Chronic kidney disease 5) Peripheral artery disease 6) DVT prophylaxis - Start PO prednisone and dc solu medrol - Continue Levaquin and Zosyn, discontinue Vancomycin; does not seem likely a MRSA infection - Follow-up respiratory studies - Stop Lasix 40 mg IV BID - go to suzan edose 60 po bid, continue fluid restrict - Continue Coreg, nocardia Start HCTZ, DC norvasc to avoid peripheral edema worsening - Eliquis, Coreg, Nifedipine for afib (2) Atrial fibrillation Current Visit: Yes Status: Chronic Qualifiers: Atrial fibrillation type: persistent Qualified Code(s): I48.1 - Persistent atrial fibrillation (3) CKD (chronic kidney disease), stage IV Current Visit: Yes Status: Chronic (4) COPD (chronic obstructive pulmonary disease) Current Visit: Yes Status: Chronic Qualifiers: COPD type: COPD with acute exacerbation Qualified Code(s): J44.1 - Chronic obstructive pulmonary disease with (acute) exacerbation (5) Chronic anemia Current Visit: Yes Status: Chronic (6) Hypertension Current Visit: Yes Status: Chronic Qualifiers: Hypertension type: essential hypertension Qualified Code(s): I10 - Essential (primary) hypertension (7) Pneumonia Current Visit: Yes Status: Suspected Qualifiers: Pneumonia type: due to methicillin-resistant Staphylococcus aureus (MRSA) Laterality: bilateral Lung location: lower lobe of lung Qualified Code(s): J15.212 - Pneumonia due to Methicillin resistant Staphylococcus aureus (8) DVT prophylaxis Current Visit: No Status: Acute (9) CAD (coronary artery disease) Current Visit: No Status: Chronic Qualifiers: Coronary Disease-Associated Artery/Lesion type: [place] artery [place] vs. transplanted heart: [place] heart Associated angina: angina presence unspecified Qualified Code(s): I25.10 - Atherosclerotic heart disease of [place] coronary artery without angina pectoris (10) Diastolic CHF Current Visit: No Status: Chronic Qualifiers: Congestive heart failure chronicity: chronic Qualified Code(s): I50.32 - Chronic diastolic (congestive) heart failure (11) MARGOTH (obstructive sleep apnea) Current Visit: No Status: Chronic (12) PAD (peripheral artery disease) Current Visit: No Status: Chronic (13) Stage III pressure ulcer of left heel Current Visit: No Status: Chronic - Subjective Interval history: No complaints, feels good. - Constitutional Vitals: Temp Pulse Resp BP Pulse Ox 97.6 F 84 18 130/66 90 05/13/17 16:24 05/13/17 16:24 05/13/17 16:24 05/13/17 16:24 05/13/17 16:24 General appearance: Present: A&O X 3, no acute distress, answers questions appropriately Exam: - ENT Additional comments: BiPAP mask in place - Neck Neck exam general surgery: Present: supple, trachea midline. Absent: lymphadenopathy - Respiratory Respiratory exam: Present: prolonged expiratory phase, respiratory distress. Absent: accessory muscle use, rales, rhonchi Additional comments: Basal crackles, coarse breath sounds - Cardiovascular Cardiovascular exam: Present: irregular rhythm, +S1, +S2. Absent: diastolic murmur, gallop, rubs, systolic murmur - GI/Abdominal GI/Abdominal exam: Present: normal bowel sounds, soft, no peritoneal signs. Absent: distended, tenderness - Extremities Exam Extremities exam: Present: pedal edema (Right lower extremity), warm, radial pulses palpable and symmetrical. Absent: calf tenderness, cyanotic Additional comments: Status post left AKA. Open wound on the dorsal surface of the third toe with clean base and margins. - Neurological Exam Neurological exam: Absent: facial droop Additional comments: Unable to perform neurologic examination due to patient's condition. - Skin Skin exam: Present: dry, intact Internal Medicine: Result - Labs CBC & Chem 7: 05/13/17 06:05 05/13/17 06:05 Labs: Short CBC 05/13/17 Range/Units 06:05 WBC 5.5 (4.3-11.1) K/mcL Hgb 9.0 L (12.9-16.9) g/dL Hct 29.2 L (37.5-50.1) % Plt Count 104 L (140-400) K/mcL Neutrophils # 5.2 (1.6-8.9) K/mcL BMP 05/13/17 06:05 Sodium 140 Potassium 3.8 Chloride 105 Carbon Dioxide 29 BUN 78 H Creatinine 2.81 H Glucose 159 H Calcium 7.8 L - Impressions Impressions Chest X-Ray 05/13/17 08:24 IMPRESSION: Overall slight interval improvement of interstitial opacities and small bilateral pleural effusions. D/ / 05/13/2017 10:55:40 Rufina Russell MD / [email or web address] Interpreting Provider: Rufina Russell MD - VTE Documentation of Mechanical Device: Intermittent pneumatic compression device Consult Discharge Plan - Plan [facility]errals: [facility] Provider[facility] - 05/20/17 1:30 pm (This will be in the discharge clinic in building 31)
[2017-05-13] MEDS: Mirtazapine 15 MG TABLET PO SCH (19:56)
[2017-05-13] MEDS: hydroCHLOROthiazide 25 MG TABLET PO SCH (19:56)
[2017-05-14] MEDS: Ipratropium/Albuterol Neb 3 ML IH SCH ×3 (04:44→11:22)
[2017-05-14 04:53] LABS: Basophils % 0.2 %; Hematocrit 30.2 % (37.5-50.1); Hemoglobin 9.4 g/dL (12.9-16.9); Immature Granulocytes % 3.4 % (0-4); Lymphocytes # 0.2 K/mcL (0.6-4.6); Lymphocytes % 3.7 %; Mean Corpuscular HGB Conc 31.1 g/dL (31.6-35.5); Mean Corpuscular Hemoglobin 30.1 pg (28.0-33.3); Mean Corpuscular Volume 96.8 fL (83.0-100.0); Mean Platelet Volume 10.5 fL (9.4-12.4); Monocytes # 0.3 K/mcL (0.0-1.3); Monocytes % 4.3 %; Neutrophils # 5.7 K/mcL (1.6-8.9); Nucleated Red Blood Cells 0.5 /100 WBC (0); Platelet Count 112 K/mcL (140-400); Red Blood Count 3.12 M/mcL (4.19-5.50); Red Cell Distribution Width 15.9 % (11.5-14.5); Segmented Neutrophils % 88.4 %
[2017-05-14 05:01] LABS: Calcium 7.7 mg/dL (8.6-10.3); Potassium 3.8 mEq/L (3.5-5.1)
[2017-05-14] MEDS ORDERED: levoFLOXacin 750 MG TABLET PO SCH (07:00)
[2017-05-14] MEDS: Gabapentin 300 MG CAPSULE PO SCH (07:38)
[2017-05-14] MEDS: Cholecalciferol (D-3) 1,000 UNIT TABLET PO SCH (07:38)
[2017-05-14] MEDS: NIFEdipine XL (24 HR) 30 MG TAB.ER.24 PO SCH (07:39)
[2017-05-14] MEDS: hydroCHLOROthiazide 25 MG TABLET PO SCH (07:39)
[2017-05-14] MEDS: predniSONE 20 MG TABLET PO SCH (07:40)
[2017-05-14] MEDS: Finasteride 5 MG TABLET PO SCH (07:41)
[2017-05-14] MEDS: Apixaban 2.5 MG TABLET PO SCH (07:41)
[2017-05-14] MEDS: Nicotine 14 MG PATCH.TD24 TD SCH (07:41)
[2017-05-14] MEDS ORDERED: Furosemide 40 MG TABLET PO SCH (08:00)
[2017-05-14] MEDS: Budesonide/Formoterol 160/4.5 MDI IH SCH (08:19)
[2017-05-14 12:15] VITALS: BP 142/92
--- NOTE | 2017-05-14 12:41 | Discharge Summary ---
Date of Encounter: 05/14/17 Time of Encounter: 12:38 - Discharge Diagnosis (1) Acute respiratory failure with hypoxia Priority: Primary Status: Acute (2) Non compliance with medical treatment Priority: Secondary Status: Acute (3) Atrial fibrillation Priority: Secondary Status: Chronic Qualifiers: Atrial fibrillation type: persistent Qualified Code(s): I48.1 - Persistent atrial fibrillation (4) CKD (chronic kidney disease), stage IV Priority: Secondary Status: Chronic (5) COPD (chronic obstructive pulmonary disease) Priority: Secondary Status: Chronic Qualifiers: COPD type: COPD with acute exacerbation Qualified Code(s): J44.1 - Chronic obstructive pulmonary disease with (acute) exacerbation (6) Chronic anemia Priority: Secondary Status: Chronic (7) Hypertension Priority: Secondary Status: Chronic Qualifiers: Hypertension type: essential hypertension Qualified Code(s): I10 - Essential (primary) hypertension (8) Pneumonia Priority: Secondary Status: Suspected Qualifiers: Pneumonia type: due to methicillin-resistant Staphylococcus aureus (MRSA) Laterality: bilateral Lung location: lower lobe of lung Qualified Code(s): J15.212 - Pneumonia due to Methicillin resistant Staphylococcus aureus (9) DVT prophylaxis Priority: Secondary Status: Acute (10) CAD (coronary artery disease) Priority: Secondary Status: Chronic Qualifiers: Coronary Disease-Associated Artery/Lesion type: [place] artery [place] vs. transplanted heart: [place] heart Associated angina: angina presence unspecified Qualified Code(s): I25.10 - Atherosclerotic heart disease of [place] coronary artery without angina pectoris (11) Diastolic CHF Priority: Secondary Status: Chronic Qualifiers: Congestive heart failure chronicity: chronic Qualified Code(s): I50.32 - Chronic diastolic (congestive) heart failure (12) MARGOTH (obstructive sleep apnea) Priority: Secondary Status: Chronic (13) PAD (peripheral artery disease) Priority: Secondary Status: Chronic (14) Stage III pressure ulcer of left heel Priority: Secondary Status: Chronic - Discharge Medications Prescriptions: Apixaban [Eliquis] 2.5 mg PO BID #60 tablet Cholecalciferol (D-3) [Vitamin D] 1,000 unit PO DAILY #30 tablet Gabapentin [Neurontin] 300 mg PO BID #30 capsule levoFLOXacin [Levaquin] 750 mg PO Q48H #2 tablet Nicotine Patch [Nicoderm] 14 mg TD DAILY #30 patch.td24 Home Medications: Acetaminophen [Tylenol] 650 mg PO Q8H PRN 04/22/17 [History] Allopurinol [Zyloprim 100 MG] 50 mg PO DAILY 04/22/17 [History] Buprenorphine [Butrans] 1 each TD Q7D 04/22/17 [History] Calcium Carbonate/Vitamin D3 [Calcium 500 + Vit D Caplet] 1 tab PO DAILY [History] Carvedilol [Coreg] 25 mg PO BID 04/22/17 [History] Docusate [Colace] 100 mg PO BID PRN 04/22/17 [History] Escitalopram [Lexapro] 20 mg PO DAILY 04/22/17 [History] Finasteride [Proscar] 5 mg PO DAILY 04/22/17 [History] Furosemide [Lasix] 60 mg PO BID 04/22/17 [History] Ipratropium/Albuterol Neb [Duoneb] 3 ml IH Q6HR PRN 04/22/17 [History] Mirtazapine [Remeron] 45 mg PO HS 04/22/17 [History] NIFEdipine [Nifedipine ER] 30 mg PO DAILY 04/22/17 [History] Pantoprazole Sodium [Protonix] 40 mg PO DAILY 04/22/17 [History] Simvastatin [Zocor] 40 mg PO HS 04/22/17 [History] Terazosin [Hytrin] 1 mg PO HS 04/22/17 [History] Budesonide/Formoterol 160/4.5 [Symbicort 160/4.5] 1 puff IH BIDR #1 hfa.aer.ad 04/26/17 [Rx] Nut.tx.gluc.intoler,Lac-Fr,Soy [Glucerna] 1 can PO DAILY 05/10/17 [History] Apixaban [Eliquis] 2.5 mg PO BID #60 tablet 05/14/17 [Rx] Cholecalciferol (D-3) [Vitamin D] 1,000 unit PO DAILY #30 tablet 05/14/17 [Rx] Gabapentin [Neurontin] 300 mg PO BID #30 capsule 05/14/17 [Rx] Nicotine Patch [Nicoderm] 14 mg TD DAILY #30 patch.td24 05/14/17 [Rx] Patient Taking Own Medication 1 each TP Q7D each 05/14/17 [Rx] Silvasorb 1 appl TP DAILY tube 05/14/17 [Rx] levoFLOXacin [Levaquin] 750 mg PO Q48H #2 tablet 05/14/17 [Rx] predniSONE [PredniSONE] See Taper PO DAILY #21 tablet 05/14/17 [Rx] Allergies/Adverse Reactions: 3 Allergy/AdvReac Type Severity Reaction Status Date / Time atorvastatin [From Lipitor] AdvReac See Verified 04/22/17 16:05 Comments baclofen AdvReac Drowsy Verified 04/22/17 16:05 fluorouracil [From Efudex] AdvReac See Verified 04/22/17 16:05 Comments sulfamethoxazole AdvReac See Verified 04/22/17 16:05 [From Bactrim] Comments trimethoprim [From Bactrim] AdvReac See Verified 04/22/17 16:05 Comments Date of admission: 05/10/17 05:46 Primary care physician: PCP SHANNAN Consults: 05/11/17 08:49 Consult to PICC team [Consult to Invasive Line Access Team] [CONS] Stat Reason for Consult: poor vasc access Line Type: EPIV PICC line indications: Limited vascular access 05/11/17 16:51 Consult to Wound Care [CONS] Routine Reason for Consult: R foot splitting under toes, [facility] Time Notified: 16:51 Call Completed: No Discharging clinician: Kip Oro - Patient Status Disposition: Home, Self-Care Condition: Undetermined Functional capacity at discharge: wheelchair bound Overall status at discharge: patient is progressing back to baseline - Discharge Instructions Follow Up With: [facility] Provider[facility] - 05/20/17 1:30 pm (This will be in the discharge clinic in building 31) - Diet and Activity Activity: increase activity as tolerated Diet: low fat, low cholesterol, low salt diet, other (Fluid restriction; 1.5 Liters) Hospital course: Mr. Jackson is a 71 year old male patient with history of COPD, CHF, atrial fibrillation, hypertension, chronic kidney disease stage III and presented to the ER with complaints of worsening shortness of breath. Patient has also been hypoxic intermittently. He had been hospitalized here earlier this month for acute exacerbation of COPD and had been discharged from the hospital on azithromycin and prednisone. He had apparently been hospitalized at [facility] after that and was just discharged 2-3 days back. He was diagnosed with acute CHF than an was treated for that. He had been evaluated for home oxygen at both these hospitalizations and was deemed to have not qualified for home oxygen. When he was picked up by EMS, his oxygen sats were 76% on room air. Respiratory rate was 28/m. Presently patient is on BiPAP. He is somnolent and not answering questions but does wake up. Reviewing records from [facility] he was in similar condition during his evaluation there. As such most of the history has been obtained through review of records from [facility] and prior hospitalizations here. Patient presented with CHF with underlying COPD and Pneumonia. Patient continued on bipap and clinically improved. He was fluid restricted He was started on Vancomycin/Zosyn/Levaquin, Solumedrol and IV Lasix. was eventually able to be weaned off oxygen. He was able to transition to PO Levaquin, Prednisone, and Lasix PO 60 BID (home dose). Patient admits to non-compliance at home including smoking, for which his daughter is the main reading instructor of cigarettes. He also does not monitor diet at home. - Once again patient was weaned off oxygen without issue. He does plan to have follow-up sleep study at [place] to qualify for CPAP. - Extensive discussion of tobacco cessation on day of discharge. H was started on nicotine patches. - Extensive discussion of sodium restriction and fluid restriction on day of discharge - He agreed to weigh himself daily and come to ED if he is short of breath or increase in weight. - Time Spent with Patient Total time spent providing and/or coordinating discharge services: - Constitutional Vitals: Temp Pulse Resp BP Pulse Ox 97.5 F L 89 16 142/92 94 05/14/17 12:10 05/14/17 12:10 05/14/17 12:10 05/14/17 12:10 05/14/17 12:10 General appearance: Present: A&O X 3, no acute distress, answers questions appropriately Exam: - Neck Neck exam general surgery: Present: supple, trachea midline. Absent: lymphadenopathy - Respiratory Respiratory exam: Present: prolonged expiratory phase, respiratory distress. Absent: accessory muscle use, rales, rhonchi Additional comments: Basal crackles, coarse breath sounds - Cardiovascular Cardiovascular exam: Present: irregular rhythm, +S1, +S2. Absent: diastolic murmur, gallop, rubs, systolic murmur - GI/Abdominal GI/Abdominal exam: Present: normal bowel sounds, soft, no peritoneal signs. Absent: distended, tenderness - Extremities Exam Extremities exam: Present: pedal edema (Right lower extremity), warm, radial pulses palpable and symmetrical. Absent: calf tenderness, cyanotic Additional comments: Status post left AKA. Open wound on the dorsal surface of the third toe with clean base and margins. - Neurological Exam Neurological exam: Absent: facial droop Additional comments: Unable to perform neurologic examination due to patient's condition. - Skin Skin exam: Present: dry, intact - VTE Documentation of Mechanical Device: Intermittent pneumatic compression device
[2017-05-17 08:16] LABS: Mycoplasma pneumoniae IgG 0.4 U/L (<=0.09)
== END 2017-05-14 16:25 | disposition home or self-care (01) | DRG 177 ==
LOC: ICNU → 2NNU 16:31
PROVIDERS: ADMIT Internal Medicine; ATTEND Internal Medicine

== ENCOUNTER 2017-05-16 12:02 | Inpatient (IN) ==
[2017-05-16] MEDS ORDERED: methylPREDNISolone 125 MG/2 ML VIAL IVP ONE (12:14)
[2017-05-16] MEDS ORDERED: Ipratropium/Albuterol Neb 3 ML IH ONE (12:14)
--- NOTE | 2017-05-16 12:29 | Emergency Department Note ---
Disposition Clinical Impression: COPD exacerbation, Hypoxia, Elevated troponin, Chronic anemia CHF exacerbation Qualifiers: Congestive heart failure type: unspecified Qualified Code(s): I50.9 - Heart failure, unspecified Respiratory failure with hypercapnia Qualifiers: Chronicity: acute on chronic Qualified Code(s): J96.22 - Acute and chronic respiratory failure with hypercapnia Disposition: Admitted As Inpatient Condition: Serious Time of Disposition: 13:46 SOB HPI - General Chief Complaint: ED Shortness of Breath/Dyspnea Stated Complaint: Swelling all over/Wheezing Time Seen by Provider: 05/16/17 12:12 Source: patient, family Mode of arrival: ambulatory Limitations: no limitations Nursing Notes Reviewed: Yes Vital Signs Reviewed: Yes - History of Present Illness Patient is a 71-year-old male with past medical history of COPD, CHF, 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 fib , hypertension, hyperlipidemia. He presents today due to shortness of breath, right lower extremity edema. He was just recently discharged 2 days ago due to COPD exacerbation and CHF exacerbation. During his stay, he required oxygen and BiPAP treatment. According to noting, he required BIPAP and O2 during his stay. According to noting, he was weighed off oxygen before he left the hospital. Patient has no oxygen at home. He presents today again due to shortness of breath, worsening edema of the right lower extremity. Family members are with him and states that he is gradually been worsening over the past month. The patient himself denies any fevers, nausea, vomiting, abdominal pain, diarrhea, dysuria, hematuria, blood in stool. He does take daily inhalers at home. Denies being on prednisone currently. He also takes Lasix daily home as well. - Related Data Home Medications Medication Instructions Recorded Confirmed Acetaminophen [Tylenol] 650 mg PO Q8H PRN 04/22/17 05/16/17 Allopurinol [Zyloprim 100 MG] 50 mg PO DAILY 04/22/17 05/16/17 Buprenorphine [Butrans] 15 mcg TD QWEEK 04/22/17 05/16/17 Calcium Carbonate/Vitamin D3 1 tab PO DAILY 04/22/17 05/16/17 [Calcium 500 + Vit D Caplet] Carvedilol [Coreg] 25 mg PO BID 04/22/17 05/16/17 Docusate [Colace] 100 mg PO BID PRN 04/22/17 05/16/17 Escitalopram [Lexapro] 20 mg PO DAILY 04/22/17 05/16/17 Finasteride [Proscar] 5 mg PO DAILY 04/22/17 05/16/17 Furosemide [Lasix] 60 mg PO BID 04/22/17 05/16/17 Ipratropium/Albuterol Neb [Duoneb] 3 ml IH Q6HR PRN 04/22/17 05/16/17 Mirtazapine [Remeron] 45 mg PO HS 04/22/17 05/16/17 NIFEdipine [Nifedipine ER] 30 mg PO DAILY 04/22/17 05/16/17 Pantoprazole Sodium [Protonix] 40 mg PO DAILY 04/22/17 05/16/17 Simvastatin [Zocor] 40 mg PO HS 04/22/17 05/16/17 Terazosin [Hytrin] 1 mg PO HS 04/22/17 05/16/17 Nut.tx.gluc.intoler,Lac-Fr,Soy 1 can PO DAILY 05/10/17 05/16/17 [Glucerna] Previous Rx's Medication Instructions Recorded Budesonide/Formoterol 160/4.5 1 puff IH BIDR #1 hfa.aer.ad 04/26/17 [Symbicort 160/4.5] Apixaban [Eliquis] 2.5 mg PO BID #60 tablet 05/14/17 Cholecalciferol (D-3) [Vitamin D] 1,000 unit PO DAILY #30 tablet 05/14/17 Gabapentin [Neurontin] 300 mg PO BID #30 capsule 05/14/17 Nicotine Patch [Nicoderm] 14 mg TD DAILY #30 patch.td24 05/14/17 Silvasorb 1 appl TP DAILY tube 05/14/17 levoFLOXacin [Levaquin] 750 mg PO Q48H #2 tablet 05/14/17 predniSONE [PredniSONE] See Taper PO DAILY #21 tablet 05/14/17 Allergies Allergy/AdvReac Type Severity Reaction Status Date / Time atorvastatin [From Lipitor] AdvReac See Verified 04/22/17 16:05 Comments baclofen AdvReac Drowsy Verified 04/22/17 16:05 fluorouracil [From Efudex] AdvReac See Verified 04/22/17 16:05 Comments sulfamethoxazole AdvReac See Verified 04/22/17 16:05 [From Bactrim] Comments trimethoprim [From Bactrim] AdvReac See Verified 04/22/17 16:05 Comments All systems ED: reviewed and negative except as stated. Constitutional: Denies: fever Cardiovascular: Denies: chest pain Respiratory: Reports: cough, dyspnea Gastrointestinal: Denies: abdominal pain, nausea, vomiting, diarrhea, constipation Genitourinary: Denies: urgency, dysuria Integumentary: Denies: rash Neurological: Denies: weakness, numbness, paresthesias Past Medical History - Past Medical History Attestation: Yes The following information was validated with the patient. Source: patient Medical history: Reports: atrial fibrillation, COPD, coronary artery disease, hyperlipidemia, hypertension, myocardial infarction, peripheral artery disease, renal disease Surgical history: Reports: angioplasty/stent, appendectomy, LE Bypass, LE vascular intervention, other Psychiatric history: Reports: anxiety, depression - Social History Smoking Status: Current every day smoker Smokeless Tobacco Status: No Alcohol use: Reports: none Drug use: Reports: none Physical Exam - General Limitations: other General appearance: other (listless) - Head Head exam: atraumatic, normocephalic, normal inspection - Eye Eye exam: Present: normal appearance, PERRL, EOMI, conjunctival injection (mild bilaterally) - ENT ENT exam: normal exam, normal oropharynx, mucous membranes moist - Neck Neck exam: Present: full ROM, trachea midline, other (JVD) - Chest Chest inspection: Present: normal inspection, symmetric chest wall rise - Respiratory Respiratory exam: Present: wheezes (Moderate wheezes throughout, crackle and rhonchi of the right lower lobe.) - Cardiovascular Cardiovascular exam: Present: regular rate, normal rhythm, normal heart sounds - Abdominal Exam Abdominal exam: Present: soft, Non-Tender. Absent: tenderness, distention, guarding, rebound, rigidity - Extremities Exam Extremities exam: Present: other (Left below the knee amputation. Right lower extremity edematous, with clear weeping at the foot. +1/4 posterior tibial and dorsalis pedal pulses on right. Lesion of bottom of foot. ) - Neurological Exam Neurological exam: Present: alert, oriented X3. Absent: motor sensory deficit - Psychiatric Psychiatric exam: Present: normal affect, normal mood - Skin Skin exam: Present: warm, dry, intact, normal color Course Course Narrative: Patient mildly hypertensive, oxygen 83% on room air. Rest of the vitals within normal limits. Patient was initially placed on 4 L nasal cannula oxygen, transition to [place] mask and will be transitioned to BiPAP. We will give the patient DuoNeb 3, Solu-Medrol. Will consider Lasix after renal function assessed. Concern for his CHF exacerbation along with COPD exacerbation with associated hypoxia. Will perform EKG, chest x-ray, troponin, basic blood work and admit for further care. 13:43 according to labs, patient is chronically anemic. He also has history of chronic renal disease that is near baseline for the patient. Elevated troponin 0.18. However, he does have a chronic history of troponin elevations in the past. Patient has been given aspirin 325 mg but has not been started on heparin at this time due to no active chest pain. Chest x-ray showed stable pulmonary edema, superimposed pneumonitis cannot be excluded. We will go ahead and treat patient with azithromycin to cover pneumonitiis and also to cover COPD exacerbation. Patient is given Lasix 40 mg IV. He was reassessed and is more alert after being placed on BiPAP, notes improvement in his work of breathing, tolerating well this time. His lungs are also more clear after DuoNeb treatments. Will admit for further care. Chest X-Ray 05/16/17 12:13 IMPRESSION: Calcific atherosclerotic disease aorta. Stable chronic pulmonary changes. I cannot exclude superimposed interstitial disease such as pneumonitis. D/ / Rony Tolbert / Rony Tolbert Interpreting Provider: Rony Tolbert Vital Signs Temperature 97.7 F 05/16/17 12:10 Pulse Rate 93 05/16/17 12:10 Respiratory Rate 16 05/16/17 12:10 Blood Pressure 140/86 05/16/17 12:10 O2 Sat by Pulse Oximetry 83 05/16/17 12:10 Temperature 98.4 F 05/16/17 15:54 Pulse Rate 80 05/16/17 15:54 Respiratory Rate 12 05/16/17 15:54 Blood Pressure 114/64 05/16/17 15:54 O2 Sat by Pulse Oximetry 100 05/16/17 15:54 Oxygen Delivery Oxygen Delivery Bipap Shortness of Breath/Dyspnea - MDM Narrative Medical decision making narrative: according to labs, patient is chronically anemic. He also has history of chronic renal disease that is near baseline for the patient. Elevated troponin 0.18. However, he does have a chronic history of troponin elevations in the past. Patient has been given aspirin 325 mg but has not been started on heparin at this time due to no active chest pain. Chest x-ray showed stable pulmonary edema, superimposed pneumonitis cannot be excluded. We will go ahead and treat patient with azithromycin to cover pneumonitiis and also to cover COPD exacerbation. Patient is given Lasix 40 mg IV. He was reassessed and is more alert after being placed on BiPAP, notes improvement in his work of breathing, tolerating well this time. His lungs are also more clear after DuoNeb treatments. Will admit for further care. - Medical Records Medical records reviewed: Yes I reviewed the patient's medical records. - Lab Data Lab results reviewed: Yes I reviewed the patient's lab results. Result diagrams: 05/16/17 12:52 05/16/17 12:52 Lab Results 05/16/17 05/16/17 05/16/17 Range/Units 12:52 12:52 12:52 WBC 8.2 (4.3-11.1) K/mcL RBC 3.06 L (4.19-5.50) M/mcL Hgb 9.2 L (12.9-16.9) g/dL Hct 29.8 L (37.5-50.1) % MCV 97.4 (83.0-100.0) fL MCH 30.1 (28.0-33.3) pg MCHC 30.9 L (31.6-35.5) g/dL RDW 15.5 H (11.5-14.5) % Plt Count 102 L (140-400) K/mcL MPV 9.5 (9.4-12.4) fL Immature Gran % 4.2 H (0-4) % Seg Neutrophils % 85.7 % Lymphocytes % 5.8 % Monocytes % 4.0 % Eosinophils % 0.2 % Basophils % 0.1 % Neutrophils # 7.0 (1.6-8.9) K/mcL Lymphocytes # 0.5 L (0.6-4.6) K/mcL Monocytes # 0.3 (0.0-1.3) K/mcL Eosinophils # 0.0 (0.0-0.6) K/mcL Basophils # 0.0 (0.0-0.2) K/mcL Immature Plt Fraction 3.1 (1.1-6.1) % PT 11.7 (9.4-12.1) Seconds INR 1.1 APTT 28.7 (26.0-36.0) Seconds VBG pH (7.32-7.42) pH Units VBG pCO2 (41-51) mmHg VBG pO2 (25-50) mmHg VBG HCO3 (21-27) mEq/L Sodium 137 (136-145) mEq/L Potassium 4.0 (3.5-5.1) mEq/L Chloride 100 (98-107) mEq/L Carbon Dioxide 31 H (23-29) mEq/L BUN 88 H (8-23) mg/dL Creatinine 2.50 H (0.70-1.30) mg/dL Est GFR ( Amer) 31 L (> 60) Est GFR (Non-Af Amer) 26 L (> 60) BUN/Creatinine Ratio 35 H (6-26) Glucose 144 H (70-105) mg/dL Calculated Osmolality 313 H (280-300) Lactic Acid (0.5-2.2) mmol/L Calcium 7.8 L (8.6-10.3) mg/dL Troponin I (< 0.04) ng/mL B-Natriuretic Peptide (Less than 100) pg/mL 05/16/17 05/16/17 05/16/17 Range/Units 12:52 12:52 12:52 WBC (4.3-11.1) K/mcL RBC (4.19-5.50) M/mcL Hgb (12.9-16.9) g/dL Hct (37.5-50.1) % MCV (83.0-100.0) fL MCH (28.0-33.3) pg MCHC (31.6-35.5) g/dL RDW (11.5-14.5) % Plt Count (140-400) K/mcL MPV (9.4-12.4) fL Immature Gran % (0-4) % Seg Neutrophils % % Lymphocytes % % Monocytes % % Eosinophils % % Basophils % % Neutrophils # (1.6-8.9) K/mcL Lymphocytes # (0.6-4.6) K/mcL Monocytes # (0.0-1.3) K/mcL Eosinophils # (0.0-0.6) K/mcL Basophils # (0.0-0.2) K/mcL Immature Plt Fraction (1.1-6.1) % PT (9.4-12.1) Seconds INR APTT (26.0-36.0) Seconds VBG pH (7.32-7.42) pH Units VBG pCO2 (41-51) mmHg VBG pO2 (25-50) mmHg VBG HCO3 (21-27) mEq/L Sodium (136-145) mEq/L Potassium (3.5-5.1) mEq/L Chloride (98-107) mEq/L Carbon Dioxide (23-29) mEq/L BUN (8-23) mg/dL Creatinine (0.70-1.30) mg/dL Est GFR ( Amer) (> 60) Est GFR (Non-Af Amer) (> 60) BUN/Creatinine Ratio (6-26) Glucose (70-105) mg/dL Calculated Osmolality (280-300) Lactic Acid 0.7 (0.5-2.2) mmol/L Calcium (8.6-10.3) mg/dL Troponin I 0.18 H* (< 0.04) ng/mL B-Natriuretic Peptide 291 H (Less than 100) pg/mL 05/16/17 Range/Units 13:04 WBC (4.3-11.1) K/mcL RBC (4.19-5.50) M/mcL Hgb (12.9-16.9) g/dL Hct (37.5-50.1) % MCV (83.0-100.0) fL MCH (28.0-33.3) pg MCHC (31.6-35.5) g/dL RDW (11.5-14.5) % Plt Count (140-400) K/mcL MPV (9.4-12.4) fL Immature Gran % (0-4) % Seg Neutrophils % % Lymphocytes % % Monocytes % % Eosinophils % % Basophils % % Neutrophils # (1.6-8.9) K/mcL Lymphocytes # (0.6-4.6) K/mcL Monocytes # (0.0-1.3) K/mcL Eosinophils # (0.0-0.6) K/mcL Basophils # (0.0-0.2) K/mcL Immature Plt Fraction (1.1-6.1) % PT (9.4-12.1) Seconds INR APTT (26.0-36.0) Seconds VBG pH 7.30 L (7.32-7.42) pH Units VBG pCO2 66 H (41-51) mmHg VBG pO2 145 H (25-50) mmHg VBG HCO3 32 H (21-27) mEq/L Sodium (136-145) mEq/L Potassium (3.5-5.1) mEq/L Chloride (98-107) mEq/L Carbon Dioxide (23-29) mEq/L BUN (8-23) mg/dL Creatinine (0.70-1.30) mg/dL Est GFR ( Amer) (> 60) Est GFR (Non-Af Amer) (> 60) BUN/Creatinine Ratio (6-26) Glucose (70-105) mg/dL Calculated Osmolality (280-300) Lactic Acid (0.5-2.2) mmol/L Calcium (8.6-10.3) mg/dL Troponin I (< 0.04) ng/mL B-Natriuretic Peptide (Less than 100) pg/mL - Radiology Data Radiology results reviewed: Yes I reviewed the patient's radiology results. Chest X-Ray 05/16/17 12:13 IMPRESSION: Calcific atherosclerotic disease aorta. Stable chronic pulmonary changes. I cannot exclude superimposed interstitial disease such as pneumonitis. D/ / Rony Tolbert / Rony Tolbert Interpreting Provider: Rony Tolbert - EKG Data EKG attestation: Yes I reviewed and interpreted this EKG. EKG results narrative: 05/16/2017 at 12:13. A. fib. Rate 91. QRS 124. QTC 397. Left axis deviation. T-wave inversion in I, V5, V6. ST depression in lead V5. These findings are present on previous EKG on 04/23/2017 [facility].B[facility]. - S.B.A.R. Situation: Demographics, MOA Background: Presenting Complaint, Relevant PMH, Meds, & Allergies Assessment: Vital Signs, Course and respsone to treatment, Exam Concerns, Patient/Family Expectation, Pertinant Lab Results, Outstanding Labs Recommendation: Barrier(s) to disposition, Recommendation based on pending studies, treatments, or consults S.B.A.R. Report Given to: Dr. Joy Attestation Statement - Attestation Attestation: I examined this patient and my medical decision-making was reviewed with the Resident Physician. I agree with the documented findings, disposition and treatment plan as described except to the extent set forth below. Hypoxic respiratory failure from possible COPD versus superimposed heart failure. We will proceed with admission. BiPAP was initiated for hypoxia. Patient improvement of mental status with placement of BiPAP. Critical care performed: Time is exclusive of separately billable procedures. Time includes: direct patient care, patient reassessment, coordination of patient care, interpretation of data (laboratory data, radiology data, and respiratory data), review of patient's medical records, medical consultation and documentation of patient care. Procedures included in critical care time:35 Procedures excluded from critical care time: 0
[2017-05-16 13:03] LABS: Basophils % 0.1 %; Eosinophils % 0.2 %; Hematocrit 29.8 % (37.5-50.1); Hemoglobin 9.2 g/dL (12.9-16.9); Mean Corpuscular HGB Conc 30.9 g/dL (31.6-35.5); Red Cell Distribution Width 15.5 % (11.5-14.5)
[2017-05-16 13:05] LABS: Immature Granulocytes % 4.2 % (0-4); Immature Platelets 3.1 % (1.1-6.1); Lymphocytes # 0.5 K/mcL (0.6-4.6); Lymphocytes % 5.8 %; Mean Corpuscular Hemoglobin 30.1 pg (28.0-33.3); Mean Corpuscular Volume 97.4 fL (83.0-100.0); Mean Platelet Volume 9.5 fL (9.4-12.4); Monocytes # 0.3 K/mcL (0.0-1.3); Platelet Count 102 K/mcL (140-400); Red Blood Count 3.06 M/mcL (4.19-5.50); Segmented Neutrophils % 85.7 %
[2017-05-16 13:08] LABS: INR 1.1; Prothrombin Time 11.7 Seconds (9.4-12.1)
[2017-05-16 13:09] LABS: VBG HCO3 32 mEq/L (21-27); VBG PCO2 66 mmHg (41-51); VBG PO2 145 mmHg (25-50)
[2017-05-16 13:11] LABS: Activated Partial Thrombo Time 28.7 Seconds (26.0-36.0)
[2017-05-16 13:26] LABS: Calcium 7.8 mg/dL (8.6-10.3)
[2017-05-16] MEDS ORDERED: Aspirin 325 MG TABLET PO ONE (13:32)
[2017-05-16] MEDS ORDERED: Furosemide 40 MG/4 ML VIAL IVP ONE (13:33)
[2017-05-16] MEDS ORDERED: Azithromycin 500 MG in D5% in Water 250 ML IVPB ONE (13:42)
[2017-05-16] MEDS ORDERED: Naloxone 0.4 MG/ML INJ IVP PRN (14:44)
--- NOTE | 2017-05-16 14:55 | Internal Med History&Physical ---
Addendum entered and electronically signed by Cedrick Anguiano 05/16/17 15:37: DVT prophylaxis: not getting heparin 5000 units SC BID -Continue eliquis Original Note: <Cedrick Anguiano - Last Filed: 05/16/17 14:59> Date of Encounter: 05/16/17 Time of Encounter: 14:53 Assessment and Plan (1) Acute respiratory failure with hypoxia and hypercapnia Current visit: Yes Status: Acute Acute respiratory hypoxia and hypercapnia secondary to acute exacerbation of COPD and CHF He presents today with dyspnea and hypoxia and mild respiratory acidosis with hypercapnia If continued to require BiPAP to maintain SPO2 greater than 90% Auscultation the patient has diffuse wheezing and rales in bilateral posterior bases Examination reveals 2+ pitting edema right lower extremity Chest x-ray showing chronic changes with no obvious congestion The exception of respiratory failure no additional SIRS criteria met Presents today with dyspnea, and increased swelling in BLE with 2+ pitting edema and weight gain -Bronchodilators -His azithromycin as per the chest x-ray there is some concern for pneumonitis -Continue diuretics -Strict intake and output monitoring -Fluid restriction -Daily weights -Continuous telemetry, continuous SPO2 monitoring -O2 per nasal cannula titrate to maintain SPO2 greater than 92% -CBCD, BMP in am -Continue BiPAP; wean to nasal cannula as tolerated (2) Acute exacerbation of chronic obstructive airways disease Current visit: Yes Status: Acute See plan above (3) Acute CHF Current visit: Yes Status: Acute Acute exacerbation of CHF; presented today with hypoxia, dyspnea, and mild respiratory acidosis with hypercapnia Presents today with 2 day history of increasing dyspnea, & right lower extremity pitting edema Most recent echo 04/10/17 with preserved ejection fraction of 65% Requiring BiPAP to maintain SPO2 greater than 90% -CXR 05/16/17 stable chronic pulmonary changes, cannot exclude pneumonitis -BNP 291 -Vital signs stable -start Lasix 40 mg IV push twice a day -Strict intake and output monitoring -Fluid restriction 1.5 L -Daily weights -Continuous telemetry, continuous SPO2 monitoring -O2 per BIPAP with a goal to wean to nasal cannula, titrate to maintain SPO2 greater than 92% -CBCD, CMP in am Qualifiers: Congestive heart failure type: unspecified Qualified Code(s): I50.9 - Heart failure, unspecified (4) Pneumonitis Current visit: Yes Status: Acute -Antibiotic (5) CKD (chronic kidney disease), stage IV Current visit: Yes Status: Acute Stable, CMP in the a.m. (6) Hyperlipidemia Current visit: Yes Status: Acute Qualifiers: Hyperlipidemia type: unspecified Qualified Code(s): E78.5 - Hyperlipidemia , unspecified (7) Anemia Current visit: Yes Status: Acute Chronic, secondary to renal disease. Stable, CBC in the a.m. Qualifiers: Anemia type: other cause Other causes of anemia: other cause, not classified Qualified Code(s): D64.89 - Other specified anemias (8) Tobacco use Current visit: Yes Status: Acute One pack per day smoker, discussed tobacco cessation. Nicotine patch (9) Atrial fibrillation Current visit: Yes Status: Chronic Stable, rate controlled. Continuous telemetry Qualifiers: Atrial fibrillation type: persistent Qualified Code(s): I48.1 - Persistent atrial fibrillation (10) Hypertension Current visit: Yes Status: Chronic Stable, resume antihypertensives Qualifiers: Hypertension type: essential hypertension Qualified Code(s): I10 - Essential (primary) hypertension (11) Elevated troponin Current visit: Yes Status: Acute Likely d/t demand ischemia. Continue to trend (12) DVT prophylaxis Current visit: Yes Status: Acute Heprin 5000 units SC BID Internal Medicine - H&P: HPI Chief complaint: dyspnea, increased lower extremity swelling, wheezing Admitted From: Home Plans for Post Hospital Care: Home History of present illness: Mr. Jackson is a 71 year old male with a PMH of CKD stage IV, CHF, COPD, A. fib, HTN, HLT. He was recently admitted and treated for acute respiratory failure with hypoxia and hypercapnia as well as CHF. During that time he required BiPAP for a couple of days and was eventually weaned to nasal cannula and discharged home without oxygen. He presents again to [facility] ED today with increasing shortness of breath and increasing right lower extremity edema since discharge 2 days ago. He reports that for the last month he has been having increased swelling and increased dyspnea. He denies any fever, chills, chest pain, abdominal pain, dysuria, flank pain, extremity pain, nausea, vomiting, diarrhea or bleeding. Reports that he uses inhalers at home and has had to increase his use over the last 2 days. Additionally, he notes that he is on Lasix but continue to have an increase in swelling. BNP 291, CBC shows chronic anemia and is an elevation in troponin of 0.18. CXR shows stable chronic pulmonary changes. Due to continued hypoxia requiring BiPAP, congestive heart failure and suspected pneumonitis is being admitted as inpatient. Past Med Surg Social Fam HX - Past Medical History Medical history: atrial fibrillation, COPD, coronary artery disease, hyperlipidemia, hypertension, myocardial infarction, peripheral artery disease, renal disease Psychiatric history: anxiety, depression - Past Surgical History Surgical History: angioplasty/stent, appendectomy, LE Bypass, LE vascular intervention, other - Social History Smoking Status: Current every day smoker Smokeless Tobacco Status: No Alcohol use: none Drug use: none - Family History Mother Adopted: No Living Status: Hx Family Cardiac Disorders: No Hx Family Respiratory Disorders: No Hx Family Cancer: No Hx Family GI Disorders: No Hx Family Endocrine Disorder: No Hx Family Neuromuscular Disorders: No Hx Family Neurologic Disorders: No Hx Family HEENT Disorders: No Hx Family Autoimmune Disorders: No Internal Medicine - H&P: Meds Acetaminophen [Tylenol] 650 mg PO Q8H PRN 04/22/17 [History] Allopurinol [Zyloprim 100 MG] 50 mg PO DAILY 04/22/17 [History] Buprenorphine [Butrans] 15 mcg TD QWEEK 04/22/17 [History] Calcium Carbonate/Vitamin D3 [Calcium 500 + Vit D Caplet] 1 tab PO DAILY [History] Carvedilol [Coreg] 25 mg PO BID 04/22/17 [History] Docusate [Colace] 100 mg PO BID PRN 04/22/17 [History] Escitalopram [Lexapro] 20 mg PO DAILY 04/22/17 [History] Finasteride [Proscar] 5 mg PO DAILY 04/22/17 [History] Furosemide [Lasix] 60 mg PO BID 04/22/17 [History] Ipratropium/Albuterol Neb [Duoneb] 3 ml IH Q6HR PRN 04/22/17 [History] Mirtazapine [Remeron] 45 mg PO HS 04/22/17 [History] NIFEdipine [Nifedipine ER] 30 mg PO DAILY 04/22/17 [History] Pantoprazole Sodium [Protonix] 40 mg PO DAILY 04/22/17 [History] Simvastatin [Zocor] 40 mg PO HS 04/22/17 [History] Terazosin [Hytrin] 1 mg PO HS 04/22/17 [History] Budesonide/Formoterol 160/4.5 [Symbicort 160/4.5] 1 puff IH BIDR #1 hfa.aer.ad 04/26/17 [Rx] Nut.tx.gluc.intoler,Lac-Fr,Soy [Glucerna] 1 can PO DAILY 05/10/17 [History] Apixaban [Eliquis] 2.5 mg PO BID #60 tablet 05/14/17 [Rx] Cholecalciferol (D-3) [Vitamin D] 1,000 unit PO DAILY #30 tablet 05/14/17 [Rx] Gabapentin [Neurontin] 300 mg PO BID #30 capsule 05/14/17 [Rx] Nicotine Patch [Nicoderm] 14 mg TD DAILY #30 patch.td24 05/14/17 [Rx] Silvasorb 1 appl TP DAILY tube 05/14/17 [Rx] levoFLOXacin [Levaquin] 750 mg PO Q48H #2 tablet 05/14/17 [Rx] predniSONE [PredniSONE] See Taper PO DAILY #21 tablet 05/14/17 [Rx] 3 Allergy/AdvReac Type Severity Reaction Status Date / Time atorvastatin [From Lipitor] AdvReac See Verified 04/22/17 16:05 Comments baclofen AdvReac Drowsy Verified 04/22/17 16:05 fluorouracil [From Efudex] AdvReac See Verified 04/22/17 16:05 Comments sulfamethoxazole AdvReac See Verified 04/22/17 16:05 [From Bactrim] Comments trimethoprim [From Bactrim] AdvReac See Verified 04/22/17 16:05 Comments All Systems PM: A 10-system review of systems was performed and is negative for pertinent findings except as documented above in the HPI. - Constitutional Constitutional: fatigue, lethargy, weakness, no chills, no fever(s) - EENT Eyes: no change in vision, no discharge, no pain, no photophobia Ears: no ear discharge, no ear pain, no tinnitus Nose, mouth and throat: no dysphagia, no nasal discharge, no neck pain, no sore throat - Cardiovascular Cardiovascular ROS IM: dyspnea, dyspnea on exertion, edema, irregular heart rhythm, palpitations, no chest pain, no claudication, no lightheadedness, no syncope - Respiratory Respiratory: cough (chronic), dyspnea, dyspnea on exertion, wheezing, no hemoptysis, no stridor, no pain on inspiration, no chest congestion, no excessive phlegm production, no change in phlegm color, no pain with cough - Gastrointestinal Gastrointestinal: no abdominal pain, no diarrhea, no hematemesis, no hematochezia, no melena, no nausea, no vomiting - Genitourinary Genitourinary ROS male: no dysuria, no flank pain - Musculoskeletal Musculoskeletal ROS IM: no numbness, no tingling - Integumentary Integumentary IM: no rash, no unusual bruising - Neurological Neurological ROS: no confusion, no convulsions, no focal weakness, no numbness, no tingling, no tremor(s) - Constitutional Vitals: Temp Pulse Resp BP Pulse Ox 97.7 F 89 16 129/74 100 05/16/17 12:10 05/16/17 14:34 05/16/17 14:34 05/16/17 14:34 05/16/17 14:34 General appearance: Present: cooperative, mild distress, A&O X 3, obese - Head Head exam: Present: atraumatic, normocephalic - Eye Eye exam: Present: PERRL, conjuntiva pink, sclera anicteric Pupils: Present: PERRL - Neck Neck exam general surgery: Present: supple, trachea midline. Absent: lymphadenopathy - Respiratory Respiratory exam: Present: decreased breath sounds, prolonged expiratory phase, rales, wheezes. Absent: accessory muscle use, chest wall tenderness, respiratory distress, rhonchi, stridor, tachypnea - Cardiovascular Cardiovascular exam: Present: irregular rhythm. Absent: tachycardia - GI/Abdominal GI/Abdominal exam: Present: normal bowel sounds, soft. Absent: distended, firm , guarding, tenderness Additional comments: round, non-distended - Extremities Exam Extremities exam: Present: pedal edema (RLE). Absent: cyanotic, joint swelling - Neurological Exam Neurological exam: Present: CN II-XII intact, oriented X3, no focal deficits. Absent: pronater drift, facial droop, speech deficit - Skin Skin exam: Present: dry, intact Internal Med - H&P Results - Labs CBC & Chem 7: 05/16/17 12:52 05/16/17 12:52 - EKG Data -: EKG Interpreted by Myself - EKG Data EKG comments: Atrial fibrillation rate control with a rate of 91, no ischemic changes noted. 05/16/17 15:05 - Impressions Impressions Chest X-Ray 05/16/17 12:13 IMPRESSION: Calcific atherosclerotic disease aorta. Stable chronic pulmonary changes. I cannot exclude superimposed interstitial disease such as pneumonitis. D/ / Rony Tolbert / Rony Tolbert Interpreting Provider: Rony Tolbert <Иван Joy - Last Filed: 05/17/17 12:00> Date of Encounter: 05/17/17 Internal Medicine - H&P: HPI History of present illness: Mr. Jackson is a 71 year old male All Systems PM: A 10-system review of systems was performed and is negative for pertinent findings except as documented above in the HPI. - Constitutional Vitals: Temp Pulse Resp BP Pulse Ox 97.9 F 98 15 128/83 96 05/17/17 11:20 05/17/17 11:20 05/17/17 11:20 05/17/17 11:20 05/17/17 11:20 Internal Med - H&P Results - Labs CBC & Chem 7: 05/17/17 01:34 05/17/17 01:34 Labs: Short CBC 05/17/17 Range/Units 01:34 WBC 5.1 (4.3-11.1) K/mcL Hgb 9.1 L (12.9-16.9) g/dL Hct 29.4 L (37.5-50.1) % Plt Count 95 L (140-400) K/mcL Neutrophils # 4.6 (1.6-8.9) K/mcL BMP 05/17/17 01:34 Sodium 140 Potassium 4.1 Chloride 100 Carbon Dioxide 31 H BUN 92 H Creatinine 2.68 H Glucose 132 H Calcium 8.0 L Cardiac Enzymes 05/16/17 05/17/17 05/17/17 Range/Units 19:23 01:34 08:30 Troponin I 0.14 H* 0.13 H* 0.11 H* (< 0.04) ng/mL Liver Function 05/17/17 Range/Units 01:34 Total Bilirubin 0.5 (0.3-1.0) mg/dL AST 11 L (13-39) Units/L ALT 33 (7-52) Units/L Alkaline Phosphatase 76 (34-104) Units/L Albumin 3.2 L (3.5-5.7) g/dL - ABG Interpretation ABG results: 05/16/17 05/17/17 05/17/17 18:41 05:06 08:05 ABG pH 7.23 L 7.41 7.39 ABG pCO2 84 H* 58 H 58 H ABG pO2 186 H 49 L* 88 ABG HCO3 35 H 36 H 35 H ABG Total CO2 38 H 38 H 37 H ABG O2 Saturation 99 H 83 L 96 ABG Base Excess 6 H 10 H 9 H - Attending Attestation Discussed with RAFIA and agree with assessment and plan Continue management for heart failure as above
[2017-05-16] MEDS: Ipratropium/Albuterol Neb 3 ML IH SCH ×3 (15:35→23:37)
[2017-05-16] MEDS: MethylPREDNISolone 40 MG/ML VIAL IVP SCH ×2 (16:32→23:47)
[2017-05-16] MEDS: Furosemide 40 MG/4 ML VIAL IVP SCH (16:32)
[2017-05-16] MEDS ORDERED: *HR* Heparin 5,000 UNIT/ML VIAL SQ SCH (18:00)
[2017-05-16 18:46] LABS: ABG Base Excess 6 mEq/L (-2 to 3); ABG HCO3 35 mEq/L (21-27); ABG Oxygen Saturation 99 % (95-98); ABG PCO2 84 mmHg (35-45); ABG PH 7.23 pH Units (7.32-7.45); ABG PO2 186 mmHg (85-104); ABG TCO2 38 mEq/L (20-26)
[2017-05-17 01:44] LABS: Hemoglobin 9.1 g/dL (12.9-16.9)
[2017-05-17 01:45] LABS: Hematocrit 29.4 % (37.5-50.1); Immature Granulocytes % 5.3 % (0-4); Immature Platelets 3.1 % (1.1-6.1); Lymphocytes # 0.2 K/mcL (0.6-4.6); Mean Corpuscular Hemoglobin 29.7 pg (28.0-33.3); Mean Corpuscular Volume 96.1 fL (83.0-100.0); Mean Platelet Volume 10.2 fL (9.4-12.4); Monocytes # 0.1 K/mcL (0.0-1.3); Monocytes % 1.2 %; Neutrophils # 4.6 K/mcL (1.6-8.9); Red Blood Count 3.06 M/mcL (4.19-5.50); Red Cell Distribution Width 15.1 % (11.5-14.5); Segmented Neutrophils % 90.5 %
[2017-05-17 01:47] LABS: Platelet Count 95 K/mcL (140-400)
[2017-05-17 02:39] LABS: Platelet Estimate Decreased (Normal)
[2017-05-17 03:20] LABS: Albumin 3.2 g/dL (3.5-5.7); Albumin/Globulin Ratio 1.4 (1.1-2.2); Bilirubin,Total 0.5 mg/dL (0.3-1.0); Globulin 2.3 g/dL (2.4-3.5); Potassium 4.1 mEq/L (3.5-5.1); Total Protein 5.5 g/dL (6.4-8.9)
[2017-05-17] MEDS: Ipratropium/Albuterol Neb 3 ML IH SCH ×6 (03:54→23:51)
[2017-05-17 05:15] LABS: ABG Base Excess 10 mEq/L (-2 to 3); ABG HCO3 36 mEq/L (21-27); ABG Oxygen Saturation 83 % (95-98); ABG PCO2 58 mmHg (35-45); ABG PH 7.41 pH Units (7.32-7.45); ABG PO2 49 mmHg (85-104); ABG TCO2 38 mEq/L (20-26)
[2017-05-17] MEDS: MethylPREDNISolone 40 MG/ML VIAL IVP SCH ×3 (05:20→18:07)
[2017-05-17 08:09] LABS: ABG Base Excess 9 mEq/L (-2 to 3); ABG HCO3 35 mEq/L (21-27); ABG Oxygen Saturation 96 % (95-98); ABG PCO2 58 mmHg (35-45); ABG PH 7.39 pH Units (7.32-7.45); ABG PO2 88 mmHg (85-104); ABG TCO2 37 mEq/L (20-26)
[2017-05-17] MEDS: Furosemide 40 MG/4 ML VIAL IVP SCH ×2 (08:32→17:06)
[2017-05-17] MEDS: Cholecalciferol (D-3) 1,000 UNIT TABLET PO SCH (08:32)
[2017-05-17] MEDS: Azithromycin 250 MG TABLET PO SCH (08:32)
[2017-05-17] MEDS ORDERED: NON-FORMULARY MEDICATION 1 EACH EACH (Nut.Tx.Gluc.Intoler,Lac-Fr,Soy [Glucerna] 1 CAN) PO SCH (09:00)
[2017-05-17] MEDS ORDERED: Acetaminophen 325 MG TABLET PO PRN (09:24)
[2017-05-17] MEDS: Nicotine 14 MG PATCH.TD24 TD SCH (09:28)
--- NOTE | 2017-05-17 10:08 | Internal Med Progress Note ---
<Jeyson Hathaway - Last Filed: 05/17/17 13:27> Date of Encounter: 05/17/17 Time of Encounter: 09:10 - Assessment and plan (1) Acute respiratory failure with hypoxia and hypercapnia Current Visit: Yes Status: Acute Assessment and plan: Patient presents with acute on chronic respiratory failure, initial blood gas 7.23, PCO2 84 (Now 58), PO2 186, Bicarb 38 O2 99%. Patients respiratory status improved with BiPAP. Multifactoral in the setting of COPD exacerbation, Diastolic CHF Plan: - Continue treatment plan for COPD exacerbation - Continue IV Lasix and fluid restrictions the treatment of diastolic heart failure exacerbation - Continue Eliquis - Wean oxygen as tolerated. (2) Arterial insufficiency with ischemic ulcer Current Visit: No Status: Acute Assessment and plan: Known history of peripheral artery disease, seen by podiatry. 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 - Continue Eliquis (3) Atrial fibrillation Current Visit: Yes Status: Chronic Assessment and plan: Known history of atrial fibrillation, currently rate controlled. - Continue cardiac monitoring and rate control Qualifiers: Atrial fibrillation type: persistent Qualified Code(s): I48.1 - Persistent atrial fibrillation (4) CAD (coronary artery disease) Current Visit: No Status: Chronic Assessment and plan: Mr. Jackson has a significant cardiovascular history with known L before meals several years ago at [facility] with recommendations for CABG for which she refused at that time. - Significant peripheral arterial disease resulting in left lower extremity [id number] amputation and poor perfusion as the right lower extremity with cutaneous findings. - Documented allergy to atorvastatin patient is tolerating simvastatin 40 mg by mouth at bedtime. Continue tight glucose control. Qualifiers: Coronary Disease-Associated Artery/Lesion type: [place] artery [place] vs. transplanted heart: [place] heart Associated angina: angina presence unspecified Qualified Code(s): I25.10 - Atherosclerotic heart disease of [place] coronary artery without angina pectoris (5) COPD exacerbation Current Visit: No Status: Acute Assessment and plan: Patient presents with increasing wheezing, shortness of breath, increased sputum production. - Start azithromycin daily for total of 5 days - IV Solu-Medrol 40 mg every 6 hours - Continue duo nebs and breathing treatments - Wean oxygen as tolerated (6) Tobacco use Current Visit: Yes Status: Acute Assessment and plan: Patient is an every day smoker with a 29-leba-mryo history. - Nicotine patch when necessary and patient (7) Acute CHF Current Visit: Yes Status: Acute Assessment and plan: Patient presents with Acute respiratory dcompensation in the setting of mild increase in pulmonary vasculature, diffuse rhonchi and trace edema in right LE. BNP 291. I believe the Respiratory failure is multifactoral and the CHF is partly contibuting. Impressions: Atrial fibrillation. LVEF 65%. Mild concentric left ventricular hypertrophy. Mild tricuspid regurgitation. Mild mitral regurgitation. Indeterminate diastolic function. Plan: - Continue Lasix 40 mg IV twice a day - 1.5 L fluid restriction, 2 g sodium restriction - Daily weights and strict intake and output monitoring Qualifiers: Congestive heart failure type: unspecified Qualified Code(s): I50.9 - Heart failure, unspecified (8) CKD (chronic kidney disease), stage IV Current Visit: Yes Status: Acute Assessment and plan: Chronic kidney disease stage IV, currently at baseline with creatinine and GFR. - Avoid nephrotoxic medications are renally dose antibiotics - Monitor in the setting of IV diuresis (9) Elevated troponin Current Visit: Yes Status: Acute Assessment and plan: Mild elevation in troponins from 0.19-0.11, chart review demonstrates average troponins around 0.04-0.07. Likely chronic elevation in troponins with chronic stage IV kidney disease and coronary artery disease. - Patient asymptomatic, elevation likely secondary to acute on chronic respiratory failure and hypercapnia. - Continue to monitor patient on telemetry (10) Hyperglycemia Current Visit: Yes Status: Acute Assessment and plan: Elevated glucose in the setting of prednisone IV. - Before meals at bedtime glucose checks - Low-dose sliding scale insulin, increase as needed (11) DVT prophylaxis Current Visit: Yes Status: Acute Assessment and plan: Continue home Eliquis - Subjective Interval history: Mr. Jackson 71 M seen and evaluated this morning is awake alert interactive acute distress. He denies any pain, discomfort or concerns at this time. He denies using oxygen at home and currently requires 3 L nasal cannula oxygen. He said that he was admitted with swelling in his right lower extremity which is improved. He has chronic pain but denies any worsening of his symptoms. He denies any other problems at this time. - Constitutional Vitals: Temp Pulse Resp BP Pulse Ox 97.9 F 94 16 135/77 90 05/17/17 07:13 05/17/17 07:13 05/17/17 08:17 05/17/17 07:13 05/17/17 08:17 General appearance: Present: cooperative, mild distress, A&O X 3, obese Exam: General: Patient alert, awake, oriented 3, interactive, in no acute distress HEENT: Normocephalic, atraumatic, pupils equal reactive to light, oral mucosa moist, poor dentition, neck supple trachea midline no palpable lymphadenopathy, no thyromegaly. Chest: Symmetric bilateral correlating with respiratory effort, effort nonlabored. Cardiac: Irregularly irregular heart rate and rhythm, radial pulses 1+ bilateral , pulse a right lower extremity trace. Left lower extremity amputated secondary to vascular disease. Respiratory: Diffuse rhonchi and expiratory wheeze. Abdomen: Soft, nontender, positive bowel sounds, no palpable masses appreciated on examination Extremities: Left lower extremity amputation above the knee one year ago, right lower extremity diminished pulses and posterior tibial and dorsal pedal, skin shows poor vascularization with contraction of skin and ulcers around the toes. Neurologic: No focal deficits appreciated on examination. Face symmetric, Internal Medicine: Result - Labs CBC & Chem 7: 05/17/17 01:34 05/17/17 01:34 Labs: Short CBC 05/17/17 Range/Units 01:34 WBC 5.1 (4.3-11.1) K/mcL Hgb 9.1 L (12.9-16.9) g/dL Hct 29.4 L (37.5-50.1) % Plt Count 95 L (140-400) K/mcL Neutrophils # 4.6 (1.6-8.9) K/mcL BMP 05/17/17 01:34 Sodium 140 Potassium 4.1 Chloride 100 Carbon Dioxide 31 H BUN 92 H Creatinine 2.68 H Glucose 132 H Calcium 8.0 L Cardiac Enzymes 05/16/17 05/17/17 05/17/17 Range/Units 19:23 01:34 08:30 Troponin I 0.14 H* 0.13 H* 0.11 H* (< 0.04) ng/mL Liver Function 05/17/17 Range/Units 01:34 Total Bilirubin 0.5 (0.3-1.0) mg/dL AST 11 L (13-39) Units/L ALT 33 (7-52) Units/L Alkaline Phosphatase 76 (34-104) Units/L Albumin 3.2 L (3.5-5.7) g/dL - ABG Interpretation ABG results: ABG ABG pH 7.39 pH Units (7.32-7.45) 05/17/17 08:05 ABG pCO2 58 mmHg (35-45) H 05/17/17 08:05 ABG pO2 88 mmHg (85-104) 05/17/17 08:05 ABG O2 Saturation 96 % (95-98) 05/17/17 08:05 PT/INR, D-dimer PT 11.7 Seconds (9.4-12.1) 05/16/17 12:52 Consult Discharge Plan - Plan [facility]errals: [facility]Primary Care Provider[facility] - <Haja Ga P - Last Filed: 05/17/17 16:55> Date of Encounter: 05/17/17 - Constitutional Vitals: Temp Pulse Resp BP Pulse Ox 98 F 69 16 147/79 94 05/17/17 16:29 05/17/17 16:29 05/17/17 16:29 05/17/17 16:29 05/17/17 16:29 Internal Medicine: Result - Labs CBC & Chem 7: 05/17/17 01:34 05/17/17 01:34 Labs: Short CBC 05/17/17 Range/Units 01:34 WBC 5.1 (4.3-11.1) K/mcL Hgb 9.1 L (12.9-16.9) g/dL Hct 29.4 L (37.5-50.1) % Plt Count 95 L (140-400) K/mcL Neutrophils # 4.6 (1.6-8.9) K/mcL BMP 05/17/17 01:34 Sodium 140 Potassium 4.1 Chloride 100 Carbon Dioxide 31 H BUN 92 H Creatinine 2.68 H Glucose 132 H Calcium 8.0 L Cardiac Enzymes 05/16/17 05/17/17 05/17/17 Range/Units 19:23 01:34 08:30 Troponin I 0.14 H* 0.13 H* 0.11 H* (< 0.04) ng/mL Liver Function 05/17/17 Range/Units 01:34 Total Bilirubin 0.5 (0.3-1.0) mg/dL AST 11 L (13-39) Units/L ALT 33 (7-52) Units/L Alkaline Phosphatase 76 (34-104) Units/L Albumin 3.2 L (3.5-5.7) g/dL - ABG Interpretation ABG results: ABG ABG pH 7.39 pH Units (7.32-7.45) 05/17/17 08:05 ABG pCO2 58 mmHg (35-45) H 05/17/17 08:05 ABG pO2 88 mmHg (85-104) 05/17/17 08:05 ABG O2 Saturation 96 % (95-98) 05/17/17 08:05 PT/INR, D-dimer PT 11.7 Seconds (9.4-12.1) 05/16/17 12:52 - Attending Attestation I examined this patient and my medical decision-making was reviewed with the Resident Physician. I agree with the documented findings, disposition and treatment plan as described except to the extent set forth below. 71/male Admitted with worsening shortness of breath. Was recently discharged from the hospital. Acute decompensated hypercapnic respiratory failure on admission. With the help of BiPAP he is doing much better. We will continue present treatment for now.
[2017-05-17] MEDS ORDERED: Dextrose Gel 15 GM/37.5 ML TUBE PO PRN ×2 (11:41)
[2017-05-17] MEDS ORDERED: *HR* Dextrose 50 % in Water (Syg) 50 ML SYRINGE IVP PRN (11:41)
[2017-05-17] MEDS ORDERED: D5% in Water 1,000 ML IVC PRN (11:41)
[2017-05-17] MEDS: Apixaban 2.5 MG TABLET PO SCH ×2 (11:49→21:05)
[2017-05-17] MEDS: Acetaminophen 325 MG TABLET PO PRN ×2 (11:49→21:05)
[2017-05-17] MEDS: Budesonide/Formoterol 160/4.5 MDI IH SCH ×2 (11:53→19:51)
[2017-05-17 12:06] LABS: Adenovirus Not Detected (Not Detect); Bordetella Pertussis Not Detected (Not Detect); Chlamydophila pneumoniae Not Detected (Not Detect); Coronavirus 229E Not Detected (Not Detect); Coronavirus HKU1 ***DETECTED*** (Not Detect); Coronavirus NL63 Not Detected (Not Detect); Coronavirus OC43 Not Detected (Not Detect); Human Metapneumovirus Not Detected (Not Detect); Human Rhinovirus/Enterovirus Not Detected (Not Detect); Influenza A Subtype 2009 H1 Not Detected (Not Detect); Influenza A Untypeable Not Detected (Not Detect); Influenza B Not Detected (Not Detect); Mycoplasma pneumoniae Not Detected (Not Detect); Parainfluenza Virus 1 Not Detected (Not Detect); Parainfluenza Virus 2 Not Detected (Not Detect); Parainfluenza Virus 3 Not Detected (Not Detect); Parainfluenza Virus 4 Not Detected (Not Detect); Respiratory Syncytial Virus Not Detected (Not Detect)
[2017-05-17] MEDS: Insulin LISPRO 300 UNITS/3 ML VIAL SQ SCH (17:05)
--- NOTE | 2017-05-17 17:16 | Electrocardiograph Report ---
[place] [id number] Test Date: 2017-05-16 Pat Name: Bayron Jackson Department: 103 Room: [id number] Gender: M Examining Officer: SATNAM : 1945 Requested By: Aaron Jane Order Number: [id number] Reading MD: Kathe Bar Measurements Intervals [place] Rate: 91 P: UT: 0 QRS: -22 QRSD: 124 T: 140 QT: 348 QTc: 397 Interpretive Statements ATRIAL FIBRILLATION SEPTAL MYOCARDIAL INFARCTION [40+ ms Q WAVE IN V1/V2], OF INDETERMINATE AGE MODERATE T-WAVE ABNORMALITY, CONSIDER LATERAL ISCHEMIA [-0.1+ mV T WAVE IN I/aVL/V5/V6] Electronically Signed On 05-17-2017 17:14:17 EST by Kathe Bar
[2017-05-17] MEDS ORDERED: Insulin LISPRO 300 UNITS/3 ML VIAL SQ SCH (21:00)
[2017-05-17] MEDS: Mirtazapine 15 MG TABLET PO SCH (21:05)
[2017-05-18] MEDS: Gabapentin 300 MG CAPSULE PO SCH ×3 (00:10→22:28)
[2017-05-18] MEDS: MethylPREDNISolone 40 MG/ML VIAL IVP SCH ×4 (00:10→17:53)
[2017-05-18] MEDS: Ipratropium/Albuterol Neb 3 ML IH SCH ×6 (03:51→23:46)
[2017-05-18 05:08] LABS: Basophils % 0.2 %; Hematocrit 27.1 % (37.5-50.1); Hemoglobin 8.7 g/dL (12.9-16.9); Lymphocytes # 0.2 K/mcL (0.6-4.6); Lymphocytes % 3.1 %; Mean Corpuscular HGB Conc 32.1 g/dL (31.6-35.5); Mean Corpuscular Hemoglobin 29.9 pg (28.0-33.3); Mean Corpuscular Volume 93.1 fL (83.0-100.0); Mean Platelet Volume 10.3 fL (9.4-12.4); Monocytes # 0.1 K/mcL (0.0-1.3); Monocytes % 2.4 %; Neutrophils # 5.2 K/mcL (1.6-8.9); Platelet Count 100 K/mcL (140-400); Red Blood Count 2.91 M/mcL (4.19-5.50); Red Cell Distribution Width 15.7 % (11.5-14.5); Segmented Neutrophils % 89.3 %
[2017-05-18 05:24] LABS: Albumin 2.9 g/dL (3.5-5.7); Albumin/Globulin Ratio 1.4 (1.1-2.2); Bilirubin,Total 0.4 mg/dL (0.3-1.0); Calcium 7.7 mg/dL (8.6-10.3); Globulin 2.1 g/dL (2.4-3.5); Potassium 3.6 mEq/L (3.5-5.1)
[2017-05-18 06:02] LABS: Platelet Estimate Decreased (Normal)
[2017-05-18] MEDS: Budesonide/Formoterol 160/4.5 MDI IH SCH ×3 (07:59→23:46)
[2017-05-18] MEDS: Azithromycin 250 MG TABLET PO SCH (08:50)
[2017-05-18] MEDS: Cholecalciferol (D-3) 1,000 UNIT TABLET PO SCH (08:50)
[2017-05-18] MEDS: Acetaminophen 325 MG TABLET PO PRN (08:50)
[2017-05-18] MEDS: Finasteride 5 MG TABLET PO SCH (08:51)
[2017-05-18] MEDS: Nicotine 14 MG PATCH.TD24 TD SCH (08:51)
[2017-05-18] MEDS: Apixaban 2.5 MG TABLET PO SCH ×2 (08:51→22:29)
[2017-05-18] MEDS: Furosemide 40 MG/4 ML VIAL IVP SCH ×2 (08:53→17:53)
[2017-05-18] MEDS: Insulin LISPRO 300 UNITS/3 ML VIAL SQ SCH ×3 (08:53→22:30)
[2017-05-18] MEDS: NIFEdipine XL (24 HR) 30 MG TAB.ER.24 PO SCH (12:57)
--- NOTE | 2017-05-18 13:41 | Internal Med Progress Note ---
<OswaldJeyson medina - Last Filed: 05/18/17 15:54> Date of Encounter: 05/18/17 Time of Encounter: 12:00 - Assessment and plan (1) Acute respiratory failure with hypoxia and hypercapnia Current Visit: Yes Status: Acute Assessment and plan: Patient presents with acute on chronic respiratory failure, initial blood gas 7.23, PCO2 84 (Now 58), PO2 186, Bicarb 38 O2 99%. Patients respiratory status improved with BiPAP. Multifactoral in the setting of COPD exacerbation, Diastolic CHF 05/18/2017: No improvement in respiratory status today. Patient weaned down oxygen requirement slowly. Continue current management Plan: - Continue treatment plan for COPD exacerbation - Continue IV Lasix and fluid restrictions the treatment of diastolic heart failure exacerbation - Continue Eliquis - Wean oxygen as tolerated. (2) Arterial insufficiency with ischemic ulcer Current Visit: No Status: Acute Assessment and plan: Known history of peripheral artery disease, seen by podiatry. 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 - Continue Eliquis (3) Atrial fibrillation Current Visit: Yes Status: Chronic Assessment and plan: Known history of atrial fibrillation, currently rate controlled. - Continue cardiac monitoring and rate control Qualifiers: Atrial fibrillation type: persistent Qualified Code(s): I48.1 - Persistent atrial fibrillation (4) CAD (coronary artery disease) Current Visit: No Status: Chronic Assessment and plan: Mr. Jackson has a significant cardiovascular history with known L before meals several years ago at [facility] with recommendations for CABG for which she refused at that time. - Significant peripheral arterial disease resulting in left lower extremity [id number] amputation and poor perfusion as the right lower extremity with cutaneous findings. - Documented allergy to atorvastatin patient is tolerating simvastatin 40 mg by mouth at bedtime. Continue tight glucose control. Qualifiers: Coronary Disease-Associated Artery/Lesion type: [place] artery [place] vs. transplanted heart: [place] heart Associated angina: angina presence unspecified Qualified Code(s): I25.10 - Atherosclerotic heart disease of [place] coronary artery without angina pectoris (5) COPD exacerbation Current Visit: No Status: Acute Assessment and plan: Patient presents with increasing wheezing, shortness of breath, increased sputum production. - Continue azithromycin daily for total of 5 days (Day 2/5) - IV Solu-Medrol 40 mg every 6 hours - Continue duo nebs and breathing treatments - Wean oxygen as tolerated (6) Tobacco use Current Visit: Yes Status: Acute Assessment and plan: Patient is an every day smoker with a [id number] history. - Nicotine patch when necessary and patient (7) Acute CHF Current Visit: Yes Status: Acute Assessment and plan: Patient presents with Acute respiratory dcompensation in the setting of mild increase in pulmonary vasculature, diffuse rhonchi and trace edema in right LE. BNP 291. I believe the Respiratory failure is multifactoral and the CHF is partly contibuting. Impressions: Atrial fibrillation. LVEF 65%. Mild concentric left ventricular hypertrophy. Mild tricuspid regurgitation. Mild mitral regurgitation. Indeterminate diastolic function. 05/18/2017: Cumulative -2.7 L fluid balance, stable weight Plan: - Continue Lasix 40 mg IV twice a day - 1.5 L fluid restriction, 2 g sodium restriction - Daily weights and strict intake and output monitoring Qualifiers: Congestive heart failure type: unspecified Qualified Code(s): I50.9 - Heart failure, unspecified (8) CKD (chronic kidney disease), stage IV Current Visit: Yes Status: Acute Assessment and plan: Chronic kidney disease stage IV, currently at baseline with creatinine and GFR. - Avoid nephrotoxic medications are renally dose antibiotics - Monitor in the setting of IV diuresis (9) Elevated troponin Current Visit: Yes Status: Acute Assessment and plan: Mild elevation in troponins from 0.19-0.11, chart review demonstrates average troponins around 0.04-0.07. Likely chronic elevation in troponins with chronic stage IV kidney disease and coronary artery disease. - Patient asymptomatic, elevation likely secondary to acute on chronic respiratory failure and hypercapnia. - Continue to monitor patient on telemetry (10) Hyperglycemia Current Visit: Yes Status: Acute Assessment and plan: Elevated glucose in the setting of prednisone IV. - Before meals at bedtime glucose checks Plan: - Levemir 5 units subcutaneous at bedtime - Medium dose sliding scale insulin - Hemoglobin A1c (11) DVT prophylaxis Current Visit: Yes Status: Acute Assessment and plan: Continue home Eliquis - Subjective Interval history: Mr. Jackson 71 M seen and evaluated this morning is awake alert interactive acute distress. He denies any pain, discomfort or concerns at this time. He denies using oxygen at home and currently requires 2 L nasal cannula oxygen. He states he feels like he needs oxygen at home as he is short of breath constantly and feels he needs it with transport to and from his physician appointments. He denies any new events or concerns. - Constitutional Vitals: Temp Pulse Resp BP Pulse Ox 97.8 F 96 16 157/92 92 05/18/17 05:03 05/18/17 07:00 05/18/17 11:53 05/18/17 07:00 05/18/17 11:53 General appearance: Present: cooperative, mild distress, A&O X 3, obese Exam: General: Patient alert, awake, oriented 3, interactive, in no acute distress HEENT: Normocephalic, atraumatic, pupils equal reactive to light, oral mucosa moist, poor dentition, neck supple trachea midline no palpable lymphadenopathy, no thyromegaly. Chest: Symmetric bilateral correlating with respiratory effort, effort nonlabored. Cardiac: Irregularly irregular heart rate and rhythm, radial pulses 1+ bilateral , pulse a right lower extremity trace. Left lower extremity amputated secondary to vascular disease. Respiratory: Diffuse rhonchi and expiratory wheeze. Abdomen: Soft, nontender, positive bowel sounds, no palpable masses appreciated on examination Extremities: Left lower extremity amputation above the knee one year ago, right lower extremity diminished pulses and posterior tibial and dorsal pedal, skin shows poor vascularization with contraction of skin and ulcers around the toes. Neurologic: No focal deficits appreciated on examination. Face symmetric, Internal Medicine: Result - Labs CBC & Chem 7: 05/18/17 04:14 05/18/17 04:14 Labs: Short CBC 05/18/17 Range/Units 04:14 WBC 5.8 (4.3-11.1) K/mcL Hgb 8.7 L (12.9-16.9) g/dL Hct 27.1 L (37.5-50.1) % Plt Count 100 L (140-400) K/mcL Neutrophils # 5.2 (1.6-8.9) K/mcL BMP 05/18/17 04:14 Sodium 142 Potassium 3.6 Chloride 101 Carbon Dioxide 34 H BUN 94 H Creatinine 2.49 H Glucose 213 H Calcium 7.7 L Liver Function 05/18/17 Range/Units 04:14 Total Bilirubin 0.4 (0.3-1.0) mg/dL AST 11 L (13-39) Units/L ALT 26 (7-52) Units/L Alkaline Phosphatase 99 (34-104) Units/L Albumin 2.9 L (3.5-5.7) g/dL - ABG Interpretation ABG results: ABG ABG pH 7.39 pH Units (7.32-7.45) 05/17/17 08:05 ABG pCO2 58 mmHg (35-45) H 05/17/17 08:05 ABG pO2 88 mmHg (85-104) 05/17/17 08:05 ABG O2 Saturation 96 % (95-98) 05/17/17 08:05 PT/INR, D-dimer PT 11.7 Seconds (9.4-12.1) 05/16/17 12:52 Consult Discharge Plan - Plan [facility]Primary Care Provider[facility] - <Sohail Tamayo - Last Filed: 05/18/17 19:02> Date of Encounter: 05/18/17 - Assessment and plan (1) Acute respiratory failure with hypoxia and hypercapnia Current Visit: Yes Status: Acute (2) Acute exacerbation of chronic obstructive airways disease Current Visit: Yes Status: Acute (3) CHF exacerbation Current Visit: Yes Status: Acute Qualifiers: Congestive heart failure type: diastolic Qualified Code(s): I50.33 - Acute on chronic diastolic (congestive) heart failure (4) Coronavirus infection Current Visit: Yes Status: Acute (5) CKD (chronic kidney disease), stage IV Current Visit: Yes Status: Acute (6) Tobacco use Current Visit: Yes Status: Acute (7) Atrial fibrillation Current Visit: Yes Status: Chronic Qualifiers: Atrial fibrillation type: persistent Qualified Code(s): I48.1 - Persistent atrial fibrillation (8) Hypertension Current Visit: Yes Status: Chronic Qualifiers: Hypertension type: essential hypertension Qualified Code(s): I10 - Essential (primary) hypertension (9) CAD (coronary artery disease) Current Visit: No Status: Chronic Qualifiers: Coronary Disease-Associated Artery/Lesion type: [place] artery [place] vs. transplanted heart: [place] heart Associated angina: without angina Qualified Code(s): I25.10 - Atherosclerotic heart disease of [place] coronary artery without angina pectoris - Constitutional Vitals: Temp Pulse Resp BP Pulse Ox 97.8 F 110 16 164/98 91 05/18/17 05:03 05/18/17 15:00 05/18/17 16:22 05/18/17 15:00 05/18/17 16:22 Internal Medicine: Result - Labs CBC & Chem 7: 05/18/17 04:14 05/18/17 04:14 Labs: Short CBC 05/18/17 Range/Units 04:14 WBC 5.8 (4.3-11.1) K/mcL Hgb 8.7 L (12.9-16.9) g/dL Hct 27.1 L (37.5-50.1) % Plt Count 100 L (140-400) K/mcL Neutrophils # 5.2 (1.6-8.9) K/mcL BMP 05/18/17 04:14 Sodium 142 Potassium 3.6 Chloride 101 Carbon Dioxide 34 H BUN 94 H Creatinine 2.49 H Glucose 213 H Calcium 7.7 L Liver Function 05/18/17 Range/Units 04:14 Total Bilirubin 0.4 (0.3-1.0) mg/dL AST 11 L (13-39) Units/L ALT 26 (7-52) Units/L Alkaline Phosphatase 99 (34-104) Units/L Albumin 2.9 L (3.5-5.7) g/dL - ABG Interpretation ABG results: ABG ABG pH 7.39 pH Units (7.32-7.45) 05/17/17 08:05 ABG pCO2 58 mmHg (35-45) H 05/17/17 08:05 ABG pO2 88 mmHg (85-104) 05/17/17 08:05 ABG O2 Saturation 96 % (95-98) 05/17/17 08:05 PT/INR, D-dimer PT 11.7 Seconds (9.4-12.1) 05/16/17 12:52 - Attending Attestation I examined this patient and my medical decision-making was reviewed with the Resident Physician on 05/18/17. I agree with the documented findings, disposition and treatment plan as described except to the extent set forth below. Mr Jackson is currently admitted for resp failure and COPD. He remains moderate to high risk due to potential for worsening clinical status. Mr Jackson is feeling a little better. No fever. Breathing still an issue. Still wheezing. Edema slowly improving. Exam alert. Comfortable Mucus membranes dry Heart distant. Scattered rhonchi and wheeze Abd soft Edema present I/P 1. Resp failure 2. CHF Further diagnoses and plan as above.
--- NOTE | 2017-05-18 15:32 | Podiatry Consult Note ---
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 No clinical appearance of infection There are DP/PT pulses per signal and toes are warmth with cap refill <3 seconds but due to concerns of wound we will obtain RANDY's to evaluate for possible arterial complications. Please apply allevyn to right plantar foot wound, adaptic and dry dressing to abrasion to dorsal aspect of toes Continue with current medical treatment for other medical issues Patient may follow up in wound care 1-2 weeks after discharge Qualifiers: Non-pressure ulcer stage: limited to breakdown of skin Qualified Code(s): L97.511 - Non-pressure chronic ulcer of other part of right foot limited to breakdown of skin History of Present Illness HPI: Mr. Jackson is a 71 year old male who we have been consulted on regarding concerning wounds of the right foot. Patient is known to and the wound care center. Per wound care nurse note, patients family reports that wound to plantar aspect of right foot appeared 24-72 hours prior to admission however wound is noted on wound care progress note from November of 2016- per patients reports wound has been present for over 1 year- possibly up to 3, he is unsure. Patient states that he does have quite a bit of pain to foot, rating pain 8/10. Patient has a medical hx significant for PAD, afib, HTN, smoker, COPD, CHF, CKD , HLD. Patient was admitted to [facility] for COPD exacerbation and CHF however we have been consulted to evaluate foot ulcer while patient is inpatient. Patient has hx of left AKA per Hank due to ischemia. Patient is afebrile. There is an allevyn in place to right foot. Patient denies any known trauma or injury to foot. Patient last had randy's obtained of E in September 2015 which demonstrated right brachial 0.58, DP 0.56 and PT 0.58. Patient states he is at home with care provided per his . States he does not ambulate nor have a prosthetic device. States he mainly pivots between bed and chair. Past Med Surg Social Fam HX - Past Medical History Medical history: atrial fibrillation, COPD, coronary artery disease, hyperlipidemia, hypertension, myocardial infarction, peripheral artery disease, renal disease Psychiatric history: anxiety, depression - Past Surgical History Surgical History: angioplasty/stent, appendectomy, LE Bypass, LE vascular intervention, other - Social History Smoking Status: Current every day smoker Smokeless Tobacco Status: No Alcohol use: none Drug use: none - Family History Mother Adopted: No Living Status: Hx Family Cardiac Disorders: No Hx Family Respiratory Disorders: No Hx Family Cancer: No Hx Family GI Disorders: No Hx Family Endocrine Disorder: No Hx Family Neuromuscular Disorders: No Hx Family Neurologic Disorders: No Hx Family HEENT Disorders: No Hx Family Autoimmune Disorders: No Medications and Allergies Acetaminophen [Tylenol] 650 mg PO Q8H PRN 04/22/17 [History] Allopurinol [Zyloprim 100 MG] 50 mg PO DAILY 04/22/17 [History] Buprenorphine [Butrans] 15 mcg TD QWEEK 04/22/17 [History] Calcium Carbonate/Vitamin D3 [Calcium 500 + Vit D Caplet] 1 tab PO DAILY [History] Carvedilol [Coreg] 25 mg PO BID 04/22/17 [History] Docusate [Colace] 100 mg PO BID PRN 04/22/17 [History] Escitalopram [Lexapro] 20 mg PO DAILY 04/22/17 [History] Finasteride [Proscar] 5 mg PO DAILY 04/22/17 [History] Furosemide [Lasix] 60 mg PO BID 04/22/17 [History] Ipratropium/Albuterol Neb [Duoneb] 3 ml IH Q6HR PRN 04/22/17 [History] Mirtazapine [Remeron] 45 mg PO HS 04/22/17 [History] NIFEdipine [Nifedipine ER] 30 mg PO DAILY 04/22/17 [History] Pantoprazole Sodium [Protonix] 40 mg PO DAILY 04/22/17 [History] Simvastatin [Zocor] 40 mg PO HS 04/22/17 [History] Terazosin [Hytrin] 1 mg PO HS 04/22/17 [History] Budesonide/Formoterol 160/4.5 [Symbicort 160/4.5] 1 puff IH BIDR #1 hfa.aer.ad 04/26/17 [Rx] Nut.tx.gluc.intoler,Lac-Fr,Soy [Glucerna] 1 can PO DAILY 05/10/17 [History] Apixaban [Eliquis] 2.5 mg PO BID #60 tablet 05/14/17 [Rx] Cholecalciferol (D-3) [Vitamin D] 1,000 unit PO DAILY #30 tablet 05/14/17 [Rx] Gabapentin [Neurontin] 300 mg PO BID #30 capsule 05/14/17 [Rx] Nicotine Patch [Nicoderm] 14 mg TD DAILY #30 patch.td24 05/14/17 [Rx] Silvasorb 1 appl TP DAILY tube 05/14/17 [Rx] levoFLOXacin [Levaquin] 750 mg PO Q48H #2 tablet 05/14/17 [Rx] predniSONE [PredniSONE] See Taper PO DAILY #21 tablet 05/14/17 [Rx] 3 Allergy/AdvReac Type Severity Reaction Status Date / Time atorvastatin [From Lipitor] AdvReac See Verified 04/22/17 16:05 Comments baclofen AdvReac Drowsy Verified 04/22/17 16:05 fluorouracil [From Efudex] AdvReac See Verified 04/22/17 16:05 Comments sulfamethoxazole AdvReac See Verified 04/22/17 16:05 [From Bactrim] Comments trimethoprim [From Bactrim] AdvReac See Verified 04/22/17 16:05 Comments All Systems Reviewed: A 10-system review of systems was performed and is negative for pertinent findings except as documented above in the HPI. Physical Exam - Constitutional Vitals: Temp Pulse Resp BP Pulse Ox 97.8 F 96 16 157/92 92 05/18/17 05:03 05/18/17 07:00 05/18/17 11:53 05/18/17 07:00 05/18/17 11:53 Exam: General Examination: CONSTITUTIONAL: Alert, oriented, in no acute distress, non-toxic. EXTREMITIES: CFT 3 seconds all toes. Edema +1 and pedal pulses DP/PT per signal. All toes warm to touch. No evidence of cyanosis, pallor or rubor. SKIN: Sub MT head #1 right foot- there is noted ulceration measuring 0.3cmx0.4cmx0.3cm. Bed of wound filled with blood clot, easily removed without issue revealing a healthy wound bed without evidence of infection. Per last wound care note, wound measured 1.1cmx1.1cmx0.4cm so there is noted improvement of wound margins. There is no surrounding erythema or edema. No warmth. No clinical appearance of infection There is also a wound noted to dorsal aspect toe #3 right foot, scabbed/yellow appearance. Probable trauma- abrasion- does not appear vascular related. No surrounding erythema or edema- no warmth. No clinical suspicion of infection. Minimal concern of ischemia. NEUROLOGIC: Intact sensation to moderate touch . Results - Labs Result Diagrams: 05/19/17 04:43 05/19/17 04:43 Labs: Abnormal lab results RBC 2.91 M/mcL (4.19-5.50) L 05/18/17 04:14 Hgb 8.7 g/dL (12.9-16.9) L 05/18/17 04:14 Hct 27.1 % (37.5-50.1) L 05/18/17 04:14 RDW 15.7 % (11.5-14.5) H 05/18/17 04:14 Plt Count 100 K/mcL (140-400) L 05/18/17 04:14 Immature Gran % 5.0 % (0-4) H 05/18/17 04:14 Lymphocytes # 0.2 K/mcL (0.6-4.6) L 05/18/17 04:14 Platelet Estimate Decreased (Normal) L 05/18/17 04:14 ABG pCO2 58 mmHg (35-45) H 05/17/17 08:05 ABG HCO3 35 mEq/L (21-27) H 05/17/17 08:05 ABG Total CO2 37 mEq/L (20-26) H 05/17/17 08:05 ABG Base Excess 9 mEq/L (-2 to 3) H 05/17/17 08:05 VBG pH 7.30 pH Units (7.32-7.42) L 05/16/17 13:04 VBG pCO2 66 mmHg (41-51) H 05/16/17 13:04 VBG pO2 145 mmHg (25-50) H 05/16/17 13:04 VBG HCO3 32 mEq/L (21-27) H 05/16/17 13:04 Carbon Dioxide 34 mEq/L (23-29) H 05/18/17 04:14 BUN 94 mg/dL (8-23) H 05/18/17 04:14 Creatinine 2.49 mg/dL (0.70-1.30) H 05/18/17 04:14 Est GFR ( Amer) 31 (> 60) L 05/18/17 04:14 Est GFR (Non-Af Amer) 26 (> 60) L 05/18/17 04:14 BUN/Creatinine Ratio 38 (6-26) H 05/18/17 04:14 Glucose 213 mg/dL (70-105) H 05/18/17 04:14 POC Glucose 222 (58-89) H 05/18/17 00:39 Calculated Osmolality 329 (280-300) H 05/18/17 04:14 Calcium 7.7 mg/dL (8.6-10.3) L 05/18/17 04:14 AST 11 Units/L (13-39) L 05/18/17 04:14 Troponin I 0.11 ng/mL (< 0.04) H* 05/17/17 08:30 B-Natriuretic Peptide 291 pg/mL (Less than 100) H 05/16/17 12:52 Serum Total Protein 5.0 g/dL (6.4-8.9) L 05/18/17 04:14 Albumin 2.9 g/dL (3.5-5.7) L 05/18/17 04:14 Globulin 2.1 g/dL (2.4-3.5) L 05/18/17 04:14 Coronavirus HKU1 (PCR) DETECTED (Not Detect) A 05/17/17 09:35 H & H 05/18/17 Range/Units 04:14 Hgb 8.7 L (12.9-16.9) g/dL Hct 27.1 L (37.5-50.1) % All other labs normal. Consult Discharge Plan - Plan Referrals: [facility] [Primary Care Provider] -
[2017-05-18] MEDS: Silvasorb 44.4 ML TUBE TP SCH (17:48)
[2017-05-18] MEDS: Mirtazapine 15 MG TABLET PO SCH (22:28)
[2017-05-18] MEDS: Insulin DETEMIR 100 UNIT/ML X5UNITS SQ SCH (22:29)
[2017-05-19] MEDS ORDERED: Ipratropium/Albuterol Neb 3 ML IH ONE (02:20)
[2017-05-19] MEDS: Ipratropium/Albuterol Neb 3 ML IH SCH ×5 (04:02→19:50)
[2017-05-19] MEDS: MethylPREDNISolone 40 MG/ML VIAL IVP SCH ×2 (04:25→04:43)
[2017-05-19 05:28] LABS: Hematocrit 27.7 % (37.5-50.1); Hemoglobin 8.7 g/dL (12.9-16.9); Immature Platelets 2.4 % (1.1-6.1); Lymphocytes # 0.2 K/mcL (0.6-4.6); Lymphocytes % 2.4 %; Mean Corpuscular HGB Conc 31.4 g/dL (31.6-35.5); Mean Corpuscular Hemoglobin 30.2 pg (28.0-33.3); Mean Corpuscular Volume 96.2 fL (83.0-100.0); Mean Platelet Volume 10.7 fL (9.4-12.4); Monocytes # 0.3 K/mcL (0.0-1.3); Nucleated Red Blood Cells 0.6 /100 WBC (0); Platelet Count 100 K/mcL (140-400); Red Blood Count 2.88 M/mcL (4.19-5.50); Red Cell Distribution Width 15.8 % (11.5-14.5); Segmented Neutrophils % 86.6 %
[2017-05-19 05:33] LABS: Neutrophils # 5.6 K/mcL (1.6-8.9)
[2017-05-19 05:54] LABS: Albumin 2.8 g/dL (3.5-5.7); Albumin/Globulin Ratio 1.3 (1.1-2.2); Bilirubin,Total 0.4 mg/dL (0.3-1.0); Calcium 7.6 mg/dL (8.6-10.3); Globulin 2.1 g/dL (2.4-3.5); Potassium 3.7 mEq/L (3.5-5.1); Total Protein 4.9 g/dL (6.4-8.9)
[2017-05-19 06:03] LABS: Anisocytosis 1+ (Not Present); Large Platelets Present (Not Present); Platelet Estimate Decreased (Normal)
[2017-05-19] MEDS: Budesonide/Formoterol 160/4.5 MDI IH SCH ×2 (07:59→19:50)
[2017-05-19] MEDS: Insulin LISPRO 300 UNITS/3 ML VIAL SQ SCH ×4 (09:00→21:37)
[2017-05-19] MEDS: Azithromycin 250 MG TABLET PO SCH (09:00)
[2017-05-19] MEDS: Furosemide 40 MG/4 ML VIAL IVP SCH ×2 (09:00→17:23)
[2017-05-19] MEDS: Cholecalciferol (D-3) 1,000 UNIT TABLET PO SCH (09:00)
[2017-05-19] MEDS: Apixaban 2.5 MG TABLET PO SCH ×2 (09:00→21:38)
[2017-05-19] MEDS: Gabapentin 300 MG CAPSULE PO SCH ×2 (09:00→21:38)
[2017-05-19] MEDS: Finasteride 5 MG TABLET PO SCH (09:00)
[2017-05-19] MEDS: NIFEdipine XL (24 HR) 30 MG TAB.ER.24 PO SCH (09:00)
[2017-05-19] MEDS: Nicotine 14 MG PATCH.TD24 TD SCH (09:00)
--- NOTE | 2017-05-19 10:47 | Internal Med Progress Note ---
<Jeyson Hathaway Brain - Last Filed: 05/19/17 17:39> Date of Encounter: 05/19/17 Time of Encounter: 10:39 - Assessment and plan (1) Acute respiratory failure with hypoxia and hypercapnia Current Visit: Yes Status: Acute Assessment and plan: Patient presents with acute on chronic respiratory failure, initial blood gas 7.23, PCO2 84 (Now 58), PO2 186, Bicarb 38 O2 99%. Patients respiratory status improved with BiPAP. Multifactoral in the setting of COPD exacerbation, Diastolic CHF 05/18/2017: No improvement in respiratory status today. Patient weaned down oxygen requirement slowly. Continue current management 05/19/2017: Mild improvement respiratory status, patient oxygen saturations improved on stable nasal cannula oxygen settings. Lung examination demonstrates improvement risk for status. Weaning steroids. Plan: - Continue treatment plan for COPD exacerbation - Continue IV Lasix and fluid restrictions the treatment of diastolic heart failure exacerbation - Continue Eliquis - Wean oxygen as tolerated. (2) Arterial insufficiency with ischemic ulcer Current Visit: No Status: Acute Assessment and plan: Known history of peripheral artery disease, seen by podiatry. 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 - Continue Eliquis (3) Atrial fibrillation Current Visit: Yes Status: Chronic Assessment and plan: Known history of atrial fibrillation, currently rate controlled. - Continue cardiac monitoring and rate control Qualifiers: Atrial fibrillation type: persistent Qualified Code(s): I48.1 - Persistent atrial fibrillation (4) CAD (coronary artery disease) Current Visit: No Status: Chronic Assessment and plan: Mr. Jackson has a significant cardiovascular history with known L before meals several years ago at [facility] with recommendations for CABG for which she refused at that time. - Significant peripheral arterial disease resulting in left lower extremity [id number] amputation and poor perfusion as the right lower extremity with cutaneous findings. - Documented allergy to atorvastatin patient is tolerating simvastatin 40 mg by mouth at bedtime. Continue tight glucose control. Qualifiers: Coronary Disease-Associated Artery/Lesion type: [place] artery [place] vs. transplanted heart: [place] heart Associated angina: without angina Qualified Code(s): I25.10 - Atherosclerotic heart disease of [place] coronary artery without angina pectoris (5) COPD exacerbation Current Visit: No Status: Acute Assessment and plan: Patient presents with increasing wheezing, shortness of breath, increased sputum production. - Continue azithromycin daily for total of 5 days (Day 3/5) - Prednisone 40 mg by mouth daily - Continue duo nebs and breathing treatments - Wean oxygen as tolerated (6) Tobacco use Current Visit: Yes Status: Acute Assessment and plan: Patient is an every day smoker with a [id number] history. - Nicotine patch when necessary and patient (7) Acute CHF Current Visit: Yes Status: Acute Assessment and plan: Patient presents with Acute respiratory dcompensation in the setting of mild increase in pulmonary vasculature, diffuse rhonchi and trace edema in right LE. BNP 291. I believe the Respiratory failure is multifactoral and the CHF is partly contibuting. Impressions: Atrial fibrillation. LVEF 65%. Mild concentric left ventricular hypertrophy. Mild tricuspid regurgitation. Mild mitral regurgitation. Indeterminate diastolic function. 05/18/2017: Cumulative -2.7 L fluid balance, stable weight 05/19: Volume status improved, trace edema and lower extremity, pulmonary crackles improved. Plan: - Continue Lasix 40 mg IV twice a day or more a day, switched to home dose. - 1.5 L fluid restriction, 2 g sodium restriction - Daily weights and strict intake and output monitoring Qualifiers: Congestive heart failure type: unspecified Qualified Code(s): I50.9 - Heart failure, unspecified (8) CKD (chronic kidney disease), stage IV Current Visit: Yes Status: Acute Assessment and plan: Chronic kidney disease stage IV, currently at baseline with creatinine and GFR. - Avoid nephrotoxic medications are renally dose antibiotics - Monitor in the setting of IV diuresis (9) Elevated troponin Current Visit: Yes Status: Acute Assessment and plan: Mild elevation in troponins from 0.19-0.11, chart review demonstrates average troponins around 0.04-0.07. Likely chronic elevation in troponins with chronic stage IV kidney disease and coronary artery disease. - Patient asymptomatic, elevation likely secondary to acute on chronic respiratory failure and hypercapnia. - Continue to monitor patient on telemetry (10) Hyperglycemia Current Visit: Yes Status: Acute Assessment and plan: Elevated glucose in the setting of prednisone IV. - Before meals at bedtime glucose checks Plan: - Levemir 5 units subcutaneous at bedtime - Medium dose sliding scale insulin - Hemoglobin A1c (11) DVT prophylaxis Current Visit: Yes Status: Acute Assessment and plan: Continue home Eliquis - Subjective Interval history: Mr. Jackson 71 M seen and evaluated this morning is awake alert interactive acute distress. He denies any pain, discomfort or concerns at this time. He denies using oxygen at home and currently requires 2 L nasal cannula oxygen. He feels that his risk for status is improved in that he feels ready for discharge. He understands that given his current respiratory status and continue to need steroids that he may need 1 more day. - Constitutional Vitals: Temp Pulse Resp BP Pulse Ox 98.1 F 109 18 143/91 98 05/19/17 08:03 05/19/17 08:03 05/19/17 08:02 05/19/17 08:03 05/19/17 08:03 General appearance: Present: cooperative, mild distress, A&O X 3, obese Exam: General: Patient alert, awake, oriented 3, interactive, in no acute distress HEENT: Normocephalic, atraumatic, pupils equal reactive to light, oral mucosa moist, poor dentition, neck supple trachea midline no palpable lymphadenopathy, no thyromegaly. Chest: Symmetric bilateral correlating with respiratory effort, effort nonlabored. Cardiac: Irregularly irregular heart rate and rhythm, radial pulses 1+ bilateral , pulse a right lower extremity trace. Left lower extremity amputated secondary to vascular disease. Respiratory: Diminished breath sounds diffusely, mild expiratory wheeze, improvement of rhonchi. Abdomen: Soft, nontender, positive bowel sounds, no palpable masses appreciated on examination Extremities: Left lower extremity amputation above the knee one year ago, right lower extremity diminished pulses and posterior tibial and dorsal pedal, skin shows poor vascularization with contraction of skin and ulcers around the toes. Trace lower extremity edema. Neurologic: No focal deficits appreciated on examination. Face symmetric, Internal Medicine: Result - Labs CBC & Chem 7: 05/19/17 04:43 05/19/17 04:43 Labs: Short CBC 05/19/17 Range/Units 04:43 WBC 6.5 (4.3-11.1) K/mcL Hgb 8.7 L (12.9-16.9) g/dL Hct 27.7 L (37.5-50.1) % Plt Count 100 L (140-400) K/mcL Neutrophils # 5.6 (1.6-8.9) K/mcL BMP 05/19/17 04:43 Sodium 142 Potassium 3.7 Chloride 103 Carbon Dioxide 29 BUN 97 H Creatinine 2.56 H Glucose 163 H Calcium 7.6 L Liver Function 05/19/17 Range/Units 04:43 Total Bilirubin 0.4 (0.3-1.0) mg/dL AST 12 L (13-39) Units/L ALT 26 (7-52) Units/L Alkaline Phosphatase 98 (34-104) Units/L Albumin 2.8 L (3.5-5.7) g/dL - ABG Interpretation ABG results: ABG ABG pH 7.39 pH Units (7.32-7.45) 05/17/17 08:05 ABG pCO2 58 mmHg (35-45) H 05/17/17 08:05 ABG pO2 88 mmHg (85-104) 05/17/17 08:05 ABG O2 Saturation 96 % (95-98) 05/17/17 08:05 PT/INR, D-dimer PT 11.7 Seconds (9.4-12.1) 05/16/17 12:52 Consult Discharge Plan - Plan [facility]errals: [facility]Primary Care Provider[facility] - <Sohail Tamayo - Last Filed: 05/19/17 19:08> Date of Encounter: 05/19/17 - Assessment and plan (1) Acute respiratory failure with hypoxia and hypercapnia Current Visit: Yes Status: Acute (2) Acute exacerbation of chronic obstructive airways disease Current Visit: Yes Status: Acute (3) CHF exacerbation Current Visit: Yes Status: Acute Qualifiers: Congestive heart failure type: diastolic Qualified Code(s): I50.33 - Acute on chronic diastolic (congestive) heart failure (4) Coronavirus infection Current Visit: Yes Status: Acute (5) CKD (chronic kidney disease), stage IV Current Visit: Yes Status: Acute (6) Tobacco use Current Visit: Yes Status: Acute (7) Atrial fibrillation Current Visit: Yes Status: Chronic Qualifiers: Atrial fibrillation type: persistent Qualified Code(s): I48.1 - Persistent atrial fibrillation (8) Hypertension Current Visit: Yes Status: Chronic Qualifiers: Hypertension type: essential hypertension Qualified Code(s): I10 - Essential (primary) hypertension (9) CAD (coronary artery disease) Current Visit: No Status: Chronic Qualifiers: Coronary Disease-Associated Artery/Lesion type: [place] artery [place] vs. transplanted heart: [place] heart Associated angina: without angina Qualified Code(s): I25.10 - Atherosclerotic heart disease of [place] coronary artery without angina pectoris - Constitutional Vitals: Temp Pulse Resp BP Pulse Ox 97.7 F 102 16 160/75 94 05/19/17 15:33 05/19/17 15:33 05/19/17 16:06 05/19/17 15:33 05/19/17 16:06 Internal Medicine: Result - Labs CBC & Chem 7: 05/19/17 04:43 05/19/17 04:43 Labs: Short CBC 05/19/17 Range/Units 04:43 WBC 6.5 (4.3-11.1) K/mcL Hgb 8.7 L (12.9-16.9) g/dL Hct 27.7 L (37.5-50.1) % Plt Count 100 L (140-400) K/mcL Neutrophils # 5.6 (1.6-8.9) K/mcL BMP 05/19/17 04:43 Sodium 142 Potassium 3.7 Chloride 103 Carbon Dioxide 29 BUN 97 H Creatinine 2.56 H Glucose 163 H Calcium 7.6 L Liver Function 05/19/17 Range/Units 04:43 Total Bilirubin 0.4 (0.3-1.0) mg/dL AST 12 L (13-39) Units/L ALT 26 (7-52) Units/L Alkaline Phosphatase 98 (34-104) Units/L Albumin 2.8 L (3.5-5.7) g/dL - ABG Interpretation ABG results: ABG ABG pH 7.39 pH Units (7.32-7.45) 05/17/17 08:05 ABG pCO2 58 mmHg (35-45) H 05/17/17 08:05 ABG pO2 88 mmHg (85-104) 05/17/17 08:05 ABG O2 Saturation 96 % (95-98) 05/17/17 08:05 PT/INR, D-dimer PT 11.7 Seconds (9.4-12.1) 05/16/17 12:52 - Attending Attestation I examined this patient and my medical decision-making was reviewed with the Resident Physician on 05/19/17. I agree with the documented findings, disposition and treatment plan as described except to the extent set forth below. Mr Jackson is currently admitted for acute resp failure and CHF. He remains moderate to high risk due to potential for worsening clinical status. Mr Jackson is feeling better but he continues to wheeze and is congested. He thinks he is approaching baseline. He has qualified for bipap and oxygen. Exam Alert. Comfortable Mucus membranes dry Heart distant Lungs with wheeze throughout Abd soft Edema present I/P 1. CHF 2. Resp failure - Further diagnoses and plan as above.
[2017-05-19] MEDS: predniSONE 20 MG TABLET PO SCH (12:43)
[2017-05-19 16:39] LABS: Hemoglobin A1C 5.6 %
[2017-05-19] MEDS: Silvasorb 44.4 ML TUBE TP SCH (17:24)
[2017-05-19] MEDS: Mirtazapine 15 MG TABLET PO SCH (21:38)
[2017-05-19] MEDS: Insulin DETEMIR 100 UNIT/ML X5UNITS SQ SCH (21:38)
[2017-05-19] MEDS: Acetaminophen 325 MG TABLET PO PRN (21:42)
[2017-05-20] MEDS: Ipratropium/Albuterol Neb 3 ML IH SCH ×6 (00:06→20:19)
[2017-05-20 06:24] LABS: Basophils % 0.3 %; Eosinophils % 0.4 %; Hematocrit 29.7 % (37.5-50.1); Hemoglobin 9.4 g/dL (12.9-16.9); Immature Granulocytes % 6.7 % (0-4); Lymphocytes # 0.5 K/mcL (0.6-4.6); Lymphocytes % 6.8 %; Mean Corpuscular HGB Conc 31.6 g/dL (31.6-35.5); Mean Corpuscular Hemoglobin 30.5 pg (28.0-33.3); Mean Corpuscular Volume 96.4 fL (83.0-100.0); Mean Platelet Volume 11.2 fL (9.4-12.4); Monocytes # 0.3 K/mcL (0.0-1.3); Monocytes % 4.3 %; Neutrophils # 5.5 K/mcL (1.6-8.9); Nucleated Red Blood Cells 0.6 /100 WBC (0); Platelet Count 104 K/mcL (140-400); Red Blood Count 3.08 M/mcL (4.19-5.50); Red Cell Distribution Width 15.8 % (11.5-14.5); Segmented Neutrophils % 81.5 %
[2017-05-20 06:47] LABS: Platelet Estimate Slight Decrease (Normal)
[2017-05-20 07:34] LABS: Albumin 3.1 g/dL (3.5-5.7); Albumin/Globulin Ratio 1.3 (1.1-2.2); Bilirubin,Total 0.5 mg/dL (0.3-1.0); Globulin 2.4 g/dL (2.4-3.5); Potassium 4.1 mEq/L (3.5-5.1); Total Protein 5.5 g/dL (6.4-8.9)
[2017-05-20] MEDS: Budesonide/Formoterol 160/4.5 MDI IH SCH ×2 (07:44→23:24)
--- NOTE | 2017-05-20 09:48 | Discharge Summary ---
<OswaldcarolJeyson Brain - Last Filed: 05/21/17 11:28> Date of Encounter: 05/21/17 Time of Encounter: 09:39 - Discharge Diagnosis (1) Acute respiratory failure with hypoxia and hypercapnia Priority: Primary Status: Acute (2) Arterial insufficiency with ischemic ulcer Priority: Secondary Status: Acute (3) Atrial fibrillation Priority: Primary Status: Chronic Qualifiers: Atrial fibrillation type: persistent Qualified Code(s): I48.1 - Persistent atrial fibrillation (4) CAD (coronary artery disease) Priority: Secondary Status: Chronic Qualifiers: Coronary Disease-Associated Artery/Lesion type: [place] artery [place] vs. transplanted heart: [place] heart Associated angina: without angina Qualified Code(s): I25.10 - Atherosclerotic heart disease of [place] coronary artery without angina pectoris (5) COPD exacerbation Priority: Primary Status: Acute (6) Tobacco use Priority: Secondary Status: Acute (7) CKD (chronic kidney disease), stage IV Priority: Secondary Status: Acute (8) Elevated troponin Priority: Primary Status: Acute (9) Hyperglycemia Priority: Primary Status: Acute (10) Heart failure with preserved ejection fraction Priority: Primary Status: Acute (11) CHF exacerbation Priority: Primary Status: Acute Qualifiers: Qualified Code(s): I50.33 - Acute on chronic diastolic (congestive) heart failure (12) DVT prophylaxis Priority: Secondary Status: Acute - Discharge Medications Prescriptions: Azithromycin [Zithromax] 500 mg PO DAILY 3 Days #3 tablet Buprenorphine [Butrans] 15 mcg TD QWEEK 7 Days #1 patch.tdwk Gabapentin [Neurontin] 300 mg PO BID #4 capsule predniSONE [PredniSONE] 40 mg PO DAILY #30 tablet Home Medications: Acetaminophen [Tylenol] 650 mg PO Q8H PRN 04/22/17 [History] Allopurinol [Zyloprim 100 MG] 50 mg PO DAILY 04/22/17 [History] Calcium Carbonate/Vitamin D3 [Calcium 500 + Vit D Caplet] 1 tab PO DAILY [History] Carvedilol [Coreg] 25 mg PO BID 04/22/17 [History] Docusate [Colace] 100 mg PO BID PRN 04/22/17 [History] Escitalopram [Lexapro] 20 mg PO DAILY 04/22/17 [History] Finasteride [Proscar] 5 mg PO DAILY 04/22/17 [History] Furosemide [Lasix] 60 mg PO BID 04/22/17 [History] Ipratropium/Albuterol Neb [Duoneb] 3 ml IH Q6HR PRN 04/22/17 [History] Mirtazapine [Remeron] 45 mg PO HS 04/22/17 [History] NIFEdipine [Nifedipine ER] 30 mg PO DAILY 04/22/17 [History] Pantoprazole Sodium [Protonix] 40 mg PO DAILY 04/22/17 [History] Simvastatin [Zocor] 40 mg PO HS 04/22/17 [History] Terazosin [Hytrin] 1 mg PO HS 04/22/17 [History] Budesonide/Formoterol 160/4.5 [Symbicort 160/4.5] 1 puff IH BIDR #1 hfa.aer.ad 04/26/17 [Rx] Nut.tx.gluc.intoler,Lac-Fr,Soy [Glucerna] 1 can PO DAILY 05/10/17 [History] Apixaban [Eliquis] 2.5 mg PO BID #60 tablet 05/14/17 [Rx] Cholecalciferol (D-3) [Vitamin D] 1,000 unit PO DAILY #30 tablet 05/14/17 [Rx] Nicotine Patch [Nicoderm] 14 mg TD DAILY #30 patch.td24 05/14/17 [Rx] Silvasorb 1 appl TP DAILY tube 05/14/17 [Rx] levoFLOXacin [Levaquin] 750 mg PO Q48H #2 tablet 05/14/17 [Rx] Azithromycin [Zithromax] 500 mg PO DAILY 3 Days #3 tablet 05/20/17 [Rx] predniSONE [PredniSONE] 40 mg PO DAILY #30 tablet 05/20/17 [Rx] Buprenorphine [Butrans] 15 mcg TD QWEEK 7 Days #1 patch.tdwk 05/21/17 [Rx] Gabapentin [Neurontin] 300 mg PO BID #4 capsule 05/21/17 [Rx] Allergies/Adverse Reactions: 3 Allergy/AdvReac Type Severity Reaction Status Date / Time atorvastatin [From Lipitor] AdvReac See Verified 04/22/17 16:05 Comments baclofen AdvReac Drowsy Verified 04/22/17 16:05 fluorouracil [From Efudex] AdvReac See Verified 04/22/17 16:05 Comments sulfamethoxazole AdvReac See Verified 04/22/17 16:05 [From Bactrim] Comments trimethoprim [From Bactrim] AdvReac See Verified 04/22/17 16:05 Comments Procedures/tests Complete & Pending: Procedures Performed prior 72 hours Category Date Time Status RANDY [EV ankle brachial index BI] Routine Y 05/18/17 14:38 Completed Date of admission: 05/16/17 17:57 [facility] Consults: 05/17/17 13:42 Consult to Podiatry [CONS] Stat Consulting Provider: [facility] Reason for Consult: Per Danica Michelle in wound. The new area to bottom of right foot that has developed over the last 5 days. Call Completed: No Discharging clinician: Jeyson Hathaway Anticipated date of discharge: 05/20/17 - Patient Status Disposition: Home Health Service Condition: Serious Functional capacity at discharge: wheelchair bound Overall status at discharge: patient is back to baseline - Discharge Instructions Instructions: Prednisone (By mouth), Azithromycin (By mouth), Gabapentin (By mouth), Chronic Obstructive Pulmonary Disease (DC) Follow Up With: [facility] [Primary Care Provider[facility] - Additional Instructions: 1. Follow-up with your primary care provider in the next 3-5 days 2. Take all prescriptions as prescribed, any concerns or questions contact her primary care provider. 3. Return to the emergency department if: Worsening of shortness of breath, chest pain, chest pressure, any other concerning medical symptoms or signs. - Diet and Activity Activity: increase activity as tolerated Diet: diabetic diet Interval History: Mr. Jackson is a 71 year old male with a PMH of CKD stage IV, CHF, COPD, A. fib, HTN, HLT. He was recently admitted and treated for acute respiratory failure with hypoxia and hypercapnia as well as CHF. He was admitted to the general medical floor and placed on cardiac monitoring given IV steroids, placed on IV antibiotics and breathing treatments. He was also placed on IV Lasix for treatment of excess fluid. He was treated for COPD and CHF exacerbation. Throughout his inpatient stay he showed steady improvement resolution of his diminished respiratory status. However he did require nasal cannula oxygen at 2 L to maintain oxygen saturations greater than 88%. Likely secondary to his underlying respirations disease and exacerbation of his heart failure. He is seen and evaluated on 05/31/2017 deemed stable for discharge home with close follow-up with his primary care provider. He is provided steroids and remainder of his antibiotics prior to discharge. Hospital course: Mr. Jackson is a 71 year old male - Time Spent with Patient Total time spent providing and/or coordinating discharge services: - Constitutional Vitals: Temp Pulse Resp BP Pulse Ox 98.1 F 106 20 148/90 93 05/20/17 07:00 05/20/17 07:00 05/20/17 07:44 05/20/17 07:00 05/20/17 07:44 General appearance: Present: cooperative, mild distress, A&O X 3, obese Exam: General: Patient alert, awake, oriented 3, interactive, in no acute distress HEENT: Normocephalic, atraumatic, pupils equal reactive to light, oral mucosa moist, poor dentition, neck supple trachea midline no palpable lymphadenopathy, no thyromegaly. Chest: Symmetric bilateral correlating with respiratory effort, effort nonlabored. Cardiac: Irregularly irregular heart rate and rhythm, radial pulses 1+ bilateral , pulse a right lower extremity trace. Left lower extremity amputated secondary to vascular disease. Respiratory: CTABL Abdomen: Soft, nontender, positive bowel sounds, no palpable masses appreciated on examination Extremities: Left lower extremity amputation above the knee one year ago, right lower extremity diminished pulses and posterior tibial and dorsal pedal, skin shows poor vascularization with contraction of skin and ulcers around the toes. Neurologic: No focal deficits appreciated on examination. Face symmetric <Sohail Tamayo - Last Filed: 05/21/17 17:29> Date of Encounter: 05/21/17 - Discharge Diagnosis (1) Acute respiratory failure with hypoxia and hypercapnia Status: Resolved (2) Acute exacerbation of chronic obstructive airways disease Priority: Primary Status: Resolved (3) CHF exacerbation Status: Acute Qualifiers: Qualified Code(s): I50.33 - Acute on chronic diastolic (congestive) heart failure (4) Coronavirus infection Priority: Secondary Status: Resolved (5) CKD (chronic kidney disease), stage IV Status: Chronic (6) Tobacco use Status: Chronic (7) Atrial fibrillation Status: Chronic Qualifiers: Atrial fibrillation type: persistent Qualified Code(s): I48.1 - Persistent atrial fibrillation (8) Hypertension Priority: Secondary Status: Chronic Qualifiers: Hypertension type: essential hypertension Qualified Code(s): I10 - Essential (primary) hypertension (9) CAD (coronary artery disease) Status: Chronic Qualifiers: Coronary Disease-Associated Artery/Lesion type: [place] artery [place] vs. transplanted heart: [place] heart Associated angina: without angina Qualified Code(s): I25.10 - Atherosclerotic heart disease of [place] coronary artery without angina pectoris Date of admission: 05/16/17 17:57 [facility] care physician: [facility] Consults: 05/17/17 13:42 Consult to Podiatry [CONS] Stat Consulting Provider: [facility] Reason for Consult: Per Danica Michelle in wound. The new area to bottom of right foot that has developed over the last 5 days. Call Completed: No 05/20/17 10:59 Consult to Occupational Therapy [CONS] Stat Comment: Evaluate, develop and implement POC Reason for Consult: physical decompensation Consult to Physical Therapy [CONS] Stat Comment: Evaluate, develop and implement POC Reason for Consult: physical decompensation 05/20/17 14:41 Consult to Life Sciences Manager [CONS] Routine Reason for SW Consult: PT recommending SNF; and [facility]; [facility] second choice Hospital course: Mr. Jackson is a 71 year old male - Time Spent with Patient Total time spent providing and/or coordinating discharge services: 38min - Constitutional Vitals: Temp Pulse Resp BP Pulse Ox 97.7 F 105 16 148/85 93 05/21/17 08:18 05/21/17 08:18 05/21/17 16:19 05/21/17 08:18 05/21/17 16:19 - Attending Attestation I examined this patient and my medical decision-making was reviewed with the Resident Physician on 05/21/17. I agree with the documented findings, disposition and treatment plan as described except to the extent set forth below. Mr Jackson has been admitted for resp failure due to COPD, CHF and viral infection. He has agreed to go to SNF. He is afebrile but is quite deconditioned and dyspneic with movement. He is ready for discharge to SNF Exam alert. Mild resp distress at rest Heart distant Diffuse rhonchi noted Plan D/C to SNF today.
--- NOTE | 2017-05-20 09:54 | Physician Discharge Referral ---
Home Health/Hosp Referral Info Transfer to: Home Health - Diagnosis (1) Acute respiratory failure with hypoxia and hypercapnia Priority: Primary Status: Acute (2) Arterial insufficiency with ischemic ulcer Priority: Secondary Status: Acute (3) Atrial fibrillation Priority: Primary Status: Chronic (4) CAD (coronary artery disease) Priority: Secondary Status: Chronic (5) COPD exacerbation Priority: Primary Status: Acute (6) Tobacco use Priority: Secondary Status: Acute (7) Acute CHF Priority: Primary Status: Acute (8) CKD (chronic kidney disease), stage IV Priority: Secondary Status: Acute (9) Elevated troponin Priority: Primary Status: Acute (10) Hyperglycemia Priority: Primary Status: Acute (11) DVT prophylaxis Priority: Secondary Status: Acute - Respiratory Orders Oxygen / L per min (2L N/C) Smoking Cessation: Smoking cessation has been advised. For more information, call the [place] Tobacco Quit Line at 2-557-TIXI-NOW. - Diet/Nutrition Diet/Nutrition Orders: No Added Salt (VIKRAM), Renal, Cardiac - Activity Activity Orders: Ambulate, Chair - Services Needed Following services are medically necessary services: Nursing, Home Health Aide, Physical Therapy, Occupational Therapy, Med Social Work - Transfer Medications Prescriptions: Azithromycin [Zithromax] 500 mg PO DAILY 3 Days #3 tablet predniSONE [PredniSONE] 40 mg PO DAILY #30 tablet Home Medications: Acetaminophen [Tylenol] 650 mg PO Q8H PRN 04/22/17 [History] Allopurinol [Zyloprim 100 MG] 50 mg PO DAILY 04/22/17 [History] Buprenorphine [Butrans] 15 mcg TD QWEEK 04/22/17 [History] Calcium Carbonate/Vitamin D3 [Calcium 500 + Vit D Caplet] 1 tab PO DAILY [History] Carvedilol [Coreg] 25 mg PO BID 04/22/17 [History] Docusate [Colace] 100 mg PO BID PRN 04/22/17 [History] Escitalopram [Lexapro] 20 mg PO DAILY 04/22/17 [History] Finasteride [Proscar] 5 mg PO DAILY 04/22/17 [History] Furosemide [Lasix] 60 mg PO BID 04/22/17 [History] Ipratropium/Albuterol Neb [Duoneb] 3 ml IH Q6HR PRN 04/22/17 [History] Mirtazapine [Remeron] 45 mg PO HS 04/22/17 [History] NIFEdipine [Nifedipine ER] 30 mg PO DAILY 04/22/17 [History] Pantoprazole Sodium [Protonix] 40 mg PO DAILY 04/22/17 [History] Simvastatin [Zocor] 40 mg PO HS 04/22/17 [History] Terazosin [Hytrin] 1 mg PO HS 04/22/17 [History] Budesonide/Formoterol 160/4.5 [Symbicort 160/4.5] 1 puff IH BIDR #1 hfa.aer.ad 04/26/17 [Rx] Nut.tx.gluc.intoler,Lac-Fr,Soy [Glucerna] 1 can PO DAILY 05/10/17 [History] Apixaban [Eliquis] 2.5 mg PO BID #60 tablet 05/14/17 [Rx] Cholecalciferol (D-3) [Vitamin D] 1,000 unit PO DAILY #30 tablet 05/14/17 [Rx] Gabapentin [Neurontin] 300 mg PO BID #30 capsule 05/14/17 [Rx] Nicotine Patch [Nicoderm] 14 mg TD DAILY #30 patch.td24 05/14/17 [Rx] Silvasorb 1 appl TP DAILY tube 05/14/17 [Rx] levoFLOXacin [Levaquin] 750 mg PO Q48H #2 tablet 05/14/17 [Rx] Azithromycin [Zithromax] 500 mg PO DAILY 3 Days #3 tablet 05/20/17 [Rx] predniSONE [PredniSONE] 40 mg PO DAILY #30 tablet 05/20/17 [Rx] Allergies/Adverse Reactions: 3 Allergy/AdvReac Type Severity Reaction Status Date / Time atorvastatin [From Lipitor] AdvReac See Verified 04/22/17 16:05 Comments baclofen AdvReac Drowsy Verified 04/22/17 16:05 fluorouracil [From Efudex] AdvReac See Verified 04/22/17 16:05 Comments sulfamethoxazole AdvReac See Verified 04/22/17 16:05 [From Bactrim] Comments trimethoprim [From Bactrim] AdvReac See Verified 04/22/17 16:05 Comments Certification: Further, I certify that my clinical findings support that this patient is homebound (i.e. absences from home require considerable and taxing effort and are for medical reasons or evangelical services or infrequently or short duration when for other reasons) because: Homebound Reason: Patient requires assistance of a person or device to safely leave home, Altered mental status requiring supervision when leaving home, Severity of cardiac or pulmonary status limits activity tolerance Attestation: My signature below is to certify that this patient is under my care and that I, or nurse practitioner, or a physician's therapist's assistant working with me, has a face-to -face encounter with this patient.
[2017-05-20] MEDS: Insulin LISPRO 300 UNITS/3 ML VIAL SQ SCH ×4 (10:10→22:19)
[2017-05-20] MEDS: Cholecalciferol (D-3) 1,000 UNIT TABLET PO SCH (10:20)
[2017-05-20] MEDS: Furosemide 40 MG/4 ML VIAL IVP SCH (10:20)
[2017-05-20] MEDS: NIFEdipine XL (24 HR) 30 MG TAB.ER.24 PO SCH (10:20)
[2017-05-20] MEDS: Azithromycin 250 MG TABLET PO SCH (10:21)
[2017-05-20] MEDS: Apixaban 2.5 MG TABLET PO SCH ×2 (10:21→22:24)
[2017-05-20] MEDS: Gabapentin 300 MG CAPSULE PO SCH ×2 (10:22→22:24)
[2017-05-20] MEDS: Finasteride 5 MG TABLET PO SCH (10:22)
[2017-05-20] MEDS: Nicotine 14 MG PATCH.TD24 TD SCH (10:23)
[2017-05-20] MEDS: predniSONE 20 MG TABLET PO SCH (10:25)
[2017-05-20] MEDS: Silvasorb 44.4 ML TUBE TP SCH (10:29)
--- NOTE | 2017-05-20 14:52 | Internal Med Progress Note ---
<Jeyson Hathaway Brain - Last Filed: 05/20/17 14:55> Date of Encounter: 05/20/17 Time of Encounter: 14:50 - Assessment and plan (1) Acute respiratory failure with hypoxia and hypercapnia Current Visit: Yes Status: Acute Assessment and plan: Patient presents with acute on chronic respiratory failure, initial blood gas 7.23, PCO2 84 (Now 58), PO2 186, Bicarb 38 O2 99%. Patients respiratory status improved with BiPAP. Multifactoral in the setting of COPD exacerbation, Diastolic CHF 05/18/2017: No improvement in respiratory status today. Patient weaned down oxygen requirement slowly. Continue current management 05/19/2017: Mild improvement respiratory status, patient oxygen saturations improved on stable nasal cannula oxygen settings. Lung examination demonstrates improvement risk for status. Weaning steroids. 05/20: Patient feels well, asking for discharge. Restrict as much as improved around baseline. Patient requiring 2 L nasal Oxygen. Plan: - Continue treatment plan for COPD exacerbation - Continue steroids. - Continue IV Lasix and fluid restrictions the treatment of diastolic heart failure exacerbation - Continue Eliquis - Wean oxygen as tolerated. (2) Arterial insufficiency with ischemic ulcer Current Visit: No Status: Acute Assessment and plan: Known history of peripheral artery disease, seen by podiatry. 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 - Continue Eliquis (3) Atrial fibrillation Current Visit: Yes Status: Chronic Assessment and plan: Known history of atrial fibrillation, currently rate controlled. - Continue cardiac monitoring and rate control Qualifiers: Atrial fibrillation type: persistent Qualified Code(s): I48.1 - Persistent atrial fibrillation (4) CAD (coronary artery disease) Current Visit: No Status: Chronic Assessment and plan: Mr. Jackson has a significant cardiovascular history with known L before meals several years ago at [facility] with recommendations for CABG for which she refused at that time. - Significant peripheral arterial disease resulting in left lower extremity [id number]-[id number] amputation and poor perfusion as the right lower extremity with cutaneous findings. - Documented allergy to atorvastatin patient is tolerating simvastatin 40 mg by mouth at bedtime. Continue tight glucose control. Qualifiers: Coronary Disease-Associated Artery/Lesion type: bois forte artery [place] vs. transplanted heart: bo[place] heart Associated angina: without angina Qualified Code(s): I25.10 - Atherosclerotic heart disease of [place] coronary artery without angina pectoris (5) COPD exacerbation Current Visit: No Status: Acute Assessment and plan: Patient presents with increasing wheezing, shortness of breath, increased sputum production. - Continue azithromycin daily for total of 5 days (Day 4/5) - Prednisone 40 mg by mouth daily - Continue duo nebs and breathing treatments - Wean oxygen as tolerated (6) Tobacco use Current Visit: Yes Status: Acute Assessment and plan: Patient is an every day smoker with a [id number] history. - Nicotine patch when necessary and patient (7) Acute CHF Current Visit: Yes Status: Acute Assessment and plan: Patient presents with Acute respiratory dcompensation in the setting of mild increase in pulmonary vasculature, diffuse rhonchi and trace edema in right LE. BNP 291. I believe the Respiratory failure is multifactoral and the CHF is partly contibuting. Impressions: Atrial fibrillation. LVEF 65%. Mild concentric left ventricular hypertrophy. Mild tricuspid regurgitation. Mild mitral regurgitation. Indeterminate diastolic function. 05/18/2017: Cumulative -2.7 L fluid balance, stable weight 05/19: Volume status improved, trace edema and lower extremity, pulmonary crackles improved. 05/20: Volume status stable. Plan: - Continue Lasix 40 mg IV twice a day or more a day, switched to home dose tomorrow. - 1.5 L fluid restriction, 2 g sodium restriction - Daily weights and strict intake and output monitoring Qualifiers: Congestive heart failure type: unspecified Qualified Code(s): I50.9 - Heart failure, unspecified (8) CKD (chronic kidney disease), stage IV Current Visit: Yes Status: Acute Assessment and plan: Chronic kidney disease stage IV, currently at baseline with creatinine and GFR. - Avoid nephrotoxic medications are renally dose antibiotics - Monitor in the setting of IV diuresis (9) Elevated troponin Current Visit: Yes Status: Acute Assessment and plan: Mild elevation in troponins from 0.19-0.11, chart review demonstrates average troponins around 0.04-0.07. Likely chronic elevation in troponins with chronic stage IV kidney disease and coronary artery disease. - Patient asymptomatic, elevation likely secondary to acute on chronic respiratory failure and hypercapnia. - Continue to monitor patient on telemetry (10) Hyperglycemia Current Visit: Yes Status: Acute Assessment and plan: Elevated glucose in the setting of prednisone IV. - Before meals at bedtime glucose checks Plan: - Levemir 5 units subcutaneous at bedtime - Medium dose sliding scale insulin - Hemoglobin A1c (11) DVT prophylaxis Current Visit: Yes Status: Acute Assessment and plan: Continue home Eliquis - Subjective Interval history: Mr. Jackson 71 M seen and evaluated this morning is awake alert interactive acute distress. He denies any pain, discomfort or concerns at this time. He denies using oxygen at home and currently requires 2 L nasal cannula oxygen. He feels he is ready for discharge home when medically stable. Denies any other concerns at this time. - Constitutional Vitals: Temp Pulse Resp BP Pulse Ox 98.1 F 106 20 148/90 94 05/20/17 07:00 05/20/17 07:00 05/20/17 11:10 05/20/17 07:00 05/20/17 11:10 General appearance: Present: cooperative, mild distress, A&O X 3, obese Exam: General: Patient alert, awake, oriented 3, interactive, in no acute distress HEENT: Normocephalic, atraumatic, pupils equal reactive to light, oral mucosa moist, poor dentition, neck supple trachea midline no palpable lymphadenopathy, no thyromegaly. Chest: Symmetric bilateral correlating with respiratory effort, effort nonlabored. Cardiac: Irregularly irregular heart rate and rhythm, radial pulses 1+ bilateral , pulse a right lower extremity trace. Left lower extremity amputated secondary to vascular disease. Respiratory: Clear to auscultation bilaterally Abdomen: Soft, nontender, positive bowel sounds, no palpable masses appreciated on examination Extremities: Left lower extremity amputation above the knee one year ago, right lower extremity diminished pulses and posterior tibial and dorsal pedal, skin shows poor vascularization with contraction of skin and ulcers around the toes. Trace lower extremity edema. Neurologic: No focal deficits appreciated on examination. Face symmetric Internal Medicine: Result - Labs CBC & Chem 7: 05/20/17 06:14 05/20/17 07:02 Labs: Short CBC 05/20/17 Range/Units 06:14 WBC 6.8 (4.3-11.1) K/mcL Hgb 9.4 L (12.9-16.9) g/dL Hct 29.7 L (37.5-50.1) % Plt Count 104 L (140-400) K/mcL Neutrophils # 5.5 (1.6-8.9) K/mcL BMP 02/08/18 07:02 Sodium 144 Potassium 4.1 Chloride 104 Carbon Dioxide 36 H BUN 92 H Creatinine 2.50 H Glucose 131 H Calcium 8.0 L Liver Function 05/20/17 Range/Units 07:02 Total Bilirubin 0.5 (0.3-1.0) mg/dL AST 24 (13-39) Units/L ALT 53 H (7-52) Units/L Alkaline Phosphatase 97 (34-104) Units/L Albumin 3.1 L (3.5-5.7) g/dL - ABG Interpretation ABG results: ABG ABG pH 7.39 pH Units (7.32-7.45) 05/17/17 08:05 ABG pCO2 58 mmHg (35-45) H 05/17/17 08:05 ABG pO2 88 mmHg (85-104) 05/17/17 08:05 ABG O2 Saturation 96 % (95-98) 05/17/17 08:05 PT/INR, D-dimer PT 11.7 Seconds (9.4-12.1) 05/16/17 12:52 Consult Discharge Plan - Plan Instructions: Chronic Obstructive Pulmonary Disease (DC) Additional Instructions: 1. Follow-up with your primary care provider in the next 3-5 days 2. Take all prescriptions as prescribed, any concerns or questions contact her primary care provider. 3. Return to the emergency department if: Worsening of shortness of breath, chest pain, chest pressure, any other concerning medical symptoms or signs. [facility] Provider[facility] - Prescriptions: Azithromycin [Zithromax] 500 mg PO DAILY 3 Days #3 tablet predniSONE [PredniSONE] 40 mg PO DAILY #30 tablet <Sohail Tamayo - Last Filed: 05/20/17 17:29> Date of Encounter: 05/20/17 - Assessment and plan (1) Acute respiratory failure with hypoxia and hypercapnia Current Visit: Yes Status: Acute (2) Acute exacerbation of chronic obstructive airways disease Current Visit: Yes Status: Acute (3) CHF exacerbation Current Visit: Yes Status: Acute Qualifiers: Congestive heart failure type: diastolic Qualified Code(s): I50.33 - Acute on chronic diastolic (congestive) heart failure (4) Coronavirus infection Current Visit: Yes Status: Acute (5) CKD (chronic kidney disease), stage IV Current Visit: Yes Status: Acute (6) Tobacco use Current Visit: Yes Status: Acute (7) Atrial fibrillation Current Visit: Yes Status: Chronic Qualifiers: Atrial fibrillation type: persistent Qualified Code(s): I48.1 - Persistent atrial fibrillation (8) Hypertension Current Visit: Yes Status: Chronic Qualifiers: Hypertension type: essential hypertension Qualified Code(s): I10 - Essential (primary) hypertension (9) CAD (coronary artery disease) Current Visit: No Status: Chronic Qualifiers: Coronary Disease-Associated Artery/Lesion type: [place] artery [place] vs. transplanted heart: [place] heart Associated angina: without angina Qualified Code(s): I25.10 - Atherosclerotic heart disease of [place] coronary artery without angina pectoris - Constitutional Vitals: Temp Pulse Resp BP Pulse Ox 98.1 F 19 20 144/89 95 05/20/17 07:00 05/20/17 15:00 05/20/17 15:50 05/20/17 15:00 05/20/17 15:50 Internal Medicine: Result - Labs CBC & Chem 7: 05/20/17 06:14 05/20/17 07:02 Labs: Short CBC 05/20/17 Range/Units 06:14 WBC 6.8 (4.3-11.1) K/mcL Hgb 9.4 L (12.9-16.9) g/dL Hct 29.7 L (37.5-50.1) % Plt Count 104 L (140-400) K/mcL Neutrophils # 5.5 (1.6-8.9) K/mcL BMP 05/20/17 07:02 Sodium 144 Potassium 4.1 Chloride 104 Carbon Dioxide 36 H BUN 92 H Creatinine 2.50 H Glucose 131 H Calcium 8.0 L Liver Function 05/20/17 Range/Units 07:02 Total Bilirubin 0.5 (0.3-1.0) mg/dL AST 24 (13-39) Units/L ALT 53 H (7-52) Units/L Alkaline Phosphatase 97 (34-104) Units/L Albumin 3.1 L (3.5-5.7) g/dL - ABG Interpretation ABG results: ABG ABG pH 7.39 pH Units (7.32-7.45) 05/17/17 08:05 ABG pCO2 58 mmHg (35-45) H 05/17/17 08:05 ABG pO2 88 mmHg (85-104) 05/17/17 08:05 ABG O2 Saturation 96 % (95-98) 05/17/17 08:05 PT/INR, D-dimer PT 11.7 Seconds (9.4-12.1) 05/16/17 12:52 - Attending Attestation I examined this patient and my medical decision-making was reviewed with the Resident Physician on 05/20/17. I agree with the documented findings, disposition and treatment plan as described except to the extent set forth below. Mr Jackson is currently admitted for acute resp failure and CHF/COPD exac. He remains moderate to high risk due to potential for worsening clinical status. Mr Jackson is still congested. No fever. He was to be discharged today and his is at bedside. She is concerned about his weakness and continued readmissions to the hospital. He agrees to consider rehab if warranted. Exam alert> Comfortable in bed Mucus membranes dry Heart distant Lungs with rhonchi bilaterally. Abd soft Edema present I/P 1. Resp failure 2. CHF PT/OT evals for possible SNF Further diagnoses and plan as above.
[2017-05-20] MEDS: Insulin DETEMIR 100 UNIT/ML X5UNITS SQ SCH (22:25)
[2017-05-20] MEDS: Mirtazapine 15 MG TABLET PO SCH (22:25)
[2017-05-21] MEDS: Ipratropium/Albuterol Neb 3 ML IH SCH ×5 (00:15→16:19)
[2017-05-21] MEDS: Budesonide/Formoterol 160/4.5 MDI IH SCH (08:18)
[2017-05-21 08:19] VITALS: BP 148/85
[2017-05-21] MEDS: Nicotine 14 MG PATCH.TD24 TD SCH (09:28)
[2017-05-21] MEDS: NIFEdipine XL (24 HR) 30 MG TAB.ER.24 PO SCH (09:30)
[2017-05-21] MEDS: Gabapentin 300 MG CAPSULE PO SCH (09:31)
[2017-05-21] MEDS: Apixaban 2.5 MG TABLET PO SCH (09:31)
[2017-05-21] MEDS: Cholecalciferol (D-3) 1,000 UNIT TABLET PO SCH (09:31)
[2017-05-21] MEDS: Finasteride 5 MG TABLET PO SCH (09:31)
[2017-05-21] MEDS: predniSONE 20 MG TABLET PO SCH (09:31)
[2017-05-21] MEDS: Insulin LISPRO 300 UNITS/3 ML VIAL SQ SCH ×2 (09:32→13:17)
--- NOTE | 2017-05-21 15:04 | Physician Discharge Referral ---
ExtendedCare Referral Info Transfer To: [facility] Provider in Charge after Transfer: PCP Institutional Level of Care: Skilled - Diagnosis (1) Acute respiratory failure with hypoxia and hypercapnia Priority: Primary Status: Resolved (2) Acute exacerbation of chronic obstructive airways disease Priority: Primary Status: Resolved (3) CHF exacerbation Status: Acute (4) Coronavirus infection Priority: Secondary Status: Resolved (5) CKD (chronic kidney disease), stage IV Priority: Secondary Status: Chronic (6) Tobacco use Priority: Secondary Status: Chronic (7) Atrial fibrillation Priority: Secondary Status: Chronic (8) Hypertension Priority: Secondary Status: Chronic (9) CAD (coronary artery disease) Priority: Secondary Status: Chronic Expected Duration of Placement: Less than 30 days Prognosis: Fair Aware of Diagnosis: Patient, Family Aware of Prognosis: Patient, Family - Transfer Medications Prescriptions: Azithromycin [Zithromax] 500 mg PO DAILY 3 Days #3 tablet predniSONE [PredniSONE] 40 mg PO DAILY #30 tablet Home Medications: Acetaminophen [Tylenol] 650 mg PO Q8H PRN 04/22/17 [History] Allopurinol [Zyloprim 100 MG] 50 mg PO DAILY 04/22/17 [History] Buprenorphine [Butrans] 15 mcg TD QWEEK 04/22/17 [History] Calcium Carbonate/Vitamin D3 [Calcium 500 + Vit D Caplet] 1 tab PO DAILY [History] Carvedilol [Coreg] 25 mg PO BID 04/22/17 [History] Docusate [Colace] 100 mg PO BID PRN 04/22/17 [History] Escitalopram [Lexapro] 20 mg PO DAILY 04/22/17 [History] Finasteride [Proscar] 5 mg PO DAILY 04/22/17 [History] Furosemide [Lasix] 60 mg PO BID 04/22/17 [History] Ipratropium/Albuterol Neb [Duoneb] 3 ml IH Q6HR PRN 04/22/17 [History] Mirtazapine [Remeron] 45 mg PO HS 04/22/17 [History] NIFEdipine [Nifedipine ER] 30 mg PO DAILY 04/22/17 [History] Pantoprazole Sodium [Protonix] 40 mg PO DAILY 04/22/17 [History] Simvastatin [Zocor] 40 mg PO HS 04/22/17 [History] Terazosin [Hytrin] 1 mg PO HS 04/22/17 [History] Budesonide/Formoterol 160/4.5 [Symbicort 160/4.5] 1 puff IH BIDR #1 hfa.aer.ad 04/26/17 [Rx] Nut.tx.gluc.intoler,Lac-Fr,Soy [Glucerna] 1 can PO DAILY 05/10/17 [History] Apixaban [Eliquis] 2.5 mg PO BID #60 tablet 05/14/17 [Rx] Cholecalciferol (D-3) [Vitamin D] 1,000 unit PO DAILY #30 tablet 05/14/17 [Rx] Gabapentin [Neurontin] 300 mg PO BID #30 capsule 05/14/17 [Rx] Nicotine Patch [Nicoderm] 14 mg TD DAILY #30 patch.td24 05/14/17 [Rx] Silvasorb 1 appl TP DAILY tube 05/14/17 [Rx] levoFLOXacin [Levaquin] 750 mg PO Q48H #2 tablet 05/14/17 [Rx] Azithromycin [Zithromax] 500 mg PO DAILY 3 Days #3 tablet 05/20/17 [Rx] predniSONE [PredniSONE] 40 mg PO DAILY #30 tablet 05/20/17 [Rx] Allergies/Adverse Reactions: 3 Allergy/AdvReac Type Severity Reaction Status Date / Time atorvastatin [From Lipitor] AdvReac See Verified 04/22/17 16:05 Comments baclofen AdvReac Drowsy Verified 04/22/17 16:05 fluorouracil [From Efudex] AdvReac See Verified 04/22/17 16:05 Comments sulfamethoxazole AdvReac See Verified 04/22/17 16:05 [From Bactrim] Comments trimethoprim [From Bactrim] AdvReac See Verified 04/22/17 16:05 Comments - Respiratory Orders Oxygen / L per min (Maintain saturation of 88%) Smoking Cessation: Smoking cessation has been advised. For more information, call the [place] Tobacco Quit Line at 8-211-JVLN-NOW. - Lab Orders Lab Orders: 2 Step Mantoux Test per State regulation - Ancillary Orders May use pressure relief devices daily prn, May consult with Dentist, [employer] Clerk, Software Analyst PRN - Advance Directives Code Status: Full Code - History and Physical History/Physical reviewed & approved w/add comments: Less dyspneic - Mobility Orders Chair, Ambulate - Rehabiliation Orders Rehab Orders: Evaluation for Physical Therapy, Evaluation for Occupational Therapy - Treatments Skin tear care topically daily PRN per policy, May check for fecal impaction rectally daily PRN, Fleet enema rectally every other day PRN cleansing purposes - Diet Orders No Added Salt (VIKRAM), No Concentrated Sweets CERTIFICATION: I certify that the transfer of the above named patient to an Extended Care Facility is necessary for the continuing treatment of the diagnosis listed. The above information is true and accurate reflection of patient's current condition. Confidential - Redisclosure prohibited without a patient's written consent.
[2017-05-21] MEDS: Acetaminophen 325 MG TABLET PO PRN (17:03)
== END 2017-05-21 17:30 | disposition home health service (06) | DRG 291 ==
LOC: EMEROO 12:02 → 2NENU 12:02 → SUATTDRO 17:57
PROVIDERS: ADMIT Internal Medicine; ATTEND Internal Medicine

== ENCOUNTER 2018-03-29 09:29 | Inpatient (IN) ==
[2018-03-29] MEDS ORDERED: Naloxone 0.4 MG/ML INJ IVP PRN (12:57)
[2018-03-29 14:04] LABS: Basophils % 0.2 %; Hematocrit 25.5 % (37.5-50.1); Hemoglobin 7.9 g/dL (12.9-16.9); Immature Granulocytes % 1.1 % (0-4); Lymphocytes # 0.2 K/mcL (0.6-4.6); Mean Corpuscular Hemoglobin 29.5 pg (28.0-33.3); Mean Corpuscular Volume 95.1 fL (83.0-100.0); Mean Platelet Volume 10.2 fL (9.4-12.4); Monocytes # 0.1 K/mcL (0.0-1.3); Monocytes % 1.6 %; Neutrophils # 5.4 K/mcL (1.6-8.9); Red Blood Count 2.68 M/mcL (4.19-5.50); Red Cell Distribution Width 17.3 % (11.5-14.5); Segmented Neutrophils % 94.1 %
[2018-03-29 14:05] LABS: Platelet Count 96 K/mcL (140-400)
[2018-03-29 14:07] LABS: Platelet Estimate Slight Decrease (Normal)
[2018-03-29 14:20] LABS: INR 1.1; Prothrombin Time 12.8 Seconds (9.4-12.1)
[2018-03-29 14:26] LABS: Calcium 8.6 mg/dL (8.6-10.3); Phosphorous 3.6 mg/dL (2.7-4.5); Potassium 4.8 mEq/L (3.5-5.1)
[2018-03-29] MEDS ORDERED: Azithromycin 250 MG in D5% in Water 250 ML IVPB SCH (15:00)
--- NOTE | 2018-03-29 15:30 | Internal Med History&Physical ---
<Kip Oro - Last Filed: 03/29/18 16:27> Date of Encounter: 03/29/18 Internal Medicine - H&P: HPI History of present illness: Mr. Jackson is a 72 year old male Internal Medicine - H&P: Meds Acetaminophen [Tylenol] 650 mg PO Q8H PRN 04/22/17 [History] Allopurinol [Zyloprim 100 MG] 100 mg PO DAILY 04/22/17 [History] Calcium Carbonate/Vitamin D3 [Calcium 500 + Vit D Caplet] 1 tab PO DAILY 04/22/17 [History] Carvedilol [Coreg] 25 mg PO BID 04/22/17 [History] Docusate [Colace] 100 mg PO BID 04/22/17 [History] Escitalopram [Lexapro] 20 mg PO DAILY 04/22/17 [History] Finasteride [Proscar] 5 mg PO DAILY 04/22/17 [History] Furosemide [Lasix] 60 mg PO BID 04/22/17 [History] Ipratropium/Albuterol Neb [Duoneb] 3 ml IH Q6HR 04/22/17 [History] Mirtazapine [Remeron] 45 mg PO HS 04/22/17 [History] NIFEdipine [Nifedipine ER] 30 mg PO DAILY 04/22/17 [History] Simvastatin [Zocor] 40 mg PO HS 04/22/17 [History] Terazosin [Hytrin] 1 mg PO HS 04/22/17 [History] Budesonide/Formoterol 160/4.5 [Symbicort 160/4.5] 1 puff IH BIDR #1 hfa.aer.ad 04/26/17 [Rx] Nut.tx.gluc.intoler,Lac-Fr,Soy [Glucerna] 1 can PO DAILY 05/10/17 [History] Apixaban [Eliquis] 2.5 mg PO BID #60 tablet 05/14/17 [Rx] Cholecalciferol (D-3) [Vitamin D] 1,000 unit PO DAILY #30 tablet 05/14/17 [Rx] Gabapentin [Neurontin] 300 mg PO BID #4 capsule 05/21/17 [Rx] Buprenorphine [Butrans] 15 mcg TD FR 06/02/17 [History] Buspirone HCl [Buspar] 5 mg PO BID 06/02/17 [History] Multivitamin [One Daily Essential] 1 each PO DAILY 06/02/17 [History] Omeprazole [PriLOSEC] 20 mg PO DAILY 06/02/17 [History] Oxygen 4 l NS AD 06/02/17 [History] Ciprofloxacin OPTH Soln [Ciloxan OPTH Soln] 2 drop BOTH EYES Q4HR 5 Days bottle 06/10/17 [Rx] Ferrous Sulfate 325 mg PO DAILY@0800 tablet 06/10/17 [Rx] Nicotine Patch [Nicoderm] 21 mg TD DAILY patch.td24 06/10/17 [Rx] Sennosides/Docusate Sodium [Senna Plus] 2 each PO BID PRN tablet 06/10/17 [Rx] Allergy/AdvReac Type Severity Reaction Status Date / Time Amoxicillin [From Augmentin] AdvReac See Verified 06/02/17 19:38 Comments atorvastatin [From Lipitor] AdvReac See Verified 04/22/17 16:05 Comments baclofen AdvReac Drowsy Verified 04/22/17 16:05 clavulanic acid AdvReac See Verified 06/02/17 19:38 [From Augmentin] Comments fluorouracil [From Efudex] AdvReac See Verified 04/22/17 16:05 Comments hydroxyzine AdvReac See Verified 06/02/17 19:38 Comments sulfamethoxazole AdvReac See Verified 04/22/17 16:05 [From Bactrim] Comments trimethoprim [From Bactrim] AdvReac See Verified 04/22/17 16:05 Comments All Systems PM: A 10-system review of systems was performed and is negative for pertinent findings except as documented above in the HPI. - Constitutional Vitals: Temp Pulse Resp BP Pulse Ox 98.0 F 80 16 135/71 98 03/29/18 13:05 03/29/18 13:05 03/29/18 13:05 03/29/18 13:05 03/29/18 13:05 Internal Med - H&P Results - Labs CBC & Chem 7: 03/29/18 13:15 03/29/18 13:15 Labs: Short CBC 03/29/18 Range/Units 13:15 WBC 5.7 (4.3-11.1) K/mcL Hgb 7.9 L (12.9-16.9) g/dL Hct 25.5 L (37.5-50.1) % Plt Count 96 L (140-400) K/mcL Neutrophils # 5.4 (1.6-8.9) K/mcL BMP 03/29/18 13:15 Sodium 134 L Potassium 4.8 Chloride 98 Carbon Dioxide 30 H BUN 41 H Creatinine 2.25 H Glucose 148 H Calcium 8.6 Cardiac Enzymes 03/29/18 Range/Units 13:15 Troponin I 0.06 H* (< 0.04) ng/mL - ABG Interpretation ABG results: 03/29/18 15:26 ABG pH 7.41 ABG pCO2 51 H ABG pO2 65 L ABG HCO3 32 H ABG Total CO2 34 H ABG O2 Saturation 92 L ABG Base Excess 7 H - Time Spent With Patient Total time spent is greater than 50% in coordination of care (as documented) at patient's floor/unit and/or counseling patient: - Attending Attestation I examined this patient and my medical decision-making was reviewed with the Resident Physician. I agree with the documented findings, disposition and treatment plan as described except to the extent set forth below. 72 year old male with history of COPD and chronic respiratory failure on 2 L O2, atrial fibrillation, CHF, ESRD, history of DVT, decubitus ulcer, diabetes, history of VT presented as a transfer from [facility] with shortness of breath, malaise, muscle aches and increased oxygen requirements to 6 L O2. Per [facility] report, he had fever of 101 F at home. Patient history for us limited as patient mostly appears somnolent but responds to verbal stimuli. He does appear uncomfortable to me and states so as well. Lung exam limited as patient will not sit forward for me, but I do appreciated faint end experatory wheezing at apices. Right lower extremity has pedal edema, and patient has left BKA. A chest x-ray done at [facility] has no official read by radiologist done. He was given Azithromycin, Rocephin, and Levaquin, Solumedrol. His WBC was 6.3 K, H&H was 6.8 with MCV of 98 and he required transfusion of PRBC. He is currently hemodynamically stable. He reportedly had dialysis yesterday. Patient may be fluid overloaded and Nephrology is consulted for possible additional dialysis. He may also have bacterial infection, suspicious of lower resp tract infection. Further workup of respiratory failure will include CT without contrast. Monitor H&H and transfuse as needed. GI consult may be warranted pending monitoring patient. Troponin at [facility] was 0.07, will recheck now. <Jeyson Hathaway - Last Filed: 03/29/18 17:17> Date of Encounter: 03/29/18 Time of Encounter: 15:27 Internal Medicine - H&P: HPI Chief complaint: ams Admitted From: Home Plans for Post Hospital Care: Home History of present illness: Mr. Jackson is a 72 year old male past medical history of end-stage renal disease on dialysis, previous left lower extremity amputation, GERD, heart failure was transferred from [facility] after he was found to be altered and during their evaluation had anemia suspected GI bleed and transfuse 1 unit PRBCs. Upon evaluation here at Hospital he is altered unable to answer questions appears very lethargic yet vitals are stable. Labs and records were reviewed which were sent from [facility]. He received azithromycin, ceftriaxone and vancomycin for suspected pneumonia. He has a temporary dialysis port in his right upper chest without any signs of erythema or edema. The only concerning laboratory results sent from [facility] demonstrated pro-calcitonin of 0.25, BNP of 6000, hemoglobin of 6.8 prior to transfusion. Mr. Jackson is oriented 1 to self and difficult to arouse. No previous information is able to be obtained at this time they do not have family present or adequate documentation. Past Med Surg Social Fam HX - Past Medical History Medical history: atrial fibrillation, COPD, coronary artery disease, hyperlipidemia, hypertension, myocardial infarction, peripheral artery disease, renal disease Additional medical history: bowel obstruction hospitalized 03/2015 gtube to be removed 05/21/15 Psychiatric history: anxiety, depression - Past Surgical History Surgical History: angioplasty/stent, appendectomy, LE Bypass, LE vascular intervention, other (left AKA) Additional surgical history: , left AKA - Social History Smoking Status: Current every day smoker Smokeless Tobacco Status: No Alcohol use: none Drug use: none - Family History Father Living Status: Mother Adopted: No Living Status: Hx Family Cardiac Disorders: Yes Hx Family Respiratory Disorders: No Hx Family Cancer: No Hx Family GI Disorders: No Hx Family Endocrine Disorder: Yes Hx Family Neuromuscular Disorders: No Hx Family Neurologic Disorders: No Hx Family HEENT Disorders: No Hx Family Autoimmune Disorders: No ROS unobtainable: due to mental status All Systems PM: A 10-system review of systems was performed and is negative for pertinent findings except as documented above in the HPI. Review of systems: Positive for altered mental status - Constitutional Vitals: Temp Pulse Resp BP Pulse Ox 98.0 F 80 16 135/71 98 03/29/18 13:05 03/29/18 13:05 03/29/18 13:05 03/29/18 13:05 03/29/18 13:05 Exam: Gen. altered, oriented to self, lethargic HEENT normocephalic, atraumatic, able equal reactive to light, oral mucosa moist, neck supple trachea midline Cardiac regular rate rhythm, grade 2/6 systolic ejection murmur, radial pulses 2+ bilateral Chest symmetric bilateral, hemodialysis port right upper Respiratory diffuse crackles and wheezing , Abdomen soft nontender palpation positive bowel sounds Extremities left [id number] amputation no signs of erythema or edema, right lower extremity has 2+ pitting edema Internal Med - H&P Results - Labs CBC & Chem 7: 03/29/18 13:15 03/29/18 13:15 Labs: Short CBC 03/29/18 Range/Units 13:15 WBC 5.7 (4.3-11.1) K/mcL Hgb 7.9 L (12.9-16.9) g/dL Hct 25.5 L (37.5-50.1) % Plt Count 96 L (140-400) K/mcL Neutrophils # 5.4 (1.6-8.9) K/mcL BMP 03/29/18 13:15 Sodium 134 L Potassium 4.8 Chloride 98 Carbon Dioxide 30 H BUN 41 H Creatinine 2.25 H Glucose 148 H Calcium 8.6 Cardiac Enzymes 03/29/18 Range/Units 13:15 Troponin I 0.06 H* (< 0.04) ng/mL - Assessment and plan (1) Altered mental status Current Visit: Yes Status: Acute Assessment and plan: Patient transferred from [facility] with altered mental status, GI bleed, volume overload and suspected pneumonia - Current reason for altered mental status unknown but possible secondary to infection versus volume overload. - We will perform thorough workup including collecting blood cultures, urine culture, ammonia, TSH, blood gas, CT of the chest - Monitor vitals and correct any underlining problems such as current blood loss anemia and dialyzer volume overload Qualifiers: Qualified Code(s): R41.82 - Altered mental status, unspecified (2) Acute on chronic anemia Current Visit: Yes Status: Acute Assessment and plan: Patient history of chronic anemia in the setting of multiple chronic diseases. - Hemoglobin 6.8 at [facility] and received 1 unit PRBCs, current hemoglobin 7.9 - Gastroenterology consult. - Transfuse if hemoglobin falls below 8 - To six-hour hemoglobin monitoring (3) GI bleed Current Visit: Yes Status: Acute Assessment and plan: Patient transferred from [facility] after having a hemoglobin of 6.8 down from 11.5, 2 weeks ago. - He had received 1 unit PRBC transfusion and Route - H&H Q6hrs - Patient vitals are stable - No obvious bleeding per rectum - CXR and CT abdomen reviewed but no formal report on Pacs. - Gastroenterology consulted - NPO Transfuse PRBCs if H&H fall below 8 Qualifiers: Qualified Code(s): K92.2 - Gastrointestinal hemorrhage, unspecified (4) ESRD (end stage renal disease) on dialysis Current Visit: Yes Status: Acute Assessment and plan: 72-year-old male with temporary dialysis port right upper chest suspect recently started dialysis at least since May when his last chest x-ray was done and there was no dialysis port. - Unsure when his last episode of hemodialysis was, creatinine 2.2 - Clinically demonstrates volume overload - Consult placed to [facility] for evaluation and dialysis. (5) CHF exacerbation Current Visit: No Status: Acute Assessment and plan: Clinical picture of CHF exacerbation Last echocardiogram from 04/10/2017 demonstrates patient is atrial fibrillation, left ventricular ejection fraction 65%, mild concentric left ventricular hypertrophy, mild tricuspid regurg, mild nitroglycerin regurgitation - No recent studies, patient is altered and volume overloaded we will repeat echocardiogram at this time - Dialysis - Strict intake and output monitoring - Daily weights - BNP greater than 6000 - Altered mental status will avoid oral medications at this time. Awaiting pharmacy to verify medications prior to restarting. Qualifiers: Heart failure type: diastolic Qualified Code(s): I50.33 - Acute on chronic diastolic (congestive) heart failure (6) Elevated troponin Current Visit: No Status: Acute Assessment and plan: Mild elevation troponin likely secondary to volume overload and cardiac strain - We will trend 3 - Obtain echocardiogram - Cardiac monitoring (7) Atrial fibrillation Current Visit: No Status: Chronic Assessment and plan: History atrial fibrillation, unsure if he is on any anticoagulation but will hold in the setting of acute anemia likely GI bleed. - Continue cardiac monitoring Qualifiers: Atrial fibrillation type: persistent Qualified Code(s): I48.1 - Persistent atrial fibrillation (8) Hypertension Current Visit: No Status: Chronic Assessment and plan: History of hypertension, blood pressure appropriate at this time - Patient will receive dialysis - Awaiting medication verification prior to restarting any medications but will hold off until postdialysis Qualifiers: Hypertension type: essential hypertension Qualified Code(s): I10 - Essen tial (primary) hypertension (9) Pneumonia Current Visit: Yes Status: Acute Assessment and plan: Patient was treated at [facility] for possible pneumonia with ceftriaxone, azithromycin and vancomycin - Chest x-ray concerning for consolidation right lower lung base versus fluid. - Pro-calcitonin elevated at 0.25 but this may be secondary to end-stage renal disease and CHF. Plan: - Patient currently not septic - We will continue ceftriaxone and azithromycin, increase therapy if patient does not improve - Blood cultures, urine culture, TSH, electrolytes ordered Qualifiers: Lung location: lower lobe of lung Qualified Code(s): B59 - Pneumocystosis (10) DVT prophylaxis Current Visit: No Status: Acute Assessment and plan: SCD - Time Spent With Patient Total time spent is greater than 50% in coordination of care (as documented) at patient's floor/unit and/or counseling patient:
[2018-03-29 15:31] LABS: ABG Base Excess 7 mEq/L (-2 to 3); ABG HCO3 32 mEq/L (21-27); ABG Oxygen Saturation 92 % (95-98); ABG PCO2 51 mmHg (35-45); ABG PH 7.41 pH Units (7.32-7.45); ABG PO2 65 mmHg (85-104); ABG TCO2 34 mEq/L (20-26)
[2018-03-29] MEDS: Pantoprazole 40 MG VIAL IVP SCH ×2 (17:57)
[2018-03-29 18:25] LABS: Bilirubin,Urine Small (Negative); Blood,Urine Large (Negative); Clarity,Urine Turbid (Clear); Color,Urine Yellow (Yellow); Glucose,Urine (UA) Normal (Normal); Ketones,Urine Negative (Negative); Leukocyte Esterase,Urine Large (Negative); Nitrite,Urine Negative (Negative); Protein,Urine 100 mg/dL (Neg-Trace); Urobilinogen,Urine Normal (Normal)
[2018-03-29 18:27] LABS: WBC,Urine TNTC per hpf (0-3)
[2018-03-29 18:48] LABS: Squamous Epithelial Cell,Urine Few per lpf (None-Few); Yeast,Urine Many per hpf (None Seen)
[2018-03-29 18:49] LABS: RBC,Urine 0-3 per hpf (0-3)
[2018-03-29 18:52] LABS: Bacteria,Urine Few per hpf (None-Few)
[2018-03-29] MEDS ORDERED: *HR* Metoprolol 5 MG/5 ML VIAL IVP PRN (18:52)
[2018-03-29 19:30] LABS: Hematocrit 24.8 % (37.5-50.1); Hemoglobin 7.7 g/dL (12.9-16.9)
[2018-03-29 20:32] LABS: Adenovirus Not Detected (Not Detect); Coronavirus 229E Not Detected (Not Detect); Coronavirus HKU1 Not Detected (Not Detect); Coronavirus NL63 Not Detected (Not Detect); Coronavirus OC43 Not Detected (Not Detect); Human Metapneumovirus Not Detected (Not Detect); Human Rhinovirus/Enterovirus Not Detected (Not Detect)
[2018-03-29 20:33] LABS: Bordetella Pertussis Not Detected (Not Detect); Chlamydophila pneumoniae Not Detected (Not Detect); Influenza A Subtype 2009 H1 DETECTED (Not Detect); Influenza A Untypeable Not Detected (Not Detect); Influenza B Not Detected (Not Detect); Mycoplasma pneumoniae Not Detected (Not Detect); Parainfluenza Virus 1 Not Detected (Not Detect); Parainfluenza Virus 2 Not Detected (Not Detect); Parainfluenza Virus 3 Not Detected (Not Detect); Parainfluenza Virus 4 Not Detected (Not Detect); Respiratory Syncytial Virus Not Detected (Not Detect)
--- NOTE | 2018-03-29 21:28 | Nephrology Consult Note ---
Date of Encounter: 03/29/18 Time of Encounter: 16:31 Assessment and Plan (1) ESRD (end stage renal disease) on dialysis Current Visit: Yes Status: Acute HD MWF. Renal vitamins. Renal dose medications. Renal diet. Additional dialysis and ultrafiltration as needed. My evaluation I do not think the patient needs acute dialysis today. For dialysis tomorrow. (2) Altered mental status Current Visit: Yes Status: Acute His mental status seems to be improving as compared to this morning. Qualifiers: Qualified Code(s): R41.82 - Altered mental status, unspecified (3) Pneumonia Current Visit: Yes Status: Acute Per the primary team. Qualifiers: Lung location: lower lobe of lung Qualified Code(s): B59 - Pneumocystosis History of Present Illness - Reason for Consult Consult date: 03/29/18 end stage renal disease - Chief Complaint ESRD - History of Present Illness Mr. Jackson is a 72-year-old man with end-stage renal disease who receives dialysis Wednesday via right IJ tunneled catheter. He presents secondary to shortness of breath, fevers, and chills. At the time my evaluation he had family members at his bedside, his , and his daughter. The patient has not been feeling well for a few weeks, but over the last few days has had decreased appetite, and the morning of admission developed fevers and chills. At the time my evaluation he was more alert than he was upon admission, and his respiratory status had improved. The family was concerned about right back pain that has been present for several weeks without a known etiology. Disposition the primary team regarding this patient's care. he last received dialysis on Wednesday. Past Med Surg Social Fam HX - Past Medical History Medical history: atrial fibrillation, COPD, coronary artery disease, hyperlipidemia, hypertension, myocardial infarction, peripheral artery disease, renal disease Additional medical history: bowel obstruction hospitalized 03/2015 gtube to be removed 05/21/15 Psychiatric history: anxiety, depression - Past Surgical History Surgical History: angioplasty/stent, appendectomy, LE Bypass, LE vascular intervention, other (left AKA) Additional surgical history: , left AKA - Social History Smoking Status: Current every day smoker Smokeless Tobacco Status: No Alcohol use: none Drug use: none - Family History Father Living Status: Mother Adopted: No Living Status: Hx Family Cardiac Disorders: Yes Hx Family Respiratory Disorders: No Hx Family Cancer: No Hx Family GI Disorders: No Hx Family Endocrine Disorder: Yes Hx Family Neuromuscular Disorders: No Hx Family Neurologic Disorders: No Hx Family HEENT Disorders: No Hx Family Autoimmune Disorders: No Medications and Allergies Acetaminophen [Tylenol] 650 mg PO Q8H PRN 04/22/17 [History] Allopurinol [Zyloprim 100 MG] 100 mg PO DAILY 04/22/17 [History] Calcium Carbonate/Vitamin D3 [Calcium 500 + Vit D Caplet] 1 tab PO DAILY 04/22 [History] Carvedilol [Coreg] 25 mg PO BID 04/22/17 [History] Docusate [Colace] 100 mg PO BID 04/22/17 [History] Escitalopram [Lexapro] 20 mg PO DAILY 04/22/17 [History] Finasteride [Proscar] 5 mg PO DAILY 04/22/17 [History] Furosemide [Lasix] 60 mg PO BID 04/22/17 [History] Ipratropium/Albuterol Neb [Duoneb] 3 ml IH Q6HR 04/22/17 [History] Mirtazapine [Remeron] 45 mg PO HS 04/22/17 [History] NIFEdipine [Nifedipine ER] 30 mg PO DAILY 04/22/17 [History] Simvastatin [Zocor] 40 mg PO HS 04/22/17 [History] Terazosin [Hytrin] 1 mg PO HS 04/22/17 [History] Budesonide/Formoterol 160/4.5 [Symbicort 160/4.5] 1 puff IH BIDR #1 hfa.aer.ad 04/26/17 [Rx] Nut.tx.gluc.intoler,Lac-Fr,Soy [Glucerna] 1 can PO DAILY 05/10/17 [History] Apixaban [Eliquis] 2.5 mg PO BID #60 tablet 05/14/17 [Rx] Cholecalciferol (D-3) [Vitamin D] 1,000 unit PO DAILY #30 tablet 05/14/17 [Rx] Gabapentin [Neurontin] 300 mg PO BID #4 capsule 05/21/17 [Rx] Buprenorphine [Butrans] 15 mcg TD FR 06/02/17 [History] Buspirone HCl [Buspar] 5 mg PO BID 06/02/17 [History] Multivitamin [One Daily Essential] 1 each PO DAILY 06/02/17 [History] Omeprazole [PriLOSEC] 20 mg PO DAILY 06/02/17 [History] Oxygen 4 l NS AD 06/02/17 [History] Ciprofloxacin OPTH Soln [Ciloxan OPTH Soln] 2 drop BOTH EYES Q4HR 5 Days bottle 06/10/17 [Rx] Ferrous Sulfate 325 mg PO DAILY@0800 tablet 06/10/17 [Rx] Nicotine Patch [Nicoderm] 21 mg TD DAILY patch.td24 06/10/17 [Rx] Sennosides/Docusate Sodium [Senna Plus] 2 each PO BID PRN tablet 06/10/17 [Rx] Allergy/AdvReac Type Severity Reaction Status Date / Time Amoxicillin [From Augmentin] AdvReac See Verified 06/02/17 19:38 Comments atorvastatin [From Lipitor] AdvReac See Verified 04/22/17 16:05 Comments baclofen AdvReac Drowsy Verified 04/22/17 16:05 clavulanic acid AdvReac See Verified 06/02/17 19:38 [From Augmentin] Comments fluorouracil [From Efudex] AdvReac See Verified 04/22/17 16:05 Comments hydroxyzine AdvReac See Verified 06/02/17 19:38 Comments sulfamethoxazole AdvReac See Verified 04/22/17 16:05 [From Bactrim] Comments trimethoprim [From Bactrim] AdvReac See Verified 04/22/17 16:05 Comments Review of Systems All Systems: reviewed and no additional remarkable complaints except as stated (As documented in the history of present illness otherwise review of systems is negative or stable.) Exam - Vital Signs Vital signs: Initial Vital Signs Temp Pulse Resp BP Pulse Ox 98.0 F 80 16 135/71 98 03/29/18 13:05 03/29/18 13:05 03/29/18 13:05 03/29/18 13:05 03/29/18 13:05 Vital Signs - Last 8 Hours Temp Pulse Resp BP Pulse Ox 03/29/18 20:15 97.6 F 111 19 156/61 94 03/29/18 13:05 98.0 F 80 16 135/71 98 Intake and Output 03/29/18 03/29/18 03/29/18 07:59 15:59 23:59 Other: Weight 66 kg Patient Weight 03/29/18 23:59 Weight 66 kg - General Appearance General appearance: well-developed, well-nourished EENT: ATNC Neck: supple Respiratory: course breath sounds, rhonchi Cardiology: edema, regular rate - Dialysis Access Dialysis Vascular Access: Venous Catheter Gastrointestinal: no tenderness, obese Integumentary: warm and dry Neurologic: alert and oriented x3 Musculoskeletal: no cyanosis Psychiatric: mood/affect appropriate Results - Lab Results 03/29/18 19:04 03/29/18 13:15 Most recent lab results ABG pH 7.41 pH Units (7.32-7.45) 03/29/18 15:26 ABG pCO2 51 mmHg (35-45) H 03/29/18 15:26 ABG pO2 65 mmHg (85-104) L 03/29/18 15:26 ABG HCO3 32 mEq/L (21-27) H 03/29/18 15:26 ABG O2 Saturation 92 % (95-98) L 03/29/18 15:26 Calcium 8.6 mg/dL (8.6-10.3) 03/29/18 13:15 Phosphorus 3.6 mg/dL (2.7-4.5) 03/29/18 13:15 Magnesium 2.0 mg/dL (1.6-2.6) 03/29/18 13:15 Consult Discharge Plan - Plan Referrals: NONE,PCP [Primary Care Provider] -
[2018-03-29] MEDS: Cefepime HCl 1,000 MG in Water for inj. (sterile) 20 ML 10 ML IVP SCH (21:55)
[2018-03-29] MEDS: Levalbuterol Neb 1.25 MG/3 ML IH SCH (22:03)
[2018-03-29] MEDS ORDERED: Perflutren Lipid Microsphere 1.3 ML in 0.9 % Sodium Chloride 8.7 ML IVP ONE (22:04)
[2018-03-30] MEDS ORDERED: *HR* LORazepam 2 MG/ML VIAL IVP ONE ×2 (02:46→08:58)
[2018-03-30] MEDS: Levalbuterol Neb 1.25 MG/3 ML IH SCH ×4 (03:02→21:21)
[2018-03-30 04:30] LABS: Basophils % 0.3 %; Eosinophils % 0.1 %; Hemoglobin 7.7 g/dL (12.9-16.9); Immature Granulocytes % 2.2 % (0-4); Lymphocytes # 0.3 K/mcL (0.6-4.6); Lymphocytes % 4.1 %; Mean Corpuscular HGB Conc 32.1 g/dL (31.6-35.5); Mean Corpuscular Volume 93.4 fL (83.0-100.0); Mean Platelet Volume 10.5 fL (9.4-12.4); Monocytes # 0.4 K/mcL (0.0-1.3); Monocytes % 5.5 %; Neutrophils # 5.9 K/mcL (1.6-8.9); Nucleated Red Blood Cells 0.3 /100 WBC (0); Platelet Count 100 K/mcL (140-400); Red Blood Count 2.57 M/mcL (4.19-5.50); Red Cell Distribution Width 17.6 % (11.5-14.5); Segmented Neutrophils % 87.8 %
[2018-03-30 04:46] LABS: Calcium 8.7 mg/dL (8.6-10.3); Potassium 4.6 mEq/L (3.5-5.1)
[2018-03-30] MEDS: Pantoprazole 40 MG VIAL IVP SCH ×2 (06:24→18:06)
--- NOTE | 2018-03-30 07:33 | Internal Med Progress Note ---
Hospitalist Progress Note - Encounter Date of Encounter: 03/30/18 Time of Encounter: 07:30 - Exam Vitals: Temp Pulse Resp BP Pulse Ox 97.5 F L 93 18 147/70 100 03/30/18 06:41 03/30/18 06:41 03/30/18 06:41 03/30/18 06:41 03/30/18 06:41 Exam: Gen. altered, oriented to self, lethargic HEENT normocephalic, atraumatic, able equal reactive to light, oral mucosa moist, neck supple trachea midline Cardiac regular rate rhythm, grade 2/6 systolic ejection murmur, radial pulses 2+ bilateral Chest symmetric bilateral, hemodialysis port right upper Respiratory diffuse crackles and wheezing Abdomen soft nontender palpation positive bowel sounds Extremities left [id number] amputation no signs of erythema or edema, right lower extremity has 2+ pitting edema - Assessment and Plan (1) GI bleed Current Visit: Yes Status: Acute Assessment and Plan: Pt comes in with hemoglobin of 6.8 down from baseline of 11, likely secondary to acute GI bleed Transfused one unit of PRBC at [facility]. Will hold aspirin, plavix and eliquis On pronix 40mg IV BID. GI consulted and plan on endscopy/ colonoscopy (2) Atrial fibrillation with RVR Current Visit: Yes Status: Acute Assessment and Plan: Patient went into afib with RVR this am with HR in the 140s Received on dose of IV cardziem and IV toprol. Will resume home meds of po cardizem and beta blockers (3) Acute on chronic anemia Current Visit: Yes Status: Acute Assessment and Plan: See #1. Likely 2/2 to acute GI bleed (4) ESRD (end stage renal disease) on dialysis Current Visit: Yes Status: Acute Assessment and Plan: Resume dialysis per schedule (5) Pneumonia Current Visit: Yes Status: Acute Assessment and Plan: Patient has viral and bacterial community acquired pneumonia. Will continue antibiotics with vanc and cefepime Follow up blood cultures (6) COPD exacerbation Current Visit: No Status: Acute Assessment and Plan: Continue BIPAP, nebs, steroids and antibiotics (7) Diastolic CHF Current Visit: No Status: Chronic Assessment and Plan: Patient has acute worsening of chronic diastolic CHF. Started on lasix BID. Monitor ins and outs DVT Prophylaxis: SCD - Time Spent with Patient Total time spent is greater than 50% in coordination of care (as documented) at patient's floor/unit and/or counseling patient: Internal Medicine: Result - Labs CBC & Chem 7: 03/30/18 04:12 03/30/18 04:12 Labs: Short CBC 03/29/18 03/29/18 03/30/18 Range/Units 13:15 19:04 04:12 WBC 5.7 6.8 (4.3-11.1) K/mcL Hgb 7.9 L 7.7 L 7.7 L (12.9-16.9) g/dL Hct 25.5 L 24.8 L 24.0 L (37.5-50.1) % Plt Count 96 L 100 L (140-400) K/mcL Neutrophils # 5.4 5.9 (1.6-8.9) K/mcL BMP 03/29/18 03/30/18 13:15 04:12 Sodium 134 L 136 Potassium 4.8 4.6 Chloride 98 101 Carbon Dioxide 30 H 26 BUN 41 H 59 H Creatinine 2.25 H 2.51 H Glucose 148 H 120 H Calcium 8.6 8.7 Cardiac Enzymes 03/29/18 Range/Units 13:15 Troponin I 0.06 H* (< 0.04) ng/mL Urine 03/29/18 Range/Units 18:00 Urine Color Yellow (Yellow) Urine Clarity Turbid A (Clear) Urine pH 6.0 (5.0-8.0) pH Units Ur Specific [place] 1.010 (1.010-1.025) Urine Protein 100 H (Neg-Trace) mg/dL Urine Glucose (UA) Normal (Normal) mg/dL - ABG Interpretation ABG results: ABG ABG pH 7.41 pH Units (7.32-7.45) 03/29/18 15:26 ABG pCO2 51 mmHg (35-45) H 03/29/18 15:26 ABG pO2 65 mmHg (85-104) L 03/29/18 15:26 ABG O2 Saturation 92 % (95-98) L 03/29/18 15:26 PT/INR, D-dimer PT 12.8 Seconds (9.4-12.1) H 03/29/18 13:15 - Impressions Impressions Chest CT 03/29/18 15:24 IMPRESSION: There are diffuse tree-in-bud micro nodules seen throughout both lungs, and these are most compatible with infectious bronchiolitis. In addition, more focal nodular infiltrate is seen within the left upper lung, suggesting more focal pneumonia. There is diffuse bronchial wall thickening, compatible with acute and/or chronic bronchitis or reactive airways disease. In addition, there is debris within some of the airways, which may be inflammatory but correlate with any clinical evidence of aspiration. However, there is also a background of diffuse alveolar ground-glass opacity, with bilateral pleural effusions, and therefore a component of pulmonary edema should be considered as well. These changes should be followed to resolution with CT, especially that nodular airspace disease in the left upper lobe. D/ / Fadi Hopper MD / Fadi Hopper MD Interpreting Provider: Fadi Hopper MD Consult Discharge Plan - Plan Referrals: NONE,PCP [Primary Care Provider] - (1) GI bleed Qualifiers: Qualified Code(s): K92.2 - Gastrointestinal hemorrhage, unspecified (5) Pneumonia Qualifiers: Pneumonia type: due to unspecified organism Laterality: bilateral Lung location: lower lobe of lung Qualified Code(s): J18.1 - Lobar pneumonia, unspecified organism (7) Diastolic CHF Qualifiers: Qualified Code(s): I50.32 - Chronic diastolic (congestive) heart failure
[2018-03-30] MEDS ORDERED: *HR* Heparin 10,000 UNIT/10 ML VIAL IV PRN (08:04)
[2018-03-30] MEDS ORDERED: 0.9 % Sodium Chloride 250 ML IVC PRN (08:04)
[2018-03-30] MEDS ORDERED: 0.9 % Sodium Chloride 1,000 ML PRIME SCH (08:15)
[2018-03-30 08:30] LABS: Hepatitis B Surface Antigen Nonreactive (Nonreactive)
[2018-03-30 08:31] LABS: Hepatitis B Surface Antibody 266.38 mIU/mL
[2018-03-30] MEDS: *HR* LORazepam 0.5 MG TABLET PO PRN ×2 (08:41→15:30)
[2018-03-30] MEDS ORDERED: Azithromycin 250 MG in D5% in Water 250 ML IVPB SCH (09:00)
[2018-03-30] MEDS ORDERED: cefTRIAXone 1,000 MG in Water for inj. (sterile) 20 ML 10 ML IVP SCH (09:00)
[2018-03-30] MEDS ORDERED: cefTRIAXone 1,000 MG in 0.9 % Sodium Chloride Mini Bag 100 ML IVPB SCH (09:00)
[2018-03-30] MEDS: MethylPREDNISolone 40 MG/ML VIAL IVP SCH ×2 (09:29→15:31)
--- NOTE | 2018-03-30 09:37 | Nephrology Progress Note ---
Date of Encounter: 03/30/18 Time of Encounter: 09:36 - Assessment and Plan (1) ESRD (end stage renal disease) on dialysis Current Visit: Yes Status: Acute HD MWF. Renal vitamins. Renal dose medications. Renal diet. Additional dialysis and ultrafiltration as needed. Patient seen on dialysis. Secondary to volume overload state plan for ultrafiltration on .. (2) Altered mental status Current Visit: Yes Status: Acute Qualifiers: Qualified Code(s): R41.82 - Altered mental status, unspecified (3) Pneumonia Current Visit: Yes Status: Acute Qualifiers: Pneumonia type: due to unspecified organism Laterality: bilateral Lung location: lower lobe of lung Qualified Code(s): J18.1 - Lobar pneumonia, unspecified organism Subjective Principal diagnosis: eSRD Interval history: Patient seen on dialysis. No new complaint. Objective - Vital Signs Vital signs: Vital Signs Temp Pulse Resp BP Pulse Ox 03/30/18 06:41 97.5 F L 93 18 147/70 100 03/30/18 04:12 97.9 F 115 21 136/68 97 03/30/18 03:02 29 95 03/30/18 02:07 26 97 03/30/18 00:22 98.5 F 90 17 134/65 97 03/30/18 00:08 28 98 03/29/18 22:03 23 98 03/29/18 20:15 97.6 F 111 19 156/61 94 03/29/18 13:05 98.0 F 80 16 135/71 98 Intake and Output 03/29/18 03/30/18 03/30/18 23:59 07:59 15:59 Intake Total 260 / 260 Balance 260 / 260 Intake: IV Fluids 260 / 260 Maxipime 1,000 MG In Water for inj. (sterile) 10 ML @ 300 mls/ hr IVP Q24H WILLIAM Rx#:[id number] Vancocin 1,000 MG In 0.9 % 250 / 250 Sodium Chloride 250 ML @ 167 mls/hr IVPB ONCE ONE Rx#: [id number] - General Appearance General appearance: Present: well-developed EENT: Present: ATNC Neck: Present: supple Integumentary: Present: warm and dry Psychiatric: Present: mood/affect appropriate - Lab 03/30/18 04:12 03/30/18 04:12 Most recent lab results ABG pH 7.41 pH Units (7.32-7.45) 03/29/18 15:26 ABG pCO2 51 mmHg (35-45) H 03/29/18 15:26 ABG pO2 65 mmHg (85-104) L 03/29/18 15:26 ABG HCO3 32 mEq/L (21-27) H 03/29/18 15:26 ABG O2 Saturation 92 % (95-98) L 03/29/18 15:26 Calcium 8.7 mg/dL (8.6-10.3) 03/30/18 04:12 Phosphorus 3.6 mg/dL (2.7-4.5) 03/29/18 13:15 Magnesium 2.0 mg/dL (1.6-2.6) 03/29/18 13:15 Consult Discharge Plan - Plan Referrals: NONE,PCP [Primary Care Provider] -
[2018-03-30] MEDS ORDERED: Vancomycin 1 EACH in 0.9 % Sodium Chloride 250 ML IVPB PRN (11:00)
--- NOTE | 2018-03-30 11:13 | Gastroenterology Consult Note ---
Date of Encounter: 03/30/18 Time of Encounter: 10:00 - Assessment and plan (1) Anemia Current Visit: No Status: Chronic Assessment and plan: Hgb 6.8 and transfused [address] [facility]. On admission here, Hgb 7.9 and this AM Hgb 7.7. Continue to monitor CBC and transfuse PRBC as needed. Plan for EGD tomorrow to r/o esophagitis, gastritis, duodenitis, PUD, MW tear, or AVM. Keep patient NPO at midnight. Qualifiers: Anemia type: other cause Other causes of anemia: other cause, not classified Qualified Code(s): D64.89 - Other specified anemias (2) ESRD (end stage renal disease) on dialysis Current Visit: Yes Status: Acute Assessment and plan: Management per Nephrology. (3) Pneumonia Current Visit: Yes Status: Acute Assessment and plan: Management per primary team. Qualifiers: Lung location: lower lobe of lung Qualified Code(s): B59 - Pneumocystosis - Time Spent With Patient Total time spent is greater than 50% in coordination of care (as documented) at patient's floor/unit and/or counseling patient: GI History of Present Illness - Data of Consult Patient: known to practice within the last 3 years Consult date: 03/30/18 Requesting Physician: Kip Oro MD - Consult Narrative Reason for consult: GI Bleed History of present illness: Mr. Jackson is a 72 year old male with PMHx of ESRD on HD, left AKA, GERD, COPD, CAD, HLD, HTN, CT who was transferred from [facility] after he was found to be altered and during their evaluation had anemia suspected GI bleed with Hgb 6.8 and transfused 1 unit PRBCs. He was started on IV antibiotics for pneumonia. On admission here, Hgb 7.9 and this AM Hgb 7.7. We were consulted to evaluate his anemia. Procedures: Colonoscopy 04/18/2015 Dr. Eng: 7mm tubular adenoma. EGD Dr. Eng: Normal EGD 04/11/2015 Dr. Lopez: Peg placed, otherwise normal. NSAIDs: None Anticoagulation: Eliquis Past Med Surg Social Fam HX - Past Medical History Medical history: atrial fibrillation, COPD, coronary artery disease, hyperlipidemia, hypertension, myocardial infarction, peripheral artery disease, renal disease Additional medical history: bowel obstruction hospitalized 03/2015 gtube to be removed 05/21/15 Psychiatric history: anxiety, depression - Past Surgical History Surgical History: angioplasty/stent, appendectomy, LE Bypass, LE vascular intervention, other (left AKA) Additional surgical history: , left AKA - Social History Smoking Status: Current every day smoker Smokeless Tobacco Status: No Alcohol use: none Drug use: none - Family History Father Living Status: Mother Adopted: No Living Status: Hx Family Cardiac Disorders: Yes Hx Family Respiratory Disorders: No Hx Family Cancer: No Hx Family GI Disorders: No Hx Family Endocrine Disorder: Yes Hx Family Neuromuscular Disorders: No Hx Family Neurologic Disorders: No Hx Family HEENT Disorders: No Hx Family Autoimmune Disorders: No - Gastrointestinal Gastrointestinal: Present: as per HPI - Constitutional Constitutional: as per HPI - EENT Eyes: as per HPI Ears: Present: as per HPI Nose, mouth and throat: Present: as per HPI - Cardiovascular Cardiovascular ROS: Present: as per HPI - Respiratory Respiratory IM: Present: as per HPI - Genitourinary Genitourinary: Absent: change in color, Urinary frequency - Neurological ROS Neurological GI: Present: as per HPI - Hematologic/Lymphatic Hematologic/Lymphatic pediatric: Present: as per HPI - Musculoskeletal Musculoskeletal ROS GI: Present: as per HPI - Integumentary Integumentary GI: Present: as per HPI - Psychiatric ROS Psychiatric GI: Present: as per HPI - Endocrine Endocrine IM: Present: as per HPI - Constitutional Vitals: Temp Pulse Resp BP Pulse Ox 97.5 F L 93 18 147/70 100 03/30/18 06:41 03/30/18 06:41 03/30/18 06:41 03/30/18 06:41 03/30/18 06:41 General appearance: Present: cooperative, mild distress, A&O X 3, answers ques tions appropriately - Head Head exam: Present: atraumatic, normocephalic - Eye Eye exam: Present: normal appearance, sclera anicteric - ENT ENT exam: Present: mucous membranes moist - Neck Neck exam general surgery: Present: normal inspection, trachea midline - Respiratory Respiratory exam: Present: respiratory distress (mild), rhonchi, wheezes Additional comments: on BiPAP - Cardiovascular Cardiovascular exam: Present: RRR, +S1, +S2 - GI/Abdominal GI/Abdominal exam: Present: soft, no peritoneal signs. Absent: distended, firm, guarding, tenderness - Rectal Rectal exam: Present: deferred - Extremities Exam Extremities exam: Present: warm Additional comments: Left AKA - Neurological Exam Neurological exam: Present: no focal deficits - Psychiatric Psychiatric exam: Present: normal affect, normal mood - Skin Skin exam: Present: dry, intact, normal color, warm Results - Labs CBC & Chem 7: 03/30/18 04:12 03/30/18 04:12 Labs: Last Result Calcium 8.7 mg/dL (8.6-10.3) 03/30/18 04:12 Troponin I 0.06 ng/mL (< 0.04) H* 03/29/18 13:15 Entire Visit Hgb 7.7 g/dL (12.9-16.9) L 03/30/18 04:12 Hct 24.0 % (37.5-50.1) L 03/30/18 04:12 PT 12.8 Seconds (9.4-12.1) H 03/29/18 13:15 Ammonia 44 mcmol/L (16-53) 03/29/18 19:04 - ABG ABG results: ABG ABG pH 7.41 pH Units (7.32-7.45) 03/29/18 15:26 ABG pCO2 51 mmHg (35-45) H 03/29/18 15:26 ABG pO2 65 mmHg (85-104) L 03/29/18 15:26 ABG O2 Saturation 92 % (95-98) L 03/29/18 15:26 PT/INR, D-dimer PT 12.8 Seconds (9.4-12.1) H 03/29/18 13:15 - Impressions Impressions Echocardiogram 03/29/18 15:05 Impressions: LVEF 50-55%. Normal LV chamber size and systolic function. Mild concentric left ventricular hypertrophy. Indeterminate diastolic function. Normal right ventricular structure and function. Mildly dilated left atrium. Mild-moderate mitral regurgitation. Mild tricuspid regurgitation. Severe pulmonary hypertension. Left Ventricular Wall Motion: Rest Echo Findings All wall segments showed normal motion. Findings: Study Quality * Technically sub-optimal due to poor echocardiographic windows. ECG Findings * Atrial fibrillation. Left Ventricle * LVEF 50-55%. * Normal LV chamber size and systolic function. * Mild concentric left ventricular hypertrophy. * Indeterminate diastolic function. * Definity echo contrast was not used. Right Ventricle * Normal right ventricular structure and function. Left Atrium * Mildly dilated left atrium. Right Atrium * Normal right atrial size. Interatrial Septum * Interatrial septum not well evaluated. Aortic Valve * Aortic valve not well visualized. * No aortic stenosis. * No aortic regurgitation. Mitral Valve * Mildly calcified mitral valve leaflets. * Mild-moderate mitral regurgitation. * No mitral stenosis. Tricuspid Valve * Normal tricuspid valve structure. * No tricuspid stenosis. * Mild tricuspid regurgitation. * Estimated RVSP is 63 mmHg. * Estimated RA pressure is 8 mmHg. * Severe pulmonary hypertension. Pulmonic Valve * Pulmonic valve not well visualized. * No pulmonic stenosis. * No pulmonic regurgitation. Aorta * Normally sized aortic root. Pericardium * The pericardium appears normal. IVC * The IVC is not dilated. * < 50% respiratory change. Chest CT 03/29/18 15:24 IMPRESSION: There are diffuse tree-in-bud micro nodules seen throughout both lungs, and these are most compatible with infectious bronchiolitis. In addition, more focal nodular infiltrate is seen within the left upper lung, suggesting more focal pneumonia. There is diffuse bronchial wall thickening, compatible with acute and/or chronic bronchitis or reactive airways disease. In addition, there is debris within some of the airways, which may be inflammatory but correlate with any clinical evidence of aspiration. However, there is also a background of diffuse alveolar ground-glass opacity, with bilateral pleural effusions, and therefore a component of pulmonary edema should be considered as well. These changes should be followed to resolution with CT, especially that nodular airspace disease in the left upper lobe. D/ / Fadi Hopper MD / Fadi Hopper MD Interpreting Provider: Fadi Hopper MD Consult Discharge Plan - Plan Referrals: NONE,PCP [Primary Care Provider] -
[2018-03-30] MEDS ORDERED: Albumin 25% 25gram/100mL 25 GM/100 ML IV.SOLN IVPB ONE (11:15)
[2018-03-30] MEDS ORDERED: Albumin 25% 12.5gm/50mL 25.0 GM/100 ML IV.SOLN ONE (11:24)
[2018-03-30] MEDS ORDERED: BUPRENORPHINE 20 MCG TP SCH (15:00)
[2018-03-30] MEDS: Diltiazem CD (24hr) 120 MG CAPSULE PO SCH (15:30)
[2018-03-30] MEDS: Furosemide 20 MG/2 ML VIAL IVP SCH ×2 (15:31→18:08)
[2018-03-30] MEDS ORDERED: Vancomycin 500 MG in 0.9 % Sodium Chloride Mini Bag 100 ML IVPB ONE (16:00)
[2018-03-30] MEDS ORDERED: Furosemide 20 MG/2 ML VIAL IVP SCH (17:00)
[2018-03-30] MEDS ORDERED: Ipratropium/Albuterol Neb 3 ML IH SCH (18:00)
[2018-03-30] MEDS: Cefepime HCl 1,000 MG in Water for inj. (sterile) 20 ML 10 ML IVP SCH (18:06)
[2018-03-30] MEDS: Gabapentin 100 MG CAPSULE PO SCH (20:25)
[2018-03-30] MEDS: Mirtazapine 15 MG TABLET PO SCH (20:25)
[2018-03-30] MEDS ORDERED: Apixaban 5 MG TABLET PO SCH (21:00)
[2018-03-30] MEDS: Budesonide/Formoterol 160/4.5 1 PUFF INH IH SCH (21:21)
--- NOTE | 2018-03-30 22:39 | Anesthesia Evaluation PreOp ---
<Rene Tan - Last Filed: 03/30/18 22:55> Date of Encounter: 03/30/18 Time of Encounter: 22:37 - Past History Planned Operation: EGD Cardiac History: PA (1981), CHF, HTN, Hyperlipidemia, Arrhythmia (AFib), Other (CAD/PAD/Arterial insufficiency w/ischemic ulcers) Pulmonary History: Smoker, Pack/yr (1 ppd), COPD UTILIZATION ENGINEER History: Denies Any Significant HX Other Medical History: Renal (ESRD on Dialysis), Diabetes Type II, Other (Chronic Pain) Anesthesia History: No Prior Anesthetic Complications, Past Anesthesia (L-SFA Stent/Angioplasty 11/16/2014, Appy, LE Bypass, Multiple LE revascularization interventions, PEG tube, L-AKA) Alcohol Use: none Drug use: none Medications and Allergies Acetaminophen [Tylenol] 650 mg PO Q8H PRN 04/22/17 [History] Allopurinol [Zyloprim 100 MG] 100 mg PO DAILY 04/22/17 [History] Docusate [Colace] 100 mg PO BID 04/22/17 [History] Finasteride [Proscar] 5 mg PO DAILY 04/22/17 [History] Mirtazapine [Remeron] 45 mg PO HS 04/22/17 [History] NIFEdipine [Nifedipine ER] 30 mg PO DAILY 04/22/17 [History] Budesonide/Formoterol 160/4.5 [Symbicort 160/4.5] 1 puff IH BIDR #1 hfa.aer.ad 04/26/17 [Rx] Gabapentin [Neurontin] 300 mg PO BID #4 capsule 05/21/17 [Rx] Buspirone HCl [Buspar] 2.5 mg PO BID 06/02/17 [History] Multivitamin [One Daily Essential] 1 each PO DAILY 06/02/17 [History] Oxygen 4 l NS AD 06/02/17 [History] Ferrous Sulfate 325 mg PO DAILY@0800 tablet 06/10/17 [Rx] Apixaban [Eliquis] 5 mg PO BID 03/30/18 [History] Aspirin [Adult Aspirin] 81 mg PO DAILY 03/30/18 [History] Buprenorphine 20 mcg TD QWEEK 03/30/18 [History] Clopidogrel [Plavix] 75 mg PO DAILY 03/30/18 [History] Diltiazem CD (24hr) [Cardizem CD] 120 mg PO DAILY 03/30/18 [History] Furosemide [Lasix] 20 mg PO DAILY 03/30/18 [History] Ipratropium/Albuterol Neb [Duoneb] 3 ml IH Q6HR 03/30/18 [History] Losartan [Cozaar] 25 mg PO DAILY 03/30/18 [History] Metoprolol [Lopressor] 12.5 mg PO BID 03/30/18 [History] Montelukast [Singulair] 10 mg PO DAILY 03/30/18 [History] Pantoprazole Sodium [Protonix] 20 mg PO DAILY 03/30/18 [History] Roflumilast [Daliresp] 500 mcg PO DAILY 03/30/18 [History] Rosuvastatin [Crestor] 20 mg PO HS 03/30/18 [History] Tamsulosin HCl [Flomax] 0.4 mg PO DAILY 03/30/18 [History] Allergy/AdvReac Type Severity Reaction Status Date / Time Amoxicillin [From Augmentin] AdvReac See Verified 06/02/17 19:38 Comments atorvastatin [From Lipitor] AdvReac See Verified 04/22/17 16:05 Comments baclofen AdvReac Drowsy Verified 04/22/17 16:05 clavulanic acid AdvReac See Verified 06/02/17 19:38 [From Augmentin] Comments fluorouracil [From Efudex] AdvReac See Verified 04/22/17 16:05 Comments hydroxyzine AdvReac See Verified 06/02/17 19:38 Comments sulfamethoxazole AdvReac See Verified 04/22/17 16:05 [From Bactrim] Comments trimethoprim [From Bactrim] AdvReac See Verified 04/22/17 16:05 Comments - Meds/Allergy Pre-op Review Medications Reviewed: Yes Allergies Reviewed: Yes Beta Blockers on Current Med List: Yes If Beta Blockers taken, Date/Time (Last Dose taken): 03/30/18 @ 20:25 Anesthesia Results - Labs 03/30/18 04:12 03/30/18 04:12 Laboratory Tests 03/29/18 13:15 Troponin I 0.06 H* - Imaging EKG: report reviewed (ATRIAL FIBRILLATION WITH ABERRANT CONDUCTION OR VENTRICULAR PREMATURE COMPLEXES LBBB NONSPECIFIC ST & T-WAVE ABNORMALITY) Additional studies: Echocardiogram Name: Bayron Jackson Date of Study: 03/29/2018 EV/EV echocardiogram Impressions: LVEF 50-55%. Normal LV chamber size and systolic function. Mild concentric left ventricular hypertrophy. Indeterminate diastolic function. Normal right ventricular structure and function. Mildly dilated left atrium. Mild-moderate mitral regurgitation. Mild tricuspid regurgitation. Estimated RVSP is 63 mmHg. * Estimated RA pressure is 8 mmHg. * Severe pulmonary hypertension. Severe pulmonary hypertension. 04/10/17 Echo EF-65% Intermediate Diastolic dysfunction No pulm. HTN ECHO 09/10/2015 LVEF 60%, Moderate asymmetric LV basal septal hypertrophy. NO evidence of LVOT obstruction. Mild-Moderate MR, MIld TR, Moderate PUlmHTN/RVSP = 55mmHg) Anesthesia Exam Vital Signs/O2 Sat, Most Current Temp Pulse Resp BP Pulse Ox 99.4 F 85 20 122/71 100 03/30/18 18:53 03/30/18 18:53 03/30/18 21:23 03/30/18 18:53 03/30/18 21:23 - HEENT Pupil (Motor): Pupils equal, EOMI Mallampati: III Teeth: Edentulous - UTILIZATION ENGINEER LOC: Oriented UTILIZATION ENGINEER Motor: Normal RUE, Normal LUE, Normal RLE, Normal LLE, Normal Face UTILIZATION ENGINEER Sensory: Normal: RUE, LUE, RLE, LLE, Face - Cardiac Rhythm: Irregular Murmur: None JVD: No Carotid Bruit: No - Pulmonary Breath Sounds: bilateral Clear Respiratory Effort: Symmetrical Anesthesia Assess/Plan ASA Score: 4 Level of consciousness: Cooperative Anesthetic Plan: MAC Autologous Blood: Yes Monitoring Plan: Standard Monitors Recovery Plan: Other <Rene Thompson - Last Filed: 03/31/18 14:25> Date of Encounter: 03/31/18 - Past History Cardiac History: PA, CHF, HTN, Hyperlipidemia, Arrhythmia, Other Pulmonary History: Smoker, Pack/yr UTILIZATION ENGINEER History: Denies Any Significant HX Other Medical History: Renal, Diabetes Type II Anesthesia History: No Prior Anesthetic Complications, Past Anesthesia Anesthesia Results - Labs 03/31/18 07:18 03/31/18 07:18 Anesthesia Exam Height: 5'6 Weight: 145 lbs NPO (# of Hours): MN Pain Scale: 0 - HEENT Pupil (Motor): Pupils equal, EOMI Mallampati: III Teeth: Edentulous Oral Opening: Greater than 3 - UTILIZATION ENGINEER LOC: Oriented UTILIZATION ENGINEER Motor: Normal RUE, Normal LUE, Normal RLE, Normal LLE, Normal Face UTILIZATION ENGINEER Sensory: Normal: RUE, LUE, RLE, LLE, Face - Cardiac Rhythm: Irregular Murmur: None JVD: No Carotid Bruit: No - Pulmonary Breath Sounds: bilateral Clear Respiratory Effort: Symmetrical Anesthesia Assess/Plan ASA Score: 4 Level of consciousness: Cooperative Anesthetic Plan: MAC Autologous Blood: Yes Monitoring Plan: Standard Monitors Recovery Plan: Other (Discussed MAC, possible GA, agrees to proceed)
[2018-03-31] MEDS: MethylPREDNISolone 40 MG/ML VIAL IVP SCH ×3 (00:29→16:21)
[2018-03-31] MEDS: Levalbuterol Neb 1.25 MG/3 ML IH SCH ×4 (03:17→22:24)
[2018-03-31] MEDS: Pantoprazole 40 MG VIAL IVP SCH ×2 (05:46→17:39)
[2018-03-31] MEDS ORDERED: *HR* Heparin 10,000 UNIT/10 ML VIAL IV PRN (07:22)
[2018-03-31] MEDS ORDERED: 0.9 % Sodium Chloride 250 ML IVC PRN (07:22)
[2018-03-31] MEDS ORDERED: 0.9 % Sodium Chloride 1,000 ML PRIME SCH (07:30)
--- NOTE | 2018-03-31 07:47 | Internal Med Progress Note ---
Hospitalist Progress Note - Encounter Date of Encounter: 03/31/18 Time of Encounter: 07:45 - Exam Vitals: Temp Pulse Resp BP Pulse Ox 97.9 F 96 22 126/63 100 03/31/18 04:03 03/31/18 04:03 03/31/18 04:03 03/31/18 04:03 03/31/18 04:03 Exam: Gen. altered, oriented to self, lethargic HEENT normocephalic, atraumatic, able equal reactive to light, oral mucosa moist, neck supple trachea midline Cardiac regular rate rhythm, grade 2/6 systolic ejection murmur, radial pulses 2+ bilateral Chest symmetric bilateral, hemodialysis port right upper Respiratory diffuse crackles and wheezing Abdomen soft nontender palpation positive bowel sounds Extremities left [id number] amputation no signs of erythema or edema, right lower extremity has 2+ pitting edema - Assessment and Plan (1) GI bleed Current Visit: Yes Status: Acute Assessment and Plan: Pt comes in with hemoglobin of 6.8 down from baseline of 11, likely secondary to acute GI bleed Transfused one unit of PRBC at [facility]. Will hold aspirin, plavix and eliquis On protonix 40mg IV BID. GI consulted and plan on endoscopy/ colonoscopy (2) Diastolic CHF Current Visit: No Status: Chronic Assessment and Plan: Patient has acute worsening of chronic diastolic CHF. Started on lasix BID. Monitor ins and outs. Continue dialysis (3) Atrial fibrillation with RVR Current Visit: Yes Status: Acute Assessment and Plan: Patient went into afib with RVR this am with HR in the 140s Received on dose of IV cardziem and IV toprol. Will resume home meds of po cardizem and beta blockers (4) Acute on chronic anemia Current Visit: Yes Status: Acute Assessment and Plan: See #1. Likely 2/2 to acute GI bleed (5) ESRD (end stage renal disease) on dialysis Current Visit: Yes Status: Acute Assessment and Plan: Resume dialysis per schedule (6) Pneumonia Current Visit: Yes Status: Acute Assessment and Plan: Patient has viral and bacterial community acquired pneumonia. Will continue antibiotics with vanc and cefepime Follow up blood cultures (7) COPD exacerbation Current Visit: No Status: Acute Assessment and Plan: Continue BIPAP, nebs, steroids and antibiotics DVT Prophylaxis: SCD - Time Spent with Patient Total time spent is greater than 50% in coordination of care (as documented) at patient's floor/unit and/or counseling patient: Internal Medicine: Result - Labs CBC & Chem 7: 03/31/18 07:18 03/31/18 07:18 - ABG Interpretation ABG results: ABG ABG pH 7.41 pH Units (7.32-7.45) 03/29/18 15:26 ABG pCO2 51 mmHg (35-45) H 03/29/18 15:26 ABG pO2 65 mmHg (85-104) L 03/29/18 15:26 ABG O2 Saturation 92 % (95-98) L 03/29/18 15:26 PT/INR, D-dimer PT 12.8 Seconds (9.4-12.1) H 03/29/18 13:15 - Impressions Impressions Echocardiogram 03/29/18 15:05 Impressions: LVEF 50-55%. Normal LV chamber size and systolic function. Mild concentric left ventricular hypertrophy. Indeterminate diastolic function. Normal right ventricular structure and function. Mildly dilated left atrium. Mild-moderate mitral regurgitation. Mild tricuspid regurgitation. Severe pulmonary hypertension. Left Ventricular Wall Motion: Rest Echo Findings All wall segments showed normal motion. Findings: Study Quality * Technically sub-optimal due to poor echocardiographic windows. ECG Findings * Atrial fibrillation. Left Ventricle * LVEF 50-55%. * Normal LV chamber size and systolic function. * Mild concentric left ventricular hypertrophy. * Indeterminate diastolic function. * Definity echo contrast was not used. Right Ventricle * Normal right ventricular structure and function. Left Atrium * Mildly dilated left atrium. Right Atrium * Normal right atrial size. Interatrial Septum * Interatrial septum not well evaluated. Aortic Valve * Aortic valve not well visualized. * No aortic stenosis. * No aortic regurgitation. Mitral Valve * Mildly calcified mitral valve leaflets. * Mild-moderate mitral regurgitation. * No mitral stenosis. Tricuspid Valve * Normal tricuspid valve structure. * No tricuspid stenosis. * Mild tricuspid regurgitation. * Estimated RVSP is 63 mmHg. * Estimated RA pressure is 8 mmHg. * Severe pulmonary hypertension. Pulmonic Valve * Pulmonic valve not well visualized. * No pulmonic stenosis. * No pulmonic regurgitation. Aorta * Normally sized aortic root. Pericardium * The pericardium appears normal. IVC * The IVC is not dilated. * < 50% respiratory change. Consult Discharge Plan - Plan Referrals: NONE,PCP [Primary Care Provider] - (1) GI bleed Qualifiers: Qualified Code(s): K92.2 - Gastrointestinal hemorrhage, unspecified (6) Pneumonia Qualifiers: Pneumonia type: due to unspecified organism Laterality: bilateral Lung location: lower lobe of lung Qualified Code(s): J18.1 - Lobar pneumonia, unspecified organism
[2018-03-31 08:15] LABS: Calcium 9.1 mg/dL (8.6-10.3); Potassium 5.2 mEq/L (3.5-5.1)
[2018-03-31 08:25] LABS: Basophils % 0.3 %; Eosinophils % 0.2 %; Hematocrit 25.2 % (37.5-50.1); Immature Granulocytes % 3.7 % (0-4); Lymphocytes # 0.5 K/mcL (0.6-4.6); Lymphocytes % 7.3 %; Mean Corpuscular HGB Conc 31.7 g/dL (31.6-35.5); Mean Corpuscular Volume 94.4 fL (83.0-100.0); Mean Platelet Volume 10.9 fL (9.4-12.4); Monocytes # 0.3 K/mcL (0.0-1.3); Monocytes % 4.5 %; Neutrophils # 5.3 K/mcL (1.6-8.9); Nucleated Red Blood Cells 0.3 /100 WBC (0); Platelet Count 111 K/mcL (140-400); Red Blood Count 2.67 M/mcL (4.19-5.50); Red Cell Distribution Width 18.1 % (11.5-14.5)
[2018-03-31] MEDS ORDERED: Aspirin Enteric Coated 81 MG Tablet PO SCH (09:00)
[2018-03-31] MEDS ORDERED: NON-FORMULARY MEDICATION 1 EACH EACH (Roflumilast [Daliresp] 500 MCG) PO SCH (09:00)
[2018-03-31] MEDS ORDERED: Diltiazem CD (24hr) 120 MG CAPSULE PO SCH (09:00)
[2018-03-31 09:10] LABS: Reactive Lymphocytes Present (Not Present)
[2018-03-31 09:11] LABS: Platelet Estimate Slight Decrease (Normal)
[2018-03-31] MEDS: Finasteride 5 MG TABLET PO SCH (09:14)
[2018-03-31] MEDS: Renal Vitamin 1 CAP CAPSULE PO SCH (09:14)
[2018-03-31] MEDS: Gabapentin 100 MG CAPSULE PO SCH ×3 (09:14→21:44)
[2018-03-31] MEDS: Furosemide 20 MG/2 ML VIAL IVP SCH ×2 (09:18→16:22)
[2018-03-31] MEDS: NIFEdipine XL (24 HR) 30 MG TAB.ER.24 PO SCH (09:19)
[2018-03-31] MEDS: Diltiazem CD (24hr) 120 MG CAPSULE PO SCH (09:19)
--- NOTE | 2018-03-31 09:43 | Nephrology Progress Note ---
Date of Encounter: 03/31/18 Time of Encounter: 09:43 - Assessment and Plan (1) ESRD (end stage renal disease) on dialysis Current Visit: Yes Status: Acute HD MWF. Renal vitamins. Renal dose medications. Renal diet. Additional dialysis and ultrafiltration as needed. Patient seen on dialysis. Secondary to volume overload state he received ultrafiltration today. (2) Altered mental status Current Visit: Yes Status: Acute His mental status seems to be improving Qualifiers: Qualified Code(s): R41.82 - Altered mental status, unspecified (3) Pneumonia Current Visit: Yes Status: Acute Per the primary team. Qualifiers: Pneumonia type: due to unspecified organism Laterality: bilateral Lung location: lower lobe of lung Qualified Code(s): J18.1 - Lobar pneumonia, unspecified organism Subjective Principal diagnosis: eSRD Interval history: Patient seen on dialysis. No new complaint. He is receiving ultrafiltration today. His breathing is improved. Objective - Vital Signs Vital signs: Vital Signs Temp Pulse Resp BP Pulse Ox 03/31/18 09:25 106/48 03/31/18 09:10 108/60 03/31/18 08:55 112/64 03/31/18 08:40 97.7 F 20 119/57 03/31/18 08:00 97.9 F 103 16 129/65 100 03/31/18 04:03 97.9 F 96 22 126/63 100 03/31/18 03:19 22 100 03/31/18 00:19 97.4 F L 86 20 122/68 100 03/30/18 21:23 20 100 03/30/18 21:20 100 03/30/18 18:53 99.4 F 85 24 122/71 100 03/30/18 14:08 22 97 03/30/18 13:40 98.8 F 26 115/57 03/30/18 13:30 102/53 03/30/18 13:15 112/61 03/30/18 13:00 127/80 03/30/18 12:45 138/83 03/30/18 12:30 132/52 03/30/18 12:15 139/70 03/30/18 12:00 113/48 03/30/18 11:45 143/61 03/30/18 11:30 98/58 03/30/18 11:15 97/61 03/30/18 11:00 114/80 03/30/18 10:45 111/49 03/30/18 10:30 110/61 03/30/18 10:15 132/73 03/30/18 10:00 98.9 F 28 145/74 Intake and Output 03/30/18 03/31/18 03/31/18 23:59 07:59 15:59 Intake Total 720 / 720 Balance 720 / 720 Intake: Oral 120 / 120 Intake, Rinseback and Flushes 600 / 600 Other: Meal NPO Breakfast Percent of Meal Consumed 100% Stool Size Small Stool Consistency soft formed Stool Color Brown # Bowel Movements 1 Hemodialysis Net Fluid Removed 1353 (mL) - General Appearance General appearance: Present: well-developed EENT: Present: ATNC Neck: Present: supple Integumentary: Present: warm and dry Neurologic: Present: alert and oriented x3 Musculoskeletal: Present: no cyanosis Psychiatric: Present: mood/affect appropriate - Lab 03/31/18 07:18 03/31/18 07:18 Most recent lab results ABG pH 7.41 pH Units (7.32-7.45) 03/29/18 15:26 ABG pCO2 51 mmHg (35-45) H 03/29/18 15:26 ABG pO2 65 mmHg (85-104) L 03/29/18 15:26 ABG HCO3 32 mEq/L (21-27) H 03/29/18 15:26 ABG O2 Saturation 92 % (95-98) L 03/29/18 15:26 Calcium 9.1 mg/dL (8.6-10.3) 03/31/18 07:18 Phosphorus 3.6 mg/dL (2.7-4.5) 03/29/18 13:15 Magnesium 2.0 mg/dL (1.6-2.6) 03/29/18 13:15 Consult Discharge Plan - Plan Referrals: NONE,PCP [Primary Care Provider] -
[2018-03-31] MEDS: Budesonide/Formoterol 160/4.5 1 PUFF INH IH SCH ×2 (10:56→22:24)
[2018-03-31] MEDS ORDERED: *HR* Propofol 200 MG/20 ML VIAL IVP ONE ×2 (14:23→14:25)
[2018-03-31] MEDS ORDERED: Vancomycin 500 MG in 0.9 % Sodium Chloride Mini Bag 100 ML IVPB ONE (15:00)
[2018-03-31] MEDS: traMADol 50 MG TABLET PO PRN (17:40)
[2018-03-31] MEDS: Cefepime HCl 1,000 MG in Water for inj. (sterile) 20 ML 10 ML IVP SCH (18:15)
[2018-03-31] MEDS: Mirtazapine 15 MG TABLET PO SCH (21:44)
[2018-04-01] MEDS: MethylPREDNISolone 40 MG/ML VIAL IVP SCH ×3 (00:16→16:08)
[2018-04-01] MEDS: Levalbuterol Neb 1.25 MG/3 ML IH SCH ×4 (03:53→22:54)
[2018-04-01 04:42] LABS: Basophils % 0.2 %; Hematocrit 22.8 % (37.5-50.1); Hemoglobin 7.3 g/dL (12.9-16.9); Immature Granulocytes % 0.4 % (0-4); Lymphocytes # 0.2 K/mcL (0.6-4.6); Lymphocytes % 4.7 %; Mean Corpuscular Volume 93.8 fL (83.0-100.0); Mean Platelet Volume 10.2 fL (9.4-12.4); Monocytes # 0.1 K/mcL (0.0-1.3); Monocytes % 2.9 %; Neutrophils # 4.5 K/mcL (1.6-8.9); Platelet Count 107 K/mcL (140-400); Red Blood Count 2.43 M/mcL (4.19-5.50); Red Cell Distribution Width 17.8 % (11.5-14.5); Segmented Neutrophils % 91.8 %
[2018-04-01 05:02] LABS: Calcium 8.9 mg/dL (8.6-10.3); Magnesium 2.6 mg/dL (1.6-2.6); Phosphorous 6.2 mg/dL (2.7-4.5)
[2018-04-01] MEDS: Pantoprazole 40 MG VIAL IVP SCH (05:36)
[2018-04-01] MEDS ORDERED: *HR* Heparin 10,000 UNIT/10 ML VIAL IV PRN (07:32)
[2018-04-01] MEDS ORDERED: 0.9 % Sodium Chloride 250 ML IVC PRN (07:32)
[2018-04-01] MEDS ORDERED: 0.9 % Sodium Chloride 1,000 ML PRIME SCH (07:45)
--- NOTE | 2018-04-01 07:48 | Internal Med Progress Note ---
Hospitalist Progress Note - Encounter Date of Encounter: 04/01/18 Time of Encounter: 07:45 - Exam Vitals: Temp Pulse Resp BP Pulse Ox 98.1 F 103 18 117/66 100 04/01/18 06:27 04/01/18 06:27 04/01/18 06:27 04/01/18 06:27 04/01/18 06:27 Exam: Gen. altered, oriented to self, lethargic HEENT normocephalic, atraumatic, able equal reactive to light, oral mucosa moist, neck supple trachea midline Cardiac regular rate rhythm, grade 2/6 systolic ejection murmur, radial pulses 2+ bilateral Chest symmetric bilateral, hemodialysis port right upper Respiratory diffuse crackles and wheezing Abdomen soft nontender palpation positive bowel sounds Extremities left [id number] amputation no signs of erythema or edema, right lower extremity has 2+ pitting edema - Assessment and Plan (1) GI bleed Current Visit: Yes Status: Acute Assessment and Plan: Pt comes in with hemoglobin of 6.8 down from baseline of 11, likely secondary to acute GI bleed Transfused one unit of PRBC at [facility]. Will hold aspirin, plavix and eliquis s/p endoscopy showing non bleeding erosive gastropathy on 03/31. will start on carafate per GI recs and resume diet Will transfuse one unit PRBC today (2) Diastolic CHF Current Visit: Yes Status: Acute Assessment and Plan: Patient has acute worsening of chronic diastolic CHF. Started on lasix BID. Monitor ins and outs. Continue dialysis (3) COPD exacerbation Current Visit: Yes Status: Acute Assessment and Plan: Continue BIPAP, nebs, steroids and antibiotics (4) Atrial fibrillation with RVR Current Visit: Yes Status: Acute Assessment and Plan: Patient went into afib with RVR this am with HR in the 140s Received on dose of IV cardziem and IV toprol. Will resume home meds of po ca rdizem and beta blockers (5) Acute on chronic anemia Current Visit: Yes Status: Acute Assessment and Plan: See #1. Likely 2/2 to acute GI bleed (6) ESRD (end stage renal disease) on dialysis Current Visit: Yes Status: Acute Assessment and Plan: Resume dialysis per schedule (7) Pneumonia Current Visit: Yes Status: Acute Assessment and Plan: Patient has viral and bacterial community acquired pneumonia. Will continue antibiotics with vanc and cefepime Follow up blood cultures - Time Spent with Patient Total time spent is greater than 50% in coordination of care (as documented) at patient's floor/unit and/or counseling patient: Internal Medicine: Result - Labs CBC & Chem 7: 04/01/18 04:17 04/01/18 04:17 Labs: Short CBC 03/31/18 04/01/18 Range/Units 07:18 04:17 WBC 6.3 4.9 (4.3-11.1) K/mcL Hgb 8.0 L 7.3 L (12.9-16.9) g/dL Hct 25.2 L 22.8 L (37.5-50.1) % Plt Count 111 L 107 L (140-400) K/mcL Neutrophils # 5.3 4.5 (1.6-8.9) K/mcL BMP 03/31/18 04/01/18 07:18 04:17 Sodium 138 136 Potassium 5.2 H 4.0 Chloride 102 100 Carbon Dioxide 25 22 L BUN 54 H 84 H Creatinine 2.22 H 3.03 H Glucose 114 H 113 H Calcium 9.1 8.9 - ABG Interpretation ABG results: ABG ABG pH 7.41 pH Units (7.32-7.45) 03/29/18 15:26 ABG pCO2 51 mmHg (35-45) H 03/29/18 15:26 ABG pO2 65 mmHg (85-104) L 03/29/18 15:26 ABG O2 Saturation 92 % (95-98) L 03/29/18 15:26 PT/INR, D-dimer PT 12.8 Seconds (9.4-12.1) H 03/29/18 13:15 Consult Discharge Plan - Plan Referrals: NONE,PCP [Primary Care Provider] - (1) GI bleed Qualifiers: Qualified Code(s): K92.2 - Gastrointestinal hemorrhage, unspecified (7) Pneumonia Qualifiers: Pneumonia type: due to unspecified organism Laterality: bilateral Lung location: lower lobe of lung Qualified Code(s): J18.1 - Lobar pneumonia, unspecified organism
[2018-04-01] MEDS: NIFEdipine XL (24 HR) 30 MG TAB.ER.24 PO SCH (08:23)
[2018-04-01] MEDS: Diltiazem CD (24hr) 120 MG CAPSULE PO SCH (08:23)
[2018-04-01] MEDS: Finasteride 5 MG TABLET PO SCH (08:23)
[2018-04-01] MEDS: Gabapentin 100 MG CAPSULE PO SCH ×3 (08:24→20:53)
[2018-04-01] MEDS: Furosemide 20 MG/2 ML VIAL IVP SCH ×2 (08:24→16:08)
[2018-04-01] MEDS: Renal Vitamin 1 CAP CAPSULE PO SCH (08:24)
[2018-04-01] MEDS: Sucralfate 1 GM TABLET PO SCH ×4 (08:32→20:53)
--- NOTE | 2018-04-01 08:55 | Nephrology Progress Note ---
Date of Encounter: 04/01/18 Time of Encounter: 08:55 - Assessment and Plan (1) ESRD (end stage renal disease) on dialysis Current Visit: Yes Status: Acute HD MWF. Renal vitamins. Renal dose medications. Renal diet. Additional dialysis and ultrafiltration as needed. Patient seen on dialysis. (2) Altered mental status Current Visit: Yes Status: Acute His mental status seems to be improving Qualifiers: Qualified Code(s): R41.82 - Altered mental status, unspecified (3) Pneumonia Current Visit: Yes Status: Acute Per the primary team. Qualifiers: Pneumonia type: due to unspecified organism Laterality: bilateral Lung location: lower lobe of lung Qualified Code(s): J18.1 - Lobar pneumonia, unspecified organism Subjective Principal diagnosis: eSRD Interval history: Patient seen on dialysis. No new complaint. His breathing is improved. He was seen on dialysis. Objective - Vital Signs Vital signs: Vital Signs Temp Pulse Resp BP Pulse Ox 04/01/18 06:27 98.1 F 103 18 117/66 100 04/01/18 05:11 98.0 F 78 18 109/52 98 04/01/18 03:53 16 98 04/01/18 01:10 98.2 F 82 18 111/62 99 03/31/18 22:29 16 100 03/31/18 19:52 97.7 F 74 16 112/54 99 03/31/18 15:58 99 16 96/55 94 03/31/18 15:45 18 100 03/31/18 12:08 97.4 F L 112 16 118/66 98 03/31/18 10:57 97.4 F L 22 96/56 03/31/18 10:55 23 100 03/31/18 10:40 94/52 03/31/18 10:25 91/53 03/31/18 10:10 96/58 03/31/18 09:55 100/52 03/31/18 09:40 97/54 03/31/18 09:25 106/48 03/31/18 09:10 108/60 Intake and Output 03/31/18 04/01/18 04/01/18 23:59 07:59 15:59 Intake Total 1210 / 1210 Output Total 375 / 375 Balance 1210 / 1210 -375 / -375 Intake: IV Fluids 1210 / 1210 Maxipime 1,000 MG In Water for inj. (sterile) 10 ML @ 300 mls/ hr IVP Q24H [facility] Rx#:[id number] Vancocin 500 MG In 0.9 % Sodium 100 / 100 Chloride (Mini-Bag +) 100 ML @ 100 mls/hr IVPB ONCE ONE Rx#: [id number] 0.9 % Sodium Chloride 1,000 ML 1000 / 1000 @ As Directed PRIME .Q0M [facility] Rx #:[id number] Output: Catheter 375 / 375 - General Appearance General appearance: Present: well-developed, well-nourished EENT: Present: ATNC Neck: Present: supple Respiratory: Present: course breath sounds Cardiology: Present: no edema, regular rate Gastrointestinal: Present: no tenderness Integumentary: Present: warm and dry Neurologic: Present: alert and oriented x3 Musculoskeletal: Present: no cyanosis Psychiatric: Present: mood/affect appropriate - Lab 04/01/18 04:17 04/01/18 04:17 Most recent lab results ABG pH 7.41 pH Units (7.32-7.45) 03/29/18 15:26 ABG pCO2 51 mmHg (35-45) H 03/29/18 15:26 ABG pO2 65 mmHg (85-104) L 03/29/18 15:26 ABG HCO3 32 mEq/L (21-27) H 03/29/18 15:26 ABG O2 Saturation 92 % (95-98) L 03/29/18 15:26 Calcium 8.9 mg/dL (8.6-10.3) 04/01/18 04:17 Phosphorus 6.2 mg/dL (2.7-4.5) H 04/01/18 04:17 Magnesium 2.6 mg/dL (1.6-2.6) 04/01/18 04:17 Consult Discharge Plan - Plan Referrals: NONE,PCP [Primary Care Provider] -
[2018-04-01] MEDS: Budesonide/Formoterol 160/4.5 1 PUFF INH IH SCH ×2 (09:58→22:54)
--- NOTE | 2018-04-01 10:19 | Event Note ---
Date of Encounter: 04/01/18 Time of Encounter: 10:10 EGD with nonobstructing Schatzki ring, 2 cm hiatal hernia, gastritis, erosive duodenal but the without bleeding, nonbleeding erosive gastropathy, use Carafate 1 g 4 times a day. Hgb 7.3 this morning. Rectal exam today with no bright red blood or melena. Recommend transfusing PRBC, then can restart anticoagulation per Dr. Mack.
[2018-04-01] MEDS ORDERED: 0.9 % Sodium Chloride 1,000 ML ONE (12:09)
[2018-04-01] MEDS: traMADol 50 MG TABLET PO PRN ×2 (12:44→20:53)
--- NOTE | 2018-04-01 18:21 | Electrocardiograph Report ---
[address] [address] Test Date: 2018-03-30 Pat Name: Bayron Jackson Department: 109 Room: 2A25 Gender: M [facility] Administrator: : [id number] Requested By: Elodia Oro Order Number: [id number] Reading MD: Cindy Casas Measurements Intervals [place] Rate: 114 P: [place]: 0 QRS: -46 QRSD: 159 T: 99 QT: 302 QTc: 370 Interpretive Statements ATRIAL FIBRILLATION WITH RAPID VENTRICULAR RESPONSE MARKED LEFT AXIS DEVIATION POSSIBLE RIGHT VENTRICULAR CONDUCTION DELAY LEFT BUNDLE BRANCH BLOCK Electronically Signed On 04-01-2018 18:20:04 EST by Cindy Casas
[2018-04-01] MEDS: Cefepime HCl 1,000 MG in Water for inj. (sterile) 20 ML 10 ML IVP SCH (18:30)
[2018-04-01] MEDS: Mirtazapine 15 MG TABLET PO SCH (20:53)
[2018-04-02] MEDS: MethylPREDNISolone 40 MG/ML VIAL IVP SCH ×2 (00:18→08:24)
[2018-04-02] MEDS: traMADol 50 MG TABLET PO PRN (03:37)
[2018-04-02] MEDS: Levalbuterol Neb 1.25 MG/3 ML IH SCH ×2 (04:33→09:59)
[2018-04-02 05:11] LABS: Hematocrit 29.2 % (37.5-50.1); Immature Granulocytes % 0.8 % (0-4); Lymphocytes # 0.3 K/mcL (0.6-4.6); Lymphocytes % 6.3 %; Mean Corpuscular HGB Conc 31.8 g/dL (31.6-35.5); Mean Corpuscular Hemoglobin 29.2 pg (28.0-33.3); Mean Corpuscular Volume 91.5 fL (83.0-100.0); Mean Platelet Volume 10.3 fL (9.4-12.4); Monocytes # 0.2 K/mcL (0.0-1.3); Monocytes % 4.2 %; Neutrophils # 4.7 K/mcL (1.6-8.9); Platelet Count 111 K/mcL (140-400); Red Blood Count 3.19 M/mcL (4.19-5.50); Red Cell Distribution Width 17.5 % (11.5-14.5); Segmented Neutrophils % 88.7 %
[2018-04-02 05:19] LABS: Hemoglobin 9.3 g/dL (12.9-16.9)
[2018-04-02 05:26] LABS: Calcium 8.8 mg/dL (8.6-10.3); Magnesium 2.2 mg/dL (1.6-2.6); Phosphorous 3.5 mg/dL (2.7-4.5); Potassium 3.5 mEq/L (3.5-5.1)
--- NOTE | 2018-04-02 08:16 | Discharge Summary ---
Orders not resulted at time of discharge: Pending orders 03/29/18 18:00 Culture,Urine [RM] Stat 03/29/18 19:04 Culture,Blood [BC] Routine 04/03/18 04:00 Basic Metabolic Panel AM 0400 CBC [Complete Blood Count] [HEME] AM 0400 Magnesium AM 0400 Phosphorous AM 0400 04/04/18 04:00 Basic Metabolic Panel AM 0400 CBC [Complete Blood Count] [HEME] AM 0400 Magnesium AM 0400 Phosphorous AM 0400 04/05/18 04:00 Basic Metabolic Panel AM 0400 CBC [Complete Blood Count] [HEME] AM 0400 Magnesium AM 0400 Phosphorous AM 0400 04/06/18 04:00 Basic Metabolic Panel AM 0400 CBC [Complete Blood Count] [HEME] AM 0400 Magnesium AM 0400 Phosphorous AM 0400 Date of Encounter: 04/02/18 Time of Encounter: 08:00 - Discharge Diagnosis (1) GI bleed Priority: Primary Status: Acute Assessment and Plan: 72 year old male past medical history of end-stage renal disease on dialysis, previous left lower extremity amputation, GERD, heart failure was transferred from [facility] after he was found to be altered and during their evaluation had anemia suspected GI bleed and transfuse 1 unit PRBCs. Upon evaluation here at Hospital he is altered unable to answer questions appears very lethargic yet vitals are stable. Labs and records were reviewed which were sent from [facility]. He received azithromycin, ceftriaxone and vancomycin for suspected pneumonia. He has a temporary dialysis port in his right upper chest without any signs of erythema or edema He was assessed with anemia likely 2/2 to UGIB with hemoglobin of 6.8 down from baseline of 11. He was transfused one unit of PRBC at [facility]. He was seen by GI and had an endoscopy showing non bleeding erosive gastropathy on 03/31. He was started on carafate per GI recs and diet resumed. Post endoscopy, he was transf used one unit of PRBC after which his anticoagulation/antiplatelet agents were restarted He also had an acute COPD exacerbation, afib with RVR and diastolic CHF that resolved with medical management. He was discharged in a stable condition. 35minutes was spent discharging this patient Qualifiers: Qualified Code(s): K92.2 - Gastrointestinal hemorrhage, unspecified (2) COPD exacerbation Priority: Primary Status: Acute Assessment and Plan: Continue BIPAP, nebs, steroids and antibiotics (3) Atrial fibrillation with RVR Priority: Primary Status: Acute Assessment and Plan: Patient went into afib with RVR this am with HR in the 140s Received on dose of IV cardziem and IV toprol. Will resume home meds of po cardizem and beta blockers (4) Acute on chronic anemia Priority: Primary Status: Acute (5) ESRD (end stage renal disease) on dialysis Priority: Primary Status: Acute (6) Pneumonia Priority: Primary Status: Acute Qualifiers: Pneumonia type: due to unspecified organism Laterality: bilateral Lung location: lower lobe of lung Qualified Code(s): J18.1 - Lobar pneumonia, unspecified organism Hospital course: Mr. Jackson is a 72 year old male - Time Spent with Patient Total time spent providing and/or coordinating discharge services: - Discharge Medications Prescriptions: Azithromycin [Zithromax Tri-Baldemar] 500 mg PO DAILY 3 Days #3 tablet predniSONE [PredniSONE] 40 mg PO DAILY 10 Days #5 tablet Sucralfate [Carafate] 1 gm PO QIDAC 30 Days #120 tablet Home Medications: Acetaminophen [Tylenol] 650 mg PO Q8H PRN 04/22/17 [History] Allopurinol [Zyloprim 100 MG] 100 mg PO DAILY 04/22/17 [History] Docusate [Colace] 100 mg PO BID 04/22/17 [History] Finasteride [Proscar] 5 mg PO DAILY 04/22/17 [History] Mirtazapine [Remeron] 45 mg PO HS 04/22/17 [History] NIFEdipine [Nifedipine ER] 30 mg PO DAILY 04/22/17 [History] Budesonide/Formoterol 160/4.5 [Symbicort 160/4.5] 1 puff IH BIDR #1 hfa.aer.ad 04/26/17 [Rx] Gabapentin [Neurontin] 300 mg PO BID #4 capsule 05/21/17 [Rx] Buspirone HCl [Buspar] 2.5 mg PO BID 06/02/17 [History] Multivitamin [One Daily Essential] 1 each PO DAILY 06/02/17 [History] Oxygen 4 l NS AD 06/02/17 [History] Ferrous Sulfate 325 mg PO DAILY@0800 tablet 06/10/17 [Rx] Apixaban [Eliquis] 5 mg PO BID 03/30/18 [History] Aspirin [Adult Aspirin] 81 mg PO DAILY 03/30/18 [History] Buprenorphine 20 mcg TD QWEEK 03/30/18 [History] Clopidogrel [Plavix] 75 mg PO DAILY 03/30/18 [History] Diltiazem CD (24hr) [Cardizem CD] 120 mg PO DAILY 03/30/18 [History] Ipratropium/Albuterol Neb [Duoneb] 3 ml IH Q6HR 03/30/18 [History] Losartan [Cozaar] 25 mg PO DAILY 03/30/18 [History] Metoprolol [Lopressor] 12.5 mg PO BID 03/30/18 [History] Montelukast [Singulair] 10 mg PO DAILY 03/30/18 [History] Pantoprazole Sodium [Protonix] 20 mg PO DAILY 03/30/18 [History] Roflumilast [Daliresp] 500 mcg PO DAILY 03/30/18 [History] Rosuvastatin [Crestor] 20 mg PO HS 03/30/18 [History] Tamsulosin HCl [Flomax] 0.4 mg PO DAILY 03/30/18 [History] Azithromycin [Zithromax Tri-Baldemar] 500 mg PO DAILY 3 Days #3 tablet 04/02/18 [Rx] Furosemide [Lasix] 20 mg PO BID 30 Days #60 04/02/18 [Rx] Sucralfate [Carafate] 1 gm PO QIDAC 30 Days #120 tablet 04/02/18 [Rx] predniSONE [PredniSONE] 40 mg PO DAILY 10 Days #5 tablet 04/02/18 [Rx] Allergies/Adverse Reactions: Allergy/AdvReac Type Severity Reaction Status Date / Time Amoxicillin [From Augmentin] AdvReac See Verified 06/02/17 19:38 Comments atorvastatin [From Lipitor] AdvReac See Verified 04/22/17 16:05 Comments baclofen AdvReac Drowsy Verified 04/22/17 16:05 clavulanic acid AdvReac See Verified 06/02/17 19:38 [From Augmentin] Comments fluorouracil [From Efudex] AdvReac See Verified 04/22/17 16:05 Comments hydroxyzine AdvReac See Verified 06/02/17 19:38 Comments sulfamethoxazole AdvReac See Verified 04/22/17 16:05 [From Bactrim] Comments trimethoprim [From Bactrim] AdvReac See Verified 04/22/17 16:05 Comments Date of admission: 03/29/18 16:59 Primary care physician: PCP NONE Consults: 03/29/18 14:37 Consult to Nephrology [CONS] Routine Consulting Provider: Kidney Talia/KENNETH/ESTHER/RIVKA Reason for Consult: dialysis, fluid overload Call Completed: Yes 03/29/18 15:04 Consult to Gastroenterology [CONS] Routine Consulting Provider: Gastroenterology Talia Reason for Consult: gi bleeding Call Completed: Yes 03/30/18 08:15 Consult to Dialysis [CONS] ONCE 03/31/18 07:30 Consult to Dialysis [CONS] ONCE 04/01/18 07:45 Consult to Dialysis [CONS] ONCE 04/01/18 08:59 Consult to Physical Therapy [CONS] Routine Comment: Evaluate, develop and implement POC Reason for Consult: deconditioning Does patient have active BEDREST order?: No Is patient medically & hemodynamically stable?: Yes Patient assessed for mobility or mobilized this visit?: No - Constitutional Vitals: Temp Pulse Resp BP Pulse Ox 98.2 F 121 19 158/89 96 04/02/18 07:38 04/02/18 07:38 04/02/18 07:38 04/02/18 07:38 04/02/18 07:38 Exam: Gen - Awake, alert, oriented x 3, no acute distress HEENT - NCAT, PERRLA, EOMI, hearing grossly intact, oropharynx benign CV - irregularly irregular Resp - Normal WOB, CTAB, no W/R/R GI - Soft, NT/ND, no masses, normal bowel sounds, Skin - Warm, dry, no rashes/lesions/ulcers Psych - Normal mood and affect, no depression or anxiety - Patient Status Disposition: Hospice - Home - Discharge Instructions Follow Up With: [facility],PCP [Non-Partnered Physician] - (Please call and schedule a hospital follow up in 5-7 days from discharge. Thank you!)
[2018-04-02] MEDS: Furosemide 20 MG/2 ML VIAL IVP SCH (08:24)
[2018-04-02] MEDS: Finasteride 5 MG TABLET PO SCH (08:24)
[2018-04-02] MEDS: NIFEdipine XL (24 HR) 30 MG TAB.ER.24 PO SCH (08:24)
[2018-04-02] MEDS: Sucralfate 1 GM TABLET PO SCH (08:25)
[2018-04-02] MEDS: Renal Vitamin 1 CAP CAPSULE PO SCH (08:25)
[2018-04-02] MEDS: Diltiazem CD (24hr) 120 MG CAPSULE PO SCH (08:25)
[2018-04-02] MEDS: Gabapentin 100 MG CAPSULE PO SCH (08:26)
[2018-04-02] MEDS: Budesonide/Formoterol 160/4.5 1 PUFF INH IH SCH (09:59)
[2018-04-02 11:30] VITALS: BP 111/55
== END 2018-04-02 12:45 | disposition hospice, home (50) | DRG 377 ==
LOC: 2ANU
PROVIDERS: ADMIT Student in an Organized Health Care Education/Training Program; ATTEND Student in an Organized Health Care Education/Training Program